=== PATIENT | male | born 1960 | race Caucasian/White ===

== ENCOUNTER 2019-01-20 12:28 | Day surgery (SDC) | payer OTHER, MEDICAID, SELFPAY ==
--- NOTE | 2019-01-20 | PATH.2_ITS ---
[facility] Accession Number: [id number] . 01 Material submitted: . SIGMOID COLON POLYP AT 30CM X3 . 02 Diagnosis: Sigmoid Colon, Polyp at 30 cm x3, Biopsies: Multiple fragments of tubular adenoma and hyperplastic polyp. [facility]/01/21/2019 . 02 Electronically signed: . Suze Lerner MD, Pathologist NPI- [id number] . 01 Gross description: . Received one formalin-filled container labeled with the patient's name and labeled sigmoid colon polyp at 30 cm x2. The specimen consists of four 0.2-0.4 cm portions of tissue, entirely submitted in one cassette. ([id number]) /FRR . 02 Pathologist provided ICD-10: D12.5 . 02 CPT . 288098 Performed at: 01 [facility] [address] [id number] MD Jacek Teresa MD Phone: [phone] Performed at: 02 [facility] [address] [place] [id number] MD Suze Lerner MD Phone: [phone]
[2019-01-20 12:47] VITALS: BMI 35.4
[2019-01-20 12:52] VITALS: BP 150/97; PULSE 100; RESP 16; TEMP 36.5; O2SAT 100
[2019-01-20] MEDS: SODIUM CHLORIDE 0.9% 1,000 ML 200 ML IV (13:00)
--- NOTE | 2019-01-20 13:10 | SUR.PREOP ---
Assumed care of Jeremy Matson
--- NOTE | 2019-01-20 13:29 | PM.HP.1 ---
History of Present Illness Chief complaint: [id number] Colonoscopy Patient History Medical History Obstructive sleep apnea of adult (Chronic) Primary insomnia (Chronic 05/16/16) Surgical History History of colonoscopy with polypectomy (Resolved 08/05/09) History of umbilical hernia repair (Resolved 12/13/16) Family History Grandfather No problems noted. Social History marital status: unmarried,single number of children: 0 lives independently: Yes caregiver/support person: No pets and animals: Yes (16-month puppy) education level: high school occupational status: employed Smoking Status: Current every day smoker quit status: considering quitting alcohol intake: current substance use type: does not use Family & Social History Social History: lives independently Yes caregiver/support person No Tobacco & Substance use: Smoking Status Current every day smoker alcohol intake current Meds Home Medications Medication Instructions Recorded Confirmed Type betamethasone dipropionate 0.05 % 1 applictn TOP DAILY #60 ml 10/24/18 01/20/19 Rx lotion calcipotriene 0.005 % topical 1 applictn TOP DAILY #60 gram 10/24/18 01/20/19 Rx ointment sildenafil 100 mg tablet 100 mg PO ONCE #30 tab 10/24/18 01/20/19 Rx triamcinolone acetonide [Kenalog] 40 mg IM ONCE 01/20/19 History Allergies Allergy/AdvReac Type Severity Reaction Status Date / Time No Known Drug Allergies Allergy Verified 01/20/19 12:45 Review of Systems Review of Systems Patient denies unusual shortness of breath or chest pain GI is in HPI screening colonoscopies had a history of 3 polyps neurologic normal Exam Vital Signs (past 8 hours): - 01/20/19 12:52 Temperature 97.7 F Pulse Rate 100 H Respiratory Rate 16 Blood Pressure 150/97 H Pulse Oximetry 100 Oxygen Delivery Method Room Air Narrative Exam Narrative: Patient is alert and oriented in no distress lungs are clear with no rales or wheezes heart regular rhythm no murmur abdominal exam is soft and nontender no organomegaly no masses rectal will be done at time of colonoscopy Assessment & Plan Assessment & Plan narrative: Patient is here for screening colonoscopy as a history of having had 3 polyps removed some years ago he has no melena or hematochezia we will proceed with colonoscopy today he has no questions he understands the procedure very well
[2019-01-20] MEDS: MIDAZOLAM 5 MG/5 ML VIAL IV (13:46)
[2019-01-20] MEDS: fentaNYL 250 MCG/5 ML INJ IV (13:47)
--- NOTE | 2019-01-20 14:03 | PM.OP.1 ---
Operative Date/Time/Diagnoses Date of procedure: 01/20/19 Time of procedure: 14:03 Pre-op diagnosis: Screening colonoscopy Procedure & Clinicians Procedure: Colonoscopy to the cecum with biopsy of 3 small polyps in the sigmoid at 30 cm these were each removed with the cold forceps sent for histology patient also has sigmoid diverticulosis Same procedure as scheduled: Yes Surgeon: David Gutierrez Anesthesia Type: Sedation Operative Notes Blood products transfused: none Procedure in detail: Patient was properly identified during surgical pause flexible fiberoptic colonoscope inserted transanally to the cecum under conscious sedation with Versed and fentanyl patient had 3 small polyps approximately 5 mm in diameter in the sigmoid colon at 30 cm these were each removed and sent for histopathology patient is also noted to have sigmoid diverticulosis the remainder of the colon is normal. Procedure is well tolerated. Complications: none Condition: stable Disposition: PACU Plan for aftercare: obtain biopsy reports from doctor
[2019-01-20 14:05] VITALS: BP 128/80; PULSE 81; RESP 15; TEMP 36.6; O2SAT 96
[2019-01-20 14:25] VITALS: BP 128/86; PULSE 73; RESP 16; TEMP 37.1; O2SAT 98
== END 2019-01-20 14:33 ==
LOC: ENDO 12:29
PROVIDERS: Family Provider Family Medicine; PCP Student in an Organized Health Care Education/Training Program; Visit Provider Surgery
PROC: 0DJD8ZZ Inspection of Lower Intestinal Tract, Via Natural or Artificial Opening Endoscopic (ICD-10-PCS; CPT 45378; principal; 2019-01-20 14:00)
DX: Z86.010 Personal history of colon polyps (principal); D12.5 Benign neoplasm of sigmoid colon; K57.30 Diverticulosis of large intestine without perforation or abscess without bleeding; G47.33 Obstructive sleep apnea (adult) (pediatric); F17.210 Nicotine dependence, cigarettes, uncomplicated
CPT/HCPCS: 45380; 88305; J2250; J3010

== ENCOUNTER 2019-02-25 10:30 | Outpatient (RCR) | payer OTHER, MEDICAID, SELFPAY ==
--- NOTE | 2019-01-31 11:20 | PT.OIE ---
Current Diagnoses Stiffness of left knee, not elsewhere classified (01/31/19) Muscle weakness (generalized) (01/31/19) Other abnormalities of gait and mobility (01/31/19) Presence of left artificial knee joint (01/31/19) Past Medical History (Last Updated 10/22/18 @ 11:59 by Anna Munoz) Obstructive sleep apnea of adult (Chronic) Primary insomnia (Chronic 05/16/16) Past Surgical History (Last Updated 10/22/18 @ 12:02 by Anna Munoz) History of colonoscopy with polypectomy (Resolved 08/05/09) History of umbilical hernia repair (Resolved 12/13/16) Provider Visit Care Team Role Provider Type Damien Benton MD Primary Care Provider Physician Specialty: Internal Medicine Address: [address] [place] [address], [id number] Email: Charan Nichols MD Attending Provider Non-Staff Specialty: Orthopedics Address: [address] [place] [address], [address] Email: Physical Therapy Initial Evaluation PT-OP-A Visit Information Start: 01/31/19 12:21 Freq: Status: Active Protocol: Document 01/31/19 11:20 [facility] (Rec: 01/31/19 12:49 [facility] [email or web address]) Out-Patient Physical Therapy Visit Information Visit Information Visit Type Initial Evaluation Visit Start Time 11:20 Visit Stop Time 12:06 Total Visit Minutes 46 Visit Number 1 Number of PIER MASTER ASSISTANT Visits 0 Evaluation Information Evaluation Date 01/31/19 PT-OP-B Current Condition Start: 01/31/19 12:21 Freq: Status: Active Protocol: Document 01/31/19 11:20 [facility] (Rec: 01/31/19 12:49 [facility] [email or web address]) Current Condition History of Current Condition Onset Date 11/21/2018 Current Complaints L knee stiffness, mild pain, difficulty with walking History of Current Condition Pt is a 58 y/o male s/p partial L knee replacement by Dr. Nichols on 11/21/18. Pt states that he had PT @ [facility], but they no longer take his insurance, therefore he needed to find a new place to continue his rehab. Pt states he has not had any PT in over a month due to this issue. He is doing squats at home and some heel raises. His pain is worst with increased activity throughout the day, notes that it is very stiff if he sits for longer than 15 min and limps initially upon rising to walk. 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 He is doing heat at night occasionally but admits to not using cold. He saw Dr. Nichols in December, and stated that he told him he needs more PT. 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 Functional Limitations- Other unable to squat fully, can knee but increased pain in L knee Personal Factors Other Personal Factors That May Effect current smoker, hard of Therapy/Recovery hearing d/t job PT-OP-C Subjective Start: 01/31/19 12:21 Freq: Status: Active Protocol: Document 01/31/19 11:20 [facility] (Rec: 01/31/19 12:49 [facility] [email or web address]) OP-PT Subjective Patient Comments Patient Comments Pt notes that he still feels stiff after not having PT for 1 month. Patient Questionnaires Lower Extremity Functional Scale LEFS Score 48/80 (60%) LEFS Impairment 20 to 39% Impaired (Score 48- 62) OP-PT Pain Assessment Location L anterior knee Intensity 2 Scale Used Numeric (1 - 10) Pain Aggravating Factors Changing Position Walking Pain Alleviating Factors Heat Home Pain Medication Use Pain Medications Used No PT-OP-D Balance Start: 01/31/19 12:21 Freq: Status: Active Protocol: Document 01/31/19 11:20 [facility] (Rec: 01/31/19 12:49 [facility] [email or web address]) Balance Tests Single Limb Standing Single Limb- Right 12 sec Single Limb- Left 5 sec PT-OP-F Manual Assessment Start: 01/31/19 12:21 Freq: Status: Active Protocol: Document 01/31/19 11:20 [facility] (Rec: 01/31/19 12:49 [facility] [email or web address]) Manual Assessments Soft Tissue Assessment Soft Tissue Mobility Assessment mild scar tissue anterior L knee at and around incisional area; tension in L HS and quadriceps (moderate) Other Manual Assessments Other Manual Assessments Incision is pink, closed, with slight warmth; no signs or symptoms of infection PT-OP-G Mobility & Gait Start: 01/31/19 12:21 Freq: Status: Active Protocol: Document 01/31/19 11:20 [facility] (Rec: 01/31/19 12:49 [facility] [email or web address]) OP Gait Assessment Gait Deviations General Gait Pattern Antalgic Decreased Stride Length Wide Based Gait Comments Gait Comments LLE ER in standing and throughout gait with decreased push off on the L PT-OP-H Neuro Start: 01/31/19 12:21 Freq: Status: Active Protocol: Document 01/31/19 11:20 [facility] (Rec: 01/31/19 12:49 [facility] [email or web address]) Sensation Evaluation Comments Summary Comments pt admits to mild numbness/ sensation impairment anterior L knee around incisional area PT-OP-K Range of Motion Start: 01/31/19 12:21 Freq: Status: Active Protocol: Document 01/31/19 11:20 [facility] (Rec: 01/31/19 12:49 [facility] [email or web address]) Knee Goniometric Range of Motion Knee Measured in Degrees Right Knee ROM WFL Yes Patient Position Supine Flexion Active (degrees) 130 Hyper-Extension Active 2 Left Knee ROM WFL No Patient Position Supine Flexion Active (degrees) 115 Flexion Passive (degrees) 120 Extension Active (degrees) 2 Extension Passive (degrees) 0 Knee ROM Limitations Knee ROM Limitations Soft Tissue Tightness Pain Swelling PT-OP-M Strength Start: 01/31/19 12:21 Freq: Status: Active Protocol: Document 01/31/19 11:20 [facility] (Rec: 01/31/19 12:49 [facility] [email or web address]) Hip Strength Hip Manual Muscle Testing Left Flexion (L2) 4+ Good+ External Rotation 4 Good Internal Rotation 4+ Good+ Right Flexion (L2) 5 Normal External Rotation 5 Normal Internal Rotation 5 Normal Knee Strength Knee Manual Muscle Testing Left Flexion (S2) 4+ Good+ Extension (L3) 4 Good Right Flexion (S2) 5 Normal Extension (L3) 5 Normal Ankle/Foot Strength Ankle and Foot Manual Muscle Testing Left Dorsiflexion (L4) 5 Normal Plantarflexion (S1) 3+ Fair+ Inversion 5 Normal Eversion (S1) 5 Normal Comments 1 rep SL heel raise, then compensatory actions but no full range Right Dorsiflexion (L4) 5 Normal Plantarflexion (S1) 4 Good Inversion 5 Normal Eversion (S1) 5 Normal Comments 12 reps SL heel raise PT-OP-Q Treatments Start: 01/31/19 12:21 Freq: Status: Active Protocol: Document 01/31/19 11:20 [facility] (Rec: 01/31/19 12:49 [facility] [email or web address]) Gym Equipment Shuttle Recovery Unilateral Squats Details left Resistance 50 lbs Shuttle Recovery Platform Stable Reps/Time x10 Bilateral Squats Resistance 75 lbs Shuttle Recovery Platform Stable Reps/Time x20 Therapeutic Exercises Prone Exercises quad stretch Prone Exercise Name quad stretch with bed sheet Side left Reps/Minutes 2x30 sec hold Standing Exercises SL balance Side left Reps/Minutes 2x10 sec with UE support occasionally heel raises Side bilateral Reps/Minutes x15 Comments focus on increased weight shift to the L PT-OP-T Assessment and Plan Start: 01/31/19 12:21 Freq: Status: Active Protocol: Document 01/31/19 11:20 [facility] (Rec: 01/31/19 12:49 [facility] [email or web address]) Physical Therapy Assessment Rehab Potential Rehabilitation Potential Excellent Evaluation Complexity Number of Personal Factors/Comorbidities 1-2 Number of Body Systems Impaired 4 or More Clinical Presentation at Evaluation Stable Impairments Impairments Activity Tolerance Balance Functional Activities Gait Pain ROM Sensation Soft Tissue Mobility Strength Other Concerns Barriers to Rehabilitation prolonged absence from physical therapy (1 month) Goals Standing balance Impairment single leg balance on the L 5 seconds Short Term Goal (STG) Pt will improve SL balance to 10 seconds or better on the L. 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 LTG Duration 6 weeks LLE strength Impairment LLE weakness Skilled Nursing Goal (LTG) 5/5 with manual muscle testing of the LLE to improve stability and normalize gait prior to d/c. LTG Duration 6 weeks L knee ROM Impairment 2-115 degrees AROM L knee Short Term Goal (STG) 0-120 degrees AROM L knee. 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 LTG Duration 6 week Lower Extremity Functional Scale Impairment 48/80- 60% Short Term Goal (STG) pt will score 55/80 or greater with LEFS to demonstrate improvements with functional activities STG Duration 3 weeks Skilled Nursing Goal (LTG) pt will score 60/80 or greater with LEFS to demonstrate improvements with functional activities LTG Duration 6 weeks Assessment Summary Assessment Pt presents with L knee AROM of 2-115 degrees, mild scar tissue anterior incisional area and moderate tension in the knee musculature, along with mild swelling of the L knee. No signs of infection. Pt does demonstrate antalgic gait, worsened with initial rising from sitting position. He tolerated addition of prone quadriceps stretching with a towel around his ankle, which was added to his HEP as well as single limb standing balance. Pt has had at least 1 month off of physical therapy , and has not achieved normal ROM, strength, balance or gait due to LLE impairments, and is an excellent candidate to progress the above impairments to return to [employer] without restrictions. Physical Therapy Plan Frequency and Duration Frequency of Treatment 2x/Week Duration of Treatment 6 weeks Plan of Care Start Date 01/31/19 Plan of Care End Date 03/14/19 Therapeutic Interventions Therapeutic Interventions Aquatic Therapy Balance Training Gait Training Home Exercise Program Joint Mobilizations Manual Therapy Neuromuscular Re-education Patient/Caregiver Education Self-Care/Home Management Soft Tissue Mobilization Taping Therapeutic Activities Therapeutic Exercises Modalities Cold Pack/Ice Massage Electric Stimulation Hot Packs Ultrasound Next Visit Focus/Plan Next Visit Plan SL balance progression firm to foam, Shuttle Balance Board ( red if tolerable), heel raises to improve gastroc/soleus strength; progress ROM of L knee (flexion and extension), quad and HS strengthening
--- NOTE | 2019-02-04 14:05 | PT.OTN ---
Current Diagnoses Presence of left artificial knee joint (02/04/19) Physical Therapy Treatment Note PT-OP-A Visit Information Start: 01/31/19 12:21 Freq: Status: Active Protocol: Document 02/04/19 13:49 [facility] (Rec: 02/04/19 14:05 [facility] [email or web address]) Out-Patient Physical Therapy Visit Information Visit Information Visit Type Treatment Note Visit Start Time 12:15 Visit Stop Time 13:00 Total Visit Minutes 45 Visit Number 2 Number of TUYERE FITTER Visits 1 PT-OP-B Current Condition Start: 01/31/19 12:21 Freq: Status: Active Protocol: Document 01/31/19 11:20 [facility] (Rec: 01/31/19 12:49 [facility] [email or web address]) Current Condition History of Current Condition Onset Date 11/21/2018 Current Complaints L knee stiffness, mild pain, difficulty with walking History of Current Condition Pt is a 58 y/o male s/p partial L knee replacement by Dr. Nichols on 11/21/18. Pt states that he had PT @ [facility], but they no longer take his insurance, therefore he needed to find a new place to continue his rehab. Pt states he has not had any PT in over a month due to this issue. He is doing squats at home and some heel raises. His pain is worst with increased activity throughout the day, notes that it is very stiff if he sits for longer than 15 min and limps initially upon rising to walk. 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 He is doing heat at night occasionally but admits to not using cold. He saw Dr. Nichols in December, and stated that he told him he needs more PT. 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 Functional Limitations- Other unable to squat fully, can knee but increased pain in L knee Personal Factors Other Personal Factors That May Effect current smoker, hard of Therapy/Recovery hearing d/t job PT-OP-C Subjective Start: 01/31/19 12:21 Freq: Status: Active Protocol: Document 02/04/19 13:49 [facility] (Rec: 02/04/19 14:05 [facility] [email or web address]) OP-PT Subjective Patient Comments Patient Comments Pt doing calf raises, prone quad stretch and walking dogs at home. Knee feeling a little less stiff, very little c/o pain. PT-OP-D Balance Start: 01/31/19 12:21 Freq: Status: Active Protocol: Document 01/31/19 11:20 [facility] (Rec: 01/31/19 12:49 [facility] [email or web address]) Balance Tests Single Limb Standing Single Limb- Right 12 sec Single Limb- Left 5 sec PT-OP-F Manual Assessment Start: 01/31/19 12:21 Freq: Status: Active Protocol: Document 01/31/19 11:20 [facility] (Rec: 01/31/19 12:49 [facility] [email or web address]) Manual Assessments Soft Tissue Assessment Soft Tissue Mobility Assessment mild scar tissue anterior L knee at and around incisional area; tension in L HS and quadriceps (moderate) Other Manual Assessments Other Manual Assessments Incision is pink, closed, with slight warmth; no signs or symptoms of infection PT-OP-G Mobility & Gait Start: 01/31/19 12:21 Freq: Status: Active Protocol: Document 01/31/19 11:20 [facility] (Rec: 01/31/19 12:49 [facility] [email or web address]) OP Gait Assessment Gait Deviations General Gait Pattern Antalgic Decreased Stride Length Wide Based Gait Comments Gait Comments LLE ER in standing and throughout gait with decreased push off on the L PT-OP-H Neuro Start: 01/31/19 12:21 Freq: Status: Active Protocol: Document 01/31/19 11:20 [facility] (Rec: 01/31/19 12:49 [facility] [email or web address]) Sensation Evaluation Comments Summary Comments pt admits to mild numbness/ sensation impairment anterior L knee around incisional area PT-OP-K Range of Motion Start: 01/31/19 12:21 Freq: Status: Active Protocol: Document 01/31/19 11:20 [facility] (Rec: 01/31/19 12:49 [facility] [email or web address]) Knee Goniometric Range of Motion Knee Measured in Degrees Right Knee ROM WFL Yes Patient Position Supine Flexion Active (degrees) 130 Hyper-Extension Active 2 Left Knee ROM WFL No Patient Position Supine Flexion Active (degrees) 115 Flexion Passive (degrees) 120 Extension Active (degrees) 2 Extension Passive (degrees) 0 Knee ROM Limitations Knee ROM Limitations Soft Tissue Tightness Pain Swelling PT-OP-M Strength Start: 01/31/19 12:21 Freq: Status: Active Protocol: Document 01/31/19 11:20 [facility] (Rec: 01/31/19 12:49 [facility] [email or web address]) Hip Strength Hip Manual Muscle Testing Left Flexion (L2) 4+ Good+ External Rotation 4 Good Internal Rotation 4+ Good+ Right Flexion (L2) 5 Normal External Rotation 5 Normal Internal Rotation 5 Normal Knee Strength Knee Manual Muscle Testing Left Flexion (S2) 4+ Good+ Extension (L3) 4 Good Right Flexion (S2) 5 Normal Extension (L3) 5 Normal Ankle/Foot Strength Ankle and Foot Manual Muscle Testing Left Dorsiflexion (L4) 5 Normal Plantarflexion (S1) 3+ Fair+ Inversion 5 Normal Eversion (S1) 5 Normal Comments 1 rep SL heel raise, then compensatory actions but no full range Right Dorsiflexion (L4) 5 Normal Plantarflexion (S1) 4 Good Inversion 5 Normal Eversion (S1) 5 Normal Comments 12 reps SL heel raise PT-OP-Q Treatments Start: 01/31/19 12:21 Freq: Status: Active Protocol: Document 02/04/19 13:49 [facility] (Rec: 02/04/19 14:05 [facility] [email or web address]) Cardio Equipment Recumbent Bicycle Duration (Minutes) 5 Resistance 3 Gym Equipment Shuttle Recovery Unilateral Squats Details left and Right Resistance 50# Shuttle Recovery Platform Stable Reps/Time 15 each Bilateral Squats Resistance 100# Shuttle Recovery Platform Stable Reps/Time x20 Shuttle Balance balance activity Details Red setting Reps/Duration 5 min Comments NBOS, tandem stance, UE movements Therapeutic Exercises Prone Exercises quad stretch Prone Exercise Name quad stretch with bed sheet Side left Reps/Minutes 2x30 sec hold Sitting Exercises HS curls Side left Resistance 2# band Reps/Minutes 2 x 10 Standing Exercises Calf stretching Standing Exercise Name SEBASTIAN Side bilateral Reps/Minutes 30 x 2 SL balance Standing Exercise Name progressed to scott foam Side left Reps/Minutes 2x10 sec with UE support occasionally heel raises Side bilateral Reps/Minutes 20x Comments focus on increased weight shift to the L Manual Therapy Treatment Soft Tissue Mobilization L knee Body Location Incision scar mobs Mobilization Type Cross-Friction Myofascial Release Rolling Intensity/Depth Deep Body Position Supine Comments edema managment. Slight pain at medial joint line. PT-OP-T Assessment and Plan Start: 01/31/19 12:21 Freq: Status: Active Protocol: Document 02/04/19 13:49 [facility] (Rec: 02/04/19 14:05 [facility] [email or web address]) Physical Therapy Assessment Assessment Summary Assessment Pt tolerating thex progressions well with no c/o pain. Added SLB and HS curls to HEP, pt to progress to uneven surface with SLB as tolerated. Little to no pain complaints, knee flexion to 120 degrees after stretching and exercise. Physical Therapy Plan Next Visit Focus/Plan Next Note Type Treatment Note Next Visit Plan Progress LE strengthening, ROM and balance program as tolerated.
--- NOTE | 2019-02-07 15:08 | PT.OTN ---
Current Diagnoses Presence of left artificial knee joint (02/07/19) Physical Therapy Treatment Note PT-OP-A Visit Information Start: 01/31/19 12:21 Freq: Status: Active Protocol: Document 02/07/19 14:59 SA (Rec: 02/07/19 15:08 SA [email or web address]) Out-Patient Physical Therapy Visit Information Visit Information Visit Type Treatment Note Visit Start Time 13:00 Visit Stop Time 13:45 Total Visit Minutes 45 Visit Number 3 Number of GIFTS OFFICER Visits 2 PT-OP-B Current Condition Start: 01/31/19 12:21 Freq: Status: Active Protocol: Document 01/31/19 11:20 RCC (Rec: 01/31/19 12:49 RCC [email or web address]) Current Condition History of Current Condition Onset Date 11/21/2018 Current Complaints L knee stiffness, mild pain, difficulty with walking History of Current Condition Pt is a 58 y/o male s/p partial L knee replacement by Dr. Nichols on 11/21/18. Pt states that he had PT @ [facility], but they no longer take his insurance, therefore he needed to find a new place to continue his rehab. Pt states he has not had any PT in over a month due to this issue. He is doing squats at home and some heel raises. His pain is worst with increased activity throughout the day, notes that it is very stiff if he sits for longer than 15 min and limps initially upon rising to walk. 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 He is doing heat at night occasionally but admits to not using cold. He saw Dr. Nichols in December, and stated that he told him he needs more PT. Treatment Goals Patient/Caregiver Goals improve ROM, strength, normalize gait Prior Functional Status Baseline Function- Mobility Independent Baseline Function- Gait WNL Baseline Function- Other working as a commercial account manager, squatting and kneeling with L knee pain Current Functional Impairments (Reported) Functional Limitations- Mobility/Gait pt reports limping and feeling stiff. Functional Limitations- Other unable to squat fully, can knee but increased pain in L knee Personal Factors Other Personal Factors That May Effect current smoker, hard of Therapy/Recovery hearing d/t job PT-OP-C Subjective Start: 01/31/19 12:21 Freq: Status: Active Protocol: Document 02/07/19 14:59 SA (Rec: 02/07/19 15:08 SA [email or web address]) OP-PT Subjective Patient Comments Patient Comments Pt feeling pretty good today, not painful but continued stiffness mostly when getting up in morning and after prolonged sitting. PT-OP-D Balance Start: 01/31/19 12:21 Freq: Status: Active Protocol: Document 01/31/19 11:20 RCC (Rec: 01/31/19 12:49 RCC [email or web address]) Balance Tests Single Limb Standing Single Limb- Right 12 sec Single Limb- Left 5 sec PT-OP-F Manual Assessment Start: 01/31/19 12:21 Freq: Status: Active Protocol: Document 01/31/19 11:20 RCC (Rec: 01/31/19 12:49 RCC [email or web address]) Manual Assessments Soft Tissue Assessment Soft Tissue Mobility Assessment mild scar tissue anterior L knee at and around incisional area; tension in L HS and quadriceps (moderate) Other Manual Assessments Other Manual Assessments Incision is pink, closed, with slight warmth; no signs or symptoms of infection PT-OP-G Mobility & Gait Start: 01/31/19 12:21 Freq: Status: Active Protocol: Document 01/31/19 11:20 RCC (Rec: 01/31/19 12:49 RCC [email or web address]) OP Gait Assessment Gait Deviations General Gait Pattern Antalgic Decreased Stride Length Wide Based Gait Comments Gait Comments LLE ER in standing and throughout gait with decreased push off on the L PT-OP-H Neuro Start: 01/31/19 12:21 Freq: Status: Active Protocol: Document 01/31/19 11:20 RCC (Rec: 01/31/19 12:49 RCC [email or web address]) Sensation Evaluation Comments Summary Comments pt admits to mild numbness/ sensation impairment anterior L knee around incisional area PT-OP-K Range of Motion Start: 01/31/19 12:21 Freq: Status: Active Protocol: Document 01/31/19 11:20 RCC (Rec: 01/31/19 12:49 RCC [email or web address]) Knee Goniometric Range of Motion Knee Measured in Degrees Right Knee ROM WFL Yes Patient Position Supine Flexion Active (degrees) 130 Hyper-Extension Active 2 Left Knee ROM WFL No Patient Position Supine Flexion Active (degrees) 115 Flexion Passive (degrees) 120 Extension Active (degrees) 2 Extension Passive (degrees) 0 Knee ROM Limitations Knee ROM Limitations Soft Tissue Tightness Pain Swelling PT-OP-M Strength Start: 01/31/19 12:21 Freq: Status: Active Protocol: Document 01/31/19 11:20 RCC (Rec: 01/31/19 12:49 RCC [email or web address]) Hip Strength Hip Manual Muscle Testing Left Flexion (L2) 4+ Good+ External Rotation 4 Good Internal Rotation 4+ Good+ Right Flexion (L2) 5 Normal External Rotation 5 Normal Internal Rotation 5 Normal Knee Strength Knee Manual Muscle Testing Left Flexion (S2) 4+ Good+ Extension (L3) 4 Good Right Flexion (S2) 5 Normal Extension (L3) 5 Normal Ankle/Foot Strength Ankle and Foot Manual Muscle Testing Left Dorsiflexion (L4) 5 Normal Plantarflexion (S1) 3+ Fair+ Inversion 5 Normal Eversion (S1) 5 Normal Comments 1 rep SL heel raise, then compensatory actions but no full range Right Dorsiflexion (L4) 5 Normal Plantarflexion (S1) 4 Good Inversion 5 Normal Eversion (S1) 5 Normal Comments 12 reps SL heel raise PT-OP-Q Treatments Start: 01/31/19 12:21 Freq: Status: Active Protocol: Document 02/07/19 14:59 SA (Rec: 02/07/19 15:08 SA [email or web address]) Cardio Equipment Recumbent Elliptical (Biodex) Duration (Minutes) 7 Resistance 5 Gym Equipment Shuttle Balance balance activity Details Red setting Reps/Duration 5 min Comments NBOS, tandem stance, UE movements, A/P and lateral Therapeutic Exercises Supine Exercises TKEs Side left Resistance 2# Equipment Used towel roll Reps/Minutes 5 x 12 Prone Exercises quad stretch Prone Exercise Name manual Side left Reps/Minutes 2x30 sec hold Sitting Exercises HS curls Side left Resistance 2# band Reps/Minutes 2 x 10 Standing Exercises wall squats Side bilateral Reps/Minutes 12x Comments cues for technique Calf stretching Standing Exercise Name SEBASTIAN Side bilateral Reps/Minutes 30 x 2 SL balance Standing Exercise Name progressed to scott foam Side left Reps/Minutes 2x10 sec with UE support occasionally heel raises Side bilateral Reps/Minutes 20x Comments focus on increased weight shift to the L Manual Therapy Treatment Soft Tissue Mobilization L knee Body Location Incision scar mobs Mobilization Type Cross-Friction Myofascial Release Rolling Intensity/Depth Deep Comments edema managment. Slight pain at medial joint line. PT-OP-T Assessment and Plan Start: 01/31/19 12:21 Freq: Status: Active Protocol: Document 02/07/19 14:59 SA (Rec: 02/07/19 15:08 SA [email or web address]) Physical Therapy Assessment Assessment Summary Assessment Pt tolerating thex progressions well, doing HEP on most days. No increase in pain or sx. Tolerating longer walks with dogs. Physical Therapy Plan Next Visit Focus/Plan Next Note Type Treatment Note Next Visit Plan Progress LE strengthening, ROM and balance program as tolerated.
--- NOTE | 2019-02-11 14:17 | PT.OTN ---
Current Diagnoses Presence of left artificial knee joint (02/11/19) Physical Therapy Treatment Note PT-OP-A Visit Information Start: 01/31/19 12:21 Freq: Status: Active Protocol: Document 02/11/19 14:09 SA (Rec: 02/11/19 14:16 SA [email or web address]) Out-Patient Physical Therapy Visit Information Visit Information Visit Type Treatment Note Visit Start Time 13:00 Visit Stop Time 13:46 Total Visit Minutes 46 Visit Number 4 Number of FIELD REIMBURSEMENT MANAGER Visits 3 PT-OP-B Current Condition Start: 01/31/19 12:21 Freq: Status: Active Protocol: Document 01/31/19 11:20 RCC (Rec: 01/31/19 12:49 RCC [email or web address]) Current Condition History of Current Condition Onset Date 11/21/2018 Current Complaints L knee stiffness, mild pain, difficulty with walking History of Current Condition Pt is a 58 y/o male s/p partial L knee replacement by Dr. Nichols on 11/21/18. Pt states that he had PT @ [facility], but they no longer take his insurance, therefore he needed to find a new place to continue his rehab. Pt states he has not had any PT in over a month due to this issue. He is doing squats at home and some heel raises. His pain is worst with increased activity throughout the day, notes that it is very stiff if he sits for longer than 15 min and limps initially upon rising to walk. 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 He is doing heat at night occasionally but admits to not using cold. He saw Dr. Nichols in December, and stated that he told him he needs more PT. 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 Functional Limitations- Other unable to squat fully, can knee but increased pain in L knee Personal Factors Other Personal Factors That May Effect current smoker, hard of Therapy/Recovery hearing d/t job PT-OP-C Subjective Start: 01/31/19 12:21 Freq: Status: Active Protocol: Document 02/11/19 14:09 SA (Rec: 02/11/19 14:16 SA [email or web address]) OP-PT Subjective Patient Comments Patient Comments Pt reports no pain and gradual strength improvements. Pt somewhat inconsistent with HEP . PT-OP-D Balance Start: 01/31/19 12:21 Freq: Status: Active Protocol: Document 01/31/19 11:20 RCC (Rec: 01/31/19 12:49 RCC [email or web address]) Balance Tests Single Limb Standing Single Limb- Right 12 sec Single Limb- Left 5 sec PT-OP-F Manual Assessment Start: 01/31/19 12:21 Freq: Status: Active Protocol: Document 01/31/19 11:20 RCC (Rec: 01/31/19 12:49 RCC [email or web address]) Manual Assessments Soft Tissue Assessment Soft Tissue Mobility Assessment mild scar tissue anterior L knee at and around incisional area; tension in L HS and quadriceps (moderate) Other Manual Assessments Other Manual Assessments Incision is pink, closed, with slight warmth; no signs or symptoms of infection PT-OP-G Mobility & Gait Start: 01/31/19 12:21 Freq: Status: Active Protocol: Document 01/31/19 11:20 RCC (Rec: 01/31/19 12:49 RCC [email or web address]) OP Gait Assessment Gait Deviations General Gait Pattern Antalgic Decreased Stride Length Wide Based Gait Comments Gait Comments LLE ER in standing and throughout gait with decreased push off on the L PT-OP-H Neuro Start: 01/31/19 12:21 Freq: Status: Active Protocol: Document 01/31/19 11:20 RCC (Rec: 01/31/19 12:49 RCC [email or web address]) Sensation Evaluation Comments Summary Comments pt admits to mild numbness/ sensation impairment anterior L knee around incisional area PT-OP-K Range of Motion Start: 01/31/19 12:21 Freq: Status: Active Protocol: Document 01/31/19 11:20 RCC (Rec: 01/31/19 12:49 RCC [email or web address]) Knee Goniometric Range of Motion Knee Measured in Degrees Right Knee ROM WFL Yes Patient Position Supine Flexion Active (degrees) 130 Hyper-Extension Active 2 Left Knee ROM WFL No Patient Position Supine Flexion Active (degrees) 115 Flexion Passive (degrees) 120 Extension Active (degrees) 2 Extension Passive (degrees) 0 Knee ROM Limitations Knee ROM Limitations Soft Tissue Tightness Pain Swelling PT-OP-M Strength Start: 01/31/19 12:21 Freq: Status: Active Protocol: Document 01/31/19 11:20 RCC (Rec: 01/31/19 12:49 RCC [email or web address]) Hip Strength Hip Manual Muscle Testing Left Flexion (L2) 4+ Good+ External Rotation 4 Good Internal Rotation 4+ Good+ Right Flexion (L2) 5 Normal External Rotation 5 Normal Internal Rotation 5 Normal Knee Strength Knee Manual Muscle Testing Left Flexion (S2) 4+ Good+ Extension (L3) 4 Good Right Flexion (S2) 5 Normal Extension (L3) 5 Normal Ankle/Foot Strength Ankle and Foot Manual Muscle Testing Left Dorsiflexion (L4) 5 Normal Plantarflexion (S1) 3+ Fair+ Inversion 5 Normal Eversion (S1) 5 Normal Comments 1 rep SL heel raise, then compensatory actions but no full range Right Dorsiflexion (L4) 5 Normal Plantarflexion (S1) 4 Good Inversion 5 Normal Eversion (S1) 5 Normal Comments 12 reps SL heel raise PT-OP-Q Treatments Start: 01/31/19 12:21 Freq: Status: Active Protocol: Document 02/11/19 14:09 SA (Rec: 02/11/19 14:16 SA [email or web address]) Cardio Equipment Recumbent Stepper (Sci-Fit) Duration (Minutes) 7 Resistance 2.5 Gym Equipment Shuttle Recovery Unilateral Squats Details left and Right Resistance 50# Shuttle Recovery Platform Stable Reps/Time 2 x 10 Bilateral Squats Resistance 100# Shuttle Recovery Platform Stable Reps/Time 2 x 15 Shuttle Balance balance activity Details Red setting Reps/Duration 6 min Comments NBOS, tandem stance, UE movements, A/P and lateral, Ball rebounder toss Therapeutic Exercises Supine Exercises SLRs Side left Resistance 2# Reps/Minutes 12x TKEs Side left Resistance 3# Equipment Used towel roll Reps/Minutes 5 x 12 Prone Exercises quad stretch Prone Exercise Name manual Side left Reps/Minutes 3 x 30 Sidelying Exercises hip ABD Side left Reps/Minutes 15x Sitting Exercises HS curls Side left Resistance 2# band Reps/Minutes 2 x 10 Standing Exercises wall squats Side bilateral Reps/Minutes 12x Comments cues for technique SL balance Standing Exercise Name progressed to scott foam Side left Reps/Minutes 2x10 sec with UE support occasionally Manual Therapy Treatment Soft Tissue Mobilization L knee Body Location Incision scar mobs Mobilization Type Cross-Friction Myofascial Release Rolling Intensity/Depth Deep Comments edema managment. Slight pain at medial joint line. PT-OP-T Assessment and Plan Start: 01/31/19 12:21 Freq: Status: Active Protocol: Document 02/11/19 14:09 SA (Rec: 02/11/19 14:16 SA [email or web address]) Physical Therapy Assessment Assessment Summary Assessment L knee PROM 2-115 degrees. Pt tolerating exercise progressions well with very little pain during the day. Encouraged to walk his dogs rather than dog park for increased activity/walking for himself. Physical Therapy Plan Next Visit Focus/Plan Next Note Type Treatment Note Next Visit Plan Progress LE strengthening, ROM and balance program as tolerated. Follow up with increased walking/exercise outside of clinic.
--- NOTE | 2019-02-13 18:06 | PT.OTN ---
Current Diagnoses Presence of left artificial knee joint (02/13/19) Physical Therapy Treatment Note PT-OP-A Visit Information Start: 01/31/19 12:21 Freq: Status: Active Protocol: Document 02/13/19 16:45 HH (Rec: 02/13/19 18:05 HH [email or web address]) Out-Patient Physical Therapy Visit Information Visit Information Visit Type Treatment Note Visit Start Time 16:00 Visit Stop Time 16:45 Total Visit Minutes 45 Visit Number 5 Number of CRANK HAND Visits 0 PT-OP-B Current Condition Start: 01/31/19 12:21 Freq: Status: Active Protocol: Document 01/31/19 11:20 RCC (Rec: 01/31/19 12:49 RCC [email or web address]) Current Condition History of Current Condition Onset Date 11/21/2018 Current Complaints L knee stiffness, mild pain, difficulty with walking History of Current Condition Pt is a 58 y/o male s/p partial L knee replacement by Dr. Nichols on 11/21/18. Pt states that he had PT @ [facility], but they no longer take his insurance, therefore he needed to find a new place to continue his rehab. Pt states he has not had any PT in over a month due to this issue. He is doing squats at home and some heel raises. His pain is worst with increased activity throughout the day, notes that it is very stiff if he sits for longer than 15 min and limps initially upon rising to walk. 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 He is doing heat at night occasionally but admits to not using cold. He saw Dr. Nichols in December, and stated that he told him he needs more PT. 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 Functional Limitations- Other unable to squat fully, can knee but increased pain in L knee Personal Factors Other Personal Factors That May Effect current smoker, hard of Therapy/Recovery hearing d/t job PT-OP-C Subjective Start: 01/31/19 12:21 Freq: Status: Active Protocol: Document 02/13/19 16:45 HH (Rec: 02/13/19 18:05 HH [email or web address]) OP-PT Subjective Patient Comments Patient Comments I didnt do much of HEP and my knee is pretty sore after driving his car for hours yesterday because of using the clutch. PT-OP-D Balance Start: 01/31/19 12:21 Freq: Status: Active Protocol: Document 01/31/19 11:20 RCC (Rec: 01/31/19 12:49 RCC [email or web address]) Balance Tests Single Limb Standing Single Limb- Right 12 sec Single Limb- Left 5 sec PT-OP-F Manual Assessment Start: 01/31/19 12:21 Freq: Status: Active Protocol: Document 01/31/19 11:20 RCC (Rec: 01/31/19 12:49 RCC [email or web address]) Manual Assessments Soft Tissue Assessment Soft Tissue Mobility Assessment mild scar tissue anterior L knee at and around incisional area; tension in L HS and quadriceps (moderate) Other Manual Assessments Other Manual Assessments Incision is pink, closed, with slight warmth; no signs or symptoms of infection PT-OP-G Mobility & Gait Start: 01/31/19 12:21 Freq: Status: Active Protocol: Document 01/31/19 11:20 RCC (Rec: 01/31/19 12:49 RCC [email or web address]) OP Gait Assessment Gait Deviations General Gait Pattern Antalgic Decreased Stride Length Wide Based Gait Comments Gait Comments LLE ER in standing and throughout gait with decreased push off on the L PT-OP-H Neuro Start: 01/31/19 12:21 Freq: Status: Active Protocol: Document 01/31/19 11:20 RCC (Rec: 01/31/19 12:49 RCC [email or web address]) Sensation Evaluation Comments Summary Comments pt admits to mild numbness/ sensation impairment anterior L knee around incisional area PT-OP-K Range of Motion Start: 01/31/19 12:21 Freq: Status: Active Protocol: Document 01/31/19 11:20 RCC (Rec: 01/31/19 12:49 RCC [email or web address]) Knee Goniometric Range of Motion Knee Measured in Degrees Right Knee ROM WFL Yes Patient Position Supine Flexion Active (degrees) 130 Hyper-Extension Active 2 Left Knee ROM WFL No Patient Position Supine Flexion Active (degrees) 115 Flexion Passive (degrees) 120 Extension Active (degrees) 2 Extension Passive (degrees) 0 Knee ROM Limitations Knee ROM Limitations Soft Tissue Tightness Pain Swelling PT-OP-M Strength Start: 01/31/19 12:21 Freq: Status: Active Protocol: Document 01/31/19 11:20 RCC (Rec: 01/31/19 12:49 RCC [email or web address]) Hip Strength Hip Manual Muscle Testing Left Flexion (L2) 4+ Good+ External Rotation 4 Good Internal Rotation 4+ Good+ Right Flexion (L2) 5 Normal External Rotation 5 Normal Internal Rotation 5 Normal Knee Strength Knee Manual Muscle Testing Left Flexion (S2) 4+ Good+ Extension (L3) 4 Good Right Flexion (S2) 5 Normal Extension (L3) 5 Normal Ankle/Foot Strength Ankle and Foot Manual Muscle Testing Left Dorsiflexion (L4) 5 Normal Plantarflexion (S1) 3+ Fair+ Inversion 5 Normal Eversion (S1) 5 Normal Comments 1 rep SL heel raise, then compensatory actions but no full range Right Dorsiflexion (L4) 5 Normal Plantarflexion (S1) 4 Good Inversion 5 Normal Eversion (S1) 5 Normal Comments 12 reps SL heel raise PT-OP-Q Treatments Start: 01/31/19 12:21 Freq: Status: Active Protocol: Document 02/13/19 16:45 HH (Rec: 02/13/19 18:05 HH [email or web address]) Cardio Equipment Bicycle (Upright) Duration (Minutes) 6 Resistance 11 Therapeutic Exercises Supine Exercises TKEs Side left Equipment Used towel roll Reps/Minutes 5 secs hold x 10 Standing Exercises standing TKE Resistance level 6 Equipment Used green band Reps/Minutes 10 secs hold x 10 x 2 wall squats Side bilateral Reps/Minutes 10 x2 Comments with 3 inch box under R foot to facilitate L LE weight acceptance PT-OP-T Assessment and Plan Start: 01/31/19 12:21 Freq: Status: Active Protocol: Document 02/13/19 16:45 HH (Rec: 02/13/19 18:05 HH [email or web address]) Physical Therapy Assessment Assessment Summary Assessment Pt tanika tx well today with focus on terminal knee extension, increased weight acceptance during STS, resisted biking. Physical Therapy Plan Next Visit Focus/Plan Next Note Type Treatment Note Next Visit Plan Progress LE strengthening, ROM and balance program as tolerated. Follow up with increased walking/exercise outside of clinic.
--- NOTE | 2019-02-18 15:50 | PT.OTN ---
Current Diagnoses Presence of left artificial knee joint (02/18/19) Physical Therapy Treatment Note PT-OP-A Visit Information Start: 01/31/19 12:21 Freq: Status: Active Protocol: Document 02/18/19 15:40 SA (Rec: 02/18/19 15:50 SA [email or web address]) Out-Patient Physical Therapy Visit Information Visit Information Visit Type Treatment Note Visit Start Time 12:15 Visit Stop Time 13:00 Total Visit Minutes 45 Visit Number 6 Number of DEPUTY FI[employer]SHAL Visits 1 PT-OP-B Current Condition Start: 01/31/19 12:21 Freq: Status: Active Protocol: Document 01/31/19 11:20 RCC (Rec: 01/31/19 12:49 RCC [email or web address]) Current Condition History of Current Condition Onset Date 11/21/2018 Current Complaints L knee stiffness, mild pain, difficulty with walking History of Current Condition Pt is a 58 y/o male s/p partial L knee replacement by Dr. Nichols on 11/21/18. Pt states that he had PT @ [facility], but they no longer take his insurance, therefore he needed to find a new place to continue his rehab. Pt states he has not had any PT in over a month due to this issue. He is doing squats at home and some heel raises. His pain is worst with increased activity throughout the day, notes that it is very stiff if he sits for longer than 15 min and limps initially upon rising to walk. 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 He is doing heat at night occasionally but admits to not using cold. He saw Dr. Nichols in December, and stated that he told him he needs more PT. Treatment Goals Patient/Caregiver Goals improve ROM, strength, normalize gait Prior Functional Status Baseline Function- Mobility Independent Baseline Function- Gait WNL Baseline Function- Other working as a commercial construction superintendent, squatting and kneeling with L knee pain Current Functional Impairments (Reported) Functional Limitations- Mobility/Gait pt reports limping and feeling stiff. Functional Limitations- Other unable to squat fully, can knee but increased pain in L knee Personal Factors Other Personal Factors That May Effect current smoker, hard of Therapy/Recovery hearing d/t job PT-OP-C Subjective Start: 01/31/19 12:21 Freq: Status: Active Protocol: Document 02/18/19 15:40 SA (Rec: 02/18/19 15:50 SA [email or web address]) OP-PT Subjective Patient Comments Patient Comments Pt reports trying to walk his dogs more and increase activity level outside of clinic. Knee pain is decresing . PT-OP-D Balance Start: 01/31/19 12:21 Freq: Status: Active Protocol: Document 01/31/19 11:20 RCC (Rec: 01/31/19 12:49 RCC [email or web address]) Balance Tests Single Limb Standing Single Limb- Right 12 sec Single Limb- Left 5 sec PT-OP-F Manual Assessment Start: 01/31/19 12:21 Freq: Status: Active Protocol: Document 01/31/19 11:20 RCC (Rec: 01/31/19 12:49 RCC [email or web address]) Manual Assessments Soft Tissue Assessment Soft Tissue Mobility Assessment mild scar tissue anterior L knee at and around incisional area; tension in L HS and quadriceps (moderate) Other Manual Assessments Other Manual Assessments Incision is pink, closed, with slight warmth; no signs or symptoms of infection PT-OP-G Mobility & Gait Start: 01/31/19 12:21 Freq: Status: Active Protocol: Document 01/31/19 11:20 RCC (Rec: 01/31/19 12:49 RCC [email or web address]) OP Gait Assessment Gait Deviations General Gait Pattern Antalgic Decreased Stride Length Wide Based Gait Comments Gait Comments LLE ER in standing and throughout gait with decreased push off on the L PT-OP-H Neuro Start: 01/31/19 12:21 Freq: Status: Active Protocol: Document 01/31/19 11:20 RCC (Rec: 01/31/19 12:49 RCC [email or web address]) Sensation Evaluation Comments Summary Comments pt admits to mild numbness/ sensation impairment anterior L knee around incisional area PT-OP-K Range of Motion Start: 01/31/19 12:21 Freq: Status: Active Protocol: Document 01/31/19 11:20 RCC (Rec: 01/31/19 12:49 RCC [email or web address]) Knee Goniometric Range of Motion Knee Measured in Degrees Right Knee ROM WFL Yes Patient Position Supine Flexion Active (degrees) 130 Hyper-Extension Active 2 Left Knee ROM WFL No Patient Position Supine Flexion Active (degrees) 115 Flexion Passive (degrees) 120 Extension Active (degrees) 2 Extension Passive (degrees) 0 Knee ROM Limitations Knee ROM Limitations Soft Tissue Tightness Pain Swelling PT-OP-M Strength Start: 01/31/19 12:21 Freq: Status: Active Protocol: Document 01/31/19 11:20 RCC (Rec: 01/31/19 12:49 RCC [email or web address]) Hip Strength Hip Manual Muscle Testing Left Flexion (L2) 4+ Good+ External Rotation 4 Good Internal Rotation 4+ Good+ Right Flexion (L2) 5 Normal External Rotation 5 Normal Internal Rotation 5 Normal Knee Strength Knee Manual Muscle Testing Left Flexion (S2) 4+ Good+ Extension (L3) 4 Good Right Flexion (S2) 5 Normal Extension (L3) 5 Normal Ankle/Foot Strength Ankle and Foot Manual Muscle Testing Left Dorsiflexion (L4) 5 Normal Plantarflexion (S1) 3+ Fair+ Inversion 5 Normal Eversion (S1) 5 Normal Comments 1 rep SL heel raise, then compensatory actions but no full range Right Dorsiflexion (L4) 5 Normal Plantarflexion (S1) 4 Good Inversion 5 Normal Eversion (S1) 5 Normal Comments 12 reps SL heel raise PT-OP-Q Treatments Start: 01/31/19 12:21 Freq: Status: Active Protocol: Document 02/18/19 15:40 SA (Rec: 02/18/19 15:50 SA [email or web address]) Cardio Equipment Bicycle (Upright) Duration (Minutes) 6 Resistance 11 Gym Equipment Shuttle Recovery Unilateral Squats Details left and Right Resistance 50# Shuttle Recovery Platform Stable Reps/Time 2 x 10 Bilateral Squats Resistance 100# Shuttle Recovery Platform Stable Reps/Time 2 x 15 Shuttle Balance balance activity Details Red setting Reps/Duration 6 min Comments NBOS, tandem stance, UE movements, A/P and lateral, Ball rebounder toss Therapeutic Exercises Supine Exercises SLRs Side left Resistance 2# Reps/Minutes 2 x 10 TKEs Side left Equipment Used towel roll Reps/Minutes 5 secs hold x 10 Prone Exercises quad stretch Prone Exercise Name manual Side left Reps/Minutes 3 x 30 Sidelying Exercises hip ABD Side left Equipment Used 2# Reps/Minutes 15x Sitting Exercises HS curls Side left Resistance 2# band Reps/Minutes 2 x 10 Standing Exercises standing TKE Resistance level 6 Equipment Used green band Reps/Minutes 10 secs hold x 10 x 2 wall squats Resistance at bar Reps/Minutes 10 x2 Comments with 3 inch box under R foot to facilitate L LE weight acceptance SL balance Side left Reps/Minutes 2x10 sec with UE support occasionally Comments disc Manual Therapy Treatment Soft Tissue Mobilization L knee Body Location Incision scar mobs Mobilization Type Cross-Friction Myofascial Release Rolling Intensity/Depth Deep PT-OP-T Assessment and Plan Start: 01/31/19 12:21 Freq: Status: Active Protocol: Document 02/18/19 15:40 SA (Rec: 02/18/19 15:50 SA [email or web address]) Physical Therapy Assessment Assessment Summary Assessment Pt tolerating knee strengthening and ROM progressions well. Some continued knee pain but decreasing intensity. Physical Therapy Plan Next Visit Focus/Plan Next Note Type Treatment Note Next Visit Plan Progress LE strengthening, ROM and balance program as tolerated. Follow up with increased walking/exercise outside of clinic.
--- NOTE | 2019-02-20 17:57 | PT.OTN ---
Current Diagnoses Presence of left artificial knee joint (02/20/19) Physical Therapy Treatment Note PT-OP-A Visit Information Start: 01/31/19 12:21 Freq: Status: Active Protocol: Document 02/20/19 16:45 HH (Rec: 02/20/19 17:57 HH [email or web address]) Out-Patient Physical Therapy Visit Information Visit Information Visit Type Treatment Note Visit Start Time 16:45 Visit Stop Time 17:30 Total Visit Minutes 45 Visit Number 7 Number of PHARM SPEC Visits 0 PT-OP-B Current Condition Start: 01/31/19 12:21 Freq: Status: Active Protocol: Document 01/31/19 11:20 RCC (Rec: 01/31/19 12:49 RCC [email or web address]) Current Condition History of Current Condition Onset Date 11/21/2018 Current Complaints L knee stiffness, mild pain, difficulty with walking History of Current Condition Pt is a 58 y/o male s/p partial L knee replacement by Dr. Nichols on 11/21/18. Pt states that he had PT @ [facility], but they no longer take his insurance, therefore he needed to find a new place to continue his rehab. Pt states he has not had any PT in over a month due to this issue. He is doing squats at home and some heel raises. His pain is worst with increased activity throughout the day, notes that it is very stiff if he sits for longer than 15 min and limps initially upon rising to walk. 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 He is doing heat at night occasionally but admits to not using cold. He saw Dr. Nichols in December, and stated that he told him he needs more PT. 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 Functional Limitations- Other unable to squat fully, can knee but increased pain in L knee Personal Factors Other Personal Factors That May Effect current smoker, hard of Therapy/Recovery hearing d/t job PT-OP-C Subjective Start: 01/31/19 12:21 Freq: Status: Active Protocol: Document 02/20/19 16:45 HH (Rec: 02/20/19 17:57 HH [email or web address]) OP-PT Subjective Patient Comments Patient Comments Pt denies any knee pain but weakness during squat. PT-OP-D Balance Start: 01/31/19 12:21 Freq: Status: Active Protocol: Document 01/31/19 11:20 RCC (Rec: 01/31/19 12:49 RCC [email or web address]) Balance Tests Single Limb Standing Single Limb- Right 12 sec Single Limb- Left 5 sec PT-OP-F Manual Assessment Start: 01/31/19 12:21 Freq: Status: Active Protocol: Document 01/31/19 11:20 RCC (Rec: 01/31/19 12:49 RCC [email or web address]) Manual Assessments Soft Tissue Assessment Soft Tissue Mobility Assessment mild scar tissue anterior L knee at and around incisional area; tension in L HS and quadriceps (moderate) Other Manual Assessments Other Manual Assessments Incision is pink, closed, with slight warmth; no signs or symptoms of infection PT-OP-G Mobility & Gait Start: 01/31/19 12:21 Freq: Status: Active Protocol: Document 01/31/19 11:20 RCC (Rec: 01/31/19 12:49 RCC [email or web address]) OP Gait Assessment Gait Deviations General Gait Pattern Antalgic Decreased Stride Length Wide Based Gait Comments Gait Comments LLE ER in standing and throughout gait with decreased push off on the L PT-OP-H Neuro Start: 01/31/19 12:21 Freq: Status: Active Protocol: Document 01/31/19 11:20 RCC (Rec: 01/31/19 12:49 RCC [email or web address]) Sensation Evaluation Comments Summary Comments pt admits to mild numbness/ sensation impairment anterior L knee around incisional area PT-OP-K Range of Motion Start: 01/31/19 12:21 Freq: Status: Active Protocol: Document 01/31/19 11:20 RCC (Rec: 01/31/19 12:49 RCC [email or web address]) Knee Goniometric Range of Motion Knee Measured in Degrees Right Knee ROM WFL Yes Patient Position Supine Flexion Active (degrees) 130 Hyper-Extension Active 2 Left Knee ROM WFL No Patient Position Supine Flexion Active (degrees) 115 Flexion Passive (degrees) 120 Extension Active (degrees) 2 Extension Passive (degrees) 0 Knee ROM Limitations Knee ROM Limitations Soft Tissue Tightness Pain Swelling PT-OP-M Strength Start: 01/31/19 12:21 Freq: Status: Active Protocol: Document 01/31/19 11:20 RCC (Rec: 01/31/19 12:49 RCC [email or web address]) Hip Strength Hip Manual Muscle Testing Left Flexion (L2) 4+ Good+ External Rotation 4 Good Internal Rotation 4+ Good+ Right Flexion (L2) 5 Normal External Rotation 5 Normal Internal Rotation 5 Normal Knee Strength Knee Manual Muscle Testing Left Flexion (S2) 4+ Good+ Extension (L3) 4 Good Right Flexion (S2) 5 Normal Extension (L3) 5 Normal Ankle/Foot Strength Ankle and Foot Manual Muscle Testing Left Dorsiflexion (L4) 5 Normal Plantarflexion (S1) 3+ Fair+ Inversion 5 Normal Eversion (S1) 5 Normal Comments 1 rep SL heel raise, then compensatory actions but no full range Right Dorsiflexion (L4) 5 Normal Plantarflexion (S1) 4 Good Inversion 5 Normal Eversion (S1) 5 Normal Comments 12 reps SL heel raise PT-OP-Q Treatments Start: 01/31/19 12:21 Freq: Status: Active Protocol: Document 02/20/19 16:45 HH (Rec: 02/20/19 17:57 HH [email or web address]) Therapeutic Exercises Supine Exercises TKEs Side left Equipment Used towel roll Reps/Minutes 5 secs hold x 10 Standing Exercises monster walk Resistance green band on knees Reps/Minutes 100 feet Comments cues for neutral foot and knees standing TKE Resistance level 6 Equipment Used green band Reps/Minutes 10 secs hold x 10 x 2 wall squats Resistance at bar Reps/Minutes 8 x 3 Comments with 3 inch box under R foot to facilitate L LE weight acceptance SL balance Side left Reps/Minutes 2x10 sec with UE support occasionally Comments disc Gait Training Gait Activity slow walk Level of Assistance supervision Surface level Distance/Duration 100 ft Treatment Focus single leg stance Comments high knee walk with heel toe pattern Manual Therapy Treatment Soft Tissue Mobilization L knee Body Location Incision scar mobs Mobilization Type Cross-Friction Myofascial Release Rolling Intensity/Depth Deep PT-OP-T Assessment and Plan Start: 01/31/19 12:21 Freq: Status: Active Protocol: Document 02/20/19 16:45 HH (Rec: 02/20/19 17:57 HH [email or web address]) Physical Therapy Assessment Assessment Summary Assessment Pt tanika tx well without knee pain. Pt still presents mile external rotated L tibial during amb / resting posture. today focused on squat, monster walk with band on knees, knee and foot alignments during gait training. Pt will be d/c in 2 visits. Physical Therapy Plan Next Visit Focus/Plan Next Note Type Treatment Note Next Visit Plan provide pt printed HEP for D/C knee and foot alignment ( external rotated tibial) Progress LE strengthening, ROM and balance program as tolerated. Follow up with increased walking/exercise outside of clinic.
--- NOTE | 2019-02-25 13:32 | PT.OTN ---
Current Diagnoses Presence of left artificial knee joint (02/25/19) Physical Therapy Treatment Note PT-OP-A Visit Information Start: 01/31/19 12:21 Freq: Status: Active Protocol: Document 02/25/19 10:30 HH (Rec: 02/25/19 13:32 HH [email or web address]) Out-Patient Physical Therapy Visit Information Visit Information Visit Type Treatment Note Visit Note 8/9 insurance covered visit today. Pt agreeable to be D/C from PT. Visit Start Time 10:30 Visit Stop Time 11:15 Total Visit Minutes 45 Visit Number 8 Number of DYEING MACHINE BACK TENDER Visits 0 PT-OP-B Current Condition Start: 01/31/19 12:21 Freq: Status: Active Protocol: Document 01/31/19 11:20 RCC (Rec: 01/31/19 12:49 RCC [email or web address]) Current Condition History of Current Condition Onset Date 11/21/2018 Current Complaints L knee stiffness, mild pain, difficulty with walking History of Current Condition Pt is a 58 y/o male s/p partial L knee replacement by Dr. Nichols on 11/21/18. Pt states that he had PT @ [facility], but they no longer take his insurance, therefore he needed to find a new place to continue his rehab. Pt states he has not had any PT in over a month due to this issue. He is doing squats at home and some heel raises. His pain is worst with increased activity throughout the day, notes that it is very stiff if he sits for longer than 15 min and limps initially upon rising to walk. 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 He is doing heat at night occasionally but admits to not using cold. He saw Dr. Nichols in December, and stated that he told him he needs more PT. 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 Functional Limitations- Other unable to squat fully, can knee but increased pain in L knee Personal Factors Other Personal Factors That May Effect current smoker, hard of Therapy/Recovery hearing d/t job PT-OP-C Subjective Start: 01/31/19 12:21 Freq: Status: Active Protocol: Document 02/25/19 10:30 HH (Rec: 02/25/19 13:32 HH [email or web address]) OP-PT Subjective Patient Comments Patient Comments soreness at my L medial knee but has been trying to focus on keeping my L foot neutral. PT-OP-D Balance Start: 01/31/19 12:21 Freq: Status: Active Protocol: Document 01/31/19 11:20 RCC (Rec: 01/31/19 12:49 RCC [email or web address]) Balance Tests Single Limb Standing Single Limb- Right 12 sec Single Limb- Left 5 sec PT-OP-F Manual Assessment Start: 01/31/19 12:21 Freq: Status: Active Protocol: Document 01/31/19 11:20 RCC (Rec: 01/31/19 12:49 RCC [email or web address]) Manual Assessments Soft Tissue Assessment Soft Tissue Mobility Assessment mild scar tissue anterior L knee at and around incisional area; tension in L HS and quadriceps (moderate) Other Manual Assessments Other Manual Assessments Incision is pink, closed, with slight warmth; no signs or symptoms of infection PT-OP-G Mobility & Gait Start: 01/31/19 12:21 Freq: Status: Active Protocol: Document 01/31/19 11:20 RCC (Rec: 01/31/19 12:49 RCC [email or web address]) OP Gait Assessment Gait Deviations General Gait Pattern Antalgic Decreased Stride Length Wide Based Gait Comments Gait Comments LLE ER in standing and throughout gait with decreased push off on the L PT-OP-H Neuro Start: 01/31/19 12:21 Freq: Status: Active Protocol: Document 01/31/19 11:20 RCC (Rec: 01/31/19 12:49 RCC [email or web address]) Sensation Evaluation Comments Summary Comments pt admits to mild numbness/ sensation impairment anterior L knee around incisional area PT-OP-K Range of Motion Start: 01/31/19 12:21 Freq: Status: Active Protocol: Document 01/31/19 11:20 RCC (Rec: 01/31/19 12:49 RCC [email or web address]) Knee Goniometric Range of Motion Knee Measured in Degrees Right Knee ROM WFL Yes Patient Position Supine Flexion Active (degrees) 130 Hyper-Extension Active 2 Left Knee ROM WFL No Patient Position Supine Flexion Active (degrees) 115 Flexion Passive (degrees) 120 Extension Active (degrees) 2 Extension Passive (degrees) 0 Knee ROM Limitations Knee ROM Limitations Soft Tissue Tightness Pain Swelling PT-OP-M Strength Start: 01/31/19 12:21 Freq: Status: Active Protocol: Document 01/31/19 11:20 RCC (Rec: 01/31/19 12:49 RCC [email or web address]) Hip Strength Hip Manual Muscle Testing Left Flexion (L2) 4+ Good+ External Rotation 4 Good Internal Rotation 4+ Good+ Right Flexion (L2) 5 Normal External Rotation 5 Normal Internal Rotation 5 Normal Knee Strength Knee Manual Muscle Testing Left Flexion (S2) 4+ Good+ Extension (L3) 4 Good Right Flexion (S2) 5 Normal Extension (L3) 5 Normal Ankle/Foot Strength Ankle and Foot Manual Muscle Testing Left Dorsiflexion (L4) 5 Normal Plantarflexion (S1) 3+ Fair+ Inversion 5 Normal Eversion (S1) 5 Normal Comments 1 rep SL heel raise, then compensatory actions but no full range Right Dorsiflexion (L4) 5 Normal Plantarflexion (S1) 4 Good Inversion 5 Normal Eversion (S1) 5 Normal Comments 12 reps SL heel raise PT-OP-Q Treatments Start: 01/31/19 12:21 Freq: Status: Active Protocol: Document 02/25/19 10:30 HH (Rec: 02/25/19 13:32 [email or web address]) Therapeutic Exercises Standing Exercises monster walk Resistance green band on knees Reps/Minutes 100 feet Comments cues for neutral foot and knees standing TKE Resistance level 6 Equipment Used green band SL balance Side left Reps/Minutes 2x15 sec with UE support occasionally Gait Training Gait Activity banded walk Level of Assistance supervision Surface level Distance/Duration 100 ft Treatment Focus hip stability Comments green band at knees and amb with athletic position. slow walk Level of Assistance supervision Surface level Distance/Duration 100 ft Treatment Focus single leg stance Comments high knee walk with heel toe pattern PT-OP-T Assessment and Plan Start: 01/31/19 12:21 Freq: Status: Active Protocol: Document 02/25/19 10:30 HH (Rec: 02/25/19 13:32 [email or web address]) Physical Therapy Assessment Goals Standing balance Travel Director Goal (LTG) goal met: Pt able to maintain SL balance >20 s on R/L without support LLE strength Fci Goal (LTG) LLE at 4+/5 on 02/25/19 L knee ROM Fci Goal (LTG) 0- 125 degrees knee AROM without pain on 02/25/19 Progress Towards Goals Progress Towards Goals Progressing Toward Goals Assessment Summary Assessment Pt did well for reassessment today. Improved knee ROM, single leg balance and strength noted. Pt agreed to d /c from PT due to his limited insurance coverage. today's session focused on postural education on gait mechanics to increase L hip ER with neutral foot alignment, which prevent excessive stress on medial compartment of his L knee. Physical Therapy Plan Discharge Physical Therapy Discharge Reasons Patient Request Discharge Comments Pt did well for reassessment today. Improved knee ROM, single leg balance and strength noted. Pt agreed to d /c from PT due to his limited insurance coverage. today's session focused on postural education on gait mechanics to increase L hip ER with neutral foot alignment, which prevent excessive stress on medial compartment of his L knee.
== END 2019-02-25 16:39 | disposition home or self-care (01) ==
LOC: PHYS 10:30
PROVIDERS: PCP Student in an Organized Health Care Education/Training Program; Visit Provider Orthopaedic Surgery
DX: Z96.652 Presence of left artificial knee joint (principal)
CPT/HCPCS: 97110; 97116; 97140; 97161

== ENCOUNTER 2019-03-03 17:51 | Emergency (ER) | payer OTHER, MEDICAID, SELFPAY ==
[2019-03-03 18:00] VITALS: BP 179/100; PULSE 75; RESP 20; TEMP 36.7; O2SAT 100
--- NOTE | 2019-03-03 19:30 | ED.RECABL ---
HPI - Recheck/Abnormal Lab/Rx <Iveth Jean PA-C - Last Filed: 03/03/19 22:07> General Chief Complaint: Recheck/Abnormal Lab/Rx Stated Complaint: elevated blood pressure Time Seen by Provider: 03/03/19 18:55 Source: patient Mode of arrival: ambulatory Limitations: no limitations History of Present Illness HPI narrative: This 58-year-old male is sent to ED by his primary care clinic due to HTN. He states that he went to donate blood a couple of weeks ago and blood pressure reading there was 194 systolic (twice). He has not checked any blood pressure readings when relaxed or since then. He states that he called his primary care clinic today to schedule an appointment and when he this evening, he mentioned that he has had some intermittent headaches for the last few months though not enough to keep him from work or activity, and they told him to come to the ED right away ?because you are going to have a stroke?, so he came here due to this. He states that he is feeling like his usual self today. He has not had any acute vision change, thinks his vision has gradually worsened (wears contacts). He states that he has never had chest pain or dyspnea with this. No palpitations. No nausea, vomiting or abdominal pain. He denies any new calf pain or swelling. He has never had any focal weakness, difficulty swallowing or talking. He states that he thought he might need to start on blood pressure medicine before seen at the clinic but they are planning to see him this week. Related Data Home Medications Medication Instructions Recorded Confirmed triamcinolone acetonide [Kenalog] 40 mg IM ONCE 01/20/19 Previous Rx's Medication Instructions Recorded betamethasone dipropionate 0.05 % 1 applictn TOP DAILY #60 ml 10/24/18 lotion calcipotriene 0.005 % topical 1 applictn TOP DAILY #60 gram 10/24/18 ointment sildenafil 100 mg tablet 100 mg PO ONCE #30 tab 10/24/18 Allergies Allergy/AdvReac Type Severity Reaction Status Date / Time No Known Drug Allergies Allergy Verified 01/20/19 12:45 Review of Systems <Iveth Jean PA-C - Last Filed: 03/03/19 22:07> Review of Systems ROS Unobtainable: All systems reviewed & are unremarkable except as noted in HPI and below PFSH <Iveth Jean PA-C - Last Filed: 03/03/19 22:07> Medical History (Updated 03/03/19 @ 21:23 by Iveth Jean PA-C) Obstructive sleep apnea of adult (Chronic) Primary insomnia (Chronic 05/16/16) Surgical History (Updated 03/03/19 @ 19:50 by Iveth Jean PA-C) Status post total knee replacement, left (Chronic) History of colonoscopy with polypectomy (Resolved 08/05/09) History of umbilical hernia repair (Resolved 12/13/16) Family History Grandfather No problems noted. Social History marital status: unmarried,single number of children: 0 lives independently: Yes caregiver/support person: No pets and animals: Yes (16-month puppy) education level: high school occupational status: employed Smoking Status: Never smoker quit status: considering quitting alcohol intake: current substance use type: does not use Social History marital status: unmarried,single number of children: 0 lives independently: Yes caregiver/support person: No pets and animals: Yes (16-month puppy) education level: high school occupational status: employed Smoking Status: Never smoker quit status: considering quitting alcohol intake: current substance use type: does not use Exam <Iveth Jean PA-C - Last Filed: 03/03/19 22:07> Narrative Exam Narrative: GENERAL APPEARANCE: Patient sitting comfortably, appears well HEENT: PERRL, EOMI, normal oropharynx, no sinus TTP NECK: Supple, no JVD or masses LUNGS: Clear to auscultation bilaterally. HEART: Rate and rhythm regular without murmur, normal S1 and S2, no S3 or S4. ABDOMEN: Soft, NT, ND, + BS x 4 quadrants NEUROLOGIC: Alert and oriented, normal speech, gait and coordination. EXTREMITIES: No edema or calf tenderness Initial Vital Signs Initial Vital Signs: Vital Signs Temperature 98.1 F 03/03/19 18:00 Pulse Rate 75 03/03/19 18:00 Respiratory Rate 20 03/03/19 18:00 Blood Pressure 179/100 H 03/03/19 18:00 Pulse Oximetry 100 03/03/19 18:00 <Dean Braxton DO - Last Filed: 03/04/19 06:24> Initial Vital Signs Initial Vital Signs: Vital Signs Temperature 98.1 F 03/03/19 18:00 Pulse Rate 75 03/03/19 18:00 Respiratory Rate 20 03/03/19 18:00 Blood Pressure 179/100 H 03/03/19 18:00 Pulse Oximetry 100 03/03/19 18:00 Course <Iveth Jean PA-C - Last Filed: 03/03/19 22:07> Additional Information: No acute findings on workup today, patient is feeling at baseline, has had intermittent headaches the last few months especially upon awakening, but no clear relationship to blood pressure. He does not know what he is recent baseline is however blood pressure is significantly improved here when he is relaxed and this is taken with an appropriate sized cuff. Advised follow-up with PCP office this week and he is already planning that. He does not appear to need any urgent blood pressure treatment at this point. Did advise also follow-up on chronic changes on CT with his PCP and he is agreeable. Orders Ordered: ED Orders 03/03/19 19:46 CT head/brain wo con Stat EKG-12 Lead Stat 03/03/19 20:22 Complete Blood Count AUTO DIFF Stat Comprehensive Metabolic Panel Stat Vital Signs - 8 hr 03/03/19 18:00 03/03/19 19:52 Temperature 98.1 F Pulse Rate 75 68 Respiratory Rate 20 19 Blood Pressure 179/100 H Blood Pressure [Right Arm] 155/83 H Pulse Oximetry 100 95 <Dean Braxton DO - Last Filed: 03/04/19 06:24> Orders Ordered: ED Orders 03/03/19 19:46 CT head/brain wo con Stat EKG-12 Lead Stat 03/03/19 20:22 Complete Blood Count AUTO DIFF Stat Comprehensive Metabolic Panel Stat Vital Signs - 8 hr 03/03/19 18:00 03/03/19 19:52 Temperature 98.1 F Pulse Rate 75 68 Respiratory Rate 20 19 Blood Pressure 179/100 H Blood Pressure [Right Arm] 155/83 H Pulse Oximetry 100 95 MDM - Recheck/Abnormal Lab/Rx <Iveth Jean PA-C - Last Filed: 03/03/19 22:07> Lab Data Attestation: I reviewed the patient's lab results. Result diagrams: 03/03/19 20:22 03/03/19 20:22 Lab Results 03/03/19 03/03/19 Range/Units 20:22 20:22 WBC 8.1 (4.5-11.0) X10^3/uL RBC 5.17 (4.5-5.9) X10^6/uL Hgb 15.1 (13.5-17.5) g/dL Hct 44.0 (41-53) % MCV 85.0 (80-100) fL MCH 29.2 (26-34) PG MCHC 34.3 (30-36) % RDW 14.1 (11.6-14.8) % Plt Count 226 (150-400) X10^3/uL Neut % (Auto) 55.5 (50-75) % Lymph % (Auto) 29.3 (25-40) % Leon % (Auto) 9.8 (3-14) % Eos % (Auto) 4.4 H (2-4) % Baso % (Auto) 1.0 (0-2) % Neut # (Auto) 4500 (0969-2038) /uL Lymph # (Auto) 2400 (4563-4513) /uL Leon # (Auto) 800 (0-900) /uL Eos # (Auto) 400 (0-450) /uL Baso # (Auto) 100 (0-100) /uL Sodium 140 (137-145) mmol/L Potassium 3.7 (3.4-5.1) mmol/L Chloride 106 (98-107) mmol/L Carbon Dioxide 27 (22-32) mmol/L BUN 12 (9-20) mg/dL Creatinine 0.70 (0.66-1.25) mg/dL Estimated GFR > 60.0 (>60) mL/min BUN/Creatinine Ratio 17.1 (6-22) Glucose 105 (80-110) mg/dL Calcium 9.1 (8.4-10.2) mg/dL Total Bilirubin 0.4 (0.2-1.3) mg/dL AST 30 (17-59) IU/L ALT 59 (21-72) IU/L Alkaline Phosphatase 52 (38-126) U/L Total Protein 7.0 (6.3-8.2) g/dL Albumin 4.2 (3.5-5.0) g/dL Globulin 2.8 (1.7-4.1) g/dL Albumin/Globulin Ratio 1.5 (1.0-2.8) Imaging Data CT scan - head: Radiologist's impression: [address] [address] [address] Scan Report Signed Patient: Jeremy Stewart LMR#: [id number] : 9Acct:[id number] Age/Sex: 58 / MDate of Service: 03/03/19 Loc: ED Accession Number: [id number] Procedure: CT head/brain wo con Ordering Provider: Ivteh Jean P.A-C PROCEDURE: CT HEAD/BRAIN WO CON INDICATIONS: HTN, RICHARD TECHNIQUE: Noncontrast 4.5 mm thick angled axial sections acquired from the foramen magnum to the vertex, with coronal and sagittal reformats. For radiation dose reduction, the following was used: automated exposure control, adjustment of mA and/or kV according to patient size. COMPARISON: None. FINDINGS: Image quality: Excellent. CSF spaces: Basal cisterns are patent. No extra-axial fluid collections. Ventricles are normal in size and shape. Brain: No midline shift. No intracranial masses or hemorrhage. There is minimal left anterior frontal periventricular hypodensity, and there are mild to moderate bilateral deep white matter hypodensities posterior to the posterior horns of the lateral ventricles. Skull and face: Calvarium and visualized facial bones are intact, without suspicious lesions. Sinuses: Visualized sinuses and mastoids are clear. IMPRESSION: 1. No evidence of acute stroke, hemorrhage, or mass. 2. Minimal left frontal periventricular deep white matter hypodensity and mild to moderate bilateral posterior periventricular hypodensities. These findings are nonspecific. They may potentially represent small vessel ischemic change. Mild early PRES syndrome (posterior reversible encephalopathy syndrome) is not excluded. Brain MRI may be helpful. Dictated by: Layton Craig M.D. on 03/03/2019 at 20:03 Approved by: Layton Craig M.D. on 03/03/2019 at 20:14 ECG Data Attestation: I personally reviewed and interpreted this ECG as follows: (Normal sinus rhythm with rate 65, no ectopy or ST changes, left axis deviation) Prior ECG tracings: not available for review <Dean Braxton DO - Last Filed: 03/04/19 06:24> Lab Data Lab Results 03/03/19 03/03/19 Range/Units 20:22 20:22 WBC 8.1 (4.5-11.0) X10^3/uL RBC 5.17 (4.5-5.9) X10^6/uL Hgb 15.1 (13.5-17.5) g/dL Hct 44.0 (41-53) % MCV 85.0 (80-100) fL MCH 29.2 (26-34) PG MCHC 34.3 (30-36) % RDW 14.1 (11.6-14.8) % Plt Count 226 (150-400) X10^3/uL Neut % (Auto) 55.5 (50-75) % Lymph % (Auto) 29.3 (25-40) % Leon % (Auto) 9.8 (3-14) % Eos % (Auto) 4.4 H (2-4) % Baso % (Auto) 1.0 (0-2) % Neut # (Auto) 4500 (0645-2481) /uL Lymph # (Auto) 2400 (8090-0374) /uL Leon # (Auto) 800 (0-900) /uL Eos # (Auto) 400 (0-450) /uL Baso # (Auto) 100 (0-100) /uL Sodium 140 (137-145) mmol/L Potassium 3.7 (3.4-5.1) mmol/L Chloride 106 (98-107) mmol/L Carbon Dioxide 27 (22-32) mmol/L BUN 12 (9-20) mg/dL Creatinine 0.70 (0.66-1.25) mg/dL Estimated GFR > 60.0 (>60) mL/min BUN/Creatinine Ratio 17.1 (6-22) Glucose 105 (80-110) mg/dL Calcium 9.1 (8.4-10.2) mg/dL Total Bilirubin 0.4 (0.2-1.3) mg/dL AST 30 (17-59) IU/L ALT 59 (21-72) IU/L Alkaline Phosphatase 52 (38-126) U/L Total Protein 7.0 (6.3-8.2) g/dL Albumin 4.2 (3.5-5.0) g/dL Globulin 2.8 (1.7-4.1) g/dL Albumin/Globulin Ratio 1.5 (1.0-2.8) Discharge Plan Departure Patient Disposition: Home Clinical Impression: Persistent headaches HTN (hypertension) Qualifiers: Hypertension type: essential hypertension Qualified Code(s): I10 - Essential (primary) hypertension Discharge Date/Time: 03/03/19 21:29 Interventions: ED Discharge Assessment Last Done: 03/03/19 21:29 Instructions: DI for High Blood Pressure, How to Monitor Your Blood Pressure at Home Activity Restrictions/Additional Instructions: Please try taking Tylenol for your headaches as needed to see if this is helpful. It is not clear that these are related to your blood pressure, which is much better here on recheck this evening (155/83). It is likely that you may need some blood pressure medicine since you have had elevated readings. Please follow-up with your PCP office this week to recheck this and discuss which medication may be best for you. Weight loss is likely to help as well since you have noticed a correlation with increased blood pressure and weight gain. remember that your blood pressure should be checked when you are seated and relax with your feet flat on the floor for 10 or 15 minutes. This should be checked on a bare arm and for you it should be checked with a large cuff to avoid falsely elevated readings. Please return if you have any acutely worsening headache, or new symptoms such as chest pain or breathing difficulties. Prescriptions: No Action calcipotriene 0.005 % ointment 1 applictn TOP DAILY Qty: 60 RF: 1 betamethasone dipropionate 0.05 % lotion 1 applictn TOP DAILY Qty: 60 RF: 1 sildenafil 100 mg tablet 100 mg PO ONCE Qty: 30 RF: 5 triamcinolone acetonide [Kenalog] 40 mg/mL suspension 40 mg IM ONCE RF: 0 Referrals: Damien Benton MD [Primary Care Provider] - <Dean Braxton DO - Last Filed: 03/04/19 06:24> Cosign ED Attending Cosignature Attestation: I was immediately available in the department for consultation. Documentation has been reviewed. I agree with assessment and plan.
--- NOTE | 2019-03-03 19:46 | DI.CT.S_ITS ---
PROCEDURE: CT HEAD/BRAIN WO CON INDICATIONS: HTN, RICHARD TECHNIQUE: Noncontrast 4.5 mm thick angled axial sections acquired from the foramen magnum to the vertex, with coronal and sagittal reformats. For radiation dose reduction, the following was used: automated exposure control, adjustment of mA and/or kV according to patient size. COMPARISON: None. FINDINGS: Image quality: Excellent. CSF spaces: Basal cisterns are patent. No extra-axial fluid collections. Ventricles are normal in size and shape. Brain: No midline shift. No intracranial masses or hemorrhage. There is minimal left anterior frontal periventricular hypodensity, and there are mild to moderate bilateral deep white matter hypodensities posterior to the posterior horns of the lateral ventricles. Skull and face: Calvarium and visualized facial bones are intact, without suspicious lesions. Sinuses: Visualized sinuses and mastoids are clear. IMPRESSION: 1. No evidence of acute stroke, hemorrhage, or mass. 2. Minimal left frontal periventricular deep white matter hypodensity and mild to moderate bilateral posterior periventricular hypodensities. These findings are nonspecific. They may potentially represent small vessel ischemic change. Mild early PRES syndrome (posterior reversible encephalopathy syndrome) is not excluded. Brain MRI may be helpful. Dictated by: Layton Craig M.D. on 03/03/2019 at 20:03 Approved by: Layton Craig M.D. on 03/03/2019 at 20:14
[2019-03-03 19:52] VITALS: BP 155/83; PULSE 68; RESP 19; O2SAT 95
--- NOTE | 2019-03-03 19:52 | ED_ITS ---
HPI - Recheck/Abnormal Lab/Rx <Iveth Jean PA-C - Last Filed: 03/03/19 22:07> General Chief Complaint: Recheck/Abnormal Lab/Rx Stated Complaint: elevated blood pressure Time Seen by Provider: 03/03/19 18:55 Source: patient Mode of arrival: ambulatory Limitations: no limitations History of Present Illness HPI narrative: This 58-year-old male is sent to ED by his primary care clinic due to HTN. He states that he went to donate blood a couple of weeks ago and blood pressure reading there was 194 systolic (twice). He has not checked any blood pressure readings when relaxed or since then. He states that he called his primary care clinic today to schedule an appointment and when he this evening, he mentioned that he has had some intermittent headaches for the last few months though not enough to keep him from work or activity, and they told him to come to the ED right away ?because you are going to have a stroke?, so he came here due to this. He states that he is feeling like his usual self today. He has not had any acute vision change, thinks his vision has gradually worsened (wears contacts). He states that he has never had chest pain or dyspnea with this. No palpitations. No nausea, vomiting or abdominal pain. He denies any new calf pain or swelling. He has never had any focal weakness, difficulty swallowing or talking. He states that he thought he might need to start on blood pressure medicine before seen at the clinic but they are planning to see him this week. Related Data Home Medications Medication Instructions Recorded Confirmed triamcinolone acetonide [Kenalog] 40 mg IM ONCE 01/20/19 Previous Rx's Medication Instructions Recorded betamethasone dipropionate 0.05 % 1 applictn TOP DAILY #60 ml 10/24/18 lotion calcipotriene 0.005 % topical 1 applictn TOP DAILY #60 gram 10/24/18 ointment sildenafil 100 mg tablet 100 mg PO ONCE #30 tab 10/24/18 Allergies Allergy/AdvReac Type Severity Reaction Status Date / Time No Known Drug Allergies Allergy Verified 01/20/19 12:45 Review of Systems <Iveth Jean PA-C - Last Filed: 03/03/19 22:07> Review of Systems ROS Unobtainable: All systems reviewed & are unremarkable except as noted in HPI and below PFSH <Iveth Jean PA-C - Last Filed: 03/03/19 22:07> Medical History (Updated 03/03/19 @ 21:23 by Iveth Jean PA-C) Obstructive sleep apnea of adult (Chronic) Primary insomnia (Chronic 05/16/16) Surgical History (Updated 03/03/19 @ 19:50 by Iveth Jean PA-C) Status post total knee replacement, left (Chronic) History of colonoscopy with polypectomy (Resolved 08/05/09) History of umbilical hernia repair (Resolved 12/13/16) Family History Grandfather No problems noted. Social History marital status: unmarried,single number of children: 0 lives independently: Yes caregiver/support person: No pets and animals: Yes (16-month puppy) education level: high school occupational status: employed Smoking Status: Never smoker quit status: considering quitting alcohol intake: current substance use type: does not use Social History marital status: unmarried,single number of children: 0 lives independently: Yes caregiver/support person: No pets and animals: Yes (16-month puppy) education level: high school occupational status: employed Smoking Status: Never smoker quit status: considering quitting alcohol intake: current substance use type: does not use Exam <Iveth Jean PA-C - Last Filed: 03/03/19 22:07> Narrative Exam Narrative: GENERAL APPEARANCE: Patient sitting comfortably, appears well HEENT: PERRL, EOMI, normal oropharynx, no sinus TTP NECK: Supple, no JVD or masses LUNGS: Clear to auscultation bilaterally. HEART: Rate and rhythm regular without murmur, normal S1 and S2, no S3 or S4. ABDOMEN: Soft, NT, ND, + BS x 4 quadrants NEUROLOGIC: Alert and oriented, normal speech, gait and coordination. EXTREMITIES: No edema or calf tenderness Initial Vital Signs Initial Vital Signs: Vital Signs Temperature 98.1 F 03/03/19 18:00 Pulse Rate 75 03/03/19 18:00 Respiratory Rate 20 03/03/19 18:00 Blood Pressure 179/100 H 03/03/19 18:00 Pulse Oximetry 100 03/03/19 18:00 <Dean Braxton DO - Last Filed: 03/04/19 06:24> Initial Vital Signs Initial Vital Signs: Vital Signs Temperature 98.1 F 03/03/19 18:00 Pulse Rate 75 03/03/19 18:00 Respiratory Rate 20 03/03/19 18:00 Blood Pressure 179/100 H 03/03/19 18:00 Pulse Oximetry 100 03/03/19 18:00 Course <Iveth Jean PA-C - Last Filed: 03/03/19 22:07> Additional Information: No acute findings on workup today, patient is feeling at baseline, has had intermittent headaches the last few months especially upon awakening, but no clear relationship to blood pressure. He does not know what he is recent baseline is however blood pressure is significantly improved here when he is relaxed and this is taken with an appropriate sized cuff. Advised f ollow-up with PCP office this week and he is already planning that. He does not appear to need any urgent blood pressure treatment at this point. Did advise also follow-up on chronic changes on CT with his PCP and he is agreeable. Orders Ordered: ED Orders 03/03/19 19:46 CT head/brain wo con Stat EKG-12 Lead Stat 03/03/19 20:22 Complete Blood Count AUTO DIFF Stat Comprehensive Metabolic Panel Stat Vital Signs - 8 hr 03/03/19 18:00 03/03/19 19:52 Temperature 98.1 F Pulse Rate 75 68 Respiratory Rate 20 19 Blood Pressure 179/100 H Blood Pressure [Right Arm] 155/83 H Pulse Oximetry 100 95 <DO Kodak Jaffe Last Filed: 03/04/19 06:24> Orders Ordered: ED Orders 03/03/19 19:46 CT head/brain wo con Stat EKG-12 Lead Stat 03/03/19 20:22 Complete Blood Count AUTO DIFF Stat Comprehensive Metabolic Panel Stat Vital Signs - 8 hr 03/03/19 18:00 03/03/19 19:52 Temperature 98.1 F Pulse Rate 75 68 Respiratory Rate 20 19 Blood Pressure 179/100 H Blood Pressure [Right Arm] 155/83 H Pulse Oximetry 100 95 MDM - Recheck/Abnormal Lab/Rx <Iveth Jean PA-C - Last Filed: 03/03/19 22:07> Lab Data Attestation: I reviewed the patient's lab results. Result diagrams: 03/03/19 20:22 03/03/19 20:22 Lab Results 03/03/19 03/03/19 Range/Units 20:22 20:22 WBC 8.1 (4.5-11.0) X10^3/uL RBC 5.17 (4.5-5.9) X10^6/uL Hgb 15.1 (13.5-17.5) g/dL Hct 44.0 (41-53) % MCV 85.0 (80-100) fL MCH 29.2 (26-34) PG MCHC 34.3 (30-36) % RDW 14.1 (11.6-14.8) % Plt Count 226 (150-400) X10^3/uL Neut % (Auto) 55.5 (50-75) % Lymph % (Auto) 29.3 (25-40) % Kane % (Auto) 9.8 (3-14) % Eos % (Auto) 4.4 H (2-4) % Baso % (Auto) 1.0 (0-2) % Neut # (Auto) 4500 (4916-7748) /uL Lymph # (Auto) 2400 (7984-5408) /uL Kane # (Auto) 800 (0-900) /uL Eos # (Auto) 400 (0-450) /uL Baso # (Auto) 100 (0-100) /uL Sodium 140 (137-145) mmol/L Potassium 3.7 (3.4-5.1) mmol/L Chloride 106 (98-107) mmol/L Carbon Dioxide 27 (22-32) mmol/L BUN 12 (9-20) mg/dL Creatinine 0.70 (0.66-1.25) mg/dL Estimated GFR > 60.0 (>60) mL/min BUN/Creatinine Ratio 17.1 (6-22) Glucose 105 (80-110) mg/dL Calcium 9.1 (8.4-10.2) mg/dL Total Bilirubin 0.4 (0.2-1.3) mg/dL AST 30 (17-59) IU/L ALT 59 (21-72) IU/L Alkaline Phosphatase 52 (38-126) U/L Total Protein 7.0 (6.3-8.2) g/dL Albumin 4.2 (3.5-5.0) g/dL Globulin 2.8 (1.7-4.1) g/dL Albumin/Globulin Ratio 1.5 (1.0-2.8) Imaging Data CT scan - head: Radiologist's impression: [address] [address] [address] Scan Report Signed Patient: Jeremy Stewart LMR#: [id number] : 9Acct:[id number] Age/Sex: 58 / MDate of Service: 03/03/19 Loc: ED Accession Number: [id number] Procedure: CT head/brain wo con Ordering Provider: Iveth Jean P.A-C PROCEDURE: CT HEAD/BRAIN WO CON INDICATIONS: HTN, RICHARD TECHNIQUE: Noncontrast 4.5 mm thick angled axial sections acquired from the foramen magnum to the vertex, with coronal and sagittal reformats. For radiation dose reduction, the following was used: automated exposure control, adjustment of mA and/or kV according to patient size. COMPARISON: None. FINDINGS: Image quality: Excellent. CSF spaces: Basal cisterns are patent. No extra-axial fluid collections. Ventricles are normal in size and shape. Brain: No midline shift. No intracranial masses or hemorrhage. There is minimal left anterior frontal periventricular hypodensity, and there are mild to moderate bilateral deep white matter hypodensities posterior to the posterior horns of the lateral ventricles. Skull and face: Calvarium and visualized facial bones are intact, without suspicious lesions. Sinuses: Visualized sinuses and mastoids are clear. IMPRESSION: 1. No evidence of acute stroke, hemorrhage, or mass. 2. Minimal left frontal periventricular deep white matter hypodensity and mild to moderate bilateral posterior periventricular hypodensities. These findings are nonspecific. They may potentially represent small vessel is chemic change. Mild early PRES syndrome (posterior reversible encephalopathy syndrome) is not excluded. Brain MRI may be helpful. Dictated by: Layton Craig M.D. on 03/03/2019 at 20:03 Approved by: Layton Craig M.D. on 03/03/2019 at 20:14 ECG Data Attestation: I personally reviewed and interpreted this ECG as follows: (Normal sinus rhythm with rate 65, no ectopy or ST changes, left axis deviation) Prior ECG tracings: not available for review <Dean Braxton DO - Last Filed: 03/04/19 06:24> Lab Data Lab Results 03/03/19 03/03/19 Range/Units 20:22 20:22 WBC 8.1 (4.5-11.0) X10^3/uL RBC 5.17 (4.5-5.9) X10^6/uL Hgb 15.1 (13.5-17.5) g/dL Hct 44.0 (41-53) % MCV 85.0 (80-100) fL MCH 29.2 (26-34) PG MCHC 34.3 (30-36) % RDW 14.1 (11.6-14.8) % Plt Count 226 (150-400) X10^3/uL Neut % (Auto) 55.5 (50-75) % Lymph % (Auto) 29.3 (25-40) % Kane % (Auto) 9.8 (3-14) % Eos % (Auto) 4.4 H (2-4) % Baso % (Auto) 1.0 (0-2) % Neut # (Auto) 4500 (4774-6098) /uL Lymph # (Auto) 2400 (3483-3757) /uL Kane # (Auto) 800 (0-900) /uL Eos # (Auto) 400 (0-450) /uL Baso # (Auto) 100 (0-100) /uL Sodium 140 (137-145) mmol/L Potassium 3.7 (3.4-5.1) mmol/L Chloride 106 (98-107) mmol/L Carbon Dioxide 27 (22-32) mmol/L BUN 12 (9-20) mg/dL Creatinine 0.70 (0.66-1.25) mg/dL Estimated GFR > 60.0 (>60) mL/min BUN/Creatinine Ratio 17.1 (6-22) Glucose 105 (80-110) mg/dL Calcium 9.1 (8.4-10.2) mg/dL Total Bilirubin 0.4 (0.2-1.3) mg/dL AST 30 (17-59) IU/L ALT 59 (21-72) IU/L Alkaline Phosphatase 52 (38-126) U/L Total Protein 7.0 (6.3-8.2) g/dL Albumin 4.2 (3.5-5.0) g/dL Globulin 2.8 (1.7-4.1) g/dL Albumin/Globulin Ratio 1.5 (1.0-2.8) Discharge Plan Departure Patient Disposition: Home Clinical Impression: Persistent headaches HTN (hypertension) Qualifiers: Hypertension type: essential hypertension Qualified Code(s): I10 - Essential (primary) hypertension Discharge Date/Time: 03/03/19 21:29 Interventions: ED Discharge Assessment Last Done: 03/03/19 21:29 Instructions: DI for High Blood Pressure, How to Monitor Your Blood Pressure at Home Activity Restrictions/Additional Instructions: Please try taking Tylenol for your headaches as needed to see if this is helpful. It is not clear that these are related to your blood pressure, which is much better here on recheck this evening (155/83). It is likely that you may need some blood pressure medicine since you have had elevated readings. Please follow-up with your PCP office this week to recheck this and discuss which medication may be best for you. Weight loss is likely to help as well since you have noticed a correlation with increased blood pressure and weight gain. remember that your blood pressure should be checked when you are seated and relax with your feet flat on the floor for 10 or 15 minutes. This should be checked on a bare arm and for you it should be checked with a large cuff to avoid falsely elevated readings. Please return if you have any acutely worsening headache, or new symptoms such as chest pain or breathing difficulties. Prescriptions: No Action calcipotriene 0.005 % ointment 1 applictn TOP DAILY Qty: 60 RF: 1 betamethasone dipropionate 0.05 % lotion 1 applictn TOP DAILY Qty: 60 RF: 1 sildenafil 100 mg tablet 100 mg PO ONCE Qty: 30 RF: 5 triamcinolone acetonide [Kenalog] 40 mg/mL suspension 40 mg IM ONCE RF: 0 Referrals: Damien Benton MD [Primary Care Provider] - <Dean Braxton DO - Last Filed: 03/04/19 06:24> Cosign ED Attending Cosignature Attestation: I was immediately available in the department for consultation. Documentation has been reviewed. I agree with assessment and plan.
[2019-03-03 20:29] LABS: Add Manual Diff / Slide Review NO; Basophils Absolute Auto 100 /uL (0-100); Eosinophils Absolute Auto 400 /uL (0-450); Eosinophils Percent Auto 4.4 % (2-4); Hemoglobin 15.1 g/dL (13.5-17.5); Lymphocytes Absolute Auto 2400 /uL (1100-4500); Lymphocytes Percent Auto 29.3 % (25-40); Mean Corpuscular HGB Conc 34.3 % (30-36); Mean Corpuscular Hemoglobin 29.2 PG (26-34); Monocytes Absolute Auto 800 /uL (0-900); Monocytes Percent Auto 9.8 % (3-14); Neutrophils Absolute Auto 4500 /uL (1500-7000); Neutrophils Percent Auto 55.5 % (50-75); Platelet Count 226 X10^3/uL (150-400); Red Blood Cell Count 5.17 X10^6/uL (4.5-5.9); Red Cell Distribution Width 14.1 % (11.6-14.8); White Blood Cell Count 8.1 X10^3/uL (4.5-11.0)
[2019-03-03 20:45] LABS: Alanine Aminotransferase 59 IU/L (21-72); Albumin 4.2 g/dL (3.5-5.0); Albumin Globulin Ratio 1.5 (1.0-2.8); Alkaline Phosphatase 52 U/L (38-126); Aspartate Aminotransferase 30 IU/L (17-59); BUN Creatinine Ratio 17.1 (6-22); Bilirubin Total 0.4 mg/dL (0.2-1.3); Blood Urea Nitrogen 12 mg/dL (9-20); Calcium 9.1 mg/dL (8.4-10.2); Carbon Dioxide 27 mmol/L (22-32); Chloride 106 mmol/L (98-107); Estimated Glomerular Filt Rate > 60.0 mL/min (>60); Globulin 2.8 g/dL (1.7-4.1); Glucose 105 mg/dL (80-110); HEMOLYSIS < 15 (0-50); Potassium 3.7 mmol/L (3.4-5.1); Sodium 140 mmol/L (137-145)
== END 2019-03-03 21:29 | disposition home or self-care (01) ==
PROVIDERS: Emergency Provider Internal Medicine; PCP Student in an Organized Health Care Education/Training Program
DX: I10 Essential (primary) hypertension (principal); R51 Headache
CPT/HCPCS: 70450; 80053; 85025; 93005; 93010; 99282; 99285

== ENCOUNTER → 2019-06-27 11:15 | Outpatient (CLI) | payer OTHER, MEDICAID, SELFPAY ==
--- NOTE | 2019-06-27 11:18 | DI.RAD.S_ITS ---
PROCEDURE: XR HAND LT MIN 3V INDICATIONS: 2nd PIP joint mass TECHNIQUE: 3 views of the hand(s) acquired. COMPARISON: None. FINDINGS: Bones: Chronic appearing fracture of the distal tuft of the index finger. No discrete osseous lesion seen at the index finger PIP joint. Soft tissues: Punctate densities project along the palmar aspect of the index finger PIP joint, potentially small foreign bodies or debris on the skin. Please correlate clinically. IMPRESSION: No discrete osseous mass. As clinically warranted, further characterization of soft tissues could be performed with contrast-enhanced MRI to assess palpable mass. Dictated by: Kwame Garcia M.D. on 06/27/2019 at 14:03 Approved by: Kwame Garcia M.D. on 06/27/2019 at 14:05
== END ==
PROVIDERS: PCP Student in an Organized Health Care Education/Training Program; Visit Provider Student in an Organized Health Care Education/Training Program
DX: M79.641 Pain in right hand (principal)
CPT/HCPCS: 73130

== ENCOUNTER → 2021-06-07 09:30 | Outpatient (CLI) | payer MEDICARE, SELFPAY ==
[2021-06-07 10:24] LABS: Add Manual Diff / Slide Review NO; Basophils Absolute Auto 0 /uL (0-100); Basophils Percent Auto 0.5 % (0-2); Eosinophils Absolute Auto 300 /uL (0-450); Hematocrit 45.7 % (41-53); Hemoglobin 15.5 g/dL (13.5-17.5); Lymphocytes Absolute Auto 2300 /uL (1100-4500); Lymphocytes Percent Auto 30.2 % (25-40); Mean Corpuscular HGB Conc 33.9 % (30-36); Mean Corpuscular Hemoglobin 29.3 PG (26-34); Mean Corpuscular Volume 86.3 fL (80-100); Monocytes Absolute Auto 500 /uL (0-900); Monocytes Percent Auto 7.3 % (3-14); Neutrophils Absolute Auto 4300 /uL (1500-7000); Platelet Count 214 X10^3/uL (150-400); Red Blood Cell Count 5.29 X10^6/uL (4.5-5.9); Red Cell Distribution Width 13.3 % (11.6-14.8); White Blood Cell Count 7.5 X10^3/uL (4.5-11.0)
[2021-06-07 10:28] LABS: Alanine Aminotransferase 61 IU/L (<50); Albumin 4.1 g/dL (3.5-5.0); Albumin Globulin Ratio 1.5 (1.0-2.8); Alkaline Phosphatase 56 U/L (38-126); Aspartate Aminotransferase 42 IU/L (17-59); BUN Creatinine Ratio 16.9 (6-22); Bilirubin Total 0.5 mg/dL (0.2-1.3); Blood Urea Nitrogen 11 mg/dL (9-20); Calcium 9.1 mg/dL (8.4-10.2); Carbon Dioxide 28 mmol/L (22-32); Chloride 105 mmol/L (98-107); Cholesterol 223 mg/dL (140-199); Estimated Glomerular Filt Rate > 60.0 mL/min (>60); Globulin 2.8 g/dL (1.7-4.1); Glucose 236 mg/dL (80-110); HDL Cholesterol 27 mg/dL (40-60); HEMOLYSIS < 15 (0-50); LDL Cholesterol Calculated 153 mg/dL (<100); Potassium 3.8 mmol/L (3.4-5.1); Sodium 139 mmol/L (137-145); Total Protein 6.9 g/dL (6.3-8.2); Triglycerides 216 mg/dL (35-150)
[2021-06-07 11:01] LABS: TSH w/ Reflex to FT4 1.24 uIU/mL (0.47-4.68)
[2021-06-10 13:53] LABS: Hemoglobin A1C% w Est Avg Glu 6.9 % (4.0-6.0)
== END ==
PROVIDERS: PCP Student in an Organized Health Care Education/Training Program; Referring Provider Student in an Organized Health Care Education/Training Program; Visit Provider Student in an Organized Health Care Education/Training Program
DX: E55.9 Vitamin D deficiency, unspecified (principal); I16.0 Hypertensive urgency; L40.0 Psoriasis vulgaris; R73.9 Hyperglycemia, unspecified
CPT/HCPCS: 36415; 80053; 80061; 82306; 83036; 84443; 85025

== ENCOUNTER → 2021-09-05 10:44 | Outpatient (CLI) | payer MEDICARE, SELFPAY ==
[2021-09-05 11:41] LABS: Creatinine Urine Random 185.8 mg/dL
[2021-09-05 11:47] LABS: Microalbumi Creatinin Ratio Ur 10.7 ug/mg CR (<30)
[2021-09-05 12:30] LABS: Hemoglobin A1C% w Est Avg Glu 6.9 % (4.0-6.0)
[2021-09-05 12:34] LABS: Alanine Aminotransferase 72 IU/L (<50); Albumin 4.4 g/dL (3.5-5.0); Albumin Globulin Ratio 1.6 (1.0-2.8); Alkaline Phosphatase 53 U/L (38-126); Aspartate Aminotransferase 39 IU/L (17-59); BUN Creatinine Ratio 15.8 (6-22); Bilirubin Total 0.3 mg/dL (0.2-1.3); Blood Urea Nitrogen 12 mg/dL (9-20); Calcium 9.8 mg/dL (8.4-10.2); Carbon Dioxide 31 mmol/L (22-32); Chloride 103 mmol/L (98-107); Cholesterol 234 mg/dL (140-199); Estimated Glomerular Filt Rate > 60.0 mL/min (>60); Globulin 2.8 g/dL (1.7-4.1); Glucose 137 mg/dL (80-110); HDL Cholesterol 33 mg/dL (40-60); HEMOLYSIS < 15 (0-50); LDL Cholesterol Calculated 169 mg/dL (<100); Potassium 4.1 mmol/L (3.4-5.1); Sodium 142 mmol/L (137-145); Total Protein 7.2 g/dL (6.3-8.2); Triglycerides 162 mg/dL (35-150)
== END ==
PROVIDERS: PCP Student in an Organized Health Care Education/Training Program; Referring Provider Student in an Organized Health Care Education/Training Program; Visit Provider Student in an Organized Health Care Education/Training Program
DX: E11.69 Type 2 diabetes mellitus with other specified complication (principal); E11.9 Type 2 diabetes mellitus without complications; E78.5 Hyperlipidemia, unspecified; I10 Essential (primary) hypertension; Z79.899 Other long term (current) drug therapy
CPT/HCPCS: 36415; 80053; 80061; 82043; 82570; 83036

== ENCOUNTER → 2022-06-28 09:05 | Outpatient (CLI) | payer MEDICARE, SELFPAY ==
[2022-06-28 09:52] LABS: Add Manual Diff / Slide Review NO; Basophils Absolute Auto 0 /uL (0-100); Basophils Percent Auto 0.5 % (0-2); Eosinophils Absolute Auto 200 /uL (0-450); Eosinophils Percent Auto 2.5 % (2-4); Hematocrit 43.2 % (41-53); Hemoglobin 14.6 g/dL (13.5-17.5); Lymphocytes Absolute Auto 2600 /uL (1100-4500); Lymphocytes Percent Auto 30.4 % (25-40); Mean Corpuscular HGB Conc 33.9 % (30-36); Mean Corpuscular Hemoglobin 29.7 PG (26-34); Mean Corpuscular Volume 87.5 fL (80-100); Monocytes Absolute Auto 800 /uL (0-900); Monocytes Percent Auto 9.2 % (3-14); Neutrophils Absolute Auto 5000 /uL (1500-7000); Neutrophils Percent Auto 57.4 % (50-75); Platelet Count 222 X10^3/uL (150-400); Red Blood Cell Count 4.93 X10^6/uL (4.5-5.9); Red Cell Distribution Width 13.3 % (11.6-14.8); White Blood Cell Count 8.6 X10^3/uL (4.5-11.0)
[2022-06-28 11:20] LABS: Alanine Aminotransferase 48 IU/L (<50); Albumin Globulin Ratio 1.6 (1.0-2.8); Alkaline Phosphatase 60 U/L (38-126); Aspartate Aminotransferase 33 IU/L (17-59); BUN Creatinine Ratio 16.3 (6-22); Bilirubin Total 0.6 mg/dL (0.2-1.3); Blood Urea Nitrogen 13 mg/dL (9-20); Calcium 8.8 mg/dL (8.4-10.2); Carbon Dioxide 30 mmol/L (22-32); Chloride 104 mmol/L (98-107); Cholesterol 156 mg/dL (140-199); Estimated Glomerular Filt Rate > 60 mL/min (>60); Globulin 2.5 g/dL (1.7-4.1); Glucose 110 mg/dL (80-110); HDL Cholesterol 26 mg/dL (40-60); HEMOLYSIS < 15 (0-50); LDL Cholesterol Calculated 107 mg/dL (<100); Potassium 4.5 mmol/L (3.4-5.1); Sodium 140 mmol/L (137-145); Total Protein 6.5 g/dL (6.3-8.2); Triglycerides 114 mg/dL (35-150)
[2022-06-28 11:50] LABS: Prostate Specific Antigen Scrn 0.987 ng/mL (0.1-4.0)
== END ==
PROVIDERS: PCP Family Medicine; Referring Provider Family Medicine; Visit Provider Family Medicine
DX: E11.69 Type 2 diabetes mellitus with other specified complication (principal); Z12.5 Encounter for screening for malignant neoplasm of prostate; I10 Essential (primary) hypertension; E78.5 Hyperlipidemia, unspecified; E11.9 Type 2 diabetes mellitus without complications; N52.9 Male erectile dysfunction, unspecified
CPT/HCPCS: 36415; 80053; 80061; 85025; G0103

== ENCOUNTER → 2023-03-13 07:32 | Outpatient (CLI) | payer MEDICARE, SELFPAY ==
[2023-03-13 09:14] LABS: Add Manual Diff / Slide Review NO; Basophils Absolute Auto 0 /uL (0-100); Basophils Percent Auto 0.5 % (0-2); Eosinophils Absolute Auto 200 /uL (0-450); Eosinophils Percent Auto 2.9 % (2-4); Hematocrit 43.7 % (41-53); Hemoglobin 14.8 g/dL (13.5-17.5); Lymphocytes Absolute Auto 2400 /uL (1100-4500); Lymphocytes Percent Auto 28.6 % (25-40); Mean Corpuscular Hemoglobin 29.4 PG (26-34); Mean Corpuscular Volume 86.6 fL (80-100); Monocytes Absolute Auto 800 /uL (0-900); Monocytes Percent Auto 9.6 % (3-14); Neutrophils Absolute Auto 5000 /uL (1500-7000); Neutrophils Percent Auto 58.4 % (50-75); Platelet Count 237 X10^3/uL (150-400); Red Blood Cell Count 5.05 X10^6/uL (4.5-5.9); Red Cell Distribution Width 13.4 % (11.6-14.8); White Blood Cell Count 8.5 X10^3/uL (4.5-11.0)
[2023-03-13 10:00] LABS: Creatinine Urine Random 224.3 mg/dL
[2023-03-13 10:01] LABS: Alanine Aminotransferase 41 IU/L (<50); Albumin 3.7 g/dL (3.5-5.0); Albumin Globulin Ratio 1.3 (1.0-2.8); Alkaline Phosphatase 49 U/L (38-126); Aspartate Aminotransferase 26 IU/L (17-59); BUN Creatinine Ratio 17.9 (6-22); Bilirubin Total 0.5 mg/dL (0.2-1.3); Blood Urea Nitrogen 14 mg/dL (9-20); Carbon Dioxide 31 mmol/L (22-32); Chloride 104 mmol/L (98-107); Cholesterol 200 mg/dL (140-199); Estimated Glomerular Filt Rate > 60 mL/min (>60); Globulin 2.9 g/dL (1.7-4.1); Glucose 155 mg/dL (80-110); HDL Cholesterol 28 mg/dL (40-60); HEMOLYSIS < 15 (0-50); LDL Cholesterol Calculated 145 mg/dL (<100); Potassium 4.1 mmol/L (3.4-5.1); Sodium 141 mmol/L (137-145); Total Protein 6.6 g/dL (6.3-8.2); Triglycerides 134 mg/dL (35-150)
[2023-03-13 10:04] LABS: Microalbumi Creatinin Ratio Ur 12.9 ug/mg CR (<30); Microalbumin Urine Random 2.9 mg/dL (0-1.6)
[2023-03-14 06:37] LABS: x Labcorp Estim. Avg Glu (eAG) 174 mg/dL (.); x Labcorp Hemoglobin A1c 7.7 % (4.8-5.6)
== END ==
PROVIDERS: PCP Family Medicine; Referring Provider Family Medicine; Visit Provider Family Medicine
DX: E11.69 Type 2 diabetes mellitus with other specified complication (principal); E11.9 Type 2 diabetes mellitus without complications; E78.5 Hyperlipidemia, unspecified; I10 Essential (primary) hypertension
CPT/HCPCS: 36415; 80053; 80061; 82043; 82570; 83036; 85025

== ENCOUNTER → 2023-06-20 09:32 | Outpatient (CLI) | payer MEDICARE, SELFPAY ==
[2023-06-20 12:05] LABS: Add Manual Diff / Slide Review NO; Basophils Absolute Auto 0 /uL (0-100); Basophils Percent Auto 0.4 % (0-2); Eosinophils Absolute Auto 200 /uL (0-450); Eosinophils Percent Auto 2.3 % (2-4); Hematocrit 44.4 % (41-53); Hemoglobin 15.1 g/dL (13.5-17.5); Lymphocytes Absolute Auto 2300 /uL (1100-4500); Mean Corpuscular HGB Conc 33.9 % (30-36); Mean Corpuscular Hemoglobin 29.4 PG (26-34); Mean Corpuscular Volume 86.7 fL (80-100); Monocytes Absolute Auto 700 /uL (0-900); Monocytes Percent Auto 7.8 % (3-14); Neutrophils Absolute Auto 5700 /uL (1500-7000); Neutrophils Percent Auto 63.5 % (50-75); Platelet Count 246 X10^3/uL (150-400); Red Blood Cell Count 5.12 X10^6/uL (4.5-5.9); Red Cell Distribution Width 13.4 % (11.6-14.8)
[2023-06-20 12:34] LABS: Alanine Aminotransferase 41 IU/L (<50); Albumin Globulin Ratio 1.5 (1.0-2.8); Alkaline Phosphatase 59 U/L (38-126); Aspartate Aminotransferase 27 IU/L (17-59); BUN Creatinine Ratio 15.1 (6-22); Bilirubin Total 0.5 mg/dL (0.2-1.3); Blood Urea Nitrogen 11 mg/dL (9-20); Calcium 9.3 mg/dL (8.4-10.2); Carbon Dioxide 31 mmol/L (22-32); Chloride 99 mmol/L (98-107); Cholesterol 145 mg/dL (140-199); Estimated Glomerular Filt Rate > 60 mL/min (>60); Globulin 2.6 g/dL (1.7-4.1); Glucose 139 mg/dL (80-110); HDL Cholesterol 26 mg/dL (40-60); HEMOLYSIS < 15 (0-50); LDL Cholesterol Calculated 82 mg/dL (<100); Potassium 3.7 mmol/L (3.4-5.1); Sodium 138 mmol/L (137-145); Total Protein 6.6 g/dL (6.3-8.2); Triglycerides 186 mg/dL (35-150)
[2023-06-21 07:43] LABS: Labcorp Hemoglobin (Hb) A1c 7.8 % (4.8-5.6)
== END ==
PROVIDERS: PCP Family Medicine; Referring Provider Family Medicine; Visit Provider Family Medicine
DX: E11.69 Type 2 diabetes mellitus with other specified complication (principal); E78.5 Hyperlipidemia, unspecified; E11.9 Type 2 diabetes mellitus without complications; I10 Essential (primary) hypertension
CPT/HCPCS: 36415; 80053; 80061; 83036; 85025

== ENCOUNTER → 2023-07-21 16:56 | Outpatient (CLI) | payer MEDICARE, SELFPAY ==
[2023-07-21 18:20] LABS: Influenza A - CEPHEID Flu A NEGATIVE (NEGATIVE); Influenza B - CEPHEID Flu B NEGATIVE (NEGATIVE); Respiratory Syncytial Virus Negative (Negative)
[2023-07-21 18:24] LABS: COVID-19 CEPHEID 4-PLEX PCR Negative (Negative)
== END ==
PROVIDERS: PCP Family Medicine; Visit Provider Nurse Practitioner Family
DX: R09.81 Nasal congestion (principal)
CPT/HCPCS: 0241U

== ENCOUNTER → 2023-10-24 10:16 | Outpatient (CLI) | payer MEDICARE, SELFPAY ==
[2023-10-24 11:56] LABS: Hemoglobin A1C% w Est Avg Glu 11.9 % (4.0-6.0)
[2023-10-24 12:08] LABS: Alanine Aminotransferase 41 IU/L (<50); Albumin 4.2 g/dL (3.5-5.0); Albumin Globulin Ratio 1.4 (1.0-2.8); Alkaline Phosphatase 83 U/L (38-126); Aspartate Aminotransferase 28 IU/L (17-59); BUN Creatinine Ratio 40.8 (6-22); Bilirubin Total 0.7 mg/dL (0.2-1.3); Blood Urea Nitrogen 31 mg/dL (9-20); Calcium 10.2 mg/dL (8.4-10.2); Carbon Dioxide 28 mmol/L (22-32); Chloride 95 mmol/L (98-107); Estimated Glomerular Filt Rate > 60 mL/min (>60); Globulin 2.9 g/dL (1.7-4.1); Glucose 456 mg/dL (80-110); HEMOLYSIS < 15 (0-50); Potassium 4.2 mmol/L (3.4-5.1); Sodium 132 mmol/L (137-145); Total Protein 7.1 g/dL (6.3-8.2)
== END ==
PROVIDERS: PCP Family Medicine; Referring Provider Family Medicine; Visit Provider Family Medicine
DX: E11.9 Type 2 diabetes mellitus without complications (principal); Z68.39 Body mass index [BMI] 39.0-39.9, adult; R63.1 Polydipsia
CPT/HCPCS: 36415; 80053; 83036

== ENCOUNTER → 2023-10-25 09:39 | Outpatient (CLI) | payer MEDICARE, SELFPAY ==
[2023-10-25 16:25] LABS: Creatinine Urine Random 30.2 mg/dL
[2023-10-25 16:35] LABS: Microalbumin Urine Random < 0.6 mg/dL (0-1.6)
== END ==
PROVIDERS: PCP Family Medicine; Visit Provider Family Medicine
DX: E11.69 Type 2 diabetes mellitus with other specified complication (principal); E78.5 Hyperlipidemia, unspecified; I16.0 Hypertensive urgency
CPT/HCPCS: 82043; 82570

== ENCOUNTER → 2023-11-30 10:15 | Outpatient (CLI) | payer OTHER, SELFPAY ==
[2023-11-30 11:34] LABS: Add Manual Diff / Slide Review NO; Basophils Absolute Auto 0 /uL (0-100); Basophils Percent Auto 0.5 % (0-2); Eosinophils Absolute Auto 300 /uL (0-450); Eosinophils Percent Auto 3.1 % (2-4); Hematocrit 41.4 % (41-53); Hemoglobin 14.4 g/dL (13.5-17.5); Lymphocytes Absolute Auto 2100 /uL (1100-4500); Lymphocytes Percent Auto 26.1 % (25-40); Mean Corpuscular HGB Conc 34.7 % (30-36); Mean Corpuscular Volume 86.4 fL (80-100); Monocytes Absolute Auto 600 /uL (0-900); Monocytes Percent Auto 7.5 % (3-14); Neutrophils Absolute Auto 5200 /uL (1500-7000); Neutrophils Percent Auto 62.8 % (50-75); Platelet Count 241 X10^3/uL (150-400); Red Blood Cell Count 4.79 X10^6/uL (4.5-5.9); Red Cell Distribution Width 13.4 % (11.6-14.8); White Blood Cell Count 8.2 X10^3/uL (4.5-11.0)
[2023-11-30 11:56] LABS: Erythrocyte Sedimentation Rate 12 MM/HR (0-15)
[2023-11-30 13:22] LABS: Alanine Aminotransferase 31 IU/L (<50); Albumin 4.1 g/dL (3.5-5.0); Albumin Globulin Ratio 1.4 (1.0-2.8); Alkaline Phosphatase 51 U/L (38-126); Aspartate Aminotransferase 21 IU/L (17-59); BUN Creatinine Ratio 19.7 (6-22); Bilirubin Total 0.5 mg/dL (0.2-1.3); Blood Urea Nitrogen 14 mg/dL (9-20); C-Reactive Protein Quant 1.6 mg/dL (<1.0); Calcium 9.9 mg/dL (8.4-10.2); Carbon Dioxide 30 mmol/L (22-32); Chloride 102 mmol/L (98-107); Estimated Glomerular Filt Rate > 60 mL/min (>60); Globulin 2.9 g/dL (1.7-4.1); Glucose 104 mg/dL (80-110); HEMOLYSIS < 15 (0-50); Potassium 3.7 mmol/L (3.4-5.1); Sodium 141 mmol/L (137-145)
== END ==
PROVIDERS: PCP Family Medicine; Referring Provider Physician Assistant Medical; Visit Provider Physician Assistant Medical
DX: L40.50 Arthropathic psoriasis, unspecified (principal)
CPT/HCPCS: 36415; 80053; 85025; 85651; 86140

== ENCOUNTER → 2024-02-11 12:26 | Outpatient (CLI) | payer OTHER, SELFPAY ==
[2024-02-11 13:36] LABS: COVID-19 CEPHEID 4-PLEX PCR Negative (Negative); Influenza A - CEPHEID Flu A NEGATIVE (NEGATIVE); Influenza B - CEPHEID Flu B NEGATIVE (NEGATIVE); Respiratory Syncytial Virus Negative (Negative)
== END ==
PROVIDERS: PCP Family Medicine; Visit Provider Physician Assistant Medical
DX: R05.9 Cough, unspecified (principal)
CPT/HCPCS: 0241U

== ENCOUNTER → 2024-04-18 09:56 | Outpatient (CLI) | payer MEDICARE, SELFPAY ==
[2024-04-18 10:50] LABS: Hemoglobin A1C% w Est Avg Glu 6.6 % (4.0-6.0)
== END ==
PROVIDERS: PCP Family Medicine; Referring Provider Family Medicine; Visit Provider Family Medicine
DX: E11.9 Type 2 diabetes mellitus without complications (principal)
CPT/HCPCS: 36415; 83036

== ENCOUNTER → 2024-08-15 13:13 | Outpatient (CLI) | payer MEDICARE, SELFPAY ==
--- NOTE | 2024-08-15 13:14 | DI.CT.S_ITS ---
PROCEDURE: CT LUNG LOW DOSE SCREENING INDICATIONS: 30 years tobacco use; current smoker TECHNIQUE: Noncontrast 2.0-2.5 mm thick sections acquired from the pulmonary apices to the posterior costophrenic angles. 7 mm thick axial MIP, and 5 mm coronal and sagittal reformats were then acquired. For radiation dose reduction, the following was used: automated exposure control, adjustment of mA and/or kV according to patient size. COMPARISON: None. FINDINGS: Image quality: Diagnostic. Lower Neck: No enlarged lymph nodes. Thyroid: No thyroid nodules which require sonographic follow up, per consensus guidelines. Axillae: No enlarged lymph nodes. Chest Wall: Unremarkable. Bones: Mild chronic posttraumatic deformity of the anterior left 2nd rib. Lungs and Pleura: No pneumothorax or pleural effusions. No acute consolidation. -3 mm solid juxtapleural nodule in the posterior left lower lobe (3/143). -5 mm solid juxtapleural nodule in the posterior left lower lobe (3/172). A few additional 1-2 mm pulmonary micro nodules are seen in both lungs. Heart: Heart size is normal. No pericardial effusion. [id number]-[id number] coronary artery calcifications. Thoracic Vessels: The aorta and pulmonary arteries demonstrate normal size. Mediastinum and Sheila: No enlarged lymph nodes. Esophagus: No wall thickening. No hiatal hernia. Upper Abdomen: Liver is hypoattenuating, consistent with fatty infiltration. Included gallbladder appears contracted. No acute upper abdominal abnormality. IMPRESSION: No suspicious pulmonary nodules. LUNG-RADS 2; continued annual screening, if eligible. Clinically Significant Non-pulmonary Findings: Diffuse hepatic steatosis. Approved by: Kingsley Crews M.D. on 08/15/2024 at 14:28
== END ==
LOC: CT 13:14
PROVIDERS: PCP Family Medicine; Referring Provider Family Medicine; Visit Provider Family Medicine
DX: F17.210 Nicotine dependence, cigarettes, uncomplicated (principal); Z12.2 Encounter for screening for malignant neoplasm of respiratory organs; R91.8 Other nonspecific abnormal finding of lung field; I25.10 Atherosclerotic heart disease of native coronary artery without angina pectoris; K76.0 Fatty (change of) liver, not elsewhere classified
CPT/HCPCS: 71271

== ENCOUNTER 2024-10-02 09:21 | Day surgery (SDC) | payer MEDICARE, SELFPAY ==
--- NOTE | 2024-10-02 | PATH_ITS ---
[facility] Accession Number: [id number] No. of containers..01 Tissue . 01 Material submitted: . rectum - RECTAL POLYPS . 01 Diagnosis: RECTAL POLYPS: Hyperplastic polyps. STO 10/06/2024 1353 Local . 01 Electronically signed: . Jacek Teresa MD, Pathologist NPI- [id number] . 01 Gross description: . Received in formalin with two patient identifiers and rectal polyps, are two pruitt soft tissue fragments, 0.3 to 0.4 cm in greatest dimension, submitted in A1. ([id number]) /MRV 10/06/2024 1353 Local . 01 Pathologist provided ICD-10: K62.1 . 01 CPT . 372077 Specimen Comment: A courtesy copy of this report has been sent to [phone] Performed at: [address] [facility] [id number] MD Jacek Teresa MD Phone: [phone]
--- NOTE | 2024-10-02 10:06 | PM.HP.1 ---
History of Present Illness History of Present Illness Date Patient Seen: 10/02/24 Time Patient Seen: 10:06 Chief complaint: Colonoscopy Narrative: Jeremy is a 63-year-old man who has had polyps removed in the past. He believes his last colonoscopy was about 14 years ago however there is documentation of a colonoscopy by Dr. Syed-2018 with removal of some small polyps. [facility] Medical History (Updated 09/01/24 @ 07:38 by Marianela Goyal DO) Bronchitis Hypertensive urgency Mass of finger of left hand Left knee pain (05/16/16) History of colon polyps Uncontrolled type 2 diabetes mellitus Excessive thirst Body dysmorphic disorder BMI 39.0-39.9,adult Pain of right great toe Bilateral knee pain Hyperlipidemia associated with type 2 diabetes mellitus Type 2 diabetes mellitus Primary hypertension Erectile dysfunction Plaque psoriasis Obstructive sleep apnea of adult Umbilical hernia without obstruction and without gangrene (10/09/16) Primary insomnia (05/16/16) Surgical History (Updated 06/27/22 @ 15:18 by Carlos King DO) Status post right partial knee replacement History of umbilical hernia repair (12/13/16) History of colonoscopy with polypectomy (08/05/09) Family History Grandfather No problems noted. Social History marital status: unmarried,single number of children: 0 lives independently: Yes caregiver/support person: No pets and animals: Yes (2/3 year old puppy; sleeps on pt bed) education level: high school occupational status: employed Smoking Status: Current every day smoker (1/3 pack a day started in 1986) quit status: considering quitting alcohol intake: current substance use type: does not use Meds Home Medications and Allergies Home Medications Medication Instructions Recorded Confirmed Type folic acid 1 mg tablet 1 mg PO DAILY 10/25/23 08/29/24 History methotrexate sodium 2.5 mg tablet 20 mg PO QWEEK 10/25/23 08/29/24 History vit C 250 mg-vit E 200 unit-zinc cap PO 10/25/23 08/29/24 History ox 12.5 lq-zsjbrl-ebpihv-zeax capsule (ICaps AREDS2) atorvastatin 40 mg tablet 40 mg PO BEDTIME #90 tabs 04/17/24 08/29/24 Rx bupropion HCl 150 mg 24 hr tablet, 150 mg PO QAM #60 tabs 08/13/24 08/29/24 Rx extended release (Wellbutrin XL) hydrochlorothiazide 50 mg tablet 50 mg PO DAILY #90 tabs 08/13/24 08/29/24 Rx lisinopril 40 mg tablet 40 mg PO DAILY #90 tabs 08/14/24 08/29/24 Rx sodium,potassium,mag sulfates 17.5 See Rx Instructions PO .COMPLEX 08/27/24 08/29/24 Rx gram-3.13 gram-1.6 gram oral soln #354 mL (Suprep Bowel Prep Kit) metformin 1,000 mg tablet 1,000 mg PO BIDWMEAL #180 tabs 09/10/24 Rx semaglutide 7 mg tablet (Rybelsus) 7 mg PO DAILY #60 tabs 09/12/24 10/02/24 Rx metformin 1,000 mg tablet 1,000 mg PO BID 10/02/24 10/02/24 History Allergies Allergy/AdvReac Type Severity Reaction Status Date / Time No Known Drug Allergies Allergy Verified 08/29/24 13:55 Exam Const General: No acute distress Resp Effort & Inspection: normal respiratory effort Assessment & Plan Assessment and plan (1) History of colon polyps: Status: Acute Plan We reviewed the risks and benefits of colonoscopy for a history of polyps and he would like to proceed. Time-Based Coding :: [TOTAL MINUTES] spent with patient and on the chart (including review of chart, obtaining history, exam, reviewing outside data, placing orders, documenting exam and treatment plan, and counseling patient) on [DATE].
[2024-10-02 10:13] VITALS: BP 139/88; PULSE 76; RESP 16; TEMP 36.5; O2SAT 95
--- NOTE | 2024-10-02 11:07 | PM.OP.COLON ---
Operative Date/Time/Diagnoses Date of procedure: 10/02/24 Time of procedure: 11:08 Pre-op diagnosis: History of polyps Post-op diagnosis: same Procedure & Clinicians Study performed: Colonoscopy Same procedure as scheduled: Yes Surgeon: Jeremy Woodard Procedure Notes Procedure in detail: Surgeon: Jeremy Woodard MD Anesthesia: Rosa Hodges CRNA Procedure: The patient was brought to the endoscopy suite, placed in left lateral decubitus position. The patient was connected to monitoring devices. A time-out was performed. Sedation was administered. Once the patient was adequately sedated, a digital rectal exam was performed and was normal. The scope was then inserted and advanced to the cecum where the appendiceal orifice was identified and photographed. The scope was then slowly withdrawn over greater than 6 minutes. The mucosa was thoroughly inspected. There were 2 small polyps in the rectum removed with the Jumbo forceps. The scope was retroflexed in the rectum. No other abnormalities were seen. The scope was straightened and removed. The patient was awakened and brought to recovery. Scope withdrawal time: 9 minutes Sedation time: 15 minutes EBL: 3 mL Findings: 2 small rectal polyps Post-procedure Disposition: PACU
[2024-10-02 11:09] VITALS: BP 114/54; PULSE 67; RESP 18; TEMP 37.2; O2SAT 93
[2024-10-02 11:12] VITALS: BP 105/63; PULSE 73; RESP 12; TEMP 36.9; O2SAT 94
== END 2024-10-02 11:23 | disposition home or self-care (01) ==
PROVIDERS: PCP Family Medicine; Referring Provider Surgery; Visit Provider Surgery
PROC: 0DJD8ZZ Inspection of Lower Intestinal Tract, Via Natural or Artificial Opening Endoscopic (ICD-10-PCS; CPT 45378; principal; 2024-10-02 10:30)
DX: Z12.11 Encounter for screening for malignant neoplasm of colon (principal); Z86.0100 Personal history of colon polyps, unspecified; K62.1 Rectal polyp
CPT/HCPCS: 45380; J2704

== ENCOUNTER → 2025-02-09 06:42 | Outpatient (CLI) | payer MEDICARE, SELFPAY ==
[2025-02-09 07:47] LABS: Microalbumin Urine Random < 0.6 mg/dL (0-1.6)
[2025-02-09 08:33] LABS: Cholesterol 209 mg/dL (140-199); HDL Cholesterol 26 mg/dL (40-60)
[2025-02-09 08:43] LABS: Triglycerides 622 mg/dL (35-150)
== END ==
PROVIDERS: PCP Family Medicine; Referring Provider Family Medicine; Visit Provider Family Medicine
DX: E11.69 Type 2 diabetes mellitus with other specified complication (principal); Z72.0 Tobacco use; E78.5 Hyperlipidemia, unspecified; Z68.39 Body mass index [BMI] 39.0-39.9, adult
CPT/HCPCS: 36415; 80061; 82043; 82570

== ENCOUNTER 2025-02-11 14:13 | Inpatient (IN) | payer MEDICARE, SELFPAY ==
[2025-02-11] VITALS (31 sets, daily range): BP systolic 94–193; BP diastolic 56–110; PULSE 50–107; RESP 11–36; TEMP 36.2; O2SAT 89–98; BMI 32.4
--- NOTE | 2025-02-11 14:08 | DI.CT.S_ITS ---
PROCEDURE: CT STROKE INDICATIONS: Right-sided weakness slurred speech TECHNIQUE: Noncontrast 4.5 mm thick angled axial sections acquired from the foramen magnum to the vertex, with coronal reformats. For radiation dose reduction, the following was used: automated exposure control, adjustment of mA and/or kV according to patient size. COMPARISON: None. FINDINGS: Image quality: Diagnostic. CSF spaces: Basal cisterns are patent. No extra-axial fluid collections. The ventricles are symmetric in size and shape. Brain: No intracranial bleeds or masses. There is cerebral volume loss for age, with resultant ventricular and sulcal prominence. There are periventricular and deep white matter chronic small vessel ischemic changes. There is intracranial internal carotid artery atherosclerosis. Skull and face: Calvarium and visualized facial bones appear intact, without suspicious lesions. Sinuses: Visualized sinuses and mastoids are clear. IMPRESSION: No acute intracranial pathology. Comment: Findings were discussed with Dr. Santiago on 02/11/2025 at 1421 hours This study fulfills neurological imaging criteria for inclusion or exclusion of acute stroke therapies based on available published neurological guidelines. Dictated by: Layton Craig M.D. on 02/11/2025 at 14:20 Approved by: Layton Craig M.D. on 02/11/2025 at 14:21
--- NOTE | 2025-02-11 14:08 | DI.CT.S_ITS ---
PROCEDURE: CT ANGIO HEAD AND NECK INDICATIONS: Right-sided weakness slurred speech TECHNIQUE: After the administration of intravenous contrast, 1 mm thick sections acquired from the aortic arch through the [place] of [place]. 3-dimensional xiyffzy-eldvttvxj-hcoaqxwxnm (MIP) and/or volume rendering reformats were acquired of the central intracranial vasculature and neck separately. For radiation dose reduction, the following was used: automated exposure control, adjustment of mA and/or kV according to patient size. COMPARISON: None. FINDINGS: Image quality: Diagnostic. BRAIN: CSF spaces: Ventricles are normal in size and shape. Basal cisterns are patent. No extra-axial fluid collections. Brain: No significant abnormality of the brain can be seen. Skull and face: Calvarium and facial bones appear intact, without suspicious lesions. Orbits appear normal. Sinuses: Sinuses and mastoids are clear. HEAD CT ANGIOGRAPHY: Anterior circulation: Intracranial internal carotid arteries are normal in size and flow. The flow within the paired anterior cerebral arteries is normal and symmetric. The flow within the middle cerebral arteries is normal and symmetric. The anterior communicating artery is seen. No aneurysms are seen. Posterior circulation: Visualized portions of the vertebral arteries demonstrate normal caliber, and join to form a normal appearing basilar artery. Flow within the posterior cerebral arteries is normal and symmetric. No aneurysms are seen. NECK CT ANGIOGRAPHY: Carotid system: The great vessels demonstrate a conventional anatomy as they arise from the aortic arch. The origins of the common carotid arteries appear patent. The common carotid arteries demonstrate normal caliber and courses. The bifurcation regions are both widely patent. The internal carotid arteries demonstrate normal calibers and courses. Posterior circulation: The origins of the vertebral arteries both appear widely patent. The more superior extracranial portions of both vertebral arteries also demonstrate normal courses and calibers. They join to form a normal appearing basilar artery. Soft tissues: Visualized neck soft tissues demonstrate no suspicious abnormalities. Bones: No suspicious bony lesions. Visualized cervical spine appears normally aligned. IMPRESSION: No significant intracranial arterial abnormality is seen. No significant abnormality is seen within the arteries of the neck. Any quantitative measurements of stenosis were performed using NASCET criteria. Dictated by: Layton Craig M.D. on 02/11/2025 at 14:22 Approved by: Layton Craig M.D. on 02/11/2025 at 14:24
--- NOTE | 2025-02-11 14:11 | ED.NEUROSD ---
HPI - Neuro Symptoms/Deficit General Chief Complaint: Neuro Symptoms/Deficit Stated Complaint: Code Stroke History of Present Illness HPI Narrative: Blood sugar greater than 500. Patient brought in by ambulance from home. For altered mental status. Patient has been stumbling falling to the right. Has right-sided weakness. Has had word salad and confusion. Patient last well-known 9:00 p.m. last night. Mother is at bedside. Mother did hear him fall this morning. He has been stumbling through the course of the day. He just saw family doctor yesterday and diagnosed with diabetes and is supposed to start insulin next week. Patient has had shaky right arm for the past 2 weeks. Patient does have right arm weakness. No slurred speech facial droop but does of confusion with time. Is only able to say his name and date of correctly. Related Data Previous Rx's Medication Instructions Recorded aspirin 81 mg tablet,delayed 81 mg PO DAILY #60 tabs 02/10/25 release atorvastatin 40 mg tablet 40 mg PO BEDTIME #90 tabs 02/10/25 blood-glucose meter #1 ea 02/10/25 insulin glargine 100 unit/mL (3 12 unit (0.12 mL) SUBCUT QPM #3 mL 02/10/25 mL) subcutaneous pen lancets 31 gauge #100 ea 02/10/25 lisinopril 40 mg tablet 40 mg PO DAILY #90 tabs 02/10/25 Allergies Allergy/AdvReac Type Severity Reaction Status Date / Time No Known Drug Allergies Allergy Verified 02/10/25 12:26 Review of Systems Review of Systems Narrative: GENERAL: Negative chills, fatigue, malaise, fever, sweats. HEENT: Negative sinus pain, ear pain, sore throat RESPIRATORY: Negative dyspnea, cough CARDIOVASCULAR: Negative chest pain, palpitations GASTROINTESTINAL: Negative vomiting, nausea, abdominal pain : Negative dysuria, frequency, hematuria MUSCULOSKELETAL: Negative muscle or bony pain SKIN: Negative rash, skin lesions NEUROLOGIC: Positive slurred speech/aphasia weakness, negative numbness ROS Unobtainable: All systems reviewed & are unremarkable except as noted in HPI and below Patient History Medical History (Updated 02/11/25 @ 16:44 by Khanh Santiago MD) Bronchitis Hypertensive urgency Mass of finger of left hand Left knee pain (05/16/16) History of colon polyps Uncontrolled type 2 diabetes mellitus Excessive thirst Body dysmorphic disorder BMI 39.0-39.9,adult Pain of right great toe Bilateral knee pain Hyperlipidemia associated with type 2 diabetes mellitus Type 2 diabetes mellitus Primary hypertension Erectile dysfunction Plaque psoriasis Obstructive sleep apnea of adult Umbilical hernia without obstruction and without gangrene (10/09/16) Primary insomnia (05/16/16) Surgical History (Updated 06/27/22 @ 15:18 by Carlos King DO) Status post right partial knee replacement History of umbilical hernia repair (12/13/16) History of colonoscopy with polypectomy (08/05/09) Family History Grandfather No problems noted. Social History marital status: unmarried,single number of children: 0 lives independently: Yes caregiver/support person: No pets and animals: Yes (2/3 year old puppy; sleeps on pt bed) education level: high school occupational status: employed Smoking Status: Current every day smoker quit status: considering quitting alcohol intake: current substance use type: does not use Exam Narrative Exam Narrative: GENERAL: in no distress, not toxic not dyspneic HEAD: Normocephalic. EYES: Pupils equal round ENT: Mucous membranes moist. NECK: Trachea midline. CARDIOVASCULAR: Regular rate and rhythm RESPIRATORY: Clear to auscultation. Breath sounds equal bilaterally. No wheezes, rales, or rhonchi. GASTROINTESTINAL: Abdomen soft, non-tender EXTREMITIES: No gross deformities. BACK: No flank tenderness. NEURO: AOx1. Clear speech, no facial droop but does have expressive aphasia, there is weakness to the right arm and leg with gripping and raising the leg. Unable to do finger-nose with the right hand and jjxj-bg-ybvq with the right leg. SKIN: Warm and dry PSYCH: Patient is anxious, is cooperative Initial Vital Signs Initial Vital Signs: Vital Signs Pulse Rate 106 H 02/11/25 14:24 Respiratory Rate 12 02/11/25 14:24 Pulse Oximetry 89 L 02/11/25 14:24 Scores NIH Stroke Scale Level of Conciousness: Alert, keenly responsive Ask month/age: Answers one question correctly, intubated follow commands Open/close eyes, close hand: Performs both tasks correctly Best gaze horizontal: Normal Visual mont[place]: No visual loss Facial palsy: Normal symetrical movement Left arm drift: No drift for full 10 sec Right arm drift: Some effort against gravity, cannot maintain, drifts down to bed Left leg drift: No drift for full 5 sec Right leg drift: Some effort against gravity, cannot maintain, drifts down to bed Limb ataxia: Present in two limbs Sensory on face/arms/legs: Normal, no sensory loss Best language: Mild to moderate, slurs some words Dysarthria: Mild to mod,some slurring Extinction or inattention: No abnormality Total NIH Stroke scale score: 9 Course Orders Ordered: ED Orders 02/11/25 14:[address] angio head and neck Stat 02/11/25 14:15 A1C [Hemoglobin A1C% w Est Avg Glu] Stat Complete Blood Count AUTO DIFF Stat Comprehensive Metabolic Panel Stat Ethanol (ETOH) Stat Ketones (Beta-Hydroxybutyrate) Stat Prothrombin Time INR Stat Troponin & CK Cardiac Panel Stat 02/11/25 14:28 VBG [Venous Blood Gas] STAT 02/11/25 14:33 Urinalysis and Microscopic Stat Urine Drug Screen, Rapid Stat 02/11/25 14:52 Venous Blood Gas Routine 02/11/25 15:40 XR chest 1V Stat 02/11/25 16:02 Respiratory Panel (Film Array) Stat 02/11/25 16:30 Consult to Dietitian, Adult Routine 02/11/25 17:08 Basic Metabolic Panel Q4H 02/11/25 21:00 Basic Metabolic Panel Q4H 02/12/25 00:30 Basic Metabolic Panel Q4H Dextrose (D10w) 100 mls @ 999 mls/hr IV PRN PRN PRN Reason: Hypoglycemia Sodium Chloride (Normal Saline 0.9%) 1,000 mls @ 1,000 mls/hr IV BOLUS ONE Stop: 02/11/25 17:29 Last Admin: 02/11/25 16:34 Dose: Not Given Documented By: WINTER Dextrose/Sodium Chloride (Dextrose 5%-0.45% Ns) 1,000 mls @ 150 mls/hr IV CONT DOROTHY Discontinued Medications Diphenhydramine HCl (Diphenhydramine 50 Mg/Ml Vial) 50 mg IV NOW ONE Stop: 02/11/25 16:53 Last Admin: 02/11/25 16:55 Dose: 50 mg Documented By: WINTER Haloperidol (Haloperidol 5 Mg/Ml Vial) 2 mg IV NOW ONE Stop: 02/11/25 16:53 Last Admin: 02/11/25 16:56 Dose: 2 mg Documented By: WINTER Sodium Chloride (Normal Saline 0.9%) 500 mls @ 1,000 mls/hr IV BOLUS ONE Stop: 02/11/25 14:39 Last Infusion: 02/11/25 15:57 Dose: Infused Documented By: Admin: 02/11/25 15:15 Dose: 1,000 mls/hr Documented By: BURTON Sodium Chloride (Normal Saline 0.9%) 1,000 mls @ 1,000 mls/hr IV BOLUS ONE Stop: 02/11/25 17:15 Last Admin: 02/11/25 16:55 Dose: 1,000 mls/hr Documented By: WINTER Insulin Human Regular (Insulin Regular 100 Unit/Ml 3 Ml Vial) 20 unit IV NOW ONE Stop: 02/11/25 16:18 Lorazepam (Lorazepam 2 Mg/Ml Inj) 1 mg IV NOW ONE Stop: 02/11/25 16:04 Last Admin: 02/11/25 16:05 Dose: 1 mg Documented By: BURTON Lorazepam (Lorazepam 2 Mg/Ml Inj) 2 mg IV NOW ONE Stop: 02/11/25 16:44 Last Admin: 02/11/25 16:50 Dose: 2 mg Documented By: BURTON Vital Signs Vital signs: Vital Signs - 8 hr 02/11/25 14:24 02/11/25 14:25 02/11/25 14:25 Pulse Rate 106 H 107 H Respiratory Rate 12 14 Blood Pressure 179/95 H Pulse Oximetry 89 L 90 L Oxygen Delivery Method 02/11/25 14:28 02/11/25 14:30 02/11/25 14:30 Pulse Rate 106 H 106 H Respiratory Rate 20 28 H Blood Pressure 179/65 H 178/94 H Pulse Oximetry 89 L 89 L Oxygen Delivery Method Room Air MDM - Neuro Symptoms/Deficit Lab Data 02/11/25 14:15 02/11/25 14:15 Labs: Lab Results 02/11/25 02/11/25 02/11/25 Range/Units 14:15 14:33 14:33 WBC 12.9 H (4.5-11.0) X10^3/uL RBC 5.17 (4.5-5.9) X10^6/uL Hgb 15.5 (13.5-17.5) g/dL Hct 46.1 (41-53) % MCV 89.0 (80-100) fL MCH 30.0 (26-34) PG MCHC 33.7 (30-36) % RDW 12.7 (11.6-14.8) % Plt Count 231 (150-400) X10^3/uL Neut % (Auto) 83.2 H (50-75) % Lymph % (Auto) 8.9 L (25-40) % [place] % (Auto) 6.8 (3-14) % Eos % (Auto) 0.2 L (2-4) % Baso % (Auto) 0.9 (0-2) % Neut # (Auto) 87427 H (8513-4949) /uL Lymph # (Auto) 1100 (5854-9135) /uL [place] # (Auto) 900 (0-900) /uL Eos # (Auto) 0 (0-450) /uL Baso # (Auto) 100 (0-100) /uL PT 10.4 (9.4-12.5) SECONDS INR 0.9 (0.9-1.3) VBG pH (7.33-7.43) VBG pCO2 (45-50) mmHg VBG pO2 (35-45) mmHg VBG HCO3 (24-28) mmol/L VBG Total CO2 (24-29) mmol/L VBG O2 Saturation (70-75) % VBG Base Excess (0-4) mmol/L Sodium 137 (137-145) mmol/L Potassium 4.5 (3.4-5.1) mmol/L Chloride 100 (98-107) mmol/L Carbon Dioxide 18 L (22-32) mmol/L BUN 40 H (9-20) mg/dL Creatinine 1.01 (0.66-1.25) mg/dL Estimated GFR > 60 (>60) mL/min BUN/Creatinine Ratio 39.6 H (6-22) Glucose 758 H* (80-110) mg/dL Hemoglobin A1c 11.5 H (4.0-6.0) % Calcium 11.2 H (8.4-10.2) mg/dL Total Bilirubin 1.1 (0.2-1.3) mg/dL AST 41 (17-59) IU/L ALT 53 H (<50) IU/L Alkaline Phosphatase 82 (38-126) U/L Total Creatine Kinase 653 H (55-170) U/L Troponin I < 0.012 (0.01-0.034) ng/mL Total Protein 7.7 (6.3-8.2) g/dL Albumin 4.7 (3.5-5.0) g/dL Globulin 3.0 (1.7-4.1) g/dL Albumin/Globulin Ratio 1.6 (1.0-2.8) Urine Color Yellow Urine Appearance Clear Urine pH 5.5 Normal (4.5-8.0) Ur Specific [place] 1.010 (1.000-1.035) Urine Protein Negative (Negative) Urine Glucose (UA) 3+ H (Negative) g/dL Urine Ketones 1+ H (NEGATIVE) Urine Occult Blood 1+ H (Negative) Urine Nitrate Negative (Negative) Urine Bilirubin Negative (NEGATIVE) Urine Urobilinogen 0.2 (0.2) E.U./dL Ur Leukocyte Esterase Negative (NEGATIVE) Urine RBC 1-5/hpf (0-5/HPF) Urine WBC None seen (0-5/HPF) Ur Squamous Epith Cells None seen (0-5/HPF) Ur Transition Epith Cell 1-5/hpf (0-5/HPF) Amorphous Sediment 1+ Urine Bacteria None seen (None) Ur Culture Indicated? Cult not indicated Vol Urine Centrifuged 10ml (spun) U Opiates 300ng/mL cut Negative (Negative) Ur Oxycodone Screen Negative (Negative) Urine Methadone Screen Negative (Negative) Ur Barbiturates Screen Negative (Negative) U Tricyclic Antidepress Negative (Negative) Ur Phencyclidine Scrn Negative (Negative) Ur Amphetamines Screen Negative (Negative) U Methamphetamines Scrn Negative (Negative) Ur MDMA Scrn (Ecstasy) Negative (Negative) U Benzodiazepines Scrn Negative (Negative) Urine Cocaine Screen Negative (Negative) U Marijuana (THC) Screen Negative (Negative) Urine Specific [place] Normal (Normal) Ethyl Alcohol < 10 ( - 10) mg/dL Ketones 1.50 H (<0.27) mmol/L Ur Creatinine Normal (Normal) Chlamy pneumoniae PCR (Not Detect) Adenovirus (PCR) (Not Detect) B. pertussis DNA (PCR) (Not Detect) B.parapertussis DNA PCR (Not Detecte) Coronavirus OC43 (PCR) (Not Detect) Coronavirus HKU1 (PCR) (Not Detect) Coronavirus 229E (PCR) (Not Detect) SARS-CoV-2 (PCR) (Not Detecte) Coronavirus NL63 (PCR) (Not Detect) Human Metapneumovir PCR (Not Detect) Influenza Type A (PCR) (Not Detect) Influenza Type B (PCR) (Not Detect) M. pneumoniae (PCR) (Not Detect) Parainfluenza 1 (PCR) (Not Detect) Parainfluenza 2 (PCR) (Not Detect) Parainfluenza 3 (PCR) (Not Detect) Parainfluenza 4 (PCR) (Not Detect) RSV (PCR) (Not Detect) Entero/Rhino (PCR) (Not Detect) 02/11/25 02/11/25 Range/Units 14:52 16:02 WBC (4.5-11.0) X10^3/uL RBC (4.5-5.9) X10^6/uL Hgb (13.5-17.5) g/dL Hct (41-53) % MCV (80-100) fL MCH (26-34) PG MCHC (30-36) % RDW (11.6-14.8) % Plt Count (150-400) X10^3/uL Neut % (Auto) (50-75) % Lymph % (Auto) (25-40) % [place] % (Auto) (3-14) % Eos % (Auto) (2-4) % Baso % (Auto) (0-2) % Neut # (Auto) (3548-9031) /uL Lymph # (Auto) (0099-7171) /uL [place] # (Auto) (0-900) /uL Eos # (Auto) (0-450) /uL Baso # (Auto) (0-100) /uL PT (9.4-12.5) SECONDS INR (0.9-1.3) VBG pH 7.46 H (7.33-7.43) VBG pCO2 36.9 L (45-50) mmHg VBG pO2 62 H (35-45) mmHg VBG HCO3 26 (24-28) mmol/L VBG Total CO2 25 (24-29) mmol/L VBG O2 Saturation 93 H (70-75) % VBG Base Excess 2.5 (0-4) mmol/L Sodium (137-145) mmol/L Potassium (3.4-5.1) mmol/L Chloride (98-107) mmol/L Carbon Dioxide (22-32) mmol/L BUN (9-20) mg/dL Creatinine (0.66-1.25) mg/dL Estimated GFR (>60) mL/min BUN/Creatinine Ratio (6-22) Glucose (80-110) mg/dL Hemoglobin A1c (4.0-6.0) % Calcium (8.4-10.2) mg/dL Total Bilirubin (0.2-1.3) mg/dL AST (17-59) IU/L ALT (<50) IU/L Alkaline Phosphatase (38-126) U/L Total Creatine Kinase (55-170) U/L Troponin I (0.01-0.034) ng/mL Total Protein (6.3-8.2) g/dL Albumin (3.5-5.0) g/dL Globulin (1.7-4.1) g/dL Albumin/Globulin Ratio (1.0-2.8) Urine Color Urine Appearance Urine pH (4.5-8.0) Ur Specific [place] (1.000-1.035) Urine Protein (Negative) Urine Glucose (UA) (Negative) g/dL Urine Ketones (NEGATIVE) Urine Occult Blood (Negative) Urine Nitrate (Negative) Urine Bilirubin (NEGATIVE) Urine Urobilinogen (0.2) E.U./dL Ur Leukocyte Esterase (NEGATIVE) Urine RBC (0-5/HPF) Urine WBC (0-5/HPF) Ur Squamous Epith Cells (0-5/HPF) Ur Transition Epith Cell (0-5/HPF) Amorphous Sediment Urine Bacteria (None) Ur Culture Indicated? Vol Urine Centrifuged U Opiates 300ng/mL cut (Negative) Ur Oxycodone Screen (Negative) Urine Methadone Screen (Negative) Ur Barbiturates Screen (Negative) U Tricyclic Antidepress (Negative) Ur Phencyclidine Scrn (Negative) Ur Amphetamines Screen (Negative) U Methamphetamines Scrn (Negative) Ur MDMA Scrn (Ecstasy) (Negative) U Benzodiazepines Scrn (Negative) Urine Cocaine Screen (Negative) U Marijuana (THC) Screen (Negative) Urine Specific [place] (Normal) Ethyl Alcohol ( - 10) mg/dL Ketones (<0.27) mmol/L Ur Creatinine (Normal) Chlamy pneumoniae PCR Not detected (Not Detect) Adenovirus (PCR) Not detected (Not Detect) B. pertussis DNA (PCR) Not detected (Not Detect) B.parapertussis DNA PCR Not detected (Not Detecte) Coronavirus OC43 (PCR) Not detected (Not Detect) Coronavirus HKU1 (PCR) Not detected (Not Detect) Coronavirus 229E (PCR) Not detected (Not Detect) SARS-CoV-2 (PCR) Not detected (Not Detecte) Coronavirus NL63 (PCR) Not detected (Not Detect) Human Metapneumovir PCR Not detected (Not Detect) Influenza Type A (PCR) Not detected (Not Detect) Influenza Type B (PCR) Not detected (Not Detect) M. pneumoniae (PCR) Not detected (Not Detect) Parainfluenza 1 (PCR) Not detected (Not Detect) Parainfluenza 2 (PCR) Not detected (Not Detect) Parainfluenza 3 (PCR) Not detected (Not Detect) Parainfluenza 4 (PCR) Not detected (Not Detect) RSV (PCR) Not detected (Not Detect) Entero/Rhino (PCR) Not detected (Not Detect) MDM Narrative Medical decision making narrative: Blood sugar greater than 500. Patient brought in by ambulance from home. For altered mental status. Patient has been stumbling falling to the right. Has right-sided weakness. Has had word salad and confusion. Patient last well-known 9:00 p.m. last night. Mother is at bedside. Mother did hear him fall this morning. He has been stumbling through the course of the day. He just saw family doctor yesterday and diagnosed with diabetes and is supposed to start insulin next week. Patient has had shaky right arm for the past 2 weeks. Patient does have right arm weakness. No slurred speech facial droop but does of confusion with time. Is only able to say his name and date of correctly. After history and exam, [facility] Medical records reviewed: No recent visit for this complaint Differential considered: Includes but not limited to stroke DKA UTI substance abuse Lab Test results independently reviewed as above. Pertinent findings: WBC 12.9 hemoglobin 15.5 INR 0.9 VBG 7.46, 36.9, 62 sodium 137 potassium 4.5 bicarb 18 BUN 40 glucose 758 troponin less than 0.012 total CK 653 urinalysis negative leukocyte esterase negative nitrate ketones 1.5 alcohol negative, negative respiratory panel. Negative drug screen, positive serum ketones Independently reviewed EKG sinus tachycardia rate [address] elevation or depression Imaging studies independently reviewed: CT head CT angiogram head and neck no acute finding Consultations: Patient outside window for TNK and there is no large vessel occlusion. No neurology consult indicated at this time. Four 4-3 p.m.. Hospitalist at bedside with patient and mother for admission, dr busby, he agrees with current diabetes orders and he will put in DKA order set Treatments: Normal saline Re-evaluations: Reviewed results with mother. She does understand need for admission for stroke workup and possible DKA. 4:33 p.m.. Spoke with mother. Patient does not drink heavy alcohol daily. He does have a small cocktail each night. Patient is moving all 4 extremities at this time but is very agitated and needs redirecting. Has clear speech. Discussion: Appropriate for admission for stroke workup as well as DKA. No neurology consult indicated this time as patient is outside window for TNK or endovascular studies as there is no large vessel occlusion. Diagnosis: TIA/DKA Stroke Core Measures Exclusion Criteria TPA in CVA: Symptom Onset >3 or 4.5 Hours Critical Care Time Critical Care Time Attestation: Critical Care Time 35 minutes: Critical care time is separate from other billable procedures. This critical care time includes consultation with family and other consulting doctors, review of records, and interpretation of data from labs, EKGs, imaging, etc. Discharge Plan Departure Patient Disposition: Admitted As Inpatient Clinical Impression: Brain TIA DKA (diabetic ketoacidosis) Qualifiers: Diabetes mellitus type: other specified (including MALI) Diabetes mellitus complication detail: without coma Qualified Code(s): E13.10 - Other specified diabetes mellitus with ketoacidosis without coma Admit Date/Time: 02/11/25 16:46 Admit Provider: Nicola Busby
[2025-02-11 14:23] LABS: Add Manual Diff / Slide Review NO; Basophils Absolute Auto 100 /uL (0-100); Basophils Percent Auto 0.9 % (0-2); Eosinophils Absolute Auto 0 /uL (0-450); Eosinophils Percent Auto 0.2 % (2-4); Hematocrit 46.1 % (41-53); Hemoglobin 15.5 g/dL (13.5-17.5); Lymphocytes Absolute Auto 1100 /uL (1100-4500); Lymphocytes Percent Auto 8.9 % (25-40); Mean Corpuscular HGB Conc 33.7 % (30-36); Monocytes Absolute Auto 900 /uL (0-900); Monocytes Percent Auto 6.8 % (3-14); Neutrophils Absolute Auto 10700 /uL (1500-7000); Neutrophils Percent Auto 83.2 % (50-75); Platelet Count 231 X10^3/uL (150-400); Red Blood Cell Count 5.17 X10^6/uL (4.5-5.9); Red Cell Distribution Width 12.7 % (11.6-14.8); White Blood Cell Count 12.9 X10^3/uL (4.5-11.0)
--- NOTE | 2025-02-11 14:26 | EKG_ITS ---
[address] [address] Test Date: 2025-02-11 Pat Name: Jeremy Stewart Department: [facility] Room: 227 Gender: Male [employer] Developer: BUSHRA : 1960 Requested By: Order Number: [id number] Reading MD: Adrian Diane MD Measurements Intervals [place] Rate: 107 P: 46 [place]: 152 QRS: -6 QRSD: 90 T: 28 QT: 334 QTc: 445 Interpretive Statements Sinus tachycardia Inferior infarct , age undetermined Electronically Signed On 02-12-2025 7:28:37 PDT by Adrian Diane MD
[2025-02-11 14:33] LABS: INR 0.9 (0.9-1.3); Prothrombin Time 10.4 SECONDS (9.4-12.5)
[2025-02-11 14:37] LABS: Alanine Aminotransferase 53 IU/L (<50); Albumin 4.7 g/dL (3.5-5.0); Albumin Globulin Ratio 1.6 (1.0-2.8); Alkaline Phosphatase 82 U/L (38-126); Aspartate Aminotransferase 41 IU/L (17-59); BUN Creatinine Ratio 39.6 (6-22); Bilirubin Total 1.1 mg/dL (0.2-1.3); Blood Urea Nitrogen 40 mg/dL (9-20); Calcium 11.2 mg/dL (8.4-10.2); Carbon Dioxide 18 mmol/L (22-32); Chloride 100 mmol/L (98-107); Creatine Kinase 653 U/L (55-170); Estimated Glomerular Filt Rate > 60 mL/min (>60); Ethanol (ETOH) < 10 mg/dL; HEMOLYSIS < 15 (0-50); Potassium 4.5 mmol/L (3.4-5.1); Sodium 137 mmol/L (137-145); Total Protein 7.7 g/dL (6.3-8.2)
[2025-02-11 14:45] LABS: Appearance Urine UA CLEAR; Bilirubin Urine UA NEGATIVE (NEGATIVE); Color Urine UA YELLOW; Glucose Urine UA 3+ g/dL (Negative); Ketones Urine UA 1+ (NEGATIVE); Leukocyte Esterase Urine UA NEGATIVE (NEGATIVE); Nitrite Urine UA NEGATIVE (Negative); Occult Blood Urine UA 1+ (Negative); Protein Urine UA NEGATIVE (Negative); Urobilinogen Urine UA 0.2 E.U./dL (0.2); pH Urine UA 5.5 (4.5-8.0)
[2025-02-11 14:49] LABS: Troponin I < 0.012 ng/mL (0.01-0.034)
[2025-02-11 14:58] LABS: Base Excess VBG 2.5 mmol/L (0-4); HCO3 VBG 26 mmol/L (24-28); Oxygen Saturation VBG 93 % (70-75); PCO2 VBG 36.9 mmHg (45-50); PO2 VBG 62 mmHg (35-45); Total CO2 VBG 25 mmol/L (24-29); pH VBG 7.46 (7.33-7.43)
[2025-02-11 14:59] LABS: Amorphous Sediment Urine 1+; Bacteria Urine None Seen; Culture Indicated Urine Cult Not Indicated; RBC Urine 1-5/HPF (0-5/HPF); Transitional Epi Cells Urine 1-5/HPF (0-5/HPF); Urine Volume 10mL (spun); WBC Urine None Seen (0-5/HPF)
[2025-02-11 15:04] LABS: Glucose 758 mg/dL (80-110)
[2025-02-11] MEDS: SODIUM CHLORIDE 0.9% 500 ML 1000 ML IV (15:15)
[2025-02-11 15:21] LABS: Hemoglobin A1C% w Est Avg Glu 11.5 % (4.0-6.0)
[2025-02-11 15:36] LABS: Squamous Epithelial Cell Urine None Seen (0-5/HPF)
--- NOTE | 2025-02-11 15:40 | DI.RAD.S_ITS ---
PROCEDURE: XR CHEST 1V INDICATIONS: Cough TECHNIQUE: One view of the chest was acquired. COMPARISON: None. FINDINGS: Surgical changes and devices: None. Lungs and pleura: Small left pleural effusion is seen with left basilar atelectasis/small infiltrate. Mild pulmonary vascular congestion is noted. No pneumothorax. Right lung is clear. Mediastinum: Mediastinal contours appear normal. Heart size is enlarged. Bones and chest wall: No suspicious bony lesions. Overlying soft tissues appear unremarkable. IMPRESSION: Cardiomegaly and mild pulmonary vascular congestion. Small left pleural effusion with left basilar infiltrate/atelectasis. No pneumothorax. Dictated by: Vladislav Dempsey M.D. on 02/11/2025 at 16:01 Approved by: Vladislav Dempsey M.D. on 02/11/2025 at 16:01
[2025-02-11 15:49] LABS: UR Morphine/Opiate cutoff 300 Negative (Negative); Ur Creatinine Normal (Normal); Ur Specific Gravity Normal (Normal); Urine Amphetamines Negative (Negative); Urine Barbiturates Negative (Negative); Urine Benzodiazepines Negative (Negative); Urine Cocaine Negative (Negative); Urine MDMA Negative (Negative); Urine Methadone Negative (Negative); Urine Methamphetamines Negative (Negative); Urine Oxycodone Negative (Negative); Urine Phencyclidine Negative (Negative); Urine Tetrahydrocannabinol Negative (Negative); Urine Tricyclic Antidepressant Negative (Negative); Urine pH Normal (Normal)
--- NOTE | 2025-02-11 15:51 | PC.NURSE ---
pt is agitated. pulling at lines and wires. has been redirected multiple times. attempted verbal descalation.
[2025-02-11] MEDS: LORazepam 2 MG/ML INJ 1 MG IV (16:05)
[2025-02-11] MEDS: LORazepam 2 MG/ML INJ IV ×2 (16:50→18:43)
[2025-02-11] MEDS: SODIUM CHLORIDE 0.9% 1,000 ML 1000 ML IV (16:55)
[2025-02-11] MEDS: diphenhydrAMINE 50 MG/ML VIAL IV (16:55)
[2025-02-11] MEDS: HALOPERIDOL 5 MG/ML VIAL 2 MG IV ×2 (16:56→18:43)
[2025-02-11 16:59] LABS: Adenovirus Not Detected (Not Detect); B. parapertussis Not Detected (Not Detecte); Bordetella pertussis Not Detected (Not Detect); Chlamydophila pneumoniae Not Detected (Not Detect); Coronavirus 229E Not Detected (Not Detect); Coronavirus HKU1 Not Detected (Not Detect); Coronavirus NL 63 Not Detected (Not Detect); Coronavirus OC43 Not Detected (Not Detect); Human Metapneumovirus Not Detected (Not Detect); Human Rhinovirus/Enterovirus Not Detected (Not Detect); Influenza A Not Detected (Not Detect); Influenza B Not Detected (Not Detect); Mycoplasma pneumoniae Not Detected (Not Detect); Parainfluenza Virus 1 Not Detected (Not Detect); Parainfluenza Virus 2 Not Detected (Not Detect); Parainfluenza Virus 3 Not Detected (Not Detect); Parainfluenza Virus 4 Not Detected (Not Detect); Respiratory Syncytial Virus Not Detected (Not Detect); SARS- CoV-2 Not Detected (Not Detecte)
--- NOTE | 2025-02-11 16:59 | PC.NURSE ---
Dr Finney in ED to assess pt. pt continues to be agitated. pulling at lines and staff. trying to get oob. verbal order for 2mg IV ativan, 2mg IV haldol, and 50mg IV benadryl. Pt is calming at this time. waiting for 2nd liter of fluid to infuse before insulin admin.
[2025-02-11 17:31] LABS: BUN Creatinine Ratio 41.8 (6-22); Blood Urea Nitrogen 33 mg/dL (9-20); Calcium 9.8 mg/dL (8.4-10.2); Carbon Dioxide 20 mmol/L (22-32); Chloride 103 mmol/L (98-107); Estimated Glomerular Filt Rate > 60 mL/min (>60); Glucose 471 mg/dL (80-110); HEMOLYSIS < 15 (0-50); Potassium 4.2 mmol/L (3.4-5.1); Sodium 136 mmol/L (137-145)
--- NOTE | 2025-02-11 17:43 | DIET.CONS2 ---
Dietary Inpatient Consultation Note Admission Date: 02/11/2025 16:46 Hospitalist entered CCD starting tomorrow am, this RD confirmed with ICU nursing pt needs dinner tonight per hospitalist. Diet order was placed at end of dinner window so defaulted to breakfast next day. This RD updated diet to reflect this. Diet: 02/11/25 Dinner Carbohydrate Consistent Diet Diet Modifications: Carbohydrate level: Medium (3 CHO) Reflex DM orders: No Food Texture: Level 7 - Regular Liquid Consistency: Level 0 - Thin Electronically Signed by: Basia Guajardo 02/11/25 17:43 Clinical Dietitian [address] [id number]
--- NOTE | 2025-02-11 17:46 | ED.NEUROSD ---
HPI - Neuro Symptoms/Deficit General Chief Complaint: Neuro Symptoms/Deficit History of Present Illness HPI Narrative: Chief complaint: Severe delirium and agitation in the setting of non acidotic hyperosmolar hyperglycemia with ketosis with coma History of present illness: 64-year-old male type 2 diabetes previously very well controlled but 3 months ago stopped his semaglutide Jardiance statin lisinopril metformin and hydrochlorothiazide because of inability to afford. He was seen in the clinic by his PCP 02/10/2025 (Marianela Goyal D.O. who started him on Lantus 12 units along with lisinopril no atorvastatin and aspirin. Over the next 24 hours the patient underwent tremendous change in behavior as noted by friends and family. He was described as being very angry and agitated confused word salad falling multiple times disoriented. He was brought in by EMS to the emergency room for evaluation Social history: Mother reports the patient does not drink alcohol regularly or excessively has some bilious I was came in his coffee at night before going to bed does not use recreational substances by her report Findings in the emergency room very significant for an agitated flushed and hyperactive male with multiple skin abrasions and bruises on arms and legs. Serum glucose was 758, sodium 137 potassium 4.5 CO2 18 BUN 40 creatinine 1 venous blood gas pH 7.46 pCO2 37 PO2 60 urine drug screen was negative respiratory panel also negative serum ketones 1.5 which is barely above reference range urine ketones 3+ Patient was initially evaluated as a code stroke CT of the head and CT angiography was negative chest x-ray was clear Patient was referred to the hospitalist service for admission to ICU for management of his non acidotic hyperosmolar hyperglycemia with ketosis and coma. Case was discussed with the family ICU in emergency staff for a consensus of treatment plan. Patient was started on vigorous IV fluid resuscitation sedation with benzodiazepine diphenhydramine and Haldol for patient's safety 1 dose of insulin 20 units IV after 2 L bolus of normal saline followed by subcutaneous Lantus 20 units and high-dose sliding scale and hyperosmolar protocol Review of systems: Patient isn't capable of participating due to his agitated delirium Physical exam: Large frame muscular but obese very agitated and confrontational elderly male. HEENT pupils small but reactive Neck no JVD Heart rate and rhythm regular no murmurs Lungs clear from apices to bases Abdomen obese nontender Multiple abrasions on elbows knees shins Neurological exam patient is conversant but agitated 5/5 strength in all extremities Assessment and plan: Acute metabolic encephalopathy with agitated delirium in setting of non acidotic hyperosmolar hyperglycemia with ketosis and coma. Although there is denial by the patient is 88-year-old mother that he drinks alcohol his presentation very closely resembles alcohol withdrawal and delirium tremens particularly with his level of agitation and formication. -vigorous IV hydration with normal saline -20 units IV insulin after 2 L bolus of normal saline -Q 4 hour basic metabolic profile -Q 1 hour Accu-Chek -electrolyte replacement per hyperosmolar protocol potassium phosphate magnesium -basal bolus subcutaneous insulin -lorazepam and haloperidol as needed for agitated delirium -consultation with concrete analyst as the patient may escalate and require more intensive treatment of his agitated delirium and airway protection Limited access to medical care due to medication cost: -reviewing options of affordable control of his diabetes Lantus versus NPH insulin DVT prophylaxis with Lovenox Full code harley I spent 120 minutes evaluating this patient with at least 50% at the bedside speaking with multiple resources family in consultation Related Data Previous Rx's Medication Instructions Recorded aspirin 81 mg tablet,delayed 81 mg PO DAILY #60 tabs 02/10/25 release atorvastatin 40 mg tablet 40 mg PO BEDTIME #90 tabs 02/10/25 blood-glucose meter #1 ea 02/10/25 insulin glargine 100 unit/mL (3 12 unit (0.12 mL) SUBCUT QPM #3 mL 02/10/25 mL) subcutaneous pen lancets 31 gauge #100 ea 02/10/25 lisinopril 40 mg tablet 40 mg PO DAILY #90 tabs 02/10/25 Allergies Allergy/AdvReac Type Severity Reaction Status Date / Time No Known Drug Allergies Allergy Verified 02/10/25 12:26 Patient History Medical History (Updated 02/11/25 @ 16:44 by Khanh Santiago MD) Bronchitis Hypertensive urgency Mass of finger of left hand Left knee pain (05/16/16) History of colon polyps Uncontrolled type 2 diabetes mellitus Excessive thirst Body dysmorphic disorder BMI 39.0-39.9,adult Pain of right great toe Bilateral knee pain Hyperlipidemia associated with type 2 diabetes mellitus Type 2 diabetes mellitus Primary hypertension Erectile dysfunction Plaque psoriasis Obstructive sleep apnea of adult Umbilical hernia without obstruction and without gangrene (10/09/16) Primary insomnia (05/16/16) Surgical History (Updated 06/27/22 @ 15:18 by Carlos King DO) Status post right partial knee replacement History of umbilical hernia repair (12/13/16) History of colonoscopy with polypectomy (08/05/09) Family History Grandfather No problems noted. Social History marital status: unmarried,single number of children: 0 lives independently: Yes caregiver/support person: No pets and animals: Yes (2/3 year old puppy; sleeps on pt bed) education level: high school occupational status: employed Smoking Status: Current every day smoker quit status: considering quitting alcohol intake: current substance use type: does not use Smoking Status: Current every day smoker Exam Initial Vital Signs Initial Vital Signs: Vital Signs Pulse Rate 106 H 02/11/25 14:24 Respiratory Rate 12 02/11/25 14:24 Pulse Oximetry 89 L 02/11/25 14:24 Course Orders Ordered: ED Orders 02/11/25 14:[address] angio head and neck Stat 02/11/25 14:15 A1C [Hemoglobin A1C% w Est Avg Glu] Stat Complete Blood Count AUTO DIFF Stat Comprehensive Metabolic Panel Stat Ethanol (ETOH) Stat Ketones (Beta-Hydroxybutyrate) Stat Prothrombin Time INR Stat Troponin & CK Cardiac Panel Stat 02/11/25 14:28 VBG [Venous Blood Gas] STAT 02/11/25 14:33 Urinalysis and Microscopic Stat Urine Drug Screen, Rapid Stat 02/11/25 14:52 Venous Blood Gas Routine 02/11/25 15:40 XR chest 1V Stat 02/11/25 16:02 Respiratory Panel (Film Array) Stat 02/11/25 16:30 Consult to Dietitian, Adult Routine 02/11/25 17:08 Basic Metabolic Panel Q4H 02/11/25 21:00 Basic Metabolic Panel Q4H 02/12/25 00:30 Basic Metabolic Panel Q4H Acetaminophen (Acetaminophen 325 Mg Tablet) 650 mg PO Q4HR PRN PRN Reason: Fever/Mild Pain (1-3) Aspirin (Aspirin Ec 81 Mg Tablet) 81 mg PO DAILY DOROTHY Atorvastatin Calcium (Atorvastatin 20 Mg Tablet) 40 mg PO BEDTIME [facility] Dextrose (Dextrose 50 % In Water 25 Gm/50 Ml Syringe) 12.5 gm IV PRN PRN PRN Reason: Hypoglycemia Enoxaparin Sodium (Enoxaparin 40 Mg/0.4 Ml Syringe) 40 mg SUBCUT DAILY [facility] Famotidine (Famotidine 20 Mg/2 Ml Vial) 20 mg IV BID DOROTHY Haloperidol (Haloperidol 5 Mg/Ml Vial) 2 mg IV Q1H PRN PRN Reason: Agitation Dextrose/Sodium Chloride (Dextrose 5%-0.45% Ns) 1,000 mls @ 150 mls/hr IV CONT DOROTHY Sodium Chloride (Normal Saline 0.9%) 1,000 mls @ 250 mls/hr IV CONT DOROTHY Insulin Glargine (Insulin Glargine 100 Unit/Ml 3ml Pen) 20 unit SUBCUT BEDTIME DOROTHY Insulin Human Lispro (Insulin Lispro 100 Unit/Ml 3ml Vial) 0 unit SUBCUT Q4HR DOROTHY; Protocol Lorazepam (Lorazepam 2 Mg/Ml Inj) 2 mg IV Q1HR PRN PRN Reason: Agitation Naloxone HCl (Naloxone 0.4 Mg/Ml Vial) 0.2 mg IV Q2MIN PRN PRN Reason: Opiate Reversal Ondansetron HCl (Ondansetron 4 Mg/2 Ml Inj) 4 mg IV Q4HR PRN PRN Reason: Nausea And Vomiting Discontinued Medications Acetaminophen (Acetaminophen 325 Mg Tablet) 650 mg PO Q6H PRN PRN Reason: Fever/Mild Pain (1-3) Diphenhydramine HCl (Diphenhydramine 50 Mg/Ml Vial) 50 mg IV NOW ONE Stop: 02/11/25 16:53 Last Admin: 02/11/25 16:55 Dose: 50 mg Documented By: WINTER Haloperidol (Haloperidol 5 Mg/Ml Vial) 2 mg IV NOW ONE Stop: 02/11/25 16:53 Last Admin: 02/11/25 16:56 Dose: 2 mg Documented By: WINTER Sodium Chloride (Normal Saline 0.9%) 500 mls @ 1,000 mls/hr IV BOLUS ONE Stop: 02/11/25 14:39 Last Infusion: 02/11/25 15:57 Dose: Infused Documented By: Admin: 02/11/25 15:15 Dose: 1,000 mls/hr Documented By: BURTON Sodium Chloride (Normal Saline 0.9%) 1,000 mls @ 1,000 mls/hr IV BOLUS ONE Stop: 02/11/25 17:15 Last Admin: 02/11/25 16:55 Dose: 1,000 mls/hr Documented By: WINTER Sodium Chloride (Normal Saline 0.9%) 1,000 mls @ 1,000 mls/hr IV BOLUS ONE Stop: 02/11/25 17:29 Last Admin: 02/11/25 16:34 Dose: Not Given Documented By: WINTER Sodium Chloride (Normal Saline 0.9%) 1,000 mls @ 1,000 mls/hr IV BOLUS ONE Stop: 02/11/25 18:09 Insulin Human Lispro (Insulin Lispro 100 Unit/Ml 3ml Vial) 0 unit SUBCUT Q4H DOROTHY; Protocol Insulin Human Regular (Insulin Regular 100 Unit/Ml 3 Ml Vial) 20 unit IV NOW ONE Stop: 02/11/25 16:18 Lorazepam (Lorazepam 2 Mg/Ml Inj) 1 mg IV NOW ONE Stop: 02/11/25 16:04 Last Admin: 02/11/25 16:05 Dose: 1 mg Documented By: BURTON Lorazepam (Lorazepam 2 Mg/Ml Inj) 2 mg IV NOW ONE Stop: 02/11/25 16:44 Last Admin: 02/11/25 16:50 Dose: 2 mg Documented By: BURTON Vital Signs Vital signs: Vital Signs - 8 hr 02/11/25 14:24 02/11/25 14:25 02/11/25 14:25 Pulse Rate 106 H 107 H Respiratory Rate 12 14 Blood Pressure 179/95 H Pulse Oximetry 89 L 90 L Oxygen Delivery Method 02/11/25 14:28 02/11/25 14:30 02/11/25 14:30 Pulse Rate 106 H 106 H Respiratory Rate 20 28 H Blood Pressure 179/65 H 178/94 H Pulse Oximetry 89 L 89 L Oxygen Delivery Method Room Air 02/11/25 15:00 02/11/25 15:01 02/11/25 15:01 Pulse Rate 104 H 105 H Respiratory Rate 26 H 28 H Blood Pressure 193/110 H Pulse Oximetry 95 94 Oxygen Delivery Method 02/11/25 15:30 02/11/25 15:31 02/11/25 15:31 Pulse Rate 96 H 97 H Respiratory Rate 32 H Blood Pressure 173/84 H Pulse Oximetry 98 95 Oxygen Delivery Method 02/11/25 16:27 02/11/25 16:30 Pulse Rate 100 H 98 H Respiratory Rate Blood Pressure Pulse Oximetry Oxygen Delivery Method MDM - Neuro Symptoms/Deficit Lab Data 02/11/25 14:15 02/11/25 17:08 Labs: Lab Results 02/11/25 02/11/25 02/11/25 Range/Units 14:15 14:33 14:33 WBC 12.9 H (4.5-11.0) X10^3/uL RBC 5.17 (4.5-5.9) X10^6/uL Hgb 15.5 (13.5-17.5) g/dL Hct 46.1 (41-53) % MCV 89.0 (80-100) fL MCH 30.0 (26-34) PG MCHC 33.7 (30-36) % RDW 12.7 (11.6-14.8) % Plt Count 231 (150-400) X10^3/uL Neut % (Auto) 83.2 H (50-75) % Lymph % (Auto) 8.9 L (25-40) % [place] % (Auto) 6.8 (3-14) % Eos % (Auto) 0.2 L (2-4) % Baso % (Auto) 0.9 (0-2) % Neut # (Auto) 05304 H (3130-6579) /uL Lymph # (Auto) 1100 (1321-1072) /uL [place] # (Auto) 900 (0-900) /uL Eos # (Auto) 0 (0-450) /uL Baso # (Auto) 100 (0-100) /uL PT 10.4 (9.4-12.5) SECONDS INR 0.9 (0.9-1.3) VBG pH (7.33-7.43) VBG pCO2 (45-50) mmHg VBG pO2 (35-45) mmHg VBG HCO3 (24-28) mmol/L VBG Total CO2 (24-29) mmol/L VBG O2 Saturation (70-75) % VBG Base Excess (0-4) mmol/L Sodium 137 (137-145) mmol/L Potassium 4.5 (3.4-5.1) mmol/L Chloride 100 (98-107) mmol/L Carbon Dioxide 18 L (22-32) mmol/L BUN 40 H (9-20) mg/dL Creatinine 1.01 (0.66-1.25) mg/dL Estimated GFR > 60 (>60) mL/min BUN/Creatinine Ratio 39.6 H (6-22) Glucose 758 H* (80-110) mg/dL Hemoglobin A1c 11.5 H (4.0-6.0) % Calcium 11.2 H (8.4-10.2) mg/dL Total Bilirubin 1.1 (0.2-1.3) mg/dL AST 41 (17-59) IU/L ALT 53 H (<50) IU/L Alkaline Phosphatase 82 (38-126) U/L Total Creatine Kinase 653 H (55-170) U/L Troponin I < 0.012 (0.01-0.034) ng/mL Total Protein 7.7 (6.3-8.2) g/dL Albumin 4.7 (3.5-5.0) g/dL Globulin 3.0 (1.7-4.1) g/dL Albumin/Globulin Ratio 1.6 (1.0-2.8) Urine Color Yellow Urine Appearance Clear Urine pH 5.5 Normal (4.5-8.0) Ur Specific [place] 1.010 (1.000-1.035) Urine Protein Negative (Negative) Urine Glucose (UA) 3+ H (Negative) g/dL Urine Ketones 1+ H (NEGATIVE) Urine Occult Blood 1+ H (Negative) Urine Nitrate Negative (Negative) Urine Bilirubin Negative (NEGATIVE) Urine Urobilinogen 0.2 (0.2) E.U./dL Ur Leukocyte Esterase Negative (NEGATIVE) Urine RBC 1-5/hpf (0-5/HPF) Urine WBC None seen (0-5/HPF) Ur Squamous Epith Cells None seen (0-5/HPF) Ur Transition Epith Cell 1-5/hpf (0-5/HPF) Amorphous Sediment 1+ Urine Bacteria None seen (None) Ur Culture Indicated? Cult not indicated Vol Urine Centrifuged 10ml (spun) U Opiates 300ng/mL cut Negative (Negative) Ur Oxycodone Screen Negative (Negative) Urine Methadone Screen Negative (Negative) Ur Barbiturates Screen Negative (Negative) U Tricyclic Antidepress Negative (Negative) Ur Phencyclidine Scrn Negative (Negative) Ur Amphetamines Screen Negative (Negative) U Methamphetamines Scrn Negative (Negative) Ur MDMA Scrn (Ecstasy) Negative (Negative) U Benzodiazepines Scrn Negative (Negative) Urine Cocaine Screen Negative (Negative) U Marijuana (THC) Screen Negative (Negative) Urine Specific [place] Normal (Normal) Ethyl Alcohol < 10 ( - 10) mg/dL Ketones 1.50 H (<0.27) mmol/L Ur Creatinine Normal (Normal) Chlamy pneumoniae PCR (Not Detect) Adenovirus (PCR) (Not Detect) B. pertussis DNA (PCR) (Not Detect) B.parapertussis DNA PCR (Not Detecte) Coronavirus OC43 (PCR) (Not Detect) Coronavirus HKU1 (PCR) (Not Detect) Coronavirus 229E (PCR) (Not Detect) SARS-CoV-2 (PCR) (Not Detecte) Coronavirus NL63 (PCR) (Not Detect) Human Metapneumovir PCR (Not Detect) Influenza Type A (PCR) (Not Detect) Influenza Type B (PCR) (Not Detect) M. pneumoniae (PCR) (Not Detect) Parainfluenza 1 (PCR) (Not Detect) Parainfluenza 2 (PCR) (Not Detect) Parainfluenza 3 (PCR) (Not Detect) Parainfluenza 4 (PCR) (Not Detect) RSV (PCR) (Not Detect) Entero/Rhino (PCR) (Not Detect) 02/11/25 02/11/25 Range/Units 14:52 16:02 WBC (4.5-11.0) X10^3/uL RBC (4.5-5.9) X10^6/uL Hgb (13.5-17.5) g/dL Hct (41-53) % MCV (80-100) fL MCH (26-34) PG MCHC (30-36) % RDW (11.6-14.8) % Plt Count (150-400) X10^3/uL Neut % (Auto) (50-75) % Lymph % (Auto) (25-40) % [place] % (Auto) (3-14) % Eos % (Auto) (2-4) % Baso % (Auto) (0-2) % Neut # (Auto) (8389-1163) /uL Lymph # (Auto) (7013-6670) /uL [place] # (Auto) (0-900) /uL Eos # (Auto) (0-450) /uL Baso # (Auto) (0-100) /uL PT (9.4-12.5) SECONDS INR (0.9-1.3) VBG pH 7.46 H (7.33-7.43) VBG pCO2 36.9 L (45-50) mmHg VBG pO2 62 H (35-45) mmHg VBG HCO3 26 (24-28) mmol/L VBG Total CO2 25 (24-29) mmol/L VBG O2 Saturation 93 H (70-75) % VBG Base Excess 2.5 (0-4) mmol/L Sodium (137-145) mmol/L Potassium (3.4-5.1) mmol/L Chloride (98-107) mmol/L Carbon Dioxide (22-32) mmol/L BUN (9-20) mg/dL Creatinine (0.66-1.25) mg/dL Estimated GFR (>60) mL/min BUN/Creatinine Ratio (6-22) Glucose (80-110) mg/dL Hemoglobin A1c (4.0-6.0) % Calcium (8.4-10.2) mg/dL Total Bilirubin (0.2-1.3) mg/dL AST (17-59) IU/L ALT (<50) IU/L Alkaline Phosphatase (38-126) U/L Total Creatine Kinase (55-170) U/L Troponin I (0.01-0.034) ng/mL Total Protein (6.3-8.2) g/dL Albumin (3.5-5.0) g/dL Globulin (1.7-4.1) g/dL Albumin/Globulin Ratio (1.0-2.8) Urine Color Urine Appearance Urine pH (4.5-8.0) Ur Specific [place] (1.000-1.035) Urine Protein (Negative) Urine Glucose (UA) (Negative) g/dL Urine Ketones (NEGATIVE) Urine Occult Blood (Negative) Urine Nitrate (Negative) Urine Bilirubin (NEGATIVE) Urine Urobilinogen (0.2) E.U./dL Ur Leukocyte Esterase (NEGATIVE) Urine RBC (0-5/HPF) Urine WBC (0-5/HPF) Ur Squamous Epith Cells (0-5/HPF) Ur Transition Epith Cell (0-5/HPF) Amorphous Sediment Urine Bacteria (None) Ur Culture Indicated? Vol Urine Centrifuged U Opiates 300ng/mL cut (Negative) Ur Oxycodone Screen (Negative) Urine Methadone Screen (Negative) Ur Barbiturates Screen (Negative) U Tricyclic Antidepress (Negative) Ur Phencyclidine Scrn (Negative) Ur Amphetamines Screen (Negative) U Methamphetamines Scrn (Negative) Ur MDMA Scrn (Ecstasy) (Negative) U Benzodiazepines Scrn (Negative) Urine Cocaine Screen (Negative) U Marijuana (THC) Screen (Negative) Urine Specific [place] (Normal) Ethyl Alcohol ( - 10) mg/dL Ketones (<0.27) mmol/L Ur Creatinine (Normal) Chlamy pneumoniae PCR Not detected (Not Detect) Adenovirus (PCR) Not detected (Not Detect) B. pertussis DNA (PCR) Not detected (Not Detect) B.parapertussis DNA PCR Not detected (Not Detecte) Coronavirus OC43 (PCR) Not detected (Not Detect) Coronavirus HKU1 (PCR) Not detected (Not Detect) Coronavirus 229E (PCR) Not detected (Not Detect) SARS-CoV-2 (PCR) Not detected (Not Detecte) Coronavirus NL63 (PCR) Not detected (Not Detect) Human Metapneumovir PCR Not detected (Not Detect) Influenza Type A (PCR) Not detected (Not Detect) Influenza Type B (PCR) Not detected (Not Detect) M. pneumoniae (PCR) Not detected (Not Detect) Parainfluenza 1 (PCR) Not detected (Not Detect) Parainfluenza 2 (PCR) Not detected (Not Detect) Parainfluenza 3 (PCR) Not detected (Not Detect) Parainfluenza 4 (PCR) Not detected (Not Detect) RSV (PCR) Not detected (Not Detect) Entero/Rhino (PCR) Not detected (Not Detect) Discharge Plan Departure Patient Disposition: Admitted As Inpatient Clinical Impression: Brain TIA DKA (diabetic ketoacidosis) Qualifiers: Diabetes mellitus type: other specified (including MALI) Diabetes mellitus complication detail: without coma Qualified Code(s): E13.10 - Other specified diabetes mellitus with ketoacidosis without coma
[2025-02-11] MEDS: SODIUM CHLORIDE 0.9% 1,000 ML 250 ML IV ×2 (18:49→22:52)
[2025-02-11] MEDS: INSULIN REGULAR 100 UNIT/ML 3 ML VIAL 20 UNIT IV (18:50)
[2025-02-11] MEDS: INSULIN LISPRO 100 UNIT/ML 3ML VIAL SUBCUT ×2 (19:03→21:42)
--- NOTE | 2025-02-11 19:04 | PM.CN.EICU ---
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 Villagomez, bedside nursing team Narrative: 64 year old male with PMHX of DM/HTN MAXINE/OHV pt brought in by ambulance by [facility] noted right side weakness and dysarthria. admitted to ICU with ams and noted to have agitation and combativeness [facility] Medical History (Updated 02/11/25 @ 16:44 by Khanh Santiago MD) Bronchitis Hypertensive urgency Mass of finger of left hand Left knee pain (05/16/16) History of colon polyps Uncontrolled type 2 diabetes mellitus Excessive thirst Body dysmorphic disorder BMI 39.0-39.9,adult Pain of right great toe Bilateral knee pain Hyperlipidemia associated with type 2 diabetes mellitus Type 2 diabetes mellitus Primary hypertension Erectile dysfunction Plaque psoriasis Obstructive sleep apnea of adult Umbilical hernia without obstruction and without gangrene (10/09/16) Primary insomnia (05/16/16) Surgical History (Updated 06/27/22 @ 15:18 by Carlos King DO) Status post right partial knee replacement History of umbilical hernia repair (12/13/16) History of colonoscopy with polypectomy (08/05/09) Family History Grandfather No problems noted. Social History marital status: unmarried,single number of children: 0 lives independently: Yes caregiver/support person: No pets and animals: Yes (2/3 year old puppy; sleeps on pt bed) education level: high school occupational status: employed Smoking Status: Current every day smoker quit status: considering quitting alcohol intake: current substance use type: does not use Current Medications Current Medications Medications: Home Medications aspirin 81 mg tablet,delayed release 81 mg PO DAILY #60 tabs 02/10/25 [Rx Confirmed 02/10/25] atorvastatin 40 mg tablet 40 mg PO BEDTIME #90 tabs 02/10/25 [Rx Confirmed 02/10/25] blood-glucose meter #1 ea 02/10/25 [Rx Confirmed 02/10/25] insulin glargine 100 unit/mL (3 mL) subcutaneous pen 12 unit (0.12 mL) SUBCUT QPM #3 mL 02/10/25 [Rx Confirmed 02/10/25] lancets 31 gauge #100 ea 02/10/25 [Rx Confirmed 02/10/25] lisinopril 40 mg tablet 40 mg PO DAILY #90 tabs 02/10/25 [Rx Confirmed 02/10/25] Visit Medications (administered) Generic Name Dose Route Start Last Admin Trade Name Freq PRN Reason Stop Dose Admin Haloperidol 2 mg 02/11/25 17:41 02/11/25 18:43 Haloperidol 5 Mg/Ml Vial IV 2 mg Q1H PRN Administration Agitation Sodium Chloride 1,000 mls @ 250 mls/hr 02/11/25 17:30 02/11/25 18:49 Normal Saline 0.9% IV 250 mls/hr CONT DOROTHY Administration Lorazepam 2 mg 02/11/25 17:39 02/11/25 18:43 Lorazepam 2 Mg/Ml Inj IV 2 mg Q1HR PRN Administration Agitation Exam Vital Signs (past 8 hours): - 02/11/25 14:24 02/11/25 14:25 02/11/25 14:25 Pulse Rate 106 H 107 H Respiratory Rate 12 14 Blood Pressure 179/95 H Pulse Oximetry 89 L 90 L Oxygen Delivery Method 02/11/25 14:28 02/11/25 14:30 02/11/25 14:30 Pulse Rate 106 H 106 H Respiratory Rate 20 28 H Blood Pressure 179/65 H 178/94 H Pulse Oximetry 89 L 89 L Oxygen Delivery Method Room Air 02/11/25 15:00 02/11/25 15:01 02/11/25 15:01 Pulse Rate 104 H 105 H Respiratory Rate 26 H 28 H Blood Pressure 193/110 H Pulse Oximetry 95 94 Oxygen Delivery Method 02/11/25 15:30 02/11/25 15:31 02/11/25 15:31 Pulse Rate 96 H 97 H Respiratory Rate 32 H Blood Pressure 173/84 H Pulse Oximetry 98 95 Oxygen Delivery Method 02/11/25 16:27 02/11/25 16:30 02/11/25 17:00 Pulse Rate 100 H 98 H 94 H Respiratory Rate 23 Blood Pressure Pulse Oximetry Oxygen Delivery Method 02/11/25 17:30 Pulse Rate 90 Respiratory Rate Blood Pressure Pulse Oximetry Oxygen Delivery Method Oxygen Delivery Method Room Air Objective Labs 02/11/25 14:15 02/11/25 17:08 Labs: Laboratory Results - last 24 hr 02/11/25 02/11/25 02/11/25 14:15 14:33 14:33 WBC 12.9 H RBC 5.17 Hgb 15.5 Hct 46.1 MCV 89.0 MCH 30.0 MCHC 33.7 RDW 12.7 Plt Count 231 Neut % (Auto) 83.2 H Lymph % (Auto) 8.[address] [place] % (Auto) 6.8 Eos % (Auto) 0.2 L Baso % (Auto) 0.9 Neut # (Auto) 70347 H Lymph # (Auto) 1100 [place] # (Auto) 900 Eos # (Auto) 0 Baso # (Auto) 100 PT 10.4 INR 0.9 VBG pH VBG pCO2 VBG pO2 VBG HCO3 VBG Total CO2 VBG O2 Saturation VBG Base Excess Sodium 137 Potassium 4.5 Chloride 100 Carbon Dioxide 18 L BUN 40 H Creatinine 1.01 Estimated GFR > 60 BUN/Creatinine Ratio 39.6 H Glucose 758 H* Hemoglobin A1c 11.5 H Calcium 11.2 H Total Bilirubin 1.1 AST 41 ALT 53 H Alkaline Phosphatase 82 Total Creatine Kinase 653 H Troponin I < 0.012 Total Protein 7.7 Albumin 4.7 Globulin 3.0 Albumin/Globulin Ratio 1.6 Urine Color Yellow Urine Appearance Clear Urine pH 5.5 Normal Ur Specific [place] 1.010 Urine Protein Negative Urine Glucose (UA) 3+ H Urine Ketones 1+ H Urine Occult Blood 1+ H Urine Nitrate Negative Urine Bilirubin Negative Urine Urobilinogen 0.2 Ur Leukocyte Esterase Negative Urine RBC 1-5/hpf Urine WBC None seen Ur Squamous Epith Cells None seen Ur Transition Epith Cell 1-5/hpf Amorphous Sediment 1+ Urine Bacteria None seen Ur Culture Indicated? Cult not indicated Vol Urine Centrifuged 10ml (spun) U Opiates 300ng/mL cut Negative Ur Oxycodone Screen Negative Urine Methadone Screen Negative Ur Barbiturates Screen Negative U Tricyclic Antidepress Negative Ur Phencyclidine Scrn Negative Ur Amphetamines Screen Negative U Methamphetamines Scrn Negative Ur MDMA Scrn (Ecstasy) Negative U Benzodiazepines Scrn Negative Urine Cocaine Screen Negative U Marijuana (THC) Screen Negative Urine Specific [place] Normal Ethyl Alcohol < 10 Ketones 1.50 H Ur Creatinine Normal Chlamy pneumoniae PCR Adenovirus (PCR) B. pertussis DNA (PCR) B.parapertussis DNA PCR Coronavirus OC43 (PCR) Coronavirus HKU1 (PCR) Coronavirus 229E (PCR) SARS-CoV-2 (PCR) Coronavirus NL63 (PCR) Human Metapneumovir PCR Influenza Type A (PCR) Influenza Type B (PCR) M. pneumoniae (PCR) Parainfluenza 1 (PCR) Parainfluenza 2 (PCR) Parainfluenza 3 (PCR) Parainfluenza 4 (PCR) RSV (PCR) Entero/Rhino (PCR) 02/11/25 02/11/25 02/11/25 14:52 16:02 17:08 WBC RBC Hgb Hct MCV MCH MCHC RDW Plt Count Neut % (Auto) Lymph % (Auto) [place] % (Auto) Eos % (Auto) Baso % (Auto) Neut # (Auto) Lymph # (Auto) [place] # (Auto) Eos # (Auto) Baso # (Auto) PT INR VBG pH 7.46 H VBG pCO2 36.9 L VBG pO2 62 H VBG HCO3 26 VBG Total CO2 25 VBG O2 Saturation 93 H VBG Base Excess 2.5 Sodium 136 L Potassium 4.2 Chloride 103 Carbon Dioxide 20 L BUN 33 H Creatinine 0.79 Estimated GFR > 60 BUN/Creatinine Ratio 41.8 H Glucose 471 H D Hemoglobin A1c Calcium 9.8 Total Bilirubin AST ALT Alkaline Phosphatase Total Creatine Kinase Troponin I Total Protein Albumin Globulin Albumin/Globulin Ratio Urine Color Urine Appearance Urine pH Ur Specific [place] Urine Protein Urine Glucose (UA) Urine Ketones Urine Occult Blood Urine Nitrate Urine Bilirubin Urine Urobilinogen Ur Leukocyte Esterase Urine RBC Urine WBC Ur Squamous Epith Cells Ur Transition Epith Cell Amorphous Sediment Urine Bacteria Ur Culture Indicated? Vol Urine Centrifuged U Opiates 300ng/mL cut Ur Oxycodone Screen Urine Methadone Screen Ur Barbiturates Screen U Tricyclic Antidepress Ur Phencyclidine Scrn Ur Amphetamines Screen U Methamphetamines Scrn Ur MDMA Scrn (Ecstasy) U Benzodiazepines Scrn Urine Cocaine Screen U Marijuana (THC) Screen Urine Specific [place] Ethyl Alcohol Ketones Ur Creatinine Chlamy pneumoniae PCR Not detected Adenovirus (PCR) Not detected B. pertussis DNA (PCR) Not detected B.parapertussis DNA PCR Not detected Coronavirus OC43 (PCR) Not detected Coronavirus HKU1 (PCR) Not detected Coronavirus 229E (PCR) Not detected SARS-CoV-2 (PCR) Not detected Coronavirus NL63 (PCR) Not detected Human Metapneumovir PCR Not detected Influenza Type A (PCR) Not detected Influenza Type B (PCR) Not detected M. pneumoniae (PCR) Not detected Parainfluenza 1 (PCR) Not detected Parainfluenza 2 (PCR) Not detected Parainfluenza 3 (PCR) Not detected Parainfluenza 4 (PCR) Not detected RSV (PCR) Not detected Entero/Rhino (PCR) Not detected Assessment & Plan Assessment & Plan narrative: 64 year old male admitted to ICU with: AMS TIA? Acute Delirium etoh withdrawal? hyperglycemia MAXINE Suggest -Neurochecks/seizure precautions -repeat imaging prn -neuro eval -thiamine/folate -ciwa protocol -can start phenobarb with ativan prn -if fever would consider LP -low threshold for intubation -bipap/cpap if able for MAXINE/OHV -pulm eval for sleep study in future -keep sat above 02% -keep map above 65 -serial ekg/trop -check echo -IVF -broad spec ABX/cultures if infectious process is consider, unlikely at this time -monitor ins/outs -replace lytes prn -keep glucose 140-180s can do insulin drip -npo/diet as tolerated -gi/dvt ppx -please call eICU prn discussed with bedside nursing team, admitting hospitalist Dr. Finney Time-Based Coding :: 45 mins spent with patient and on the chart (including review of chart, obtaining history, exam, reviewing outside data, placing orders, documenting exam and treatment plan, and counseling patient) on [DATE].
[2025-02-11] MEDS: ETOMIDATE 2 MG/ML 10 ML VIAL 50 MG IV (19:17)
[2025-02-11] MEDS: ROCURONIUM 50 MG/5 ML INJ 100 MG IV (19:17)
[2025-02-11] MEDS: propofoL 1,000 MG/100 ML VIAL 3.348 MG IV (19:30)
[2025-02-11] MEDS: dexmedeTOMIDine in 0.9 % NaCL 400 MCG/100 ML PLAST..BAG 5.579 MCG IV (19:37)
--- NOTE | 2025-02-11 19:47 | PC.NURSE ---
Patient intubation event: Patient intubated @ 1918, procedure/event leading to intubation in time stamp order: Rocuronium: 100mg @ 1916 Etomidate: 50mg @ 1916 Propfol gtt started: 25mcg/kg @ 1917 See chart for VS. Intubation completed @ 1918, ET tube 24 @ the teeth ET tube adjusted to 22 @ the teeth at 192 (and remaining here) Sung 16F placed @ 1923 OG tube placed @ 1924 Chest XR in room for placement of OG @ 1924 Post CXR, ET tube was placed back at 24 @ 192
--- NOTE | 2025-02-11 19:56 | DI.RAD.S_ITS ---
PROCEDURE: XR CHEST 1V INDICATIONS: ETT and NG tube placement TECHNIQUE: One view of the chest was acquired. COMPARISON: [facility], CR, XR CHEST 1V, 02/11/2025, 15:37. FINDINGS: Surgical changes and devices: Endotracheal tube with tip approximately 7.5 cm above the silvano. Enteric tube coursing below the diaphragm and out of the field of view. Lungs and pleura: Lungs are clear. No pleural effusions or pneumothorax. Left lateral thorax is collimated from view. Mediastinum: Mediastinal contours appear normal. Heart size is normal. Bones and chest wall: No suspicious bony lesions. Overlying soft tissues appear unremarkable. IMPRESSION: Endotracheal tube with tip approximately 7.5 cm above the silvano. Enteric tube coursing below the diaphragm and out of the field of view. Dictated by: Norbert Watkins M.D. on 02/11/2025 at 20:37 Approved by: Norbert Watkins M.D. on 02/11/2025 at 20:38
--- NOTE | 2025-02-11 20:00 | RT ---
called at 1900 to intubate pt was somulant and not responding appropriate pt intubated at 1918 ETT 24 at teeth adjusted to 22 then back to 24 after xray Vt 530/RR 15/ peep 5 pt stable at this time
--- NOTE | 2025-02-11 20:08 | PC.NURSE ---
1800 Pt arrived via gurney, attempting to get out of [place], swinging at staff, yelling. 5 nurses to get pt from [place] into bed, pt linens soiled with urine, pt attempting to kick staff, Dr Finney at bedside, Ativan 2mg, and haldol administered as ordered (see emar for documentation) vital signs taken, pt continued to alter between somnolent and kicking, pulling at lines, PIV removed from right hand. Tele tow motor mechanic Dr Mark consulted, orders placed to intubate patient to manage airway while being able to adequately sedate patient. ER consulted with anesthesia, see intubation event note. Bedside report given to SANTY Pérez. No further patient contact at this time
[2025-02-11] MEDS: PHENobarbital 65 MG/ML VIAL 260 MG IV (20:22)
[2025-02-11] MEDS: INSULIN GLARGINE 100 UNIT/ML 3ML PEN 20 UNIT SUBCUT (21:11)
[2025-02-11] MEDS: FAMOTIDINE 20 MG/2 ML VIAL IV (21:12)
[2025-02-11] MEDS: ATORVASTATIN 20 MG TABLET 40 MG PO (21:12)
[2025-02-11 21:52] LABS: BUN Creatinine Ratio 39.5 (6-22); Blood Urea Nitrogen 30 mg/dL (9-20); Calcium 9.3 mg/dL (8.4-10.2); Carbon Dioxide 25 mmol/L (22-32); Chloride 108 mmol/L (98-107); Estimated Glomerular Filt Rate > 60 mL/min (>60); Glucose 310 mg/dL (80-110); HEMOLYSIS < 15 (0-50); Potassium 3.9 mmol/L (3.4-5.1); Sodium 140 mmol/L (137-145)
[2025-02-11] MEDS: propofoL 1,000 MG/100 ML VIAL 30.128 MG IV (22:15)
[2025-02-11] MEDS: NOREPINEPHRINE BITARTRATE/D5W 4 MG/250 ML PLAST..BAG 41.844 MG IV (23:00)
[2025-02-11 23:50] LABS: Base Excess ABG -0.2 mmol/L (-2-3); PCO2 ABG 41.8 mmHg (35-45); PO2 ABG 71 mmHg (80-100); pH ABG 7.39 (7.35-7.45)
[2025-02-11 23:51] LABS: HCO3 ABG 25 mmol/L (23-27); Oxygen Saturation ABG 94 % (95-100); TCO2 ABG 24 mmol/L (23-27)
[2025-02-11 23:54] LABS: Allen Test for ABG Passed? Yes, Passed
[2025-02-12] VITALS (56 sets, daily range): BP systolic 90–161; BP diastolic 51–85; PULSE 51–73; RESP 0–23; TEMP 36–37.1; O2SAT 93–98
[2025-02-12] MEDS: CHLORHEXIDINE GLUCONATE 15 ML CUP PO ×4 (00:05→17:56)
[2025-02-12] MEDS: propofoL 1,000 MG/100 ML VIAL 23.433 MG IV ×6 (03:01→22:37)
[2025-02-12] MEDS: SODIUM CHLORIDE 0.9% 1,000 ML 250 ML IV ×3 (03:03→11:03)
[2025-02-12] MEDS: dexmedeTOMIDine in 0.9 % NaCL 400 MCG/100 ML PLAST..BAG 5.579 MCG IV (03:14)
[2025-02-12 05:10] LABS: Allen Test for ABG Passed? Positive; Base Excess ABG 0.3 mmol/L (-2-3); Blood Gas Collection Site Right Radial; HCO3 ABG 26 mmol/L (23-27); Oxygen Saturation ABG 97 % (95-100); PCO2 ABG 44.2 mmHg (35-45); PO2 ABG 98 mmHg (80-100); TCO2 ABG 25 mmol/L (23-27); pH ABG 7.37 (7.35-7.45)
[2025-02-12 05:12] LABS: BUN Creatinine Ratio 39.5 (6-22); Blood Urea Nitrogen 30 mg/dL (9-20); Calcium 8.6 mg/dL (8.4-10.2); Carbon Dioxide 24 mmol/L (22-32); Chloride 111 mmol/L (98-107); Estimated Glomerular Filt Rate > 60 mL/min (>60); Glucose 177 mg/dL (80-110); HEMOLYSIS < 15 (0-50); Potassium 3.8 mmol/L (3.4-5.1); Sodium 141 mmol/L (137-145)
[2025-02-12] MEDS: INSULIN LISPRO 100 UNIT/ML 3ML VIAL SUBCUT ×4 (05:24→17:53)
[2025-02-12 05:49] LABS: Allen Test for ABG Passed? Positive; Base Excess ABG -0.2 mmol/L (-2-3); Blood Gas Mode Assist Cont Ventilat; Delivery System Adult Ventilator; HCO3 ABG 25 mmol/L (23-27); Oxygen Saturation ABG 94 % (95-100); PCO2 ABG 41.8 mmHg (35-45); PEEP 5; PO2 ABG 71 mmHg (80-100); Respiratory Rate 15; TCO2 ABG 24 mmol/L (23-27); pH ABG 7.39 (7.35-7.45)
[2025-02-12 05:56] LABS: MRSA (Nasal) PCR NOT DETECTED (Not Detect)
--- NOTE | 2025-02-12 07:51 | P.PN_ITS ---
Subjective Subjective Date Patient Seen: 02/12/25 Time Patient Seen: 07:52 Interval history: Chief complaint: Severe delirium and agitation in the setting of non acidotic hyperosmolar hyperglycemia with ketosis with coma History of present illness: 64-year-old male type 2 diabetes previously very well controlled but 3 months ago stopped his semaglutide Jardiance statin lisinopril metformin and hydrochlorothiazide because of inability to afford. He was seen in the clinic by his PCP 02/10/2025 (Marianela Goyal D.O. who started him on Lantus 12 units along with lisinopril no atorvastatin and aspirin. Over the next 24 hours the patient underwent tremendous change in behavior as noted by friends and family. He was described as being very angry and agitated confused word salad falling multiple times disoriented. He was brought in by EMS to the emergency room for evaluation Social history: Mother reports the patient does not drink alcohol regularly or excessively has some bilious I was came in his coffee at night before going to bed does not use recreational substances by her report Findings in the emergency room very significant for an agitated flushed and hyperactive male with multiple skin abrasions and bruises on arms and legs. Serum glucose was 758, sodium 137 potassium 4.5 CO2 18 BUN 40 creatinine 1 venous blood gas pH 7.46 pCO2 37 PO2 60 urine drug screen was negative respiratory panel also negative serum ketones 1.5 which is barely above reference range urine ketones 3+ Patient was initially evaluated as a code stroke CT of the head and CT angiography was negative chest x-ray was clear Patient was referred to the hospitalist service for admission to ICU for management of his non acidotic hyperosmolar hyperglycemia with ketosis and coma. Case was discussed with the family ICU in emergency staff for a consensus of treatment plan. Patient was started on vigorous IV fluid resuscitation sedation with benzodiazepine diphenhydramine and Haldol for patient's safety 1 dose of insulin 20 units IV after 2 L bolus of normal saline followed by subcutaneous Lantus 20 units and high-dose sliding scale and hyperosmolar protocol Hospital course: 02/12: Further history was obtained and patient drinks 40 proof alcohol throughout the day in coffee Overnight patient was intubated and placed on a propofol after phenobarbital. Building Construction Foreman was consulted maintaining sedation intubation with Precedex and propofol. Hyperglycemia normalized electrolytes improved calcium was low and was replaced We will maintain intubation sedation with Precedex and propofol all start Glucerna tube feeding and Librium for NG tube Review of systems: Patient isn't capable of participating due to his agitated delirium Physical exam: Large frame muscular but obese very agitated and confrontational elderly male. HEENT pupils small but reactive Neck no JVD Heart rate and rhythm regular no murmurs Lungs clear from apices to bases Abdomen obese nontender Multiple abrasions on elbows knees shins Neurological exam patient is conversant but agitated 5/5 strength in all extremities Assessment and plan: Acute metabolic encephalopathy with agitated delirium in setting of non acidotic hyperosmolar hyperglycemia with ketosis and coma. Although there is denial by the patient is 88-year-old mother that he drinks alcohol his presentation very closely resembles alcohol withdrawal and delirium tremens particularly with his level of agitation and formication. Alcohol withdrawal with delirium tremens: Further history was obtained and patient drinks 40 proof alcohol throughout the day in coffee Overnight patient was intubated and placed on a propofol after phenobarbital. Building Construction Foreman was consulted maintaining sedation intubation with Precedex and propofol. Hyperglycemia normalized electrolytes improved calcium was low and was replaced We will maintain intubation sedation with Precedex and propofol all start Glucerna tube feeding and Librium for NG tube Limited access to medical care due to medication cost: -reviewing options of affordable control of his diabetes Lantus versus NPH insulin DVT prophylaxis with Lovenox Full code harley I spent 120 minutes evaluating this patient with at least 50% at the bedside speaking with multiple resources family in consultation Exam Vital Signs (past 8 hours): - 02/12/25 00:00 02/12/25 00:01 02/12/25 00:30 Temperature 97.2 F L Pulse Rate 67 69 Respiratory Rate 17 15 Blood Pressure 149/85 H 117/64 Pulse Oximetry 97 97 Oxygen Delivery Method Mechanical Ventilation 02/12/25 01:00 02/12/25 01:30 02/12/25 02:00 Temperature Pulse Rate 69 69 68 Respiratory Rate 15 15 17 Blood Pressure 119/65 121/66 124/67 Pulse Oximetry 98 98 98 Oxygen Delivery Method 02/12/25 02:30 02/12/25 03:00 02/12/25 03:30 Temperature Pulse Rate 68 66 66 Respiratory Rate 15 16 15 Blood Pressure 127/67 128/66 131/68 Pulse Oximetry 98 98 98 Oxygen Delivery Method 02/12/25 04:00 02/12/25 04:00 02/12/25 04:30 Temperature 97.9 F Pulse Rate 66 66 Respiratory Rate 15 15 Blood Pressure 133/70 Pulse Oximetry 96 97 Oxygen Delivery Method Mechanical Ventilation 02/12/25 05:00 02/12/25 05:30 02/12/25 06:00 Temperature Pulse Rate 65 65 64 Respiratory Rate 15 15 15 Blood Pressure 134/69 134/68 138/69 Pulse Oximetry 98 98 98 Oxygen Delivery Method Fraction of Inspired Oxygen 40 Oxygen Delivery Method Mechanical Ventilation Objective Labs 02/12/25 08:50 02/12/25 08:50 Labs: Laboratory Results - last 24 hr 02/11/25 02/11/25 02/11/25 14:15 14:33 14:33 WBC 12.9 H RBC 5.17 Hgb 15.5 Hct 46.1 MCV 89.0 MCH 30.0 MCHC 33.7 RDW 12.7 Plt Count 231 Neut % (Auto) 83.2 H Lymph % (Auto) 8.9 L [place] % (Auto) 6.8 Eos % (Auto) 0.2 L Baso % (Auto) 0.9 Neut # (Auto) 93585 H Lymph # (Auto) 1100 [place] # (Auto) 900 Eos # (Auto) 0 Baso # (Auto) 100 PT 10.4 INR 0.9 ABG Sample Site ABG pH ABG pCO2 ABG pO2 ABG HCO3 ABG Total CO2 ABG O2 Saturation ABG Base Excess Zachariah Test VBG pH VBG pCO2 VBG pO2 VBG HCO3 VBG Total CO2 VBG O2 Saturation VBG Base Excess Respiration Rate O2 Delivery Device Mode of Support FiO2 % PEEP or CPAP Sodium 137 Potassium 4.5 Chloride 100 Carbon Dioxide 18 L BUN 40 H Creatinine 1.01 Estimated GFR > 60 BUN/Creatinine Ratio 39.6 H Glucose 758 H* Hemoglobin A1c 11.5 H Calcium 11.2 H Total Bilirubin 1.1 AST 41 ALT 53 H Alkaline Phosphatase 82 Total Creatine Kinase 653 H Troponin I < 0.012 Total Protein 7.7 Albumin 4.7 Globulin 3.0 Albumin/Globulin Ratio 1.6 Urine Color Yellow Urine Appearance Clear Urine pH 5.5 Normal Ur Specific Hallie 1.010 Urine Protein Negative Urine Glucose (UA) 3+ H Urine Ketones 1+ H Urine Occult Blood 1+ H Urine Nitrate Negative Urine Bilirubin Negative Urine Urobilinogen 0.2 Ur Leukocyte Esterase Negative Urine RBC 1-5/hpf Urine WBC None seen Ur Squamous Epith Cells None seen Ur Transition Epith Cell 1-5/hpf Amorphous Sediment 1+ Urine Bacteria None seen Ur Culture Indicated? Cult not indicated Vol Urine Centrifuged 10ml (spun) Nasal Screen MRSA (PCR) U Opiates 300ng/mL cut Negative Ur Oxycodone Screen Negative Urine Methadone Screen Negative Ur Barbiturates Screen Negative U Tricyclic Antidepress Negative Ur Phencyclidine Scrn Negative Ur Amphetamines Screen Negative U Methamphetamines Scrn Negative Ur MDMA Scrn (Ecstasy) Negative U Benzodiazepines Scrn Negative Urine Cocaine Screen Negative U Marijuana (THC) Screen Negative Urine Specific Hallie Normal Ethyl Alcohol < 10 Ketones 1.50 H Ur Creatinine Normal Chlamy pneumoniae PCR Adenovirus (PCR) B. pertussis DNA (PCR) B.parapertussis DNA PCR Coronavirus OC43 (PCR) Coronavirus HKU1 (PCR) Coronavirus 229E (PCR) SARS-CoV-2 (PCR) Coronavirus NL63 (PCR) Human Metapneumovir PCR Influenza Type A (PCR) Influenza Type B (PCR) M. pneumoniae (PCR) Parainfluenza 1 (PCR) Parainfluenza 2 (PCR) Parainfluenza 3 (PCR) Parainfluenza 4 (PCR) RSV (PCR) Entero/Rhino (PCR) 02/11/25 02/11/25 02/11/25 14:52 16:02 17:08 WBC RBC Hgb Hct MCV MCH MCHC RDW Plt Count Neut % (Auto) Lymph % (Auto) [place] % (Auto) Eos % (Auto) Baso % (Auto) Neut # (Auto) Lymph # (Auto) [place] # (Auto) Eos # (Auto) Baso # (Auto) PT INR ABG Sample Site ABG pH ABG pCO2 ABG pO2 ABG HCO3 ABG Total CO2 ABG O2 Saturation ABG Base Excess Zachariah Test VBG pH 7.46 H VBG pCO2 36.9 L VBG pO2 62 H VBG HCO3 26 VBG Total CO2 25 VBG O2 Saturation 93 H VBG Base Excess 2.5 Respiration Rate O2 Delivery Device Mode of Support FiO2 % PEEP or CPAP Sodium 136 L Potassium 4.2 Chloride 103 Carbon Dioxide 20 L BUN 33 H Creatinine 0.79 Estimated GFR > 60 BUN/Creatinine Ratio 41.8 H Glucose 471 H D Hemoglobin A1c Calcium 9.8 Total Bilirubin AST ALT Alkaline Phosphatase Total Creatine Kinase Troponin I Total Protein Albumin Globulin Albumin/Globulin Ratio Urine Color Urine Appearance Urine pH Ur Specific Hallie Urine Protein Urine Glucose (UA) Urine Ketones Urine Occult Blood Urine Nitrate Urine Bilirubin Urine Urobilinogen Ur Leukocyte Esterase Urine RBC Urine WBC Ur Squamous Epith Cells Ur Transition Epith Cell Amorphous Sediment Urine Bacteria Ur Culture Indicated? Vol Urine Centrifuged Nasal Screen MRSA (PCR) U Opiates 300ng/mL cut Ur Oxycodone Screen Urine Methadone Screen Ur Barbiturates Screen U Tricyclic Antidepress Ur Phencyclidine Scrn Ur Amphetamines Screen U Methamphetamines Scrn Ur MDMA Scrn (Ecstasy) U Benzodiazepines Scrn Urine Cocaine Screen U Marijuana (THC) Screen Urine Specific Hallie Ethyl Alcohol Ketones Ur Creatinine Chlamy pneumoniae PCR Not detected Adenovirus (PCR) Not detected B. pertussis DNA (PCR) Not detected B.parapertussis DNA PCR Not detected Coronavirus OC43 (PCR) Not detected Coronavirus HKU1 (PCR) Not detected Coronavirus 229E (PCR) Not detected SARS-CoV-2 (PCR) Not detected Coronavirus NL63 (PCR) Not detected Human Metapneumovir PCR Not detected Influenza Type A (PCR) Not detected Influenza Type B (PCR) Not detected M. pneumoniae (PCR) Not detected Parainfluenza 1 (PCR) Not detected Parainfluenza 2 (PCR) Not detected Parainfluenza 3 (PCR) Not detected Parainfluenza 4 (PCR) Not detected RSV (PCR) Not detected Entero/Rhino (PCR) Not detected 02/11/25 02/11/25 02/11/25 20:15 20:15 20:15 WBC RBC Hgb Hct MCV MCH MCHC RDW Plt Count Neut % (Auto) Lymph % (Auto) [place] % (Auto) Eos % (Auto) Baso % (Auto) Neut # (Auto) Lymph # (Auto) [place] # (Auto) Eos # (Auto) Baso # (Auto) PT INR ABG Sample Site ABG pH 7.39 7.39 ABG pCO2 41.8 41.8 ABG pO2 71 L ABG HCO3 ABG Total CO2 ABG O2 Saturation ABG Base Excess Zachariah Test VBG pH VBG pCO2 VBG pO2 VBG HCO3 VBG Total CO2 VBG O2 Saturation VBG Base Excess Respiration Rate O2 Delivery Device Mode of Support FiO2 % PEEP or CPAP Sodium Potassium Chloride Carbon Dioxide BUN Creatinine Estimated GFR BUN/Creatinine Ratio Glucose Hemoglobin A1c Calcium Total Bilirubin AST ALT Alkaline Phosphatase Total Creatine Kinase Troponin I Total Protein Albumin Globulin Albumin/Globulin Ratio Urine Color Urine Appearance Urine pH Ur Specific Hallie Urine Protein Urine Glucose (UA) Urine Ketones Urine Occult Blood Urine Nitrate Urine Bilirubin Urine Urobilinogen Ur Leukocyte Esterase Urine RBC Urine WBC Ur Squamous Epith Cells Ur Transition Epith Cell Amorphous Sediment Urine Bacteria Ur Culture Indicated? Vol Urine Centrifuged Nasal Screen MRSA (PCR) U Opiates 300ng/mL cut Ur Oxycodone Screen Urine Methadone Screen Ur Barbiturates Screen U Tricyclic Antidepress Ur Phencyclidine Scrn Ur Amphetamines Screen U Methamphetamines Scrn Ur MDMA Scrn (Ecstasy) U Benzodiazepines Scrn Urine Cocaine Screen U Marijuana (THC) Screen Urine Specific Hallie Ethyl Alcohol Ketones Ur Creatinine Chlamy pneumoniae PCR Adenovirus (PCR) B. pertussis DNA (PCR) B.parapertussis DNA PCR Coronavirus OC43 (PCR) Coronavirus HKU1 (PCR) Coronavirus 229E (PCR) SARS-CoV-2 (PCR) Coronavirus NL63 (PCR) Human Metapneumovir PCR Influenza Type A (PCR) Influenza Type B (PCR) M. pneumoniae (PCR) Parainfluenza 1 (PCR) Parainfluenza 2 (PCR) Parainfluenza 3 (PCR) Parainfluenza 4 (PCR) RSV (PCR) Entero/Rhino (PCR) 02/11/25 02/11/25 02/11/25 20:15 20:15 20:15 WBC RBC Hgb Hct MCV MCH MCHC RDW Plt Count Neut % (Auto) Lymph % (Auto) [place] % (Auto) Eos % (Auto) Baso % (Auto) Neut # (Auto) Lymph # (Auto) [place] # (Auto) Eos # (Auto) Baso # (Auto) PT INR ABG Sample Site ABG pH ABG pCO2 ABG pO2 71 L ABG HCO3 25 25 ABG Total CO2 24 24 ABG O2 Saturation 94 L ABG Base Excess Zachariah Test VBG pH VBG pCO2 VBG pO2 VBG HCO3 VBG Total CO2 VBG O2 Saturation VBG Base Excess Respiration Rate O2 Delivery Device Mode of Support FiO2 % PEEP or CPAP Sodium Potassium Chloride Carbon Dioxide BUN Creatinine Estimated GFR BUN/Creatinine Ratio Glucose Hemoglobin A1c Calcium Total Bilirubin AST ALT Alkaline Phosphatase Total Creatine Kinase Troponin I Total Protein Albumin Globulin Albumin/Globulin Ratio Urine Color Urine Appearance Urine pH Ur Specific Hallie Urine Protein Urine Glucose (UA) Urine Ketones Urine Occult Blood Urine Nitrate Urine Bilirubin Urine Urobilinogen Ur Leukocyte Esterase Urine RBC Urine WBC Ur Squamous Epith Cells Ur Transition Epith Cell Amorphous Sediment Urine Bacteria Ur Culture Indicated? Vol Urine Centrifuged Nasal Screen MRSA (PCR) U Opiates 300ng/mL cut Ur Oxycodone Screen Urine Methadone Screen Ur Barbiturates Screen U Tricyclic Antidepress Ur Phencyclidine Scrn Ur Amphetamines Screen U Methamphetamines Scrn Ur MDMA Scrn (Ecstasy) U Benzodiazepines Scrn Urine Cocaine Screen U Marijuana (THC) Screen Urine Specific Hallie Ethyl Alcohol Ketones Ur Creatinine Chlamy pneumoniae PCR Adenovirus (PCR) B. pertussis DNA (PCR) B.parapertussis DNA PCR Coronavirus OC43 (PCR) Coronavirus HKU1 (PCR) Coronavirus 229E (PCR) SARS-CoV-2 (PCR) Coronavirus NL63 (PCR) Human Metapneumovir PCR Influenza Type A (PCR) Influenza Type B (PCR) M. pneumoniae (PCR) Parainfluenza 1 (PCR) Parainfluenza 2 (PCR) Parainfluenza 3 (PCR) Parainfluenza 4 (PCR) RSV (PCR) Entero/Rhino (PCR) 02/11/25 02/11/25 02/11/25 20:15 20:15 20:15 WBC RBC Hgb Hct MCV MCH MCHC RDW Plt Count Neut % (Auto) Lymph % (Auto) [place] % (Auto) Eos % (Auto) Baso % (Auto) Neut # (Auto) Lymph # (Auto) [place] # (Auto) Eos # (Auto) Baso # (Auto) PT INR ABG Sample Site ABG pH ABG pCO2 ABG pO2 ABG HCO3 ABG Total CO2 ABG O2 Saturation 94 L ABG Base Excess -0.2 -0.2 Zachariah Test Yes, passed Positive VBG pH VBG pCO2 VBG pO2 VBG HCO3 VBG Total CO2 VBG O2 Saturation VBG Base Excess Respiration Rate 15 O2 Delivery Device Adult ventilator Mode of Support Assist cont ventilat FiO2 % 40 % PEEP or CPAP 5 Sodium Potassium Chloride Carbon Dioxide BUN Creatinine Estimated GFR BUN/Creatinine Ratio Glucose Hemoglobin A1c Calcium Total Bilirubin AST ALT Alkaline Phosphatase Total Creatine Kinase Troponin I Total Protein Albumin Globulin Albumin/Globulin Ratio Urine Color Urine Appearance Urine pH Ur Specific Hallie Urine Protein Urine Glucose (UA) Urine Ketones Urine Occult Blood Urine Nitrate Urine Bilirubin Urine Urobilinogen Ur Leukocyte Esterase Urine RBC Urine WBC Ur Squamous Epith Cells Ur Transition Epith Cell Amorphous Sediment Urine Bacteria Ur Culture Indicated? Vol Urine Centrifuged Nasal Screen MRSA (PCR) U Opiates 300ng/mL cut Ur Oxycodone Screen Urine Methadone Screen Ur Barbiturates Screen U Tricyclic Antidepress Ur Phencyclidine Scrn Ur Amphetamines Screen U Methamphetamines Scrn Ur MDMA Scrn (Ecstasy) U Benzodiazepines Scrn Urine Cocaine Screen U Marijuana (THC) Screen Urine Specific Hallie Ethyl Alcohol Ketones Ur Creatinine Chlamy pneumoniae PCR Adenovirus (PCR) B. pertussis DNA (PCR) B.parapertussis DNA PCR Coronavirus OC43 (PCR) Coronavirus HKU1 (PCR) Coronavirus 229E (PCR) SARS-CoV-2 (PCR) Coronavirus NL63 (PCR) Human Metapneumovir PCR Influenza Type A (PCR) Influenza Type B (PCR) M. pneumoniae (PCR) Parainfluenza 1 (PCR) Parainfluenza 2 (PCR) Parainfluenza 3 (PCR) Parainfluenza 4 (PCR) RSV (PCR) Entero/Rhino (PCR) 02/11/25 02/12/25 02/12/25 21:30 04:10 04:15 WBC RBC Hgb Hct MCV MCH MCHC RDW Plt Count Neut % (Auto) Lymph % (Auto) [place] % (Auto) Eos % (Auto) Baso % (Auto) Neut # (Auto) Lymph # (Auto) [place] # (Auto) Eos # (Auto) Baso # (Auto) PT INR ABG Sample Site ABG pH ABG pCO2 ABG pO2 ABG HCO3 ABG Total CO2 ABG O2 Saturation ABG Base Excess Zachariah Test VBG pH VBG pCO2 VBG pO2 VBG HCO3 VBG Total CO2 VBG O2 Saturation VBG Base Excess Respiration Rate O2 Delivery Device Mode of Support FiO2 % PEEP or CPAP Sodium 140 141 Potassium 3.9 3.8 Chloride 108 H 111 H Carbon Dioxide 25 24 BUN 30 H 30 H Creatinine 0.76 0.76 Estimated GFR > 60 > 60 BUN/Creatinine Ratio 39.5 H 39.5 H Glucose 310 H D 177 H D Hemoglobin A1c Calcium 9.3 8.6 Total Bilirubin AST ALT Alkaline Phosphatase Total Creatine Kinase Troponin I Total Protein Albumin Globulin Albumin/Globulin Ratio Urine Color Urine Appearance Urine pH Ur Specific Hallie Urine Protein Urine Glucose (UA) Urine Ketones Urine Occult Blood Urine Nitrate Urine Bilirubin Urine Urobilinogen Ur Leukocyte Esterase Urine RBC Urine WBC Ur Squamous Epith Cells Ur Transition Epith Cell Amorphous Sediment Urine Bacteria Ur Culture Indicated? Vol Urine Centrifuged Nasal Screen MRSA (PCR) Not detected U Opiates 300ng/mL cut Ur Oxycodone Screen Urine Methadone Screen Ur Barbiturates Screen U Tricyclic Antidepress Ur Phencyclidine Scrn Ur Amphetamines Screen U Methamphetamines Scrn Ur MDMA Scrn (Ecstasy) U Benzodiazepines Scrn Urine Cocaine Screen U Marijuana (THC) Screen Urine Specific Hallie Ethyl Alcohol Ketones Ur Creatinine Chlamy pneumoniae PCR Adenovirus (PCR) B. pertussis DNA (PCR) B.parapertussis DNA PCR Coronavirus OC43 (PCR) Coronavirus HKU1 (PCR) Coronavirus 229E (PCR) SARS-CoV-2 (PCR) Coronavirus NL63 (PCR) Human Metapneumovir PCR Influenza Type A (PCR) Influenza Type B (PCR) M. pneumoniae (PCR) Parainfluenza 1 (PCR) Parainfluenza 2 (PCR) Parainfluenza 3 (PCR) Parainfluenza 4 (PCR) RSV (PCR) Entero/Rhino (PCR) 02/12/25 05:05 WBC RBC Hgb Hct MCV MCH MCHC RDW Plt Count Neut % (Auto) Lymph % (Auto) [place] % (Auto) Eos % (Auto) Baso % (Auto) Neut # (Auto) Lymph # (Auto) [place] # (Auto) Eos # (Auto) Baso # (Auto) PT INR ABG Sample Site Right radial ABG pH 7.37 ABG pCO2 44.2 ABG pO2 98 ABG HCO3 26 ABG Total CO2 25 ABG O2 Saturation 97 ABG Base Excess 0.3 Zachariah Test Positive VBG pH VBG pCO2 VBG pO2 VBG HCO3 VBG Total CO2 VBG O2 Saturation VBG Base Excess Respiration Rate O2 Delivery Device Mode of Support FiO2 % PEEP or CPAP Sodium Potassium Chloride Carbon Dioxide BUN Creatinine Estimated GFR BUN/Creatinine Ratio Glucose Hemoglobin A1c Calcium Total Bilirubin AST ALT Alkaline Phosphatase Total Creatine Kinase Troponin I Total Protein Albumin Globulin Albumin/Globulin Ratio Urine Color Urine Appearance Urine pH Ur Specific Hallie Urine Protein Urine Glucose (UA) Urine Ketones Urine Occult Blood Urine Nitrate Urine Bilirubin Urine Urobilinogen Ur Leukocyte Esterase Urine RBC Urine WBC Ur Squamous Epith Cells Ur Transition Epith Cell Amorphous Sediment Urine Bacteria Ur Culture Indicated? Vol Urine Centrifuged Nasal Screen MRSA (PCR) U Opiates 300ng/mL cut Ur Oxycodone Screen Urine Methadone Screen Ur Barbiturates Screen U Tricyclic Antidepress Ur Phencyclidine Scrn Ur Amphetamines Screen U Methamphetamines Scrn Ur MDMA Scrn (Ecstasy) U Benzodiazepines Scrn Urine Cocaine Screen U Marijuana (THC) Screen Urine Specific Hallie Ethyl Alcohol Ketones Ur Creatinine Chlamy pneumoniae PCR Adenovirus (PCR) B. pertussis DNA (PCR) B.parapertussis DNA PCR Coronavirus OC43 (PCR) Coronavirus HKU1 (PCR) Coronavirus 229E (PCR) SARS-CoV-2 (PCR) Coronavirus NL63 (PCR) Human Metapneumovir PCR Influenza Type A (PCR) Influenza Type B (PCR) M. pneumoniae (PCR) Parainfluenza 1 (PCR) Parainfluenza 2 (PCR) Parainfluenza 3 (PCR) Parainfluenza 4 (PCR) RSV (PCR) Entero/Rhino (PCR) [facility] Medical History (Updated 02/11/25 @ 16:44 by Khanh Santiago MD) Bronchitis Hypertensive urgency Mass of finger of left hand Left knee pain (05/16/16) History of colon polyps Uncontrolled type 2 diabetes mellitus Excessive thirst Body dysmorphic disorder BMI 39.0-39.9,adult Pain of right great toe Bilateral knee pain Hyperlipidemia associated with type 2 diabetes mellitus Type 2 diabetes mellitus Primary hypertension Erectile dysfunction Plaque psoriasis Obstructive sleep apnea of adult Umbilical hernia without obstruction and without gangrene (10/09/16) Primary insomnia (05/16/16) Surgical History (Updated 06/27/22 @ 15:18 by Carlos King DO) Status post right partial knee replacement History of umbilical hernia repair (12/13/16) History of colonoscopy with polypectomy (08/05/09) Family History Grandfather No problems noted. Social History marital status: unmarried,single number of children: 0 lives independently: Yes caregiver/support person: No pets and animals: Yes (2/3 year old puppy; sleeps on pt bed) education level: high school occupational status: employed Smoking Status: Current every day smoker quit status: considering quitting alcohol intake: current substance use type: does not use Assessment & Plan Time-Based Coding :: [TOTAL MINUTES] spent with patient and on the chart (including review of chart, obtaining history, exam, reviewing outside data, placing orders, documenting exam and treatment plan, and counseling patient) on [DATE].
[2025-02-12] MEDS: ENOXAPARIN 40 MG/0.4 ML SYRINGE SUBCUT (09:14)
[2025-02-12 09:19] LABS: Add Manual Diff / Slide Review NO; Basophils Absolute Auto 100 /uL (0-100); Basophils Percent Auto 0.5 % (0-2); Eosinophils Absolute Auto 100 /uL (0-450); Eosinophils Percent Auto 1.2 % (2-4); Hematocrit 38.5 % (41-53); Hemoglobin 13.1 g/dL (13.5-17.5); Lymphocytes Absolute Auto 1800 /uL (1100-4500); Lymphocytes Percent Auto 16.7 % (25-40); Mean Corpuscular HGB Conc 34.1 % (30-36); Mean Corpuscular Hemoglobin 30.4 PG (26-34); Monocytes Absolute Auto 1000 /uL (0-900); Neutrophils Absolute Auto 7900 /uL (1500-7000); Neutrophils Percent Auto 72.6 % (50-75); Platelet Count 78 X10^3/uL (150-400); Red Blood Cell Count 4.32 X10^6/uL (4.5-5.9); Red Cell Distribution Width 13.1 % (11.6-14.8); White Blood Cell Count 10.9 X10^3/uL (4.5-11.0)
[2025-02-12] MEDS: FAMOTIDINE 20 MG/2 ML VIAL IV ×2 (09:23→21:01)
[2025-02-12 09:34] LABS: Alanine Aminotransferase 34 IU/L (<50); Albumin 2.4 g/dL (3.5-5.0); Alkaline Phosphatase 24 U/L (38-126); Aspartate Aminotransferase 69 IU/L (17-59); BUN Creatinine Ratio 44.9 (6-22); Bilirubin Total 0.8 mg/dL (0.2-1.3); Blood Urea Nitrogen 22 mg/dL (9-20); Carbon Dioxide 16 mmol/L (22-32); Chloride 120 mmol/L (98-107); Estimated Glomerular Filt Rate > 60 mL/min (>60); Globulin 2.5 g/dL (1.7-4.1); Glucose 199 mg/dL (80-110); Potassium 3.5 mmol/L (3.4-5.1); Sodium 141 mmol/L (137-145); Total Protein 4.9 g/dL (6.3-8.2)
[2025-02-12 09:43] LABS: HEMOLYSIS 102 (0-50)
[2025-02-12 09:45] LABS: Calcium 6.4 mg/dL (8.4-10.2)
[2025-02-12 10:04] LABS: Triglycerides 352 mg/dL (35-150)
[2025-02-12] MEDS: dexmedeTOMIDine in 0.9 % NaCL 400 MCG/100 ML PLAST..BAG 11.158 MCG IV ×2 (11:06→20:55)
[2025-02-12] MEDS: CALCIUM GLUCONATE 9.3 MEQ in SODIUM CHLORIDE 0.9% 50 ML 140 MEQ IV (11:06)
--- NOTE | 2025-02-12 11:58 | DIET.CONS ---
Dietary Consultation Note Admission Date: 02/11/2025 16:46 Assessment: 64 y M admitted for alcohol withdrawal and hyperglycemia. Not in DKA. Is now intubated. Nutrition consulted for intubated. Per ICU media producer can start enteral nutrition. Pt with hx of drinking baileys in coffee throughout day. Per healthcare team rounds, pt stopped all medications 3 months ago d/t cost. Hx of T2Dm. Past A1c% have been around 7%, latest A1c% since stopping meds is 11.5% Propofol is providing 619 kcals per day at 35 mcg/kg/min. Ht: 185.42 cm Wt: 111.584 kg BMI: 32.4 UBW: 119.748 kg on 11/12/24 (-7% weight loss within 3 month) Last BM: () MNA: Galdino Score: 13 Diet: 02/12/25 08:14 NPO Diet Diet Modifications: May Advance Diet as Tolerated: No NPO Type: Strict Labs: RBC 4.32 X10^6/uL (4.5-5.9) L 02/12/25 08:50 Hgb 13.1 g/dL (13.5-17.5) L 02/12/25 08:50 Hct 38.5 % (41-53) L 02/12/25 08:50 Creatinine 0.49 mg/dL (0.66-1.25) L 02/12/25 08:50 Hemoglobin A1c 11.5 % (4.0-6.0) H 02/11/25 14:15 Nutrition Diagnosis: Severe acute protein calorie malnutrition r/t inadequate protein and nutrient dense intake secondary to excessive alcohol intake and hyperglycemia aeb BG 758 upon presenting to ED, A1c 11.5%, stopping all medications for diabetes management 3 months ago, patient consuming 40 proof alcohol throughout day in coffee, alcohol withdrawal, and 7% weight loss within 3 months Interventions: Continuous enteral nutrition as follows: 1. Pivot 1.5 L starting at 10 mL/hr for first 12 hours then advancing to 20 mL/hr as tolerated. Flush 60 mL q4H. Add 2 protein packets q8H. Goal rate + propofol + protein packets provides 1603 kcals (100% EER) and 111 g protein (75% EER) and 83 g carbohydrates. Formula + flushes provides 720 mL fluids daily. Fluid needs are 2850 mL, meeting these currently with IV. Will adjust flushes based on IV fluids as needed. 2. Pharmacy ordered Mg, phos, and K+ to monitor per protocol and ordered thiamine 100 mg per protocol. EER: 1600 kcals (14 kcals/kg per [facility] critical care guidelines per BMI), 150 g protein (2g/kg per [facility] critical care guidelines per IBW) Monitoring/Evaluations: tolerance, labs, rate Electronically Signed by: Gabby Dunlap 02/12/25 11:58 Clinical Dietitian [address] [id number]
[2025-02-12] MEDS: POTASSIUM CHLORIDE IN WATER 10 MEQ/100 ML PIGGYBACK 100 MEQ IV ×2 (12:00→13:13)
--- NOTE | 2025-02-12 12:49 | PC.NURSE ---
Dayshift note: Pt remains ventilated and sedated on precedex, Propofol, Norepi, titrated to maintain map <65. Vent settings are FiO2 35% TV 530 RR 15 PEEP 5, sats 97-98%, RASS -2, pt rouses when turned, or suctioned. Restraints in place for ETT protection and to prevent pulling at lines, edwards is patent, draining orange tinged urine (due to Propofol), pt is afebrile, Q2H turns to prevent skin breakdown, Q6H blood glucose checks with high sliding scale coverage, SCD's in place with Lovenox for DVT prevention. NS infusing as ordered, electrolytes replaced, will begin tube feeding tonight at dinnertime, room is close to nurse's station, this nurse is able to visualize patient at all times, no distress noted, no further pt needs at this time, care ongoing.
[2025-02-12] MEDS: THIAMINE 500 MG in SODIUM CHLORIDE 0.9% 100 ML 420 MG IV ×2 (14:24→21:02)
[2025-02-12] MEDS: chlordiazePOXIDE 25 MG CAPSULE 50 MG TUBE ×2 (14:25→21:01)
--- NOTE | 2025-02-12 16:13 | CM.DANOTE ---
Initial DCP Assessment Note Patient is a 64 yo M, resident of [place], newly dx diabetes, sugar over 500, arrives via EMS for altered mental status. Stroke suspected, although as further history obtained by hospitalist, ETOH w/d suspected. Patient reportedly drinks 40 proof alcohol, Baileys, throughout the day w his coffee. Patient's 90 yo mother Violet denies patient drinks. PCP: Marianela Goyal Payer: VASILIY CISNEROS SW consult received says Has no money further clarification with Dr Finney about this referral- provider is concerned patient does not have the money to pay for any out of pocket cost of prescriptions. Patient intubated at this time. Patient reportedly lives with mother in [place]. Further assessment needed. CM team will plan to follow as medical plan of care unfolds. ELIS Leonard Discharge Planning/Care Management CM Discharge Assessment Start: 02/12/25 16:11 Freq: Status: Active Protocol: Document 02/12/25 16:12 TR (Rec: 02/12/25 16:13 TR [id number]) Discharge Planning Assessment Assigned Battery Tester ELIS Lira DPOA/Assigned Designee Name mother Dowling Contact Information [phone] Advance Directives? No History Provided By Medical Record Prior Living Arrangements House Household Members family Type of transporation used prior to Drives own vehicle admit Independent with ADL's Yes Is patient alert and oriented? No Barriers to Discharge Yes Comment Patient is currently intubated . Needs unknown.
[2025-02-12] MEDS: SODIUM CHLORIDE 0.9% 1,000 ML 100 ML IV (16:29)
[2025-02-12 17:09] LABS: Add Manual Diff / Slide Review NO; Basophils Absolute Auto 100 /uL (0-100); Basophils Percent Auto 0.6 % (0-2); Eosinophils Absolute Auto 100 /uL (0-450); Eosinophils Percent Auto 1.3 % (2-4); Hematocrit 36.6 % (41-53); Hemoglobin 12.5 g/dL (13.5-17.5); Lymphocytes Absolute Auto 1800 /uL (1100-4500); Lymphocytes Percent Auto 18.2 % (25-40); Mean Corpuscular Hemoglobin 30.4 PG (26-34); Mean Corpuscular Volume 89.2 fL (80-100); Monocytes Absolute Auto 800 /uL (0-900); Monocytes Percent Auto 8.3 % (3-14); Neutrophils Absolute Auto 7000 /uL (1500-7000); Neutrophils Percent Auto 71.6 % (50-75); Platelet Count 146 X10^3/uL (150-400); Red Cell Distribution Width 12.7 % (11.6-14.8); White Blood Cell Count 9.8 X10^3/uL (4.5-11.0)
[2025-02-12 17:22] LABS: Alanine Aminotransferase 55 IU/L (<50); Albumin Globulin Ratio 1.2 (1.0-2.8); Alkaline Phosphatase 49 U/L (38-126); Aspartate Aminotransferase 81 IU/L (17-59); BUN Creatinine Ratio 33.3 (6-22); Bilirubin Total 0.7 mg/dL (0.2-1.3); Blood Urea Nitrogen 21 mg/dL (9-20); Carbon Dioxide 24 mmol/L (22-32); Chloride 114 mmol/L (98-107); Estimated Glomerular Filt Rate > 60 mL/min (>60); Globulin 2.5 g/dL (1.7-4.1); Glucose 208 mg/dL (80-110); HEMOLYSIS < 15 (0-50); Sodium 141 mmol/L (137-145); Total Protein 5.5 g/dL (6.3-8.2)
[2025-02-12 17:23] LABS: Phosphorous 2.3 mg/dL (2.3-3.7)
--- NOTE | 2025-02-12 17:41 | P.TELICUPN_ITS ---
Subjective Subjective IF CAMERA ACTIVATED, patient seen via real-time interactive audiovisual communication: Camera activated Consent obtained for tele-animal husbandry manager care: Yes Patient Location: ICU Provider location (State): [place] Other participants/roles: rn Interval history: pt remians intubated, on multiple sedatives, currently rass - 3 - -4, no events this AM since being adequaterly sedated Current Medications Current Medications Medications: Home Medications No Known Home Medications 02/12/25 [History Confirmed 02/12/25] Visit Medications (administered) Generic Name Dose Route Start Last Admin Trade Name Freq PRN Reason Stop Dose Admin Atorvastatin Calcium 40 mg 02/11/25 21:00 02/11/25 21:12 Atorvastatin 20 Mg Tablet PO 40 mg BEDTIME DOROTHY Administration Chlordiazepoxide HCl 50 mg 02/12/25 14:00 02/12/25 14:25 Chlordiazepoxide 25 Mg Capsule TUBE 50 mg Q8HR DOROTHY Administration Chlorhexidine Gluconate 15 ml 02/12/25 00:00 02/12/25 11:07 Chlorhexidine Gluconate 15 Ml Cup PO 15 ml Q6HR DOROTHY Administration Enoxaparin Sodium 40 mg 02/12/25 09:00 02/12/25 09:14 Enoxaparin 40 Mg/0.4 Ml Syringe SUBCUT 40 mg DAILY DOROTHY Administration Famotidine 20 mg 02/11/25 21:00 02/12/25 09:23 Famotidine 20 Mg/2 Ml Vial IV 20 mg BID DOROTHY Administration dexmedeTOMIDine in 0.9 % NaCL 400 mcg in 100 mls @ 5.579 mls/hr 02/11/25 19:00 02/12/25 11:06 Precedex IV 0.4 mcg/kg/hr TITRATE DOROTHY 11.158 mls/hr Administration Protocol 0.2 MCG/KG/HR Propofol 1,000 mg in 100 mls @ 3.348 mls/hr 02/11/25 19:30 02/12/25 14:58 Diprivan IV 35 mcg/kg/min TITRATE DOROTHY 23.433 mls/hr Administration Protocol 5 MCG/KG/MIN NOREPINEPHRINE BITARTRATE/D5W 4 mg in 250 mls @ 41.844 mls/hr 02/11/25 22:35 02/12/25 12:31 Levophed IV 0.02 mcg/kg/min TITRATE DOROTHY 8.369 mls/hr Titration Protocol 0.1 MCG/KG/MIN Thiamine HCl 500 mg/ Sodium 105 mls @ 420 mls/hr 02/12/25 14:00 02/12/25 14:39 Chloride IV 02/15/25 06:14 Infused Q8H DOROTHY Infusion Sodium Chloride 1,000 mls @ 100 mls/hr 02/12/25 16:15 02/12/25 16:29 Normal Saline 0.9% IV 100 mls/hr CONT DOROTHY Administration Insulin Glargine 20 unit 02/11/25 21:00 02/11/25 21:11 Insulin Glargine 100 Unit/Ml 3ml Pen SUBCUT 20 unit BEDTIME DOROTHY Administration Insulin Human Lispro 0 unit 02/12/25 12:00 02/12/25 12:01 Insulin Lispro 100 Unit/Ml 3ml Vial SUBCUT 4 unit Q6HR DOROTHY Administration Protocol Objective Ventilator Parameters: Ventilator Settings FiO2 35 RT Vent Frequency 15 Ventilator Tidal Volume 530 Exhaled Vt/kg IBW 7.1 Positive End Expiratory 5 Pressure Inspiratory Phase Time 1 I:E Ratio 1:3.0 Patient Position HOB >= 30 degrees Labs 02/12/25 17:00 02/12/25 17:00 Labs: Laboratory Results - last 24 hr 02/11/25 02/11/25 02/11/25 20:15 20:15 20:15 WBC RBC Hgb Hct MCV MCH MCHC RDW Plt Count Neut % (Auto) Lymph % (Auto) [place] % (Auto) Eos % (Auto) Baso % (Auto) Neut # (Auto) Lymph # (Auto) [place] # (Auto) Eos # (Auto) Baso # (Auto) ABG Sample Site ABG pH 7.39 7.39 ABG pCO2 41.8 41.8 ABG pO2 71 L ABG HCO3 ABG Total CO2 ABG O2 Saturation ABG Base Excess Zachariah Test Respiration Rate O2 Delivery Device Mode of Support FiO2 % PEEP or CPAP Sodium Potassium Chloride Carbon Dioxide BUN Creatinine Estimated GFR BUN/Creatinine Ratio Glucose Calcium Phosphorus Magnesium Total Bilirubin AST ALT Alkaline Phosphatase Total Protein Albumin Globulin Albumin/Globulin Ratio Triglycerides Nasal Screen MRSA (PCR) 02/11/25 02/11/25 02/11/25 20:15 20:15 20:15 WBC RBC Hgb Hct MCV MCH MCHC RDW Plt Count Neut % (Auto) Lymph % (Auto) [place] % (Auto) Eos % (Auto) Baso % (Auto) Neut # (Auto) Lymph # (Auto) [place] # (Auto) Eos # (Auto) Baso # (Auto) ABG Sample Site ABG pH ABG pCO2 ABG pO2 71 L ABG HCO3 25 25 ABG Total CO2 24 24 ABG O2 Saturation 94 L ABG Base Excess Zachariah Test Respiration Rate O2 Delivery Device Mode of Support FiO2 % PEEP or CPAP Sodium Potassium Chloride Carbon Dioxide BUN Creatinine Estimated GFR BUN/Creatinine Ratio Glucose Calcium Phosphorus Magnesium Total Bilirubin AST ALT Alkaline Phosphatase Total Protein Albumin Globulin Albumin/Globulin Ratio Triglycerides Nasal Screen MRSA (PCR) 02/11/25 02/11/25 02/11/25 20:15 20:15 20:15 WBC RBC Hgb Hct MCV MCH MCHC RDW Plt Count Neut % (Auto) Lymph % (Auto) [place] % (Auto) Eos % (Auto) Baso % (Auto) Neut # (Auto) Lymph # (Auto) [place] # (Auto) Eos # (Auto) Baso # (Auto) ABG Sample Site ABG pH ABG pCO2 ABG pO2 ABG HCO3 ABG Total CO2 ABG O2 Saturation 94 L ABG Base Excess -0.2 -0.2 Zachariah Test Yes, passed Positive Respiration Rate 15 O2 Delivery Device Adult ventilator Mode of Support Assist cont ventilat FiO2 % 40 % PEEP or CPAP 5 Sodium Potassium Chloride Carbon Dioxide BUN Creatinine Estimated GFR BUN/Creatinine Ratio Glucose Calcium Phosphorus Magnesium Total Bilirubin AST ALT Alkaline Phosphatase Total Protein Albumin Globulin Albumin/Globulin Ratio Triglycerides Nasal Screen MRSA (PCR) 02/11/25 02/12/25 02/12/25 21:30 04:10 04:15 WBC RBC Hgb Hct MCV MCH MCHC RDW Plt Count Neut % (Auto) Lymph % (Auto) [place] % (Auto) Eos % (Auto) Baso % (Auto) Neut # (Auto) Lymph # (Auto) [place] # (Auto) Eos # (Auto) Baso # (Auto) ABG Sample Site ABG pH ABG pCO2 ABG pO2 ABG HCO3 ABG Total CO2 ABG O2 Saturation ABG Base Excess Zachariah Test Respiration Rate O2 Delivery Device Mode of Support FiO2 % PEEP or CPAP Sodium 140 141 Potassium 3.9 3.8 Chloride 108 H 111 H Carbon Dioxide 25 24 BUN 30 H 30 H Creatinine 0.76 0.76 Estimated GFR > 60 > 60 BUN/Creatinine Ratio 39.5 H 39.5 H Glucose 310 H D 177 H D Calcium 9.3 8.6 Phosphorus Magnesium Total Bilirubin AST ALT Alkaline Phosphatase Total Protein Albumin Globulin Albumin/Globulin Ratio Triglycerides Nasal Screen MRSA (PCR) Not detected 02/12/25 02/12/25 02/12/25 05:05 08:50 17:00 WBC 10.9 9.8 RBC 4.32 L 4.10 L Hgb 13.1 L 12.5 L Hct 38.5 L 36.6 L MCV 89.0 89.2 MCH 30.4 30.4 MCHC 34.1 34.0 RDW 13.1 12.7 Plt Count 78 L 146 L Neut % (Auto) 72.6 71.6 Lymph % (Auto) 16.7 L 18.2 L [place] % (Auto) 9.0 8.3 Eos % (Auto) 1.2 L 1.3 L Baso % (Auto) 0.5 0.6 Neut # (Auto) 7900 H 7000 Lymph # (Auto) 1800 1800 [place] # (Auto) 1000 H 800 Eos # (Auto) 100 100 Baso # (Auto) 100 100 ABG Sample Site Right radial ABG pH 7.37 ABG pCO2 44.2 ABG pO2 98 ABG HCO3 26 ABG Total CO2 25 ABG O2 Saturation 97 ABG Base Excess 0.3 Zachariah Test Positive Respiration Rate O2 Delivery Device Mode of Support FiO2 % PEEP or CPAP Sodium 141 141 Potassium 3.5 4.0 Chloride 120 H 114 H Carbon Dioxide 16 L 24 BUN 22 H 21 H Creatinine 0.49 L 0.63 L Estimated GFR > 60 > 60 BUN/Creatinine Ratio 44.9 H 33.3 H Glucose 199 H 208 H Calcium 6.4 L* 8.0 L Phosphorus 2.3 Magnesium 2.0 Total Bilirubin 0.8 0.7 AST 69 H 81 H ALT 34 55 H Alkaline Phosphatase 24 L D 49 Total Protein 4.9 L 5.5 L Albumin 2.4 L 3.0 L Globulin 2.5 2.5 Albumin/Globulin Ratio 1.0 1.2 Triglycerides 352 H Nasal Screen MRSA (PCR) Exam Vital Signs (past 8 hours): - 02/12/25 10:00 02/12/25 10:00 02/12/25 10:00 Temperature 97.9 F Pulse Rate 60 60 Respiratory Rate 15 16 Blood Pressure 121/65 121/65 Pulse Oximetry 97 96 Oxygen Delivery Method Fraction of Inspired Oxygen 35 02/12/25 10:30 02/12/25 10:30 02/12/25 11:00 Temperature Pulse Rate 60 61 Respiratory Rate 15 15 Blood Pressure 123/69 Pulse Oximetry 97 98 Oxygen Delivery Method Fraction of Inspired Oxygen 02/12/25 11:00 02/12/25 11:30 02/12/25 11:30 Temperature Pulse Rate 73 Respiratory Rate 17 Blood Pressure 126/70 157/77 H Pulse Oximetry 97 Oxygen Delivery Method Fraction of Inspired Oxygen 02/12/25 12:00 02/12/25 12:00 02/12/25 12:00 Temperature 96.8 F L Pulse Rate 52 L Respiratory Rate 15 Blood Pressure Pulse Oximetry 95 Oxygen Delivery Method Mechanical Ventilation Fraction of Inspired Oxygen 02/12/25 12:01 02/12/25 12:01 02/12/25 12:30 Temperature Pulse Rate 51 L 51 L Respiratory Rate 15 15 Blood Pressure 96/52 L Pulse Oximetry 95 94 Oxygen Delivery Method Fraction of Inspired Oxygen 02/12/25 12:30 02/12/25 13:00 02/12/25 13:00 Temperature Pulse Rate 57 L Respiratory Rate 15 Blood Pressure 90/51 L 121/68 Pulse Oximetry 97 Oxygen Delivery Method Fraction of Inspired Oxygen 02/12/25 13:30 02/12/25 13:30 02/12/25 14:00 Temperature 98.2 F Pulse Rate 57 L Respiratory Rate 19 Blood Pressure 108/58 L Pulse Oximetry 95 Oxygen Delivery Method Fraction of Inspired Oxygen 02/12/25 14:00 02/12/25 14:00 02/12/25 14:30 Temperature Pulse Rate 61 52 L Respiratory Rate 15 15 Blood Pressure 124/69 Pulse Oximetry 98 96 Oxygen Delivery Method Fraction of Inspired Oxygen 02/12/25 14:30 02/12/25 15:00 02/12/25 15:00 Temperature Pulse Rate 62 Respiratory Rate 15 Blood Pressure 94/53 L 113/59 L Pulse Oximetry 94 Oxygen Delivery Method Fraction of Inspired Oxygen 02/12/25 15:30 02/12/25 15:30 02/12/25 15:32 Temperature 98.1 F Pulse Rate 51 L Respiratory Rate 15 Blood Pressure 106/60 Pulse Oximetry 95 Oxygen Delivery Method Fraction of Inspired Oxygen 02/12/25 16:00 02/12/25 16:00 02/12/25 16:00 Temperature 98.7 F Pulse Rate 59 L Respiratory Rate 16 Blood Pressure 121/69 Pulse Oximetry 97 Oxygen Delivery Method Fraction of Inspired Oxygen 02/12/25 16:00 02/12/25 16:30 02/12/25 16:30 Temperature Pulse Rate 60 Respiratory Rate 15 Blood Pressure 131/70 Pulse Oximetry 98 Oxygen Delivery Method Mechanical Ventilation Fraction of Inspired Oxygen 02/12/25 17:00 02/12/25 17:00 Temperature Pulse Rate 61 Respiratory Rate 15 Blood Pressure 106/56 L Pulse Oximetry 96 Oxygen Delivery Method Fraction of Inspired Oxygen Fraction of Inspired Oxygen 35 Oxygen Delivery Method Mechanical Ventilation Narrative Exam Narrative: Intubated sedated synchronous rate controlled Assessment & Plan Assessment & Plan narrative: 64 year old male admitted to ICU with: AMS Acute hyperactive Delirium etoh withdrawal hyperglycemia MAXINE Suggest -Neurochecks/seizure precautions -repeat imaging prn -thiamine/folate -ciwa protocol -can start phenobarb with ativan prn - librium - vent sedation bundle -keep sat above 02% -keep map above 65 -serial ekg/trop -check echo -IVF -replace lytes prn -keep glucose 140-180s can do insulin drip -n TF - gluceerna -gi/dvt ppx -please call eICU prn Time-Based Coding :: [TOTAL MINUTES] spent with patient and on the chart (including review of chart, obtaining history, exam, reviewing outside data, placing orders, documenting exam and treatment plan, and counseling patient) on [DATE].
--- NOTE | 2025-02-12 20:27 | DI.RAD.S_ITS ---
PROCEDURE: XR CHEST 1V INDICATIONS: ETT TECHNIQUE: One view of the chest was acquired. COMPARISON: [facility], CR, XR CHEST 1V, 02/11/2025, 19:20. FINDINGS: Surgical changes and devices: Endotracheal tube tip projects 6.0 cm above the silvano. Enteric tube courses below the diaphragm with distal tip not visualized. Lungs and pleura: No pneumothorax. Small to moderate left pleural effusion with subjacent atelectasis. Right lung remains relatively clear. Mediastinum: Mediastinal contours appear normal. Heart size is normal. Bones and chest wall: No suspicious bony lesions. Overlying soft tissues appear unremarkable. IMPRESSION: Since prior radiograph 02/11/2025, increasing small to moderate left pleural effusion with subjacent atelectasis. Endotracheal tube appears in appropriate position. Approved by: Maria Luisa Sampson M.D.,Ph.D. on 02/12/2025 at 21:46
--- NOTE | 2025-02-12 20:28 | DI.RAD.S_ITS ---
PROCEDURE: XR KUB INDICATIONS: distension TECHNIQUE: One view of the abdomen acquired. COMPARISON: None. FINDINGS: Surgical changes and devices: None. Bowel: Bowel gas pattern is nonobstructive. Soft tissues: No suspicious abdominal calcifications. Visualized solid organ contours appear normal in size. Bones: No suspicious bony lesions. IMPRESSION: Limited views of the abdomen demonstrates nonobstructive bowel gas pattern. Approved by: Maria Luisa Sampson M.D.,Ph.D. on 02/12/2025 at 21:48
--- NOTE | 2025-02-12 20:28 | PM.ICURNDS ---
- Date Patient Seen: 02/12/25 Time Patient Seen: 20:28 :: This patient was seen via real time interactive two-way audiovisual telecommunication. Note: no acute events during the day remains intubated /sedated on small dose of levophed cxr post intubated had ETT @7.5mm above silvano -will check cxr and adjust tube to 3-5mm having high tube feed residutals and now bowel sounds per nurse can hold feeds for now will check kub continue current care discussed with bedside nursing team
--- NOTE | 2025-02-12 20:47 | PC.NURSE ---
Patient with tube feeding Pivot 1.5 running at 10 ml/hr and free water flush at 60 ml every 4 hours via OGT, bowel sounds hypoactive in all quadrants, residual 250 ml of mixed tube feed and bile, spoke with Tele ophthalmic technologist, KUB and CXR are ordered.
[2025-02-12] MEDS: INSULIN GLARGINE 100 UNIT/ML 3ML PEN 20 UNIT SUBCUT (21:13)
--- NOTE | 2025-02-12 21:42 | PC.NURSE ---
The document of output of gastric output at 2140 was the dayshift amount that was not emptied at end of shift. noted so the shift boss can log the out put for our shift.
[2025-02-13] VITALS (61 sets, daily range): BP systolic 110–150; BP diastolic 55–74; PULSE 50–60; RESP 15–24; TEMP 36.7–37.3; O2SAT 88–100
[2025-02-13] MEDS: INSULIN LISPRO 100 UNIT/ML 3ML VIAL SUBCUT ×4 (00:49→23:53)
[2025-02-13] MEDS: CHLORHEXIDINE GLUCONATE 15 ML CUP PO ×5 (00:50→23:53)
[2025-02-13] MEDS: SODIUM CHLORIDE 0.9% 1,000 ML 100 ML IV ×3 (02:06→22:21)
[2025-02-13] MEDS: NOREPINEPHRINE BITARTRATE/D5W 4 MG/250 ML PLAST..BAG 4.184 MG IV (02:06)
[2025-02-13] MEDS: propofoL 1,000 MG/100 ML VIAL 23.433 MG IV ×4 (02:58→12:56)
[2025-02-13] MEDS: THIAMINE 500 MG in SODIUM CHLORIDE 0.9% 100 ML 420 MG IV ×3 (06:15→22:01)
[2025-02-13] MEDS: chlordiazePOXIDE 25 MG CAPSULE 50 MG TUBE ×3 (06:15→21:33)
[2025-02-13 06:28] LABS: Add Manual Diff / Slide Review NO; Basophils Absolute Auto 100 /uL (0-100); Basophils Percent Auto 1.2 % (0-2); Eosinophils Absolute Auto 200 /uL (0-450); Eosinophils Percent Auto 1.6 % (2-4); Hematocrit 36.5 % (41-53); Hemoglobin 12.4 g/dL (13.5-17.5); Lymphocytes Absolute Auto 1700 /uL (1100-4500); Lymphocytes Percent Auto 17.1 % (25-40); Mean Corpuscular HGB Conc 33.9 % (30-36); Mean Corpuscular Hemoglobin 30.2 PG (26-34); Mean Corpuscular Volume 89.2 fL (80-100); Monocytes Absolute Auto 900 /uL (0-900); Monocytes Percent Auto 9.3 % (3-14); Neutrophils Absolute Auto 7000 /uL (1500-7000); Neutrophils Percent Auto 70.8 % (50-75); Platelet Count 149 X10^3/uL (150-400); Red Blood Cell Count 4.09 X10^6/uL (4.5-5.9); Red Cell Distribution Width 12.8 % (11.6-14.8); White Blood Cell Count 9.9 X10^3/uL (4.5-11.0)
[2025-02-13 06:42] LABS: Alanine Aminotransferase 54 IU/L (<50); Albumin Globulin Ratio 1.2 (1.0-2.8); Alkaline Phosphatase 54 U/L (38-126); Aspartate Aminotransferase 61 IU/L (17-59); BUN Creatinine Ratio 29.7 (6-22); Bilirubin Total 0.8 mg/dL (0.2-1.3); Blood Urea Nitrogen 19 mg/dL (9-20); Carbon Dioxide 21 mmol/L (22-32); Chloride 113 mmol/L (98-107); Estimated Glomerular Filt Rate > 60 mL/min (>60); Globulin 2.6 g/dL (1.7-4.1); Glucose 172 mg/dL (80-110); HEMOLYSIS < 15 (0-50); Potassium 3.5 mmol/L (3.4-5.1); Sodium 141 mmol/L (137-145); Total Protein 5.6 g/dL (6.3-8.2)
[2025-02-13] MEDS: dexmedeTOMIDine in 0.9 % NaCL 400 MCG/100 ML PLAST..BAG 11.158 MCG IV ×3 (07:07→22:02)
--- NOTE | 2025-02-13 08:46 | DI.RAD.S_ITS ---
PROCEDURE: XR CHEST 1V INDICATIONS: Hypoxia TECHNIQUE: One view of the chest was acquired. COMPARISON: [facility], CT, CT LUNG LOW DOSE SCREENING, 08/15/2024, 13:18. [facility], CR, XR CHEST 1V, 02/12/2025, 20:31. [facility], CR, XR CHEST 1V, 02/11/2025, 19:20. FINDINGS: Surgical changes and devices: Enteric tube coursing into the stomach. Endotracheal tube in the midtrachea. Lungs and pleura: Mild opacity at the left lung base, this could represent small left pleural effusion. No pneumothorax. Mediastinum: Mediastinal contours appear normal. Heart size is normal. Bones and chest wall: No suspicious bony lesions. Overlying soft tissues appear unremarkable. IMPRESSION: 1. Tubes and lines project in the expected locations. 2. Suspect small left pleural effusion or opacity. Dictated by: Nathaniel Sargent M.D. on 02/13/2025 at 8:10 Approved by: Nathaniel Sargent M.D. on 02/13/2025 at 8:15
[2025-02-13] MEDS: ENOXAPARIN 40 MG/0.4 ML SYRINGE SUBCUT (09:17)
[2025-02-13] MEDS: FAMOTIDINE 20 MG/2 ML VIAL IV ×2 (09:18→20:15)
--- NOTE | 2025-02-13 09:54 | DI.RAD.S_ITS ---
PROCEDURE: XR CHEST FOR PICC 1V INDICATIONS: Picc placement TECHNIQUE: One view of the chest was acquired. COMPARISON: [facility], CR, XR CHEST 1V, 02/13/2025, 8:43. FINDINGS: Surgical changes and devices: ETT tip is approximately 4.2 cm above the silvano. NG tube tip is below the left hemidiaphragm and is in the expected location of stomach lumen. Left-sided PICC line tip is in SVC. Lungs and pleura: There is mild pulmonary vascular congestion. Suggestion of right lower lobe infiltrate versus atelectasis is seen. Small left pleural effusion is also noted. No gross pneumothorax. Mediastinum: Mediastinal contours appear normal. Heart size is enlarged. Bones and chest wall: No suspicious bony lesions. Overlying soft tissues appear unremarkable. IMPRESSION: Left-sided PICC line tip is in SVC. Small left pleural effusion and pulmonary vascular congestion. Cannot rule out bilateral lower lobe infiltrate versus atelectasis. No pneumothorax. Dictated by: Vladislav Dempsey M.D. on 02/13/2025 at 10:16 Approved by: Vladislav Dempsey M.D. on 02/13/2025 at 10:17
[2025-02-13] MEDS: LACTATED RINGERS 500 ML 1000 ML IV (10:23)
--- NOTE | 2025-02-13 10:41 | DIET.PN1 ---
Dietary Progress Note Assessment: Per RN this morning - pt still with distended abdomen, no bowel sounds. ICU print line inspector stopped tube feeds last night and tube feeds to remain off. PICC line being placed per healthcare team rounds. Ht: 185.42 cm Wt: 111.584 kg BMI: 32.4 Last BM: () MNA: Galdino Score: 8 Diet: 02/12/25 08:14 NPO Diet Diet Modifications: May Advance Diet as Tolerated: No NPO Type: Strict Labs: RBC 4.09 X10^6/uL (4.5-5.9) L 02/13/25 06:15 Hgb 12.4 g/dL (13.5-17.5) L 02/13/25 06:15 Hct 36.5 % (41-53) L 02/13/25 06:15 Creatinine 0.64 mg/dL (0.66-1.25) L 02/13/25 06:15 Hemoglobin A1c 11.5 % (4.0-6.0) H 02/11/25 14:15 Nutrition Diagnosis: Severe acute protein calorie malnutrition r/t inadequate protein and nutrient dense intake secondary to excessive alcohol intake and hyperglycemia aeb BG 758 upon presenting to ED, A1c 11.5%, stopping all medications for diabetes management 3 months ago, patient consuming 40 proof alcohol throughout day in coffee, alcohol withdrawal, and 7% weight loss within 3 months Interventions: -Tube feeds currently off d/t distended abd and no bowel sounds per ICU print line inspector. ICU print line inspector to restart feeds if appropriate. -Per hospitalist TPN not appropriate at this time EER: 1600 kcals (14 kcals/kg per [facility] critical care guidelines per BMI), 150 g protein (2g/kg per [facility] critical care guidelines per IBW) Monitoring/Evaluations: Plan of care ongoing Electronically Signed by: Gabby Dunlap 02/13/25 10:41 Clinical Dietitian [address] [address]
--- NOTE | 2025-02-13 10:46 | DI.ECHO.S_ITS ---
[facility]+ [facility] : : [id number] [place] : : [id number] : : Phone: [phone] Echocardiogram Report + + :Name: BERNABE LAMBERT Study Date: 02/13/2025 Height: 69 in : :Hospital ReadingLocation: Weight: 249 lb : : Gender: Male BSA: 2.3 m2 : :: 1960 Age: 64 yrs BP: 132/68 mmHg: :Reason For Study: Pleural Effusion : :Ordering Physician: JAVON, : :JEWEL Performed By: Fabiana Bass : :Referring: JEWEL ALEJANDRO : + + Interpretation Summary The left ventricle is normal in size and wall thickness. The ejection fraction is estimated to be 55-60%. There are no focal wall motion abnormalities. Diastolic parameters suggest probable normal left ventricular diastolic function and normal filling pressures. The right ventricle is normal in size and function. Pulmonary artery pressures cannot be estimated because of the lack of a measurable TR jet velocity. The left atrium is mildly dilated. There is no significant valvular heart disease. Procedure: A two-dimensional transthoracic echocardiogram with color flow and Doppler was performed. The study quality was technically adequate. There is no prior echocardiogram noted for this patient. The patient was in sinus rhythm with heart rates between 53-65 bpm during the exam. Left Ventricle: The left ventricle is normal in size and wall thickness. The ejection fraction is estimated to be 55-60%. There are no focal wall motion abnormalities. Diastolic parameters suggest probable normal left ventricular diastolic function and normal filling pressures. Right Ventricle: The right ventricle is normal in size and function. Atria: The left atrium is mildly dilated. Right atrial size is normal. Lipomatous hypertrophy of the interatrial septum is noted. There is no Doppler evidence for an interatrial shunt. Mitral Valve: The mitral valve leaflets are slightly calcified. There is mild mitral annular calcification. There is no mitral valve stenosis. There is trace mitral regurgitation. Aortic Valve: The aortic valve is trileaflet. The aortic valve opens well. The aortic valve is mildly calcified. There is no aortic valve stenosis. No aortic regurgitation is present. Tricuspid Valve: The tricuspid valve leaflets are thin and pliable. There is a trace or physiologic amount of tricuspid regurgitation. Pulmonary artery pressures cannot be estimated because of the lack of a measurable TR jet velocity. Pulmonic Valve: The pulmonic valve is not well seen, but is grossly normal. There is a trace or physiologic amount of pulmonic regurgitation. There is no significant valvular heart disease. Great Vessels: The aortic root is mildly dilated. The ascending aorta is normal in size. The aortic arch could not be visualized. The pulmonary artery is normal size. Inspiratory collapse cannot be assessed because of mechanical ventilation, thus CVP cannot be estimated.. Pericardium/ Pleura There is no pericardial effusion. There is no pleural effusion. MMode/2D Measurements & Calculations LVIDd: 5.1 cm LVOT diam: 2.5 cm LVIDs: 4.1 cm Ao root diam: 4.1 cm FS: 20.1 % asc Aorta Diam: 3.5 cm IVSd: 1.1 cm LVPWd: 0.86 cm LV amanda. diameter/BSA (cm/m^2): 2.2 LV sys. diameter/BSA (cm/m^2): 1.8 LA A2 area: 25.2 cm2 RA long axis: 5.7 cm LA A4 area: 24.8 cm2 RA area: 17.0 cm2 LA length (vol): 6.3 cm RA vol: 43.2 ml LA vol: 83.4 ml RA : 19.0 ml/m2 LA vol index: 36.8 ml/m2 IVC diam: 3.1 cm TAPSE: 2.2 cm Doppler Measurements & Calculations Ao V2 max: 132.5 cm/sec LVOT Max Harpreet: 128.8 cm/sec Ao V2 mean: 96.6 cm/sec LV V1 max P.6 mmHg Ao max P.0 mmHg LV V1 VTI: 24.7 cm Ao mean P.2 mmHg NILTON(I,D): 4.4 cm2 Ao V2 VTI: 28.1 cm NILTON(V,D): 4.9 cm2 sev ratio: 0.88 NILTON indexed to BSA (cm^2/m^2): 2.0 MV E max harpreet: 99.0 cm/sec PA V2 max: 67.0 cm/sec MV A max harpreet: 75.0 cm/sec PA V2 mean: 49.5 cm/sec MV E/A: 1.3 PA mean P.1 mmHg Med Peak E' Harpreet: 8.5 cm/sec PA pr(Accel): 41.3 mmHg E/E' med: 11.7 Lat Peak E' Harpreet: 12.0 cm/sec E/E' lat: 8.2 E/e' average: 10.0 MV dec time: 0.21 sec SVLVOT): 124.5 ml Reading Physician:01:44 PM
--- NOTE | 2025-02-13 10:51 | PM.PN.1 ---
Subjective Subjective Date Patient Seen: 02/13/25 Time Patient Seen: 10:51 Interval history: Chief complaint: Severe delirium and agitation secondary to alcohol withdrawal delirium tremens requiring intubation and propofol infusion in the setting of non acidotic hyperosmolar hyperglycemia with ketosis with coma History of present illness: 64-year-old male type 2 diabetes previously very well controlled but 3 months ago stopped his semaglutide Jardiance statin lisinopril metformin and hydrochlorothiazide because of inability to afford. He was seen in the clinic by his PCP 02/10/2025 (Marianela Goyal D.O. who started him on Lantus 12 units along with lisinopril no atorvastatin and aspirin. Over the next 24 hours the patient underwent tremendous change in behavior as noted by friends and family. He was described as being very angry and agitated confused word salad falling multiple times disoriented. He was brought in by EMS to the emergency room for evaluation Social history: Mother reports the patient does not drink alcohol regularly or excessively has some bilious I was came in his coffee at night before going to bed does not use recreational substances by her report Findings in the emergency room very significant for an agitated flushed and hyperactive male with multiple skin abrasions and bruises on arms and legs. Serum glucose was 758, sodium 137 potassium 4.5 CO2 18 BUN 40 creatinine 1 venous blood gas pH 7.46 pCO2 37 PO2 60 urine drug screen was negative respiratory panel also negative serum ketones 1.5 which is barely above reference range urine ketones 3+ Patient was initially evaluated as a code stroke CT of the head and CT angiography was negative chest x-ray was clear Patient was referred to the hospitalist service for admission to ICU for management of his non acidotic hyperosmolar hyperglycemia with ketosis and coma. Case was discussed with the family ICU in emergency staff for a consensus of treatment plan. Patient was started on vigorous IV fluid resuscitation sedation with benzodiazepine diphenhydramine and Haldol for patient's safety 1 dose of insulin 20 units IV after 2 L bolus of normal saline followed by subcutaneous Lantus 20 units and high-dose sliding scale and hyperosmolar protocol Hospital course: 02/12: Further history was obtained and patient drinks 40 proof alcohol throughout the day in coffee Overnight patient was intubated and placed on a propofol after phenobarbital. Retinal Angiographer was consulted maintaining sedation intubation with Precedex and propofol. Hyperglycemia normalized electrolytes improved calcium was low and was replaced We will maintain intubation sedation with Precedex and propofol all start Glucerna tube feeding and Librium for NG tube 02/13: Patient has continued to require intravenous sedation with Precedex propofol as started tube feedings is managed on the ventilator by the [facility]. We will continue to manage while intubated for alcohol withdrawal with delirium tremens Review of systems: Patient isn't capable of participating due to his agitated delirium Physical exam: Large frame muscular but obese very agitated and confrontational elderly male. HEENT pupils small but reactive Neck no JVD Heart rate and rhythm regular no murmurs Lungs clear from apices to bases Abdomen obese nontender Multiple abrasions on elbows knees shins Neurological exam patient is conversant but agitated 5/5 strength in all extremities Assessment and plan: Acute metabolic encephalopathy with agitated delirium in setting of non acidotic hyperosmolar hyperglycemia with ketosis and coma. Although there is denial by the patient is 88-year-old mother that he drinks alcohol his presentation very closely resembles alcohol withdrawal and delirium tremens particularly with his level of agitation and formication. Alcohol withdrawal with delirium tremens: Further history was obtained and patient drinks 40 proof alcohol throughout the day in coffee Overnight patient was intubated and placed on a propofol after phenobarbital. Retinal Angiographer was consulted maintaining sedation intubation with Precedex and propofol. Hyperglycemia normalized electrolytes improved calcium was low and was replaced We will maintain intubation sedation with Precedex and propofol all start Glucerna tube feeding and Librium for NG tube ulin DVT prophylaxis with Lovenox Full code blue I spent 120 minutes evaluating this patient with at least 50% at the bedside speaking with multiple resources family in consultation Exam Vital Signs (past 8 hours): - 02/13/25 03:00 02/13/25 03:00 02/13/25 03:30 Temperature Pulse Rate 58 L 59 L Respiratory Rate 18 21 Blood Pressure 135/70 Pulse Oximetry 96 91 Oxygen Delivery Method 02/13/25 03:30 02/13/25 04:00 02/13/25 04:00 Temperature Pulse Rate 59 L Respiratory Rate 18 Blood Pressure 132/65 144/74 H Pulse Oximetry 94 Oxygen Delivery Method 02/13/25 04:00 02/13/25 04:30 02/13/25 04:30 Temperature Pulse Rate 59 L Respiratory Rate 17 Blood Pressure 144/73 H Pulse Oximetry 95 Oxygen Delivery Method Mechanical Ventilation 02/13/25 05:00 02/13/25 05:00 02/13/25 05:30 Temperature Pulse Rate 59 L 58 L Respiratory Rate 18 21 Blood Pressure 140/71 Pulse Oximetry 94 92 Oxygen Delivery Method 02/13/25 05:30 02/13/25 06:00 02/13/25 06:00 Temperature Pulse Rate 60 Respiratory Rate 21 Blood Pressure 121/60 123/58 L Pulse Oximetry 93 Oxygen Delivery Method 02/13/25 06:30 02/13/25 06:30 02/13/25 07:00 Temperature Pulse Rate 57 L 60 Respiratory Rate 21 23 Blood Pressure 110/55 L Pulse Oximetry 93 96 Oxygen Delivery Method 02/13/25 07:00 02/13/25 07:30 02/13/25 07:30 Temperature Pulse Rate 57 L Respiratory Rate 19 Blood Pressure 147/71 H 128/59 L Pulse Oximetry 96 Oxygen Delivery Method 02/13/25 08:00 02/13/25 08:00 02/13/25 08:00 Temperature 99.0 F Pulse Rate 59 L Respiratory Rate 19 Blood Pressure 126/59 L Pulse Oximetry 95 Oxygen Delivery Method 02/13/25 08:00 02/13/25 08:21 02/13/25 08:21 Temperature Pulse Rate 59 L Respiratory Rate 20 Blood Pressure 138/66 Pulse Oximetry 92 Oxygen Delivery Method Mechanical Ventilation 02/13/25 08:30 02/13/25 08:30 02/13/25 09:00 Temperature Pulse Rate 57 L Respiratory Rate 22 Blood Pressure 133/65 148/71 H Pulse Oximetry 88 L Oxygen Delivery Method 02/13/25 09:00 02/13/25 09:30 02/13/25 09:37 Temperature Pulse Rate 56 L 56 L Respiratory Rate 22 22 Blood Pressure 132/68 Pulse Oximetry 100 97 Oxygen Delivery Method 02/13/25 09:37 02/13/25 10:00 02/13/25 10:00 Temperature 99.2 F Pulse Rate 57 L 56 L Respiratory Rate 20 19 Blood Pressure Pulse Oximetry 96 96 Oxygen Delivery Method 02/13/25 10:30 Temperature Pulse Rate 54 L Respiratory Rate 16 Blood Pressure 132/68 Pulse Oximetry 98 Oxygen Delivery Method Fraction of Inspired Oxygen 35 Oxygen Delivery Method Mechanical Ventilation Objective Labs 02/13/25 06:15 02/13/25 06:15 Labs: Laboratory Results - last 24 hr 02/12/25 02/13/25 17:00 06:15 WBC 9.8 9.9 RBC 4.10 L 4.09 L Hgb 12.5 L 12.4 L Hct 36.6 L 36.5 L MCV 89.2 89.2 MCH 30.4 30.2 MCHC 34.0 33.9 RDW 12.7 12.8 Plt Count 146 L 149 L Neut % (Auto) 71.6 70.8 Lymph % (Auto) 18.2 L 17.1 L [place] % (Auto) 8.3 9.3 Eos % (Auto) 1.3 L 1.6 L Baso % (Auto) 0.6 1.2 Neut # (Auto) 7000 7000 Lymph # (Auto) 1800 1700 [place] # (Auto) 800 900 Eos # (Auto) 100 200 Baso # (Auto) 100 100 Sodium 141 141 Potassium 4.0 3.5 Chloride 114 H 113 H Carbon Dioxide 24 21 L BUN 21 H 19 Creatinine 0.63 L 0.64 L Estimated GFR > 60 > 60 BUN/Creatinine Ratio 33.3 H 29.7 H Glucose 208 H 172 H Calcium 8.0 L 8.0 L Phosphorus 2.3 Magnesium 2.0 Total Bilirubin 0.7 0.8 AST 81 H 61 H ALT 55 H 54 H Alkaline Phosphatase 49 54 Total Protein 5.5 L 5.6 L Albumin 3.0 L 3.0 L Globulin 2.5 2.6 Albumin/Globulin Ratio 1.2 1.2 PFSH Medical History (Updated 02/11/25 @ 16:44 by Khanh Santiago MD) Bronchitis Hypertensive urgency Mass of finger of left hand Left knee pain (05/16/16) History of colon polyps Uncontrolled type 2 diabetes mellitus Excessive thirst Body dysmorphic disorder BMI 39.0-39.9,adult Pain of right great toe Bilateral knee pain Hyperlipidemia associated with type 2 diabetes mellitus Type 2 diabetes mellitus Primary hypertension Erectile dysfunction Plaque psoriasis Obstructive sleep apnea of adult Umbilical hernia without obstruction and without gangrene (10/09/16) Primary insomnia (05/16/16) Surgical History (Updated 06/27/22 @ 15:18 by Carlos King DO) Status post right partial knee replacement History of umbilical hernia repair (12/13/16) History of colonoscopy with polypectomy (08/05/09) Family History Grandfather No problems noted. Social History marital status: unmarried,single number of children: 0 household members: family lives independently: Yes caregiver/support person: No pets and animals: Yes (2/3 year old puppy; sleeps on pt bed) education level: high school occupational status: employed Smoking Status: Current every day smoker quit status: considering quitting alcohol intake: current substance use type: does not use Assessment & Plan Time-Based Coding :: [TOTAL MINUTES] spent with patient and on the chart (including review of chart, obtaining history, exam, reviewing outside data, placing orders, documenting exam and treatment plan, and counseling patient) on [DATE].
[2025-02-13 11:16] LABS: Add Manual Diff / Slide Review NO; Basophils Absolute Auto 100 /uL (0-100); Basophils Percent Auto 0.8 % (0-2); Eosinophils Absolute Auto 100 /uL (0-450); Eosinophils Percent Auto 1.2 % (2-4); Hematocrit 34.4 % (41-53); Hemoglobin 11.8 g/dL (13.5-17.5); Lymphocytes Absolute Auto 1400 /uL (1100-4500); Lymphocytes Percent Auto 14.5 % (25-40); Mean Corpuscular HGB Conc 34.3 % (30-36); Mean Corpuscular Hemoglobin 30.4 PG (26-34); Mean Corpuscular Volume 88.8 fL (80-100); Monocytes Absolute Auto 900 /uL (0-900); Monocytes Percent Auto 9.7 % (3-14); Neutrophils Absolute Auto 7100 /uL (1500-7000); Neutrophils Percent Auto 73.8 % (50-75); Platelet Count 145 X10^3/uL (150-400); Red Blood Cell Count 3.87 X10^6/uL (4.5-5.9); Red Cell Distribution Width 12.7 % (11.6-14.8); White Blood Cell Count 9.7 X10^3/uL (4.5-11.0)
[2025-02-13] MEDS: POTASSIUM PHOSPHATE 15 MMOL in SODIUM CHLORIDE 0.9% 250 ML 127.5 MMOL IV (11:19)
[2025-02-13 11:36] LABS: Alanine Aminotransferase 50 IU/L (<50); Albumin 2.9 g/dL (3.5-5.0); Albumin Globulin Ratio 1.2 (1.0-2.8); Alkaline Phosphatase 52 U/L (38-126); Aspartate Aminotransferase 56 IU/L (17-59); BUN Creatinine Ratio 28.6 (6-22); Bilirubin Total 0.8 mg/dL (0.2-1.3); Blood Urea Nitrogen 18 mg/dL (9-20); Calcium 7.8 mg/dL (8.4-10.2); Carbon Dioxide 21 mmol/L (22-32); Chloride 113 mmol/L (98-107); Estimated Glomerular Filt Rate > 60 mL/min (>60); Globulin 2.5 g/dL (1.7-4.1); Glucose 161 mg/dL (80-110); HEMOLYSIS < 15 (0-50); Potassium 3.4 mmol/L (3.4-5.1); Sodium 140 mmol/L (137-145); Total Protein 5.4 g/dL (6.3-8.2)
--- NOTE | 2025-02-13 11:39 | P.TELICUPN_ITS ---
Subjective Subjective IF CAMERA ACTIVATED, patient seen via real-time interactive audiovisual communication: Camera activated Consent obtained for tele-resident physician care: Yes Patient Location: ICU Provider location (State): [place] Other participants/roles: ar Interval history: pt intbuated, sedated, no events, had de-saturation episode upon turning but based on imaging i think that was shunt physiology Current Medications Current Medications Medications: Home Medications No Known Home Medications 02/12/25 [History Confirmed 02/12/25] Visit Medications (administered) Generic Name Dose Route Start Last Admin Trade Name Freq PRN Reason Stop Dose Admin Atorvastatin Calcium 40 mg 02/11/25 21:00 02/11/25 21:12 Atorvastatin 20 Mg Tablet PO 40 mg BEDTIME DOROTHY Administration Chlordiazepoxide HCl 50 mg 02/12/25 14:00 02/13/25 06:15 Chlordiazepoxide 25 Mg Capsule TUBE 50 mg Q8HR DOROTHY Administration Chlorhexidine Gluconate 15 ml 02/12/25 00:00 02/13/25 06:15 Chlorhexidine Gluconate 15 Ml Cup PO 15 ml Q6HR DOROTHY Administration Enoxaparin Sodium 40 mg 02/12/25 09:00 02/13/25 09:17 Enoxaparin 40 Mg/0.4 Ml Syringe SUBCUT 40 mg DAILY DOROTHY Administration Famotidine 20 mg 02/11/25 21:00 02/13/25 09:18 Famotidine 20 Mg/2 Ml Vial IV 20 mg BID DOROTHY Administration dexmedeTOMIDine in 0.9 % NaCL 400 mcg in 100 mls @ 5.579 mls/hr 02/11/25 19:00 02/13/25 07:07 Precedex IV 0.4 mcg/kg/hr TITRATE DOROTHY 11.158 mls/hr Administration Protocol 0.2 MCG/KG/HR Propofol 1,000 mg in 100 mls @ 3.348 mls/hr 02/11/25 19:30 02/13/25 10:03 Diprivan IV 35 mcg/kg/min TITRATE DOROTHY 23.433 mls/hr Administration Protocol 5 MCG/KG/MIN NOREPINEPHRINE BITARTRATE/D5W 4 mg in 250 mls @ 41.844 mls/hr 02/11/25 22:35 02/13/25 07:58 Levophed IV 0 mcg/kg/min TITRATE DOROTHY 0 mls/hr Titration Protocol 0.1 MCG/KG/MIN Thiamine HCl 500 mg/ Sodium 105 mls @ 420 mls/hr 02/12/25 14:00 02/13/25 07:00 Chloride IV 02/15/25 06:14 Infused Q8H DOROTHY Infusion Sodium Chloride 1,000 mls @ 100 mls/hr 02/12/25 16:15 02/13/25 11:09 Normal Saline 0.9% IV 100 mls/hr CONT DOROTHY Administration Insulin Glargine 20 unit 02/11/25 21:00 02/12/25 21:13 Insulin Glargine 100 Unit/Ml 3ml Pen SUBCUT 20 unit BEDTIME DOROTHY Administration Insulin Human Lispro 0 unit 02/12/25 12:00 02/13/25 06:51 Insulin Lispro 100 Unit/Ml 3ml Vial SUBCUT Not Given Q6HR DOROTHY Protocol Objective Ventilator Parameters: Ventilator Settings FiO2 35 RT Vent Frequency 15 Ventilator Tidal Volume 530 Exhaled Vt/kg IBW 7.2 Positive End Expiratory 5 Pressure Inspiratory Phase Time 1 I:E Ratio 1:3.1 Patient Position HOB >= 30 degrees Labs 02/13/25 11:00 02/13/25 06:15 Labs: Laboratory Results - last 24 hr 02/12/25 02/13/25 02/13/25 17:00 06:15 11:00 WBC 9.8 9.9 9.7 RBC 4.10 L 4.09 L 3.87 L Hgb 12.5 L 12.4 L 11.8 L Hct 36.6 L 36.5 L 34.4 L MCV 89.2 89.2 88.8 MCH 30.4 30.2 30.4 MCHC 34.0 33.9 34.3 RDW 12.7 12.8 12.7 Plt Count 146 L 149 L 145 L Neut % (Auto) 71.6 70.8 73.8 Lymph % (Auto) 18.2 L 17.1 L 14.5 L [place] % (Auto) 8.3 9.3 9.7 Eos % (Auto) 1.3 L 1.6 L 1.2 L Baso % (Auto) 0.6 1.2 0.8 Neut # (Auto) 7000 7000 7100 H Lymph # (Auto) 1800 1700 1400 [place] # (Auto) 800 900 900 Eos # (Auto) 100 200 100 Baso # (Auto) 100 100 100 Sodium 141 141 Potassium 4.0 3.5 Chloride 114 H 113 H Carbon Dioxide 24 21 L BUN 21 H 19 Creatinine 0.63 L 0.64 L Estimated GFR > 60 > 60 BUN/Creatinine Ratio 33.3 H 29.7 H Glucose 208 H 172 H Calcium 8.0 L 8.0 L Phosphorus 2.3 Magnesium 2.0 Total Bilirubin 0.7 0.8 AST 81 H 61 H ALT 55 H 54 H Alkaline Phosphatase 49 54 Total Protein 5.5 L 5.6 L Albumin 3.0 L 3.0 L Globulin 2.5 2.6 Albumin/Globulin Ratio 1.2 1.2 Exam Vital Signs (past 8 hours): - 02/13/25 04:00 02/13/25 04:00 02/13/25 04:00 Temperature Pulse Rate 59 L Respiratory Rate 18 Blood Pressure 144/74 H Pulse Oximetry 94 Oxygen Delivery Method Mechanical Ventilation 02/13/25 04:30 02/13/25 04:30 02/13/25 05:00 Temperature Pulse Rate 59 L 59 L Respiratory Rate 17 18 Blood Pressure 144/73 H Pulse Oximetry 95 94 Oxygen Delivery Method 02/13/25 05:00 02/13/25 05:30 02/13/25 05:30 Temperature Pulse Rate 58 L Respiratory Rate 21 Blood Pressure 140/71 121/60 Pulse Oximetry 92 Oxygen Delivery Method 02/13/25 06:00 02/13/25 06:00 02/13/25 06:30 Temperature Pulse Rate 60 57 L Respiratory Rate 21 21 Blood Pressure 123/58 L Pulse Oximetry 93 93 Oxygen Delivery Method 02/13/25 06:30 02/13/25 07:00 02/13/25 07:00 Temperature Pulse Rate 60 Respiratory Rate 23 Blood Pressure 110/55 L 147/71 H Pulse Oximetry 96 Oxygen Delivery Method 02/13/25 07:30 02/13/25 07:30 02/13/25 08:00 Temperature Pulse Rate 57 L 59 L Respiratory Rate 19 19 Blood Pressure 128/59 L Pulse Oximetry 96 95 Oxygen Delivery Method 02/13/25 08:00 02/13/25 08:00 02/13/25 08:00 Temperature 99.0 F Pulse Rate Respiratory Rate Blood Pressure 126/59 L Pulse Oximetry Oxygen Delivery Method Mechanical Ventilation 02/13/25 08:21 02/13/25 08:21 02/13/25 08:30 Temperature Pulse Rate 59 L 57 L Respiratory Rate 20 22 Blood Pressure 138/66 Pulse Oximetry 92 88 L Oxygen Delivery Method 02/13/25 08:30 02/13/25 09:00 02/13/25 09:00 Temperature Pulse Rate 56 L Respiratory Rate 22 Blood Pressure 133/65 148/71 H Pulse Oximetry 100 Oxygen Delivery Method 02/13/25 09:30 02/13/25 09:37 02/13/25 09:37 Temperature Pulse Rate 56 L 57 L Respiratory Rate 22 20 Blood Pressure 132/68 Pulse Oximetry 97 96 Oxygen Delivery Method 02/13/25 10:00 02/13/25 10:00 02/13/25 10:30 Temperature 99.2 F Pulse Rate 56 L 54 L Respiratory Rate 19 16 Blood Pressure 132/68 Pulse Oximetry 96 98 Oxygen Delivery Method 02/13/25 11:00 02/13/25 11:00 Temperature 99.0 F Pulse Rate 54 L Respiratory Rate 17 Blood Pressure Pulse Oximetry 99 Oxygen Delivery Method Fraction of Inspired Oxygen 35 Oxygen Delivery Method Mechanical Ventilation Narrative Exam Narrative: intubatd sedated symmetric chest rise Assessment & Plan Assessment & Plan narrative: 64 year old male admitted to ICU with: AMS Acute hyperactive Delirium etoh withdrawal hyperglycemia MAXINE Suggest -Neurochecks/seizure precautions -repeat imaging prn -thiamine/folate -ciwa protocol -can start phenobarb with ativan prn - librium - vent sedation bundle - desaturation episode likely from shunt physiology related to left lateral decubitus positon ( devleoping infiltrate on left) -keep sat above 02% -keep map above 65 -serial ekg/trop -check echo - LR bolus - monitor UO -replace lytes prn -keep glucose 140-180s can do insulin drip -n TF - gluceerna -gi/dvt ppx -please call eICU prn Time-Based Coding :: [35] spent with patient and on the chart (including review of chart, obtaining history, exam, reviewing outside data, placing orders, documenting exam and treatment plan, and counseling patient) on [02/13]. total critical care time = 35 in
[2025-02-13] MEDS: SODIUM CHLORIDE 0.9% 250 ML 21 ML IV (13:32)
[2025-02-13] MEDS: propofoL 1,000 MG/100 ML VIAL 20.085 MG IV ×2 (17:32→21:34)
--- NOTE | 2025-02-13 18:39 | PC.NURSE ---
Shift note: Bedside report received from Beto MADERA, Pt on Norepi 0.01mcg/kg, BP at change of shift >100systolic. Norepi, paused. Propofol@ 35mcg/kg/min, Precedex @ 0.4 mcg. Pt with RASS of -2. When pt turned to Left side pts O2 Sats decreased to the low 80s. FIO2 increased to 50%, CXR obtained and MD notified. Pt turned to R side and sats maintained >95%. ET tube remains at 24@ the teeth, no change since intubated. PICC line inserted per DI Nurse and CXR repeated. Also noted early in the shift that pt had scant UO, MD notified and RL 500ml bolus given. Sung cath appears to be leaking, removed and new 16ga Sung inserted. Immediately 850ml dark freedom urine obtained. NG tube continues to LIS, holding TF due to absent bowel sounds.
[2025-02-13] MEDS: INSULIN GLARGINE 100 UNIT/ML 3ML PEN 24 UNIT SUBCUT (21:35)
[2025-02-14] VITALS (38 sets, daily range): BP systolic 123–221; BP diastolic 58–102; PULSE 51–116; RESP 10–81; TEMP 31–38.9; O2SAT 92–98
--- NOTE | 2025-02-14 | DI.RAD.S_ITS ---
PROCEDURE: XR CHEST 1V INDICATIONS: TUBE PLACEMENT ICU TECHNIQUE: One view of the chest was acquired. COMPARISON: [facility], CR, XR CHEST 1V, 02/14/2025, 11:44. [facility], CR, XR CHEST FOR PICC 1V, 02/13/2025, 9:52. [facility], CR, XR CHEST 1V, 02/13/2025, 8:43. [facility], CR, XR CHEST 1V, 02/12/2025, 20:31. FINDINGS: Surgical changes and devices: Endotracheal tube tip 3.6 cm above silvano. Enteric tube tip approximately the level of the gastroesophageal junction. Lungs and pleura: Right basilar opacification. No pleural effusions or pneumothorax. Mediastinum: Mediastinal contours appear normal. Heart size is normal. Bones and chest wall: No suspicious bony lesions. Overlying soft tissues appear unremarkable. IMPRESSION: 1. Endotracheal tube tip 3.6 cm above silvano. 2. Enteric tube tip at the level the gastroesophageal junction. Further advancement by 10-15 cm recommended with repeat imaging. Dictated by: Colin Seth M.D. on 02/14/2025 at 16:44 Approved by: Colin Seth M.D. on 02/14/2025 at 16:47
[2025-02-14 00:15] LABS: Add Manual Diff / Slide Review NO; Basophils Absolute Auto 100 /uL (0-100); Basophils Percent Auto 0.7 % (0-2); Eosinophils Absolute Auto 200 /uL (0-450); Eosinophils Percent Auto 1.6 % (2-4); Hematocrit 33.8 % (41-53); Hemoglobin 11.5 g/dL (13.5-17.5); Lymphocytes Absolute Auto 1700 /uL (1100-4500); Lymphocytes Percent Auto 17.3 % (25-40); Mean Corpuscular HGB Conc 34.1 % (30-36); Mean Corpuscular Hemoglobin 30.4 PG (26-34); Monocytes Absolute Auto 1100 /uL (0-900); Monocytes Percent Auto 11.1 % (3-14); Neutrophils Absolute Auto 6700 /uL (1500-7000); Neutrophils Percent Auto 69.3 % (50-75); Platelet Count 132 X10^3/uL (150-400); Red Blood Cell Count 3.79 X10^6/uL (4.5-5.9); Red Cell Distribution Width 12.9 % (11.6-14.8); White Blood Cell Count 9.7 X10^3/uL (4.5-11.0)
[2025-02-14 00:22] LABS: Alanine Aminotransferase 45 IU/L (<50); Albumin 2.6 g/dL (3.5-5.0); Alkaline Phosphatase 51 U/L (38-126); Aspartate Aminotransferase 44 IU/L (17-59); BUN Creatinine Ratio 22.1 (6-22); Bilirubin Total 0.7 mg/dL (0.2-1.3); Blood Urea Nitrogen 15 mg/dL (9-20); Calcium 7.6 mg/dL (8.4-10.2); Carbon Dioxide 21 mmol/L (22-32); Chloride 113 mmol/L (98-107); Estimated Glomerular Filt Rate > 60 mL/min (>60); Globulin 2.5 g/dL (1.7-4.1); Glucose 144 mg/dL (80-110); HEMOLYSIS < 15 (0-50); Potassium 3.3 mmol/L (3.4-5.1); Sodium 140 mmol/L (137-145); Total Protein 5.1 g/dL (6.3-8.2)
[2025-02-14 00:43] LABS: Phosphorous 2.1 mg/dL (2.3-3.7)
[2025-02-14] MEDS: SODIUM CHLORIDE 0.9% 250 ML 21 ML IV (02:21)
[2025-02-14] MEDS: POTASSIUM CHLORIDE IN WATER 10 MEQ/100 ML PIGGYBACK 100 MEQ IV ×4 (02:21→08:34)
[2025-02-14] MEDS: propofoL 1,000 MG/100 ML VIAL 20.085 MG IV (02:38)
[2025-02-14] MEDS: CHLORHEXIDINE GLUCONATE 15 ML CUP PO (06:07)
[2025-02-14] MEDS: chlordiazePOXIDE 25 MG CAPSULE 50 MG TUBE ×2 (06:07→21:55)
[2025-02-14] MEDS: propofoL 1,000 MG/100 ML VIAL 23.433 MG IV (06:08)
[2025-02-14] MEDS: THIAMINE 500 MG in SODIUM CHLORIDE 0.9% 100 ML 420 MG IV ×3 (06:09→22:22)
[2025-02-14] MEDS: INSULIN LISPRO 100 UNIT/ML 3ML VIAL SUBCUT ×3 (06:25→18:47)
[2025-02-14] MEDS: SODIUM CHLORIDE 0.9% 1,000 ML 100 ML IV (06:55)
[2025-02-14] MEDS: dexmedeTOMIDine in 0.9 % NaCL 400 MCG/100 ML PLAST..BAG 11.158 MCG IV (07:06)
--- NOTE | 2025-02-14 07:20 | PC.NURSE ---
Prototype Machine Operator Note-Patient remains intubated FIO2 35% (requiring 100% O2 flushes occasionally)TV 530, PEEP 5, RR 15(over-breathing up to 25) SB, BBB, afebrile, skin warm to touch. Sedated with propofol 35mcg/kg/min in am(up from 25mcg) and Precedex at 0.4mcg/kg/hr(up from 0.3mcg) RASS -2 to -3, occasionally +1 with restlessness and agitation. Night Hospitalist notified about midnight lab draw K+ 3.3 and Phos 2.1, 20meq K+ Miki ordered (no additional phosphate) Librium given via OGT as ordered.
[2025-02-14] MEDS: POTASSIUM PHOSPHATE 15 MMOL in SODIUM CHLORIDE 0.9% 250 ML 127.5 MMOL IV (07:24)
[2025-02-14] MEDS: ENOXAPARIN 40 MG/0.4 ML SYRINGE SUBCUT (08:53)
[2025-02-14] MEDS: FAMOTIDINE 20 MG/2 ML VIAL IV ×2 (08:53→20:44)
[2025-02-14 09:20] LABS: Add Manual Diff / Slide Review NO; Basophils Absolute Auto 200 /uL (0-100); Basophils Percent Auto 1.3 % (0-2); Eosinophils Absolute Auto 100 /uL (0-450); Eosinophils Percent Auto 1.2 % (2-4); Hematocrit 36.1 % (41-53); Hemoglobin 12.2 g/dL (13.5-17.5); Lymphocytes Absolute Auto 2500 /uL (1100-4500); Lymphocytes Percent Auto 21.1 % (25-40); Mean Corpuscular HGB Conc 33.7 % (30-36); Mean Corpuscular Hemoglobin 30.1 PG (26-34); Mean Corpuscular Volume 89.2 fL (80-100); Monocytes Absolute Auto 1300 /uL (0-900); Monocytes Percent Auto 11.1 % (3-14); Neutrophils Absolute Auto 7900 /uL (1500-7000); Neutrophils Percent Auto 65.3 % (50-75); Platelet Count 133 X10^3/uL (150-400); Red Blood Cell Count 4.05 X10^6/uL (4.5-5.9); Red Cell Distribution Width 12.7 % (11.6-14.8); White Blood Cell Count 12.1 X10^3/uL (4.5-11.0)
[2025-02-14 09:43] LABS: Alanine Aminotransferase 45 IU/L (<50); Albumin 2.8 g/dL (3.5-5.0); Alkaline Phosphatase 57 U/L (38-126); Aspartate Aminotransferase 40 IU/L (17-59); BUN Creatinine Ratio 23.4 (6-22); Bilirubin Total 0.9 mg/dL (0.2-1.3); Blood Urea Nitrogen 15 mg/dL (9-20); Calcium 7.6 mg/dL (8.4-10.2); Carbon Dioxide 17 mmol/L (22-32); Chloride 115 mmol/L (98-107); Estimated Glomerular Filt Rate > 60 mL/min (>60); Globulin 2.7 g/dL (1.7-4.1); Glucose 138 mg/dL (80-110); HEMOLYSIS < 15 (0-50); Sodium 141 mmol/L (137-145); Total Protein 5.5 g/dL (6.3-8.2)
[2025-02-14] MEDS: MORPHINE 2 MG/ML INJ IV (10:37)
[2025-02-14] MEDS: HYDRALAZINE 20 MG/ML VIAL 10 MG IV (10:39)
[2025-02-14] MEDS: FUROSEMIDE 60 MG in SODIUM CHLORIDE 0.9% 50 ML 112 MG IV (10:53)
--- NOTE | 2025-02-14 11:26 | PC.NURSE ---
0930, call placed to Tele Flight Kitchen Manager. Pt off Propofol and currently on SBT. After speaking with Dr. Cota, Pt extubated and placed on oxymask. Resp rate increased to high 30, stridorous resp noted. Placed on bipap, IV fluids dc'd, MS 2mg IVP, 10mg hydralizine and 60mg Lasix given as ordered. Increasing precedex per protocol. Pt calming and following commands. RR remains in the 30s
--- NOTE | 2025-02-14 11:36 | PM.PN.EICU ---
Subjective Subjective IF CAMERA ACTIVATED, patient seen via real-time interactive audiovisual communication: Camera activated Consent obtained for tele-site leasing agent care: Yes Patient Location: ICU Provider location (State): [place] Other participants/roles: rn Interval history: pt doing well on SBT today, extubated but was quite tachypniec afterwards. was placed on bipap. Current Medications Current Medications Medications: Home Medications No Known Home Medications 02/12/25 [History Confirmed 02/12/25] Visit Medications (administered) Generic Name Dose Route Start Last Admin Trade Name Freq PRN Reason Stop Dose Admin Atorvastatin Calcium 40 mg 02/11/25 21:00 02/11/25 21:12 Atorvastatin 20 Mg Tablet PO 40 mg BEDTIME DOROTHY Administration Chlordiazepoxide HCl 50 mg 02/12/25 14:00 02/14/25 06:07 Chlordiazepoxide 25 Mg Capsule TUBE 50 mg Q8HR DOROTHY Administration Chlorhexidine Gluconate 15 ml 02/12/25 00:00 02/14/25 06:07 Chlorhexidine Gluconate 15 Ml Cup PO 15 ml Q6HR DOROTHY Administration Enoxaparin Sodium 40 mg 02/12/25 09:00 02/14/25 08:53 Enoxaparin 40 Mg/0.4 Ml Syringe SUBCUT 40 mg DAILY DOROTHY Administration Famotidine 20 mg 02/11/25 21:00 02/14/25 08:53 Famotidine 20 Mg/2 Ml Vial IV 20 mg BID DOROTHY Administration Heparin Sodium (Porcine) 50 unit 02/13/25 21:00 02/14/25 09:28 Heparin Flush (Cl/Picc/Mid-Line) 50 Unit/5 Ml Syringe IV Not Given BID DOROTHY dexmedeTOMIDine in 0.9 % NaCL 400 mcg in 100 mls @ 5.579 mls/hr 02/11/25 19:00 02/14/25 11:22 Precedex IV 1 mcg/kg/hr TITRATE DOROTHY 27.896 mls/hr Titration Protocol 0.2 MCG/KG/HR Propofol 1,000 mg in 100 mls @ 3.348 mls/hr 02/11/25 19:30 02/14/25 09:00 Diprivan IV 0 mcg/kg/min TITRATE DOROTHY 0 mls/hr Titration Protocol 5 MCG/KG/MIN NOREPINEPHRINE BITARTRATE/D5W 4 mg in 250 mls @ 41.844 mls/hr 02/11/25 22:35 02/13/25 07:58 Levophed IV 0 mcg/kg/min TITRATE DOROTHY 0 mls/hr Titration Protocol 0.1 MCG/KG/MIN Thiamine HCl 500 mg/ Sodium 105 mls @ 420 mls/hr 02/12/25 14:00 02/14/25 06:57 Chloride IV 02/15/25 06:14 Infused Q8H DOROTHY Infusion Sodium Chloride 250 mls @ 21 mls/hr 02/13/25 10:50 02/14/25 02:21 Normal Saline 0.9% IV 21 mls/hr Q24H PRN Administration Flush Insulin Glargine 24 unit 02/13/25 21:00 02/13/25 21:35 Insulin Glargine 100 Unit/Ml 3ml Pen SUBCUT 24 unit BEDTIME DOROTHY Administration Insulin Human Lispro 0 unit 02/12/25 12:00 02/14/25 06:25 Insulin Lispro 100 Unit/Ml 3ml Vial SUBCUT 2 unit Q6HR DOROTHY Administration Protocol Objective Ventilator Parameters: Ventilator Settings FiO2 35 RT Vent Frequency 15 Ventilator Tidal Volume 530 Exhaled Vt/kg IBW 7.1 Positive End Expiratory 5 Pressure Inspiratory Phase Time 1 I:E Ratio 1:3.1 Patient Position HOB >= 30 degrees Labs 02/14/25 08:05 02/14/25 08:11 Labs: Laboratory Results - last 24 hr 02/11/25 02/11/25 02/13/25 20:15 20:15 11:00 WBC RBC Hgb Hct MCV MCH MCHC RDW Plt Count Neut % (Auto) Lymph % (Auto) Dixie % (Auto) Eos % (Auto) Baso % (Auto) Neut # (Auto) Lymph # (Auto) Dixie # (Auto) Eos # (Auto) Baso # (Auto) ABG Sample Site Not Reportable Not Reportable Sodium 140 Potassium 3.4 Chloride 113 H Carbon Dioxide 21 L BUN 18 Creatinine 0.63 L Estimated GFR > 60 BUN/Creatinine Ratio 28.6 H Glucose 161 H Calcium 7.8 L Phosphorus Total Bilirubin 0.8 AST 56 ALT 50 H Alkaline Phosphatase 52 Total Protein 5.4 L Albumin 2.9 L Globulin 2.5 Albumin/Globulin Ratio 1.2 02/14/25 02/14/25 02/14/25 00:00 08:05 08:11 WBC 9.7 12.1 H RBC 3.79 L 4.05 L Hgb 11.5 L 12.2 L Hct 33.8 L 36.1 L MCV 89.0 89.2 MCH 30.4 30.1 MCHC 34.1 33.7 RDW 12.9 12.7 Plt Count 132 L 133 L Neut % (Auto) 69.3 65.3 Lymph % (Auto) 17.3 L 21.1 L Dixie % (Auto) 11.1 11.1 Eos % (Auto) 1.6 L 1.2 L Baso % (Auto) 0.7 1.3 Neut # (Auto) 6700 7900 H Lymph # (Auto) 1700 2500 Dixie # (Auto) 1100 H 1300 H Eos # (Auto) 200 100 Baso # (Auto) 100 200 H ABG Sample Site Sodium 140 141 Potassium 3.3 L 4.0 Chloride 113 H 115 H Carbon Dioxide 21 L 17 L BUN 15 15 Creatinine 0.68 0.64 L Estimated GFR > 60 > 60 BUN/Creatinine Ratio 22.1 H 23.4 H Glucose 144 H 138 H Calcium 7.6 L 7.6 L Phosphorus 2.1 L Total Bilirubin 0.7 0.9 AST 44 40 ALT 45 45 Alkaline Phosphatase 51 57 Total Protein 5.1 L 5.5 L Albumin 2.6 L 2.8 L Globulin 2.5 2.7 Albumin/Globulin Ratio 1.0 1.0 Exam Vital Signs (past 8 hours): - 02/14/25 04:00 02/14/25 04:00 02/14/25 05:00 Temperature Pulse Rate 59 L 59 L Respiratory Rate 18 18 Blood Pressure 144/74 H 140/71 Pulse Oximetry 94 94 Oxygen Delivery Method Mechanical Ventilation Fraction of Inspired Oxygen 0.35 0.35 02/14/25 06:00 02/14/25 08:00 02/14/25 08:00 Temperature 101.1 F H 96.8 F L Pulse Rate 60 51 L Respiratory Rate 21 23 Blood Pressure 123/58 L 154/74 H Pulse Oximetry 92 94 Oxygen Delivery Method Mechanical Ventilation Fraction of Inspired Oxygen 0.35 02/14/25 09:06 02/14/25 10:15 02/14/25 10:39 Temperature Pulse Rate 108 H Respiratory Rate Blood Pressure 185/102 H 221/100 H Pulse Oximetry 96 Oxygen Delivery Method Fraction of Inspired Oxygen 40 02/14/25 10:44 02/14/25 11:00 02/14/25 11:32 Temperature 98.1 F 97.8 F Pulse Rate Respiratory Rate Blood Pressure 210/87 H Pulse Oximetry Oxygen Delivery Method Fraction of Inspired Oxygen 50 Fraction of Inspired Oxygen 50 Oxygen Delivery Method Mechanical Ventilation Narrative Exam Narrative: ill appearing on bipap now post extubation symmetric chest rise Assessment & Plan Assessment & Plan narrative: 64 year old male admitted to ICU with: AMS Acute hyperactive Delirium etoh withdrawal hyperglycemia MAXINE -Neurochecks/seizure precautions -thiamine/folate -ciwa protocol - librium - ativan prn - precedex - on bipap, tredn abg -repeat XR - ABG -keep map above 65 -serial ekg/trop -check echo - monitor UO - stop IVF -replace lytes prn -keep glucose 140-180s can do insulin drip -n TF - gluceerna -gi/dvt ppx -please call eICU prn Time-Based Coding :: [TOTAL MINUTES] spent with patient and on the chart (including review of chart, obtaining history, exam, reviewing outside data, placing orders, documenting exam and treatment plan, and counseling patient) on [DATE].
--- NOTE | 2025-02-14 11:47 | DI.RAD.S_ITS ---
PROCEDURE: XR CHEST 1V INDICATIONS: post extubation tachypnea TECHNIQUE: One view of the chest was acquired. COMPARISON: [facility], CR, XR CHEST FOR PICC 1V, 02/13/2025, 9:52. [facility], CR, XR CHEST 1V, 02/13/2025, 8:43. [facility], CR, XR CHEST 1V, 02/12/2025, 20:31. [facility], CR, XR CHEST 1V, 02/11/2025, 19:20. FINDINGS: Surgical changes and devices: Left central venous catheter distal tip overlying the superior vena cava Lungs and pleura: Low lung volumes. Mild right basilar consolidation. No pleural effusions or pneumothorax. Mediastinum: Mediastinal contours appear normal. Heart size is normal. Bones and chest wall: No suspicious bony lesions. Overlying soft tissues appear unremarkable. IMPRESSION: Mild right basilar consolidation with low lung volumes, which may represent atelectasis or aspiration. Dictated by: Colin Seth M.D. on 02/14/2025 at 11:40 Approved by: Colin Seth M.D. on 02/14/2025 at 11:41
[2025-02-14] MEDS: LABETALOL 20 MG/4 ML SYRINGE 10 MG IV (12:05)
--- NOTE | 2025-02-14 12:06 | P.PN_ITS ---
Subjective Subjective Date Patient Seen: 02/13/25 Time Patient Seen: 07:55 Interval history: Chief complaint: Severe delirium and agitation secondary to alcohol withdrawal delirium tremens requiring intubation and propofol infusion in the setting of non acidotic hyperosmolar hyperglycemia with ketosis with coma History of present illness: 64-year-old male type 2 diabetes previously very well controlled but 3 months ago stopped his semaglutide Jardiance statin lisinopril metformin and hydrochlorothiazide because of inability to afford. He was seen in the clinic by his PCP 02/10/2025 (Marianela Goyal D.O. who started him on Lantus 12 units along with lisinopril no atorvastatin and aspirin. Over the next 24 hours the patient underwent tremendous change in behavior as noted by friends and family. He was described as being very angry and agitated confused word salad falling multiple times disoriented. He was brought in by EMS to the emergency room for evaluation Social history: Mother reports the patient does not drink alcohol regularly or excessively has some bilious I was came in his coffee at night before going to bed does not use recreational substances by her report Findings in the emergency room very significant for an agitated flushed and hyperactive male with multiple skin abrasions and bruises on arms and legs. Serum glucose was 758, sodium 137 potassium 4.5 CO2 18 BUN 40 creatinine 1 venous blood gas pH 7.46 pCO2 37 PO2 60 urine drug screen was negative respiratory panel also negative serum ketones 1.5 which is barely above reference range urine ketones 3+ Patient was initially evaluated as a code stroke CT of the head and CT angiography was negative chest x-ray was clear Patient was referred to the hospitalist service for admission to ICU for management of his non acidotic hyperosmolar hyperglycemia with ketosis and coma. Case was discussed with the family ICU in emergency staff for a consensus of treatment plan. Patient was started on vigorous IV fluid resuscitation sedation with benzodiazepine diphenhydramine and Haldol for patient's safety 1 dose of insulin 20 units IV after 2 L bolus of normal saline followed by subcutaneous Lantus 20 units and high-dose sliding scale and hyperosmolar protocol Hospital course: 02/12: Further history was obtained and patient drinks 40 proof alcohol throughout the day in coffee Overnight patient was intubated and placed on a propofol after phenobarbital. Make Up Operator was consulted maintaining sedation intubation with Precedex and propofol. Hyperglycemia normalized electrolytes improved calcium was low and was replaced We will maintain intubation sedation with Precedex and propofol all start Glucerna tube feeding and Librium for NG tube 02/13: Patient has continued to require intravenous sedation with Precedex propofol as started tube feedings is managed on the ventilator by the milk pasteurizer. We will continue to manage while intubated for alcohol withdrawal with delirium tremens 02/14: He has weaned off Levophed and calm on the ventilator this morning. Propofol was weaned off this morning for a weaning trial. The ICU team extubated the patient after a weaning trial and he experienced respiratory distress, treated with IV furosemide for volume overload. He opens eyes to voice but is very weak. He continues on Precedex. Net fluid volume positive 10+ liters since admission. Exam Vital Signs (past 8 hours): - 02/14/25 05:00 02/14/25 06:00 02/14/25 08:00 Temperature 101.1 F H Pulse Rate 59 L 60 Respiratory Rate 18 21 Blood Pressure 140/71 123/58 L Pulse Oximetry 94 92 Oxygen Delivery Method Mechanical Ventilation Fraction of Inspired Oxygen 0.35 0.35 02/14/25 08:00 02/14/25 09:06 02/14/25 10:15 Temperature 96.8 F L Pulse Rate 51 L Respiratory Rate 23 Blood Pressure 154/74 H 185/102 H Pulse Oximetry 94 96 Oxygen Delivery Method Fraction of Inspired Oxygen 40 02/14/25 10:39 02/14/25 10:44 02/14/25 11:00 Temperature 98.1 F 97.8 F Pulse Rate 108 H Respiratory Rate Blood Pressure 221/100 H Pulse Oximetry Oxygen Delivery Method Fraction of Inspired Oxygen 02/14/25 11:10 02/14/25 11:32 Temperature Pulse Rate 116 H Respiratory Rate Blood Pressure 218/100 H 210/87 H Pulse Oximetry Oxygen Delivery Method Fraction of Inspired Oxygen 50 Fraction of Inspired Oxygen 50 Oxygen Delivery Method Mechanical Ventilation Narrative Exam Narrative: Appears comfortable on ventilator, sedated. HEENT pupils small but reactive Neck no JVD Heart rate and rhythm regular no murmurs Lungs clear from apices to bases Abdomen obese nontender Multiple healing abrasions on elbows knees shins Neurological exam patient is nonfocal, globally weak. Objective Imaging Chest xray 02/13/2025:: Radiologist's impression: Left-sided PICC line tip is in SVC. Small left pleural effusion and pulmonary vascular congestion. Cannot rule out bilateral lower lobe infiltrate versus atelectasis. No pneumothorax. Labs 02/14/25 08:05 02/14/25 08:11 Labs: Laboratory Results - last 24 hr 02/11/25 02/11/25 02/14/25 20:15 20:15 00:00 WBC 9.7 RBC 3.79 L Hgb 11.5 L Hct 33.8 L MCV 89.0 MCH 30.4 MCHC 34.1 RDW 12.9 Plt Count 132 L Neut % (Auto) 69.3 Lymph % (Auto) 17.3 L [place] % (Auto) 11.1 Eos % (Auto) 1.6 L Baso % (Auto) 0.7 Neut # (Auto) 6700 Lymph # (Auto) 1700 [place] # (Auto) 1100 H Eos # (Auto) 200 Baso # (Auto) 100 ABG Sample Site Not Reportable Not Reportable Sodium 140 Potassium 3.3 L Chloride 113 H Carbon Dioxide 21 L BUN 15 Creatinine 0.68 Estimated GFR > 60 BUN/Creatinine Ratio 22.1 H Glucose 144 H Calcium 7.6 L Phosphorus 2.1 L Total Bilirubin 0.7 AST 44 ALT 45 Alkaline Phosphatase 51 Total Protein 5.1 L Albumin 2.6 L Globulin 2.5 Albumin/Globulin Ratio 1.0 02/14/25 02/14/25 08:05 08:11 WBC 12.1 H RBC 4.05 L Hgb 12.2 L Hct 36.1 L MCV 89.2 MCH 30.1 MCHC 33.7 RDW 12.7 Plt Count 133 L Neut % (Auto) 65.3 Lymph % (Auto) 21.1 L [place] % (Auto) 11.1 Eos % (Auto) 1.2 L Baso % (Auto) 1.3 Neut # (Auto) 7900 H Lymph # (Auto) 2500 [place]ett # (Auto) 1300 H Eos # (Auto) 100 Baso # (Auto) 200 H ABG Sample Site Sodium 141 Potassium 4.0 Chloride 115 H Carbon Dioxide 17 L BUN 15 Creatinine 0.64 L Estimated GFR > 60 BUN/Creatinine Ratio 23.4 H Glucose 138 H Calcium 7.6 L Phosphorus Total Bilirubin 0.9 AST 40 ALT 45 Alkaline Phosphatase 57 Total Protein 5.5 L Albumin 2.8 L Globulin 2.7 Albumin/Globulin Ratio 1.0 [facility] Medical History (Updated 02/11/25 @ 16:44 by Khanh Santiago MD) Bilateral knee pain BMI 39.0-39.9,adult Body dysmorphic disorder Bronchitis Erectile dysfunction Excessive thirst History of colon polyps Hyperlipidemia associated with type 2 diabetes mellitus Hypertensive urgency Left knee pain (05/16/16) Mass of finger of left hand Obstructive sleep apnea of adult Pain of right great toe Plaque psoriasis Primary hypertension Primary insomnia (05/16/16) Type 2 diabetes mellitus Umbilical hernia without obstruction and without gangrene (10/09/16) Uncontrolled type 2 diabetes mellitus Surgical History (Updated 06/27/22 @ 15:18 by Carlos King DO) History of colonoscopy with polypectomy (08/05/09) History of umbilical hernia repair (12/13/16) Status post right partial knee replacement Family History Grandfather No problems noted. Social History marital status: unmarried,single number of children: 0 household members: family lives independently: Yes caregiver/support person: No pets and animals: Yes (2/3 year old puppy; sleeps on pt bed) education level: high school occupational status: employed Smoking Status: Current every day smoker quit status: considering quitting alcohol intake: current substance use type: does not use Assessment & Plan Assessment & Plan narrative: Acute metabolic encephalopathy with agitated delirium in setting of non acidotic hyperosmolar hyperglycemia with ketosis and coma. Alcohol withdrawal with delirium tremens: -Further history was obtained and patient drinks 40 proof alcohol throughout the day in coffee -patient was intubated and placed on a propofol after phenobarbital 02/11/2025 to 02/14/2025. -Make Up Operator was consulted maintaining sedation intubation with Precedex and propofol, extubating 02/14/2025. -hyperglycemia normalized electrolytes improved calcium was low and was replaced Acute hypoxic respiratory failure due to volume overload -BiPap, oxygen, diuresis per ICU team Elevated blood pressure -likely due to volume overload -monitor with diureses DVT prophylaxis with Lovenox Full code blue [facility] PROFEE Maintenance Instructor Document charge(s): No Charge Codes Subsequent inpatient/observation care: [id number]
[2025-02-14] MEDS: dexmedeTOMIDine in 0.9 % NaCL 400 MCG/100 ML PLAST..BAG 27.896 MCG IV (12:10)
[2025-02-14 12:19] LABS: Allen Test for ABG Passed? Positive; Base Excess ABG -5.9 mmol/L (-2-3); Blood Gas Collection Site Right Radial; Delivery System BiPAP; HCO3 ABG 17 mmol/L (23-27); Oxygen Saturation ABG 91 % (95-100); PCO2 ABG 27.2 mmHg (35-45); PEEP 10; PO2 ABG 59 mmHg (80-100); Pressure Support 20; Respiratory Rate 10; TCO2 ABG 16 mmol/L (23-27); pH ABG 7.41 (7.35-7.45)
[2025-02-14] MEDS: dexmedeTOMIDine in 0.9 % NaCL 400 MCG/100 ML PLAST..BAG 22.317 MCG IV ×2 (16:42→20:44)
[2025-02-14 16:43] LABS: Add Manual Diff / Slide Review NO; Basophils Absolute Auto 100 /uL (0-100); Basophils Percent Auto 0.7 % (0-2); Eosinophils Absolute Auto 0 /uL (0-450); Eosinophils Percent Auto 0.2 % (2-4); Hematocrit 36.2 % (41-53); Hemoglobin 12.3 g/dL (13.5-17.5); Lymphocytes Absolute Auto 1300 /uL (1100-4500); Lymphocytes Percent Auto 11.4 % (25-40); Mean Corpuscular HGB Conc 33.9 % (30-36); Mean Corpuscular Hemoglobin 30.2 PG (26-34); Monocytes Absolute Auto 1200 /uL (0-900); Monocytes Percent Auto 10.2 % (3-14); Neutrophils Absolute Auto 9100 /uL (1500-7000); Neutrophils Percent Auto 77.5 % (50-75); Platelet Count 147 X10^3/uL (150-400); Red Blood Cell Count 4.07 X10^6/uL (4.5-5.9); Red Cell Distribution Width 12.5 % (11.6-14.8); White Blood Cell Count 11.7 X10^3/uL (4.5-11.0)
[2025-02-14 16:53] LABS: Alanine Aminotransferase 45 IU/L (<50); Albumin 2.8 g/dL (3.5-5.0); Alkaline Phosphatase 59 U/L (38-126); Aspartate Aminotransferase 53 IU/L (17-59); BUN Creatinine Ratio 18.1 (6-22); Bilirubin Total 0.8 mg/dL (0.2-1.3); Blood Urea Nitrogen 13 mg/dL (9-20); Calcium 7.4 mg/dL (8.4-10.2); Carbon Dioxide 21 mmol/L (22-32); Chloride 113 mmol/L (98-107); Estimated Glomerular Filt Rate > 60 mL/min (>60); Globulin 2.7 g/dL (1.7-4.1); Glucose 158 mg/dL (80-110); HEMOLYSIS < 15 (0-50); Potassium 3.1 mmol/L (3.4-5.1); Sodium 142 mmol/L (137-145); Total Protein 5.5 g/dL (6.3-8.2)
[2025-02-14] MEDS: ETOMIDATE 2 MG/ML 10 ML VIAL 20 MG IV (17:10)
[2025-02-14] MEDS: ROCURONIUM 50 MG/5 ML INJ 100 MG IV (17:11)
--- NOTE | 2025-02-14 17:37 | RT ---
Patient was re-intubated secondary to increased respiratory distress on bipap. Patient was extubated this morning around 1000 and has been on bipap since. Patient was put on original settings to start but increased fio2 to 80% and peep to 10.
--- NOTE | 2025-02-14 17:44 | P.ICUMDRN_ITS ---
- Date Patient Seen: 02/14/25 :: This patient was seen via real time interactive two-way audiovisual telecommunic ation. Note: Called earlier this shift for RR in mid to high 30s on NIPPV 14/09. Camera activated; pt w/ unsustainable WOB despite diuresis of ~ 3L. Made decision to intubate Camera reactivated --> now calm on volume control 80% 530 mL RR 15 PEEP 10 cm H20 on dexmedetomidine 0.8 mcg/kg/hr and propofol 20 mcg/kg/min. Post-intubation pCXR is pending. Orders reviewed.
[2025-02-14] MEDS: FUROSEMIDE 40 MG/4 ML VIAL IV (17:45)
--- NOTE | 2025-02-14 18:48 | ED_ITS ---
ED Provider Consult/Code Note General Date Patient Seen: 01/23/25 Time Patient Seen: 17:15 Reason for Admission: Respiratory distress Events leading to Consult/Code: Called to floor for emergent intubation, patient had been extubated earlier today, on BiPAP, having increasing respiratory distress, request for RSI procedure from ICU team. Respiratory ET Tube Size: 7.5 Tube Secured Depth (cm): 24 Tube Placement Confirmation: Visualized tube passing through cords, Equal breath sounds bilaterally, No breath sounds over epigastrium, Confirmation by capnom etry and Chest Xray Care Provided Description of care provided: ED consult note, called for assistance with airway, respiratory distress after recent extubation earlier this morning. Patient with ongoing BiPAP, switched to bag mask ventilation. Patient received 20 mg IV push etomidate, 100 mg IV push rocuronium, glide scope placement single attempt 7.5 ET tube visualized through the cords and advanced to 24 cm to the teeth, stylet removed, balloon up, good color change. Sats adequate. Breath sounds equal. No breath sounds over epigastrium. Chest x-ray showed good tube tip confirmation, no pneumothorax. Post intubation vent settings per RT and attending Dr. Boucher at bedside. Patient tolerated procedure well.
[2025-02-14] MEDS: INSULIN GLARGINE 100 UNIT/ML 3ML PEN 24 UNIT SUBCUT (20:46)
[2025-02-14] MEDS: SODIUM CHLORIDE 0.9% FLUSH 10 ML IV (20:51)
[2025-02-14] MEDS: ACETAMINOPHEN IV 1,000 MG/100 ML VIAL 400 MG IV (21:23)
[2025-02-14] MEDS: propofoL 1,000 MG/100 ML VIAL 10.043 MG IV (21:24)
[2025-02-14] MEDS: POTASSIUM CHLORIDE 20 MEQ TAB 40 MEQ PO (21:55)
--- NOTE | 2025-02-14 22:31 | PC.NURSE ---
Addendum entered by Magaly Caruso R.N. 02/14/25 22:41: Dr. Liu responded and ordered Pantoprazole IV, think BRBPR is likely hemmorhoids. Will continue to monitor. Original Note: Pt. repositioned and pericare provided, noted pt. to have BRBPR. Dr. Hyman notified.
[2025-02-14] MEDS: PANTOPRAZOLE 40 MG VIAL IV (23:11)
[2025-02-15] VITALS (93 sets, daily range): BP systolic 118–176; BP diastolic 58–79; PULSE 56–101; RESP 16–28; TEMP 36.5–39; O2SAT 90–100
[2025-02-15] MEDS: FUROSEMIDE 40 MG/4 ML VIAL IV ×3 (01:25→16:31)
[2025-02-15 04:50] LABS: Add Manual Diff / Slide Review NO; Basophils Absolute Auto 200 /uL (0-100); Basophils Percent Auto 1.6 % (0-2); Eosinophils Absolute Auto 200 /uL (0-450); Eosinophils Percent Auto 2.1 % (2-4); Hematocrit 35.9 % (41-53); Hemoglobin 12.4 g/dL (13.5-17.5); Lymphocytes Absolute Auto 1700 /uL (1100-4500); Lymphocytes Percent Auto 15.6 % (25-40); Mean Corpuscular HGB Conc 34.6 % (30-36); Mean Corpuscular Hemoglobin 30.3 PG (26-34); Mean Corpuscular Volume 87.5 fL (80-100); Monocytes Absolute Auto 1300 /uL (0-900); Monocytes Percent Auto 11.9 % (3-14); Neutrophils Absolute Auto 7400 /uL (1500-7000); Neutrophils Percent Auto 68.8 % (50-75); Platelet Count 149 X10^3/uL (150-400); Red Blood Cell Count 4.11 X10^6/uL (4.5-5.9); Red Cell Distribution Width 12.9 % (11.6-14.8); White Blood Cell Count 10.8 X10^3/uL (4.5-11.0)
[2025-02-15 05:38] LABS: Alanine Aminotransferase 43 IU/L (<50); Albumin 2.9 g/dL (3.5-5.0); Alkaline Phosphatase 62 U/L (38-126); Aspartate Aminotransferase 45 IU/L (17-59); BUN Creatinine Ratio 17.9 (6-22); Bilirubin Total 0.9 mg/dL (0.2-1.3); Blood Urea Nitrogen 14 mg/dL (9-20); Calcium 7.6 mg/dL (8.4-10.2); Carbon Dioxide 22 mmol/L (22-32); Chloride 111 mmol/L (98-107); Estimated Glomerular Filt Rate > 60 mL/min (>60); Globulin 2.9 g/dL (1.7-4.1); Glucose 177 mg/dL (80-110); HEMOLYSIS < 15 (0-50); Sodium 144 mmol/L (137-145); Total Protein 5.8 g/dL (6.3-8.2)
[2025-02-15] MEDS: POTASSIUM CHLORIDE 20 MEQ TAB 40 MEQ PO (06:13)
[2025-02-15] MEDS: chlordiazePOXIDE 25 MG CAPSULE 50 MG TUBE ×3 (06:13→21:27)
[2025-02-15] MEDS: THIAMINE 500 MG in SODIUM CHLORIDE 0.9% 100 ML 420 MG IV (06:13)
[2025-02-15] MEDS: INSULIN LISPRO 100 UNIT/ML 3ML VIAL SUBCUT ×3 (06:18→17:45)
[2025-02-15] MEDS: dexmedeTOMIDine in 0.9 % NaCL 400 MCG/100 ML PLAST..BAG IV (07:01)
--- NOTE | 2025-02-15 07:40 | PM.PN.IH.1 ---
Subjective Subjective Date Patient Seen: 02/15/25 Time Patient Seen: 08:25 Interval history: Chief complaint: Severe delirium and agitation secondary to alcohol withdrawal delirium tremens requiring intubation and propofol infusion in the setting of non acidotic hyperosmolar hyperglycemia with ketosis with coma History of present illness: 64-year-old male type 2 diabetes previously very well controlled but 3 months ago stopped his semaglutide Jardiance statin lisinopril metformin and hydrochlorothiazide because of inability to afford. He was seen in the clinic by his PCP 02/10/2025 (Marianela Goyal D.O. who started him on Lantus 12 units along with lisinopril no atorvastatin and aspirin. Over the next 24 hours the patient underwent tremendous change in behavior as noted by friends and family. He was described as being very angry and agitated confused word salad falling multiple times disoriented. He was brought in by EMS to the emergency room for evaluation Social history: Mother reports the patient does not drink alcohol regularly or excessively has some bilious I was came in his coffee at night before going to bed does not use recreational substances by her report Findings in the emergency room very significant for an agitated flushed and hyperactive male with multiple skin abrasions and bruises on arms and legs. Serum glucose was 758, sodium 137 potassium 4.5 CO2 18 BUN 40 creatinine 1 venous blood gas pH 7.46 pCO2 37 PO2 60 urine drug screen was negative respiratory panel also negative serum ketones 1.5 which is barely above reference range urine ketones 3+ Patient was initially evaluated as a code stroke CT of the head and CT angiography was negative chest x-ray was clear Patient was referred to the hospitalist service for admission to ICU for management of his non acidotic hyperosmolar hyperglycemia with ketosis and coma. Case was discussed with the family ICU in emergency staff for a consensus of treatment plan. Patient was started on vigorous IV fluid resuscitation sedation with benzodiazepine diphenhydramine and Haldol for patient's safety 1 dose of insulin 20 units IV after 2 L bolus of normal saline followed by subcutaneous Lantus 20 units and high-dose sliding scale and hyperosmolar protocol Hospital course: 02/12: Further history was obtained and patient drinks 40 proof alcohol throughout the day in coffee Overnight patient was intubated and placed on a propofol after phenobarbital. Account Representative was consulted maintaining sedation intubation with Precedex and propofol. Hyperglycemia normalized electrolytes improved calcium was low and was replaced We will maintain intubation sedation with Precedex and propofol all start Glucerna tube feeding and Librium for NG tube 02/13: Patient has continued to require intravenous sedation with Precedex propofol as started tube feedings is managed on the ventilator by the putty patcher. We will continue to manage while intubated for alcohol withdrawal with delirium tremens 02/14: He has weaned off Levophed and calm on the ventilator this morning. Propofol was weaned off this morning for a weaning trial. The ICU team extubated the patient after a weaning trial and he experienced respiratory distress, treated with IV furosemide for volume overload. He opens eyes to voice but is very weak. He continues on Precedex. Net fluid volume positive 10+ liters since admission. The patient became progressively short of breath and was re-intubated and placed back on mechanical ventilation. 02/15: Intubated, sedated, no new events overnight. Net volume status -4.1 liters since yesterday. Exam Vital Signs (past 8 hours): - 02/15/25 00:00 02/15/25 00:00 02/15/25 01:00 Temperature 100.5 F H 100.7 F H Pulse Rate 56 L 63 Respiratory Rate 21 24 Blood Pressure 140/65 152/72 H Pulse Oximetry 98 98 Oxygen Delivery Method Mechanical Ventilation Fraction of Inspired Oxygen 0.50 0.50 02/15/25 02:00 02/15/25 03:00 02/15/25 03:56 Temperature 100.4 F H 100.3 F H Pulse Rate 58 L 61 Respiratory Rate 24 20 Blood Pressure 130/68 119/62 Pulse Oximetry 97 97 Oxygen Delivery Method Mechanical Ventilation Fraction of Inspired Oxygen 0.50 0.50 02/15/25 04:00 02/15/25 05:00 02/15/25 06:00 Temperature 99.9 F H 99.6 F Pulse Rate 59 L 60 68 Respiratory Rate 23 25 H 23 Blood Pressure 130/65 145/68 H 146/67 H Pulse Oximetry 97 95 95 Oxygen Delivery Method Fraction of Inspired Oxygen 0.50 0.40 0.40 Fraction of Inspired Oxygen 0.40 Oxygen Delivery Method Mechanical Ventilation Narrative Exam Narrative: Appears comfortable on ventilator, sedated. HEENT pupils small but reactive Neck no JVD Heart rate and rhythm regular no murmurs Lungs clear from apices to bases Abdomen obese nontender Multiple healing abrasions on elbows knees shins Neurological exam patient is nonfocal, globally weak. Objective Imaging Chest xray 02/13/2025:: Radiologist's impression: Left-sided PICC line tip is in SVC. Small left pleural effusion and pulmonary vascular congestion. Cannot rule out bilateral lower lobe infiltrate versus atelectasis. No pneumothorax. Chest xray 02/14/2025:: Radiologist's impression: #1: Mild right basilar consolidation with low lung volumes, which may represent atelectasis or aspiration. #2 1. Endotracheal tube tip 3.6 cm above silvano. 2. Enteric tube tip at the level the gastroesophageal junction. Further advancement by 10-15 cm recommended with repeat imaging. Labs 02/15/25 04:35 02/15/25 04:35 Labs: Laboratory Results - last 24 hr 02/11/25 02/11/25 02/14/25 20:15 20:15 08:05 WBC 12.1 H RBC 4.05 L Hgb 12.2 L Hct 36.1 L MCV 89.2 MCH 30.1 MCHC 33.7 RDW 12.7 Plt Count 133 L Neut % (Auto) 65.3 Lymph % (Auto) 21.1 L [place] % (Auto) 11.1 Eos % (Auto) 1.2 L Baso % (Auto) 1.3 Neut # (Auto) 7900 H Lymph # (Auto) 2500 [place] # (Auto) 1300 H Eos # (Auto) 100 Baso # (Auto) 200 H ABG Sample Site Not Reportable Not Reportable ABG pH ABG pCO2 ABG pO2 ABG HCO3 ABG Total CO2 ABG O2 Saturation ABG Base Excess Zachariah Test Respiration Rate O2 Delivery Device FiO2 % Pressure Support PEEP or CPAP Sodium Potassium Chloride Carbon Dioxide BUN Creatinine Estimated GFR BUN/Creatinine Ratio Glucose Calcium Total Bilirubin AST ALT Alkaline Phosphatase Total Protein Albumin Globulin Albumin/Globulin Ratio 02/14/25 02/14/25 02/14/25 08:11 12:15 16:20 WBC 11.7 H RBC 4.07 L Hgb 12.3 L Hct 36.2 L MCV 89.0 MCH 30.2 MCHC 33.9 RDW 12.5 Plt Count 147 L Neut % (Auto) 77.5 H Lymph % (Auto) 11.4 L [place] % (Auto) 10.2 Eos % (Auto) 0.2 L Baso % (Auto) 0.7 Neut # (Auto) 9100 H Lymph # (Auto) 1300 [place] # (Auto) 1200 H Eos # (Auto) 0 Baso # (Auto) 100 ABG Sample Site Right radial ABG pH 7.41 ABG pCO2 27.2 L ABG pO2 59 L ABG HCO3 17 L ABG Total CO2 16 L ABG O2 Saturation 91 L ABG Base Excess -5.9 L Zachariah Test Positive Respiration Rate 10 O2 Delivery Device Bipap FiO2 % 50.0 % Pressure Support 20 PEEP or CPAP 10 Sodium 141 142 Potassium 4.0 3.1 L Chloride 115 H 113 H Carbon Dioxide 17 L 21 L BUN 15 13 Creatinine 0.64 L 0.72 Estimated GFR > 60 > 60 BUN/Creatinine Ratio 23.4 H 18.1 Glucose 138 H 158 H Calcium 7.6 L 7.4 L Total Bilirubin 0.9 0.8 AST 40 53 ALT 45 45 Alkaline Phosphatase 57 59 Total Protein 5.5 L 5.5 L Albumin 2.8 L 2.8 L Globulin 2.7 2.7 Albumin/Globulin Ratio 1.0 1.0 02/15/25 04:35 WBC 10.8 RBC 4.11 L Hgb 12.4 L Hct 35.9 L MCV 87.5 MCH 30.3 MCHC 34.6 RDW 12.9 Plt Count 149 L Neut % (Auto) 68.8 Lymph % (Auto) 15.6 L [place] % (Auto) 11.9 Eos % (Auto) 2.1 Baso % (Auto) 1.6 Neut # (Auto) 7400 H Lymph # (Auto) 1700 [place] # (Auto) 1300 H Eos # (Auto) 200 Baso # (Auto) 200 H ABG Sample Site ABG pH ABG pCO2 ABG pO2 ABG HCO3 ABG Total CO2 ABG O2 Saturation ABG Base Excess Zachariah Test Respiration Rate O2 Delivery Device FiO2 % Pressure Support PEEP or CPAP Sodium 144 Potassium 3.0 L Chloride 111 H Carbon Dioxide 22 BUN 14 Creatinine 0.78 Estimated GFR > 60 BUN/Creatinine Ratio 17.9 Glucose 177 H Calcium 7.6 L Total Bilirubin 0.9 AST 45 ALT 43 Alkaline Phosphatase 62 Total Protein 5.8 L Albumin 2.9 L Globulin 2.9 Albumin/Globulin Ratio 1.0 [facility] Medical History Bilateral knee pain BMI 39.0-39.9,adult Body dysmorphic disorder Bronchitis Erectile dysfunction Excessive thirst History of colon polyps Hyperlipidemia associated with type 2 diabetes mellitus Hypertensive urgency Left knee pain (05/16/16) Mass of finger of left hand Obstructive sleep apnea of adult Pain of right great toe Plaque psoriasis Primary hypertension Primary insomnia (05/16/16) Type 2 diabetes mellitus Umbilical hernia without obstruction and without gangrene (10/09/16) Uncontrolled type 2 diabetes mellitus Surgical History History of colonoscopy with polypectomy (08/05/09) History of umbilical hernia repair (12/13/16) Status post right partial knee replacement Family History Grandfather No problems noted. Social History marital status: unmarried,single number of children: 0 household members: family lives independently: Yes caregiver/support person: No pets and animals: Yes (2/3 year old puppy; sleeps on pt bed) education level: high school occupational status: employed Smoking Status: Current every day smoker quit status: considering quitting alcohol intake: current substance use type: does not use Assessment & Plan Assessment & Plan narrative: Acute metabolic encephalopathy with agitated delirium in setting of non acidotic hyperosmolar hyperglycemia with ketosis and coma. Alcohol withdrawal with delirium tremens: -Appears to be near-resolved at this point, sedated on propofol and Precedex -Further history was obtained and patient drinks 40 proof alcohol throughout the day in coffee -patient was intubated and placed on a propofol after phenobarbital 02/11/2025 to 02/14/2025. -Account Representative was consulted maintaining sedation intubation with Precedex and propofol, extubating 02/14/2025. -hyperglycemia normalized electrolytes improved calcium was low and was replaced Acute hypoxic respiratory failure due to volume overload/hypokalemia -BiPap, oxygen, diuresis furosemide 40mg IV q8hr -cautious extubation plans, likely tomorrow as he is still +6 liters volume positive -replete potassium, monitor electrolytes Elevated blood pressure -improved, likely due to volume overload -monitor with diureses DVT prophylaxis with Lovenox Full code blue IH PROFEE Architectural Intern Document charge(s): No Charge Codes Subsequent inpatient/observation care: [id number]
[2025-02-15] MEDS: FAMOTIDINE 20 MG/2 ML VIAL IV ×2 (08:21→20:19)
[2025-02-15] MEDS: ENOXAPARIN 40 MG/0.4 ML SYRINGE SUBCUT (08:21)
[2025-02-15] MEDS: propofoL 1,000 MG/100 ML VIAL 16.738 MG IV ×2 (09:41→23:19)
[2025-02-15] MEDS: POTASSIUM CHLORIDE 20 MEQ/15 ML UDC 40 MEQ PO ×2 (10:49→16:31)
[2025-02-15] MEDS: CHLORHEXIDINE GLUCONATE 15 ML CUP PO ×2 (10:50→20:19)
--- NOTE | 2025-02-15 12:17 | P.TELICUPN_ITS ---
Subjective Subjective IF CAMERA ACTIVATED, patient seen via real-time interactive audiovisual communication: Camera activated Consent obtained for tele-field research associate care: Yes Patient Location: ICU Provider location (State): [place] Other participants/roles: rn Interval history: pt failed bipap yesterday, was reintubatedm, currently on propofol and precedex, Current Medications Current Medications Medications: Home Medications No Known Home Medications 02/12/25 [History Confirmed 02/12/25] Visit Medications (administered) Generic Name Dose Route Start Last Admin Trade Name Freq PRN Reason Stop Dose Admin Atorvastatin Calcium 40 mg 02/11/25 21:00 02/11/25 21:12 Atorvastatin 20 Mg Tablet PO 40 mg BEDTIME DOROTHY Administration Chlordiazepoxide HCl 50 mg 02/12/25 14:00 02/15/25 06:13 Chlordiazepoxide 25 Mg Capsule TUBE 50 mg Q8HR DOROTHY Administration Chlorhexidine Gluconate 15 ml 02/15/25 10:00 02/15/25 10:50 Chlorhexidine Gluconate 15 Ml Cup PO 15 ml BID DOROTHY Administration Enoxaparin Sodium 40 mg 02/12/25 09:00 02/15/25 08:21 Enoxaparin 40 Mg/0.4 Ml Syringe SUBCUT 40 mg DAILY DOROTHY Administration Famotidine 20 mg 02/11/25 21:00 02/15/25 08:21 Famotidine 20 Mg/2 Ml Vial IV 20 mg BID DOROTHY Administration Furosemide 40 mg 02/14/25 17:30 02/15/25 08:21 Furosemide 40 Mg/4 Ml Vial IV 40 mg Q8H DOROTHY Administration Heparin Sodium (Porcine) 50 unit 02/13/25 21:00 02/15/25 08:21 Heparin Flush (Cl/Picc/Mid-Line) 50 Unit/5 Ml Syringe IV 50 unit BID DOROTHY Administration dexmedeTOMIDine in 0.9 % NaCL 400 mcg in 100 mls @ 5.579 mls/hr 02/11/25 19:00 02/15/25 07:01 Precedex IV 0.06 mcg/kg/hr TITRATE DOROTHY 1.674 mls/hr Administration Protocol 0.2 MCG/KG/HR Propofol 1,000 mg in 100 mls @ 3.348 mls/hr 02/11/25 19:30 02/15/25 12:13 Diprivan IV 20 mcg/kg/min TITRATE DOROTHY 13.39 mls/hr Titration Protocol 5 MCG/KG/MIN NOREPINEPHRINE BITARTRATE/D5W 4 mg in 250 mls @ 41.844 mls/hr 02/11/25 22:35 02/13/25 07:58 Levophed IV 0 mcg/kg/min TITRATE DOROTHY 0 mls/hr Titration Protocol 0.1 MCG/KG/MIN Sodium Chloride 250 mls @ 21 mls/hr 02/13/25 10:50 02/14/25 16:00 Normal Saline 0.9% IV Infused Q24H PRN Infusion Flush Acetaminophen 1,000 mg in 100 mls @ 400 mls/hr 02/14/25 21:10 02/14/25 21:49 Ofirmev IV Infused Q6H PRN Infusion Fever/Mild Pain (1-3) Insulin Human Lispro 0 unit 02/12/25 12:00 02/15/25 12:09 Insulin Lispro 100 Unit/Ml 3ml Vial SUBCUT 2 unit Q6HR DOROTHY Administration Protocol Pantoprazole Sodium 40 mg 02/15/25 09:00 02/15/25 09:09 Pantoprazole 40 Mg Vial IV Not Given DAILY DOROTHY Potassium Chloride 40 meq 02/15/25 09:30 02/15/25 10:49 Potassium Chloride 20 Meq/15 Ml Udc PO 40 meq Q8H DOROTHY Administration Sodium Chloride 10 ml 02/13/25 10:50 02/14/25 20:51 Sodium Chloride 0.9% Flush IV 10 ml PRN PRN Administration Flush Objective Ventilator Parameters: Ventilator Settings FiO2 30 RT Vent Frequency 15 Ventilator Tidal Volume 530 Exhaled Vt/kg IBW 7 Positive End Expiratory 8 Pressure Inspiratory Phase Time 0.8 I:E Ratio 1:4 Patient Position HOB >= 30 degrees Labs 02/15/25 04:35 02/15/25 04:35 Labs: Laboratory Results - last 24 hr 02/14/25 02/14/25 02/15/25 12:15 16:20 04:35 WBC 11.7 H 10.8 RBC 4.07 L 4.11 L Hgb 12.3 L 12.4 L Hct 36.2 L 35.9 L MCV 89.0 87.5 MCH 30.2 30.3 MCHC 33.9 34.6 RDW 12.5 12.9 Plt Count 147 L 149 L Neut % (Auto) 77.5 H 68.8 Lymph % (Auto) 11.4 L 15.6 L [place] % (Auto) 10.2 11.9 Eos % (Auto) 0.2 L 2.1 Baso % (Auto) 0.7 1.6 Neut # (Auto) 9100 H 7400 H Lymph # (Auto) 1300 1700 [place] # (Auto) 1200 H 1300 H Eos # (Auto) 0 200 Baso # (Auto) 100 200 H ABG Sample Site Right radial ABG pH 7.41 ABG pCO2 27.2 L ABG pO2 59 L ABG HCO3 17 L ABG Total CO2 16 L ABG O2 Saturation 91 L ABG Base Excess -5.9 L Zachariah Test Positive Respiration Rate 10 O2 Delivery Device Bipap FiO2 % 50.0 % Pressure Support 20 PEEP or CPAP 10 Sodium 142 144 Potassium 3.1 L 3.0 L Chloride 113 H 111 H Carbon Dioxide 21 L 22 BUN 13 14 Creatinine 0.72 0.78 Estimated GFR > 60 > 60 BUN/Creatinine Ratio 18.1 17.9 Glucose 158 H 177 H Calcium 7.4 L 7.6 L Total Bilirubin 0.8 0.9 AST 53 45 ALT 45 43 Alkaline Phosphatase 59 62 Total Protein 5.5 L 5.8 L Albumin 2.8 L 2.9 L Globulin 2.7 2.9 Albumin/Globulin Ratio 1.0 1.0 Exam Vital Signs (past 8 hours): - 02/15/25 05:00 02/15/25 06:00 02/15/25 07:40 Temperature 99.6 F Pulse Rate 60 68 60 Respiratory Rate 25 H 23 16 Blood Pressure 145/68 H 146/67 H Pulse Oximetry 95 95 97 Oxygen Delivery Method Fraction of Inspired Oxygen 0.40 0.40 02/15/25 07:40 02/15/25 07:50 02/15/25 07:50 Temperature Pulse Rate 60 Respiratory Rate 17 Blood Pressure 129/58 L 128/60 Pulse Oximetry 98 Oxygen Delivery Method Fraction of Inspired Oxygen 02/15/25 08:00 02/15/25 08:00 02/15/25 08:00 Temperature 100.1 F H Pulse Rate Respiratory Rate Blood Pressure 126/58 L Pulse Oximetry Oxygen Delivery Method Mechanical Ventilation Fraction of Inspired Oxygen 02/15/25 08:00 02/15/25 08:10 02/15/25 08:10 Temperature Pulse Rate 59 L 59 L Respiratory Rate 16 16 Blood Pressure 128/59 L Pulse Oximetry 98 98 Oxygen Delivery Method Fraction of Inspired Oxygen 02/15/25 08:20 02/15/25 08:20 02/15/25 08:30 Temperature Pulse Rate 61 Respiratory Rate 18 Blood Pressure 138/65 144/67 H Pulse Oximetry 98 Oxygen Delivery Method Fraction of Inspired Oxygen 02/15/25 08:30 02/15/25 08:40 02/15/25 08:40 Temperature Pulse Rate 60 63 Respiratory Rate 20 20 Blood Pressure 149/69 H Pulse Oximetry 95 95 Oxygen Delivery Method Fraction of Inspired Oxygen 02/15/25 08:50 02/15/25 08:50 02/15/25 09:00 Temperature Pulse Rate 69 Respiratory Rate 21 Blood Pressure 157/72 H 155/70 H Pulse Oximetry 93 Oxygen Delivery Method Fraction of Inspired Oxygen 02/15/25 09:00 02/15/25 09:10 02/15/25 09:10 Temperature Pulse Rate 68 69 Respiratory Rate 21 22 Blood Pressure 158/72 H Pulse Oximetry 94 90 L Oxygen Delivery Method Fraction of Inspired Oxygen 02/15/25 09:20 02/15/25 09:20 02/15/25 09:30 Temperature Pulse Rate 67 Respiratory Rate 18 Blood Pressure 156/70 H 152/67 H Pulse Oximetry 94 Oxygen Delivery Method Fraction of Inspired Oxygen 02/15/25 09:30 02/15/25 09:41 02/15/25 09:41 Temperature Pulse Rate 68 70 Respiratory Rate 19 23 Blood Pressure 158/70 H Pulse Oximetry 94 100 Oxygen Delivery Method Fraction of Inspired Oxygen 02/15/25 09:50 02/15/25 09:50 02/15/25 12:00 Temperature Pulse Rate 71 Respiratory Rate 27 H Blood Pressure 157/71 H Pulse Oximetry 100 Oxygen Delivery Method Mechanical Ventilation Fraction of Inspired Oxygen Fraction of Inspired Oxygen 0.40 Oxygen Delivery Method Mechanical Ventilation Narrative Exam Narrative: symmetric chest rise synchronous ith vent NAD rate controlled Assessment & Plan Assessment & Plan narrative: 64 year old male admitted to ICU with: AMS Acute hyperactive Delirium etoh withdrawal hyperglycemia AMXINE acute respiratory failrue -Neurochecks/seizure precautions -thiamine/folate -ciwa protocol - librium - ativan prn - vent/sedatyion bundle, propofol anmd precedex - ABG -keep map above 65 - he is diuresing well, but will f/u tte before PSV trials again ( repeat XR now iwhtout vascualr congestion but ? new infiltrate) -serial ekg/trop -check echo - monitor UO - stop IVF -replace lytes prn -keep glucose 140-180s can do insulin drip -n TF - gluceerna - starting ceftriaxone empircally -gi/dvt ppx -please call eICU prn total Critical Care time = 35 min Time-Based Coding :: [TOTAL MINUTES] spent with patient and on the chart (including review of chart, obtaining history, exam, reviewing outside data, placing orders, documenting exam and treatment plan, and counseling patient) on [DATE].
[2025-02-15] MEDS: cefTRIAXone 1,000 MG in SODIUM CHLORIDE 0.9% 100 ML 200 MG IV (12:56)
[2025-02-15] MEDS: propofoL 1,000 MG/100 ML VIAL 13.39 MG IV ×2 (13:29→18:09)
--- NOTE | 2025-02-15 15:47 | CM.DPC ---
DCP Cont: Per MD and RN, teleintensivist yesterday Sat 02/14 gave the orders to attempt extubation for the patient and he was extubated and placed on bipap but could not maintain his respirations and reintubated last night Sat 02/14. Pt remains sedated and intubated at this time and not yet ready for breathing trial today. Pt has had some supportive people in the room bedside. Plan: SW to follow for bedside assessment and eventual PT eval with pt when more medically appropriate to determine discharge planning needs and pt's interest in ETOH resources. ELIS Duvall
[2025-02-15 16:19] LABS: Add Manual Diff / Slide Review NO; Basophils Absolute Auto 100 /uL (0-100); Basophils Percent Auto 1.1 % (0-2); Eosinophils Absolute Auto 100 /uL (0-450); Eosinophils Percent Auto 1.4 % (2-4); Hematocrit 37.1 % (41-53); Hemoglobin 12.7 g/dL (13.5-17.5); Lymphocytes Absolute Auto 1500 /uL (1100-4500); Lymphocytes Percent Auto 14.2 % (25-40); Mean Corpuscular HGB Conc 34.1 % (30-36); Monocytes Absolute Auto 1100 /uL (0-900); Neutrophils Absolute Auto 7800 /uL (1500-7000); Neutrophils Percent Auto 73.3 % (50-75); Platelet Count 167 X10^3/uL (150-400); Red Blood Cell Count 4.21 X10^6/uL (4.5-5.9); Red Cell Distribution Width 12.7 % (11.6-14.8); White Blood Cell Count 10.7 X10^3/uL (4.5-11.0)
[2025-02-15 16:37] LABS: Alanine Aminotransferase 39 IU/L (<50); Albumin 2.8 g/dL (3.5-5.0); Albumin Globulin Ratio 1.1 (1.0-2.8); Alkaline Phosphatase 64 U/L (38-126); Aspartate Aminotransferase 42 IU/L (17-59); BUN Creatinine Ratio 22.1 (6-22); Bilirubin Total 0.5 mg/dL (0.2-1.3); Blood Urea Nitrogen 15 mg/dL (9-20); Calcium 7.9 mg/dL (8.4-10.2); Carbon Dioxide 21 mmol/L (22-32); Chloride 112 mmol/L (98-107); Estimated Glomerular Filt Rate > 60 mL/min (>60); Globulin 2.5 g/dL (1.7-4.1); Glucose 183 mg/dL (80-110); HEMOLYSIS 19 (0-50); Potassium 3.4 mmol/L (3.4-5.1); Sodium 144 mmol/L (137-145); Total Protein 5.3 g/dL (6.3-8.2)
[2025-02-15] MEDS: ACETAMINOPHEN IV 1,000 MG/100 ML VIAL 400 MG IV (17:56)
[2025-02-15] MEDS: INSULIN GLARGINE 100 UNIT/ML 3ML PEN 14 UNIT SUBCUT (21:27)
[2025-02-16] VITALS (65 sets, daily range): BP systolic 101–190; BP diastolic 51–87; PULSE 51–115; RESP 15–32; TEMP 37.9–39.3; O2SAT 90–100
[2025-02-16 01:17] LABS: Add Manual Diff / Slide Review NO; Basophils Absolute Auto 100 /uL (0-100); Basophils Percent Auto 0.7 % (0-2); Eosinophils Absolute Auto 200 /uL (0-450); Eosinophils Percent Auto 1.6 % (2-4); Hematocrit 36.5 % (41-53); Hemoglobin 12.5 g/dL (13.5-17.5); Lymphocytes Absolute Auto 1400 /uL (1100-4500); Lymphocytes Percent Auto 14.2 % (25-40); Mean Corpuscular HGB Conc 34.2 % (30-36); Mean Corpuscular Hemoglobin 30.3 PG (26-34); Mean Corpuscular Volume 88.5 fL (80-100); Monocytes Absolute Auto 1100 /uL (0-900); Monocytes Percent Auto 11.6 % (3-14); Neutrophils Absolute Auto 6900 /uL (1500-7000); Neutrophils Percent Auto 71.9 % (50-75); Platelet Count 169 X10^3/uL (150-400); Red Blood Cell Count 4.13 X10^6/uL (4.5-5.9); Red Cell Distribution Width 12.9 % (11.6-14.8); White Blood Cell Count 9.6 X10^3/uL (4.5-11.0)
[2025-02-16 01:23] LABS: Alanine Aminotransferase 40 IU/L (<50); Albumin 2.9 g/dL (3.5-5.0); Alkaline Phosphatase 65 U/L (38-126); Aspartate Aminotransferase 35 IU/L (17-59); BUN Creatinine Ratio 22.8 (6-22); Bilirubin Total 0.7 mg/dL (0.2-1.3); Blood Urea Nitrogen 18 mg/dL (9-20); Carbon Dioxide 23 mmol/L (22-32); Chloride 112 mmol/L (98-107); Estimated Glomerular Filt Rate > 60 mL/min (>60); Globulin 2.9 g/dL (1.7-4.1); Glucose 203 mg/dL (80-110); HEMOLYSIS < 15 (0-50); Potassium 3.3 mmol/L (3.4-5.1); Sodium 146 mmol/L (137-145); Total Protein 5.8 g/dL (6.3-8.2)
[2025-02-16] MEDS: FUROSEMIDE 40 MG/4 ML VIAL IV ×4 (01:25→23:39)
[2025-02-16] MEDS: POTASSIUM CHLORIDE 20 MEQ/15 ML UDC 40 MEQ PO ×3 (01:25→16:46)
[2025-02-16] MEDS: propofoL 1,000 MG/100 ML VIAL 13.39 MG IV (04:36)
[2025-02-16] MEDS: SODIUM CHLORIDE 0.9% 250 ML 10 ML IV (04:37)
[2025-02-16] MEDS: chlordiazePOXIDE 25 MG CAPSULE 50 MG TUBE ×3 (05:46→21:41)
[2025-02-16] MEDS: INSULIN LISPRO 100 UNIT/ML 3ML VIAL SUBCUT ×4 (06:17→23:39)
--- NOTE | 2025-02-16 06:32 | PC.NURSE ---
Roll Wrapper Note-Patient is on ventilator, FIO2 30% TV 530 PEEP 8 RR set at 15, patient is overriding at 20-25. Patient is sedated with propofol at 20mcg/kg/min, Precedex was on at 0.2mcg/kg/hr for few hrs-off again at 0130. Scheduled Librium via OGT. IV Lasix and potassium given per schedule, total UOP 1700m. Small thick white sputum sx via ETT, stron cough.
--- NOTE | 2025-02-16 08:01 | P.PN_ITS ---
Subjective Subjective Interval history: S: Patient was intubated, narrative not obtainable. Stable overnight. Interval history: Chief complaint: Severe delirium and agitation secondary to alcohol withdrawal delirium tremens requiring intubation and propofol infusion in the setting of non acidotic hyperosmolar hyperglycemia with ketosis with coma History of present illness: 64-year-old male type 2 diabetes previously very well controlled but 3 months ago stopped his semaglutide Jardiance statin lisinopril metformin and hydrochlorothiazide because of inability to afford. He was seen in the clinic by his PCP 02/10/2025 (Marianela Goyal D.O. who started him on Lantus 12 units along with lisinopril no atorvastatin and aspirin. Over the next 24 hours the patient underwent tremendous change in behavior as noted by friends and family. He was described as being very angry and agitated confused word salad falling multiple times disoriented. He was brought in by EMS to the emergency room for evaluation Social history: Mother reports the patient does not drink alcohol regularly or excessively has some bilious I was came in his coffee at night before going to bed does not use recreational substances by her report Findings in the emergency room very significant for an agitated flushed and hyperactive male with multiple skin abrasions and bruises on arms and legs. Serum glucose was 758, sodium 137 potassium 4.5 CO2 18 BUN 40 creatinine 1 venous blood gas pH 7.46 pCO2 37 PO2 60 urine drug screen was negative respiratory panel also negative serum ketones 1.5 which is barely above reference range urine ketones 3+ Patient was initially evaluated as a code stroke CT of the head and CT angiography was negative chest x-ray was clear Patient was referred to the hospitalist service for admission to ICU for management of his non acidotic hyperosmolar hyperglycemia with ketosis and coma. Case was discussed with the family ICU in emergency staff for a consensus of treatment plan. Patient was started on vigorous IV fluid resuscitation sedation with benzodiazepine diphenhydramine and Haldol for patient's safety 1 dose of insulin 20 units IV after 2 L bolus of normal saline followed by subcutaneous Lantus 20 units and high-dose sliding scale and hyperosmolar protocol Hospital course: 02/12: Further history was obtained and patient drinks 40 proof alcohol throughout the day in coffee Overnight patient was intubated and placed on a propofol after phenobarbital. [employer] was consulted maintaining sedation intubation with Precedex and propofol. Hyperglycemia normalized electrolytes improved calcium was low and was replaced We will maintain intubation sedation with Precedex and propofol all start Glucerna tube feeding and Librium for NG tube 02/13: Patient has continued to require intravenous sedation with Precedex propofol as started tube feedings is managed on the ventilator by the truck service manager. We will continue to manage while intubated for alcohol withdrawal with delirium tremens 02/14: He has weaned off Levophed and calm on the ventilator this morning. Propofol was weaned off this morning for a weaning trial. The ICU team extubated the patient after a weaning trial and he experienced respiratory distress, treated with IV furosemide for volume overload. He opens eyes to voice but is very weak. He continues on Precedex. Net fluid volume positive 10+ liters since admission. The patient became progressively short of breath and was re-intubated and placed back on mechanical ventilation. 02/15: Intubated, sedated, no new events overnight. Net volume status -4.1 liters since yesterday. 02/16: He was reintubated over the weekend. He was had a good net diuresis with a proximally 7 L off since initiating his diuresis. Echo reveals normal ventricle size and thickness with an EF of 55-60% and no wall motion abnormalities. He was on a sedation vacation this morning. Exam Vital Signs (past 8 hours): - 02/16/25 00:30 02/16/25 00:30 02/16/25 01:00 Pulse Rate 71 Respiratory Rate 18 Blood Pressure 119/65 125/68 Pulse Oximetry 97 Oxygen Delivery Method 02/16/25 01:00 02/16/25 01:30 02/16/25 01:30 Pulse Rate 70 69 Respiratory Rate 17 20 Blood Pressure 116/63 Pulse Oximetry 96 95 Oxygen Delivery Method 02/16/25 02:00 02/16/25 02:00 02/16/25 02:30 Pulse Rate 72 Respiratory Rate 19 Blood Pressure 124/69 129/69 Pulse Oximetry 95 Oxygen Delivery Method 02/16/25 02:30 02/16/25 03:00 02/16/25 03:00 Pulse Rate 73 75 Respiratory Rate 20 20 Blood Pressure 121/64 Pulse Oximetry 96 96 Oxygen Delivery Method 02/16/25 03:30 02/16/25 03:30 02/16/25 04:00 Pulse Rate 76 Respiratory Rate 19 Blood Pressure 124/64 Pulse Oximetry 95 Oxygen Delivery Method Mechanical Ventilation 02/16/25 04:00 02/16/25 04:00 02/16/25 04:30 Pulse Rate 76 Respiratory Rate 19 Blood Pressure 132/65 121/61 Pulse Oximetry 98 Oxygen Delivery Method 02/16/25 04:30 02/16/25 05:00 02/16/25 05:00 Pulse Rate 75 79 Respiratory Rate 21 17 Blood Pressure 125/66 Pulse Oximetry 90 L 95 Oxygen Delivery Method 02/16/25 05:30 02/16/25 05:30 02/16/25 06:00 Pulse Rate 75 79 Respiratory Rate 19 20 Blood Pressure 135/65 Pulse Oximetry 95 95 Oxygen Delivery Method 02/16/25 06:00 Pulse Rate Respiratory Rate Blood Pressure 147/70 H Pulse Oximetry Oxygen Delivery Method Fraction of Inspired Oxygen 0.40 Oxygen Delivery Method Mechanical Ventilation Narrative Exam Narrative: Intubated and sedated. On the ventilator. Lungs are clear symmetric breath sounds. Heart is regular. Abdomen is soft and minimally distended. Extremities are free of edema. Skin is free of rash or lesions. Objective ECG Impression: Sinus tachycardia Inferior infarct , age undetermined Imaging Multiple studies:: Radiologist's impression: Chest xray 02/13/2025:: Radiologist's impression: Left-sided PICC line tip is in SVC. Small left pleural effusion and pulmonary vascular congestion. Cannot rule out bilateral lower lobe infiltrate versus atelectasis. No pneumothorax. Chest xray 02/14/2025:: Radiologist's impression: #1: Mild right basilar consolidation with low lung volumes, which may represent atelectasis or aspiration. #2 1. Endotracheal tube tip 3.6 cm above silvano. 2. Enteric tube tip at the level the gastroesophageal junction. Further advancement by 10-15 cm recommended with repeat imaging. Labs 02/16/25 00:15 02/16/25 00:15 Labs: Laboratory Results - last 24 hr 02/15/25 02/16/25 16:05 00:15 WBC 10.7 9.6 RBC 4.21 L 4.13 L Hgb 12.7 L 12.5 L Hct 37.1 L 36.5 L MCV 88.0 88.5 MCH 30.0 30.3 MCHC 34.1 34.2 RDW 12.7 12.9 Plt Count 167 169 Neut % (Auto) 73.3 71.9 Lymph % (Auto) 14.2 L 14.2 L [place] % (Auto) 10.0 11.6 Eos % (Auto) 1.4 L 1.6 L Baso % (Auto) 1.1 0.7 Neut # (Auto) 7800 H 6900 Lymph # (Auto) 1500 1400 [place] # (Auto) 1100 H 1100 H Eos # (Auto) 100 200 Baso # (Auto) 100 100 Sodium 144 146 H Potassium 3.4 3.3 L Chloride 112 H 112 H Carbon Dioxide 21 L 23 BUN 15 18 Creatinine 0.68 0.79 Estimated GFR > 60 > 60 BUN/Creatinine Ratio 22.1 H 22.8 H Glucose 183 H 203 H Calcium 7.9 L 8.0 L Total Bilirubin 0.5 0.7 AST 42 35 ALT 39 40 Alkaline Phosphatase 64 65 Total Protein 5.3 L 5.8 L Albumin 2.8 L 2.9 L Globulin 2.5 2.9 Albumin/Globulin Ratio 1.1 1.0 PFSH Medical History Bronchitis Hypertensive urgency Mass of finger of left hand Left knee pain (05/16/16) History of colon polyps Uncontrolled type 2 diabetes mellitus Excessive thirst Body dysmorphic disorder BMI 39.0-39.9,adult Pain of right great toe Bilateral knee pain Hyperlipidemia associated with type 2 diabetes mellitus Type 2 diabetes mellitus Primary hypertension Erectile dysfunction Plaque psoriasis Obstructive sleep apnea of adult Umbilical hernia without obstruction and without gangrene (10/09/16) Primary insomnia (05/16/16) Surgical History Status post right partial knee replacement History of umbilical hernia repair (12/13/16) History of colonoscopy with polypectomy (08/05/09) Family History Grandfather No problems noted. Social History marital status: unmarried,single number of children: 0 household members: family lives independently: Yes caregiver/support person: No pets and animals: Yes (2/3 year old puppy; sleeps on pt bed) education level: high school occupational status: employed Smoking Status: Current every day smoker quit status: considering quitting alcohol intake: current substance use type: does not use Assessment & Plan Assessment & Plan narrative: Alcohol withdrawal. -Appears to be near-resolved at this point, sedated on propofol and Precedex -Further history was obtained and patient drinks 40 proof alcohol throughout the day in coffee Severe metabolic encephalopathy. Acute hypoxic respiratory failure due to acute diastolic heart failure. -BiPap, oxygen, diuresis furosemide 40mg IV q8hr -cautious extubation plans, likely tomorrow as he is still +6 liters volume positive Hypertension. -improved, likely due to volume overload -monitor with diureses Hypernatremia. Alcohol use disorder. Obesity class 1. PLAN: -continue diuresis -wean FiO2 down, he was at 0.40. -wean PEEP down, he was at 8. -sedation vacation and discuss with ICU doctor. Time-Based Coding :: [TOTAL MINUTES] spent with patient and on the chart (including review of chart, obtaining history, exam, reviewing outside data, placing orders, documenting exam and treatment plan, and counseling patient) on [DATE].
[2025-02-16] MEDS: CHLORHEXIDINE GLUCONATE 15 ML CUP PO ×2 (08:52→20:15)
[2025-02-16] MEDS: ENOXAPARIN 40 MG/0.4 ML SYRINGE SUBCUT (08:52)
[2025-02-16] MEDS: FAMOTIDINE 20 MG/2 ML VIAL IV ×2 (08:52→20:15)
[2025-02-16] MEDS: PANTOPRAZOLE 40 MG VIAL IV (08:53)
[2025-02-16] MEDS: ACETAMINOPHEN IV 1,000 MG/100 ML VIAL 400 MG IV ×2 (08:55→16:02)
[2025-02-16] MEDS: INSULIN GLARGINE 100 UNIT/ML 3ML PEN 14 UNIT SUBCUT (08:55)
[2025-02-16 09:37] LABS: Add Manual Diff / Slide Review NO; Basophils Absolute Auto 100 /uL (0-100); Basophils Percent Auto 0.7 % (0-2); Eosinophils Absolute Auto 200 /uL (0-450); Hematocrit 39.2 % (41-53); Hemoglobin 13.2 g/dL (13.5-17.5); Lymphocytes Absolute Auto 1700 /uL (1100-4500); Lymphocytes Percent Auto 15.3 % (25-40); Mean Corpuscular HGB Conc 33.6 % (30-36); Mean Corpuscular Hemoglobin 29.8 PG (26-34); Mean Corpuscular Volume 88.8 fL (80-100); Monocytes Absolute Auto 1200 /uL (0-900); Monocytes Percent Auto 10.5 % (3-14); Neutrophils Absolute Auto 8200 /uL (1500-7000); Neutrophils Percent Auto 71.5 % (50-75); Platelet Count 188 X10^3/uL (150-400); Red Blood Cell Count 4.42 X10^6/uL (4.5-5.9); Red Cell Distribution Width 13.1 % (11.6-14.8); White Blood Cell Count 11.4 X10^3/uL (4.5-11.0)
--- NOTE | 2025-02-16 10:18 | PM.PN.EICU ---
Subjective Subjective IF CAMERA ACTIVATED, patient seen via real-time interactive audiovisual communication: Camera activated Consent obtained for tele-poultry veterinarian care: Yes Patient Location: ICU Provider location (State): Other participants/roles: RN, RT Interval history: Pt on the vent, SAT done today and currently on SBT 8//40%. Febrile with elevated leukocytosis. Noted to have increased whitish secretions Vent/sedation bundle Continue SAT/SBT daily , can try PSV today but no plans for extubation Trend abg LTVV on full support Map goal >65 - levophed restarted, I added milrinone TF Trend labs Monitor UO Decrease the lasix to bid and add Diuril 500 mg bid Start TF tricle and slowly advance as tolerated FWF 200 ml Q6H for hypernatremia Sending MRSA screen, resp and blood cx Emperic Vanc & Zosy Dvt ppx #ICU best practices -VTE prophylaxis: lovenox -Stress ulcer prophylaxis: PPI -Nutrition: FEEDs -Glycemic control: na -Vent liberation (if applicable): not ready for extubation Discussed w/ bedside nursing team TELEMEDICINE AND CRITICAL CARE TIME ATTESTATION: I spent a total of 35 minutes of aggregate critical care time on this patient's care today exclusive of procedural time. There is a high probability of sudden clinical deterioration due to acute impairment of vital organ systems that require complex and urgent medical decision making to frequently assess, manipulate, and support vital life-sustaining functions. Lack of these complex and urgent medical care would probably cause rapid clinical deterioration and possible . Telemedicine consent: in chart Provider distant site ([facility]): Persons involved: Patient Patient seen via two-way interactive audiovisual telecommunication. Current Medications Current Medications Medications: Home Medications No Known Home Medications 02/12/25 [History Confirmed 02/12/25] Visit Medications (administered) Generic Name Dose Route Start Last Admin Trade Name Freq PRN Reason Stop Dose Admin Atorvastatin Calcium 40 mg 02/11/25 21:00 02/11/25 21:12 Atorvastatin 20 Mg Tablet PO 40 mg BEDTIME DOROTHY Administration Chlordiazepoxide HCl 50 mg 02/12/25 14:00 02/16/25 05:46 Chlordiazepoxide 25 Mg Capsule TUBE 50 mg Q8HR DOROTHY Administration Chlorhexidine Gluconate 15 ml 02/15/25 10:00 02/16/25 08:52 Chlorhexidine Gluconate 15 Ml Cup PO 15 ml BID DOROTHY Administration Enoxaparin Sodium 40 mg 02/12/25 09:00 02/16/25 08:52 Enoxaparin 40 Mg/0.4 Ml Syringe SUBCUT 40 mg DAILY DOROTHY Administration Famotidine 20 mg 02/11/25 21:00 02/16/25 08:52 Famotidine 20 Mg/2 Ml Vial IV 20 mg BID DOROTHY Administration Heparin Sodium (Porcine) 50 unit 02/13/25 21:00 02/16/25 08:52 Heparin Flush (Cl/Picc/Mid-Line) 50 Unit/5 Ml Syringe IV 50 unit BID DOROTHY Administration dexmedeTOMIDine in 0.9 % NaCL 400 mcg in 100 mls @ 5.579 mls/hr 02/11/25 19:00 02/16/25 01:45 Precedex IV 0 mcg/kg/hr TITRATE DOROTHY 0 mls/hr Titration Protocol 0.2 MCG/KG/HR Propofol 1,000 mg in 100 mls @ 3.348 mls/hr 02/11/25 19:30 02/16/25 08:19 Diprivan IV 0 mcg/kg/min TITRATE DOROTHY 0 mls/hr Titration Protocol 5 MCG/KG/MIN NOREPINEPHRINE BITARTRATE/D5W 4 mg in 250 mls @ 41.844 mls/hr 02/11/25 22:35 02/13/25 07:58 Levophed IV 0 mcg/kg/min TITRATE DOROTHY 0 mls/hr Titration Protocol 0.1 MCG/KG/MIN Sodium Chloride 250 mls @ 21 mls/hr 02/13/25 10:50 02/16/25 04:37 Normal Saline 0.9% IV 10 mls/hr Q24H PRN Administration Flush Acetaminophen 1,000 mg in 100 mls @ 400 mls/hr 02/14/25 21:10 02/16/25 08:55 Ofirmev IV 400 mls/hr Q6H PRN Administration Fever/Mild Pain (1-3) Ceftriaxone Sodium 1,000 mg/ 100 mls @ 200 mls/hr 02/15/25 13:00 02/15/25 19:48 Sodium Chloride IV Infused Q24H DOROTHY Infusion Insulin Glargine 14 unit 02/15/25 21:00 02/16/25 08:55 Insulin Glargine 100 Unit/Ml 3ml Pen SUBCUT 14 unit BID DOROTHY Administration Insulin Human Lispro 0 unit 02/12/25 12:00 02/16/25 06:17 Insulin Lispro 100 Unit/Ml 3ml Vial SUBCUT 4 unit Q6HR DOROTHY Administration Protocol Pantoprazole Sodium 40 mg 02/15/25 09:00 02/16/25 08:53 Pantoprazole 40 Mg Vial IV 40 mg DAILY DOROTHY Administration Potassium Chloride 40 meq 02/15/25 09:30 02/16/25 08:53 Potassium Chloride 20 Meq/15 Ml Udc PO 40 meq Q8H DOROTHY Administration Sodium Chloride 10 ml 02/13/25 10:50 02/14/25 20:51 Sodium Chloride 0.9% Flush IV 10 ml PRN PRN Administration Flush Objective Ventilator Parameters: Ventilator Settings FiO2 40 RT Vent Frequency 15 Ventilator Tidal Volume 530 Exhaled Vt/kg IBW 7 Positive End Expiratory 5 Pressure Inspiratory Phase Time 0.8 I:E Ratio 1:3 Patient Position HOB >= 30 degrees Labs 02/16/25 09:19 02/16/25 00:15 Labs: Laboratory Results - last 24 hr 02/15/25 02/16/25 02/16/25 16:05 00:15 09:19 WBC 10.7 9.6 11.4 H RBC 4.21 L 4.13 L 4.42 L Hgb 12.7 L 12.5 L 13.2 L Hct 37.1 L 36.5 L 39.2 L MCV 88.0 88.5 88.8 MCH 30.0 30.3 29.8 MCHC 34.1 34.2 33.6 RDW 12.7 12.9 13.1 Plt Count 167 169 188 Neut % (Auto) 73.3 71.9 71.5 Lymph % (Auto) 14.2 L 14.2 L 15.3 L [place] % (Auto) 10.0 11.6 10.5 Eos % (Auto) 1.4 L 1.6 L 2.0 Baso % (Auto) 1.1 0.7 0.7 Neut # (Auto) 7800 H 6900 8200 H Lymph # (Auto) 1500 1400 1700 [place] # (Auto) 1100 H 1100 H 1200 H Eos # (Auto) 100 200 200 Baso # (Auto) 100 100 100 Sodium 144 146 H Potassium 3.4 3.3 L Chloride 112 H 112 H Carbon Dioxide 21 L 23 BUN 15 18 Creatinine 0.68 0.79 Estimated GFR > 60 > 60 BUN/Creatinine Ratio 22.1 H 22.8 H Glucose 183 H 203 H Calcium 7.9 L 8.0 L Total Bilirubin 0.5 0.7 AST 42 35 ALT 39 40 Alkaline Phosphatase 64 65 Total Protein 5.3 L 5.8 L Albumin 2.8 L 2.9 L Globulin 2.5 2.9 Albumin/Globulin Ratio 1.1 1.0 Exam Vital Signs (past 8 hours): - 02/16/25 02:30 02/16/25 02:30 02/16/25 03:00 Pulse Rate 73 75 Respiratory Rate 20 20 Blood Pressure 129/69 Pulse Oximetry 96 96 Oxygen Delivery Method 02/16/25 03:00 02/16/25 03:30 02/16/25 03:30 Pulse Rate 76 Respiratory Rate 19 Blood Pressure 121/64 124/64 Pulse Oximetry 95 Oxygen Delivery Method 02/16/25 04:00 02/16/25 04:00 02/16/25 04:00 Pulse Rate 76 Respiratory Rate 19 Blood Pressure 132/65 Pulse Oximetry 98 Oxygen Delivery Method Mechanical Ventilation 02/16/25 04:30 02/16/25 04:30 02/16/25 05:00 Pulse Rate 75 79 Respiratory Rate 21 17 Blood Pressure 121/61 Pulse Oximetry 90 L 95 Oxygen Delivery Method 02/16/25 05:00 02/16/25 05:30 02/16/25 05:30 Pulse Rate 75 Respiratory Rate 19 Blood Pressure 125/66 135/65 Pulse Oximetry 95 Oxygen Delivery Method 02/16/25 06:00 02/16/25 06:00 Pulse Rate 79 Respiratory Rate 20 Blood Pressure 147/70 H Pulse Oximetry 95 Oxygen Delivery Method Fraction of Inspired Oxygen 0.40 Oxygen Delivery Method Mechanical Ventilation Assessment & Plan Time-Based Coding :: [TOTAL MINUTES] spent with patient and on the chart (including review of chart, obtaining history, exam, reviewing outside data, placing orders, documenting exam and treatment plan, and counseling patient) on [DATE].
--- NOTE | 2025-02-16 11:06 | DIET.PN1 ---
Dietary Progress Note Assessment: Pt extubated and reintubated over weekened. Per RN, ICU affirmative action specialist would like do trickle feeds until midnight and wants 200 mL flush q6H, diuresis continues. Placed TF order. Will f/u on tolerance. If pt not being extubated tomorrow, will f/u with ICU affirmative action specialist on restarting feeds. Ht: 185.42 cm Wt: 112 kg BMI: 32.4 Last BM: 02/14/25 (02/14/25 22:00) MNA: Galdino Score: 11 Diet: 02/12/25 08:14 NPO Diet Diet Modifications: May Advance Diet as Tolerated: No NPO Type: Strict 02/16/25 Breakfast Tube Feeding Diet Diet Modifications: TF Supplement type: Pivot 1.5 tootie TF mode of delivery: Continuous Starting flow rate mL/hr: 10 Flow rate goal mL/hr: 10 Titration Schedule to reach Goal Rate: Per ICU affirmative action specialist, stop feeds at midnight Max total daily volume in mL: 1,000 Free fluid: 200 Free Water Frequency: Q6H Comment: 2 Prosource protein packet Q8H, flush 30 mL free water before and after Labs: RBC 4.42 X10^6/uL (4.5-5.9) L 02/16/25 09:19 Hgb 13.2 g/dL (13.5-17.5) L 02/16/25 09:19 Hct 39.2 % (41-53) L 02/16/25 09:19 Creatinine 0.79 mg/dL (0.66-1.25) 02/16/25 00:15 Hemoglobin A1c 11.5 % (4.0-6.0) H 02/11/25 14:15 Electronically Signed by: Gabby Dunlap 02/16/25 11:06 Clinical Dietitian [address] [address]
[2025-02-16] MEDS: PIPERACILLIN/TAZO 3.375 GM in SODIUM CHLORIDE 0.9% 100 ML IV ×2 (11:34→18:00)
[2025-02-16] MEDS: metOLazone 2.5 MG TABLET 5 MG PO ×2 (11:57→21:41)
[2025-02-16] MEDS: VANCOMYCIN 1,250 MG/250 ML PIGGYBACK 250 MG IV ×2 (11:57→20:15)
[2025-02-16 12:32] LABS: MRSA (Nasal) PCR NOT DETECTED (Not Detect)
--- NOTE | 2025-02-16 12:55 | PC.NURSE ---
Addendum entered by Manuela Ramos R.N. 02/16/25 12:57: 1129 incorrectly entered infusion rate instead of dose rate on precedex infusion. Precedex titrated up to dose rate of 0.4 mcg/kg/hr, infusion rate of 11.158 ml/hr Original Note: 1057 incorrectly entered infusion rate instead of dose rate on precedex infusion. Precedex restarted at a dose rate of 0.2mcg/kg/hr, infusion rate of 5.579 ml/hr 1129 incorrectly entered infusion rate instead of dose rate on precedex infusion. Precedex titrated up to dose rate of 0.4 mcg/kg/hr, infusion rate of 11.158
[2025-02-16] MEDS: cefTRIAXone 1,000 MG in SODIUM CHLORIDE 0.9% 100 ML 200 MG IV (13:00)
[2025-02-16 15:57] LABS: Add Manual Diff / Slide Review NO; Basophils Absolute Auto 100 /uL (0-100); Basophils Percent Auto 0.6 % (0-2); Eosinophils Absolute Auto 100 /uL (0-450); Hematocrit 37.5 % (41-53); Hemoglobin 12.5 g/dL (13.5-17.5); Lymphocytes Absolute Auto 1300 /uL (1100-4500); Lymphocytes Percent Auto 13.6 % (25-40); Mean Corpuscular HGB Conc 33.4 % (30-36); Mean Corpuscular Hemoglobin 29.8 PG (26-34); Mean Corpuscular Volume 89.2 fL (80-100); Monocytes Absolute Auto 1000 /uL (0-900); Monocytes Percent Auto 11.4 % (3-14); Neutrophils Absolute Auto 6800 /uL (1500-7000); Neutrophils Percent Auto 73.4 % (50-75); Platelet Count 174 X10^3/uL (150-400); Red Blood Cell Count 4.21 X10^6/uL (4.5-5.9); Red Cell Distribution Width 12.9 % (11.6-14.8); White Blood Cell Count 9.2 X10^3/uL (4.5-11.0)
[2025-02-16 16:08] LABS: Alanine Aminotransferase 36 IU/L (<50); Alkaline Phosphatase 66 U/L (38-126); Aspartate Aminotransferase 28 IU/L (17-59); BUN Creatinine Ratio 21.8 (6-22); Bilirubin Total 0.7 mg/dL (0.2-1.3); Blood Urea Nitrogen 19 mg/dL (9-20); Calcium 7.9 mg/dL (8.4-10.2); Carbon Dioxide 26 mmol/L (22-32); Chloride 109 mmol/L (98-107); Estimated Glomerular Filt Rate > 60 mL/min (>60); Globulin 2.9 g/dL (1.7-4.1); Glucose 251 mg/dL (80-110); HEMOLYSIS < 15 (0-50); Sodium 145 mmol/L (137-145); Total Protein 5.9 g/dL (6.3-8.2)
[2025-02-16] MEDS: POTASSIUM CHLORIDE IN WATER 10 MEQ/100 ML PIGGYBACK 100 MEQ IV ×6 (16:46→22:47)
[2025-02-16] MEDS: dexmedeTOMIDine in 0.9 % NaCL 400 MCG/100 ML PLAST..BAG 11.158 MCG IV (17:02)
--- NOTE | 2025-02-16 19:24 | PC.NURSE ---
Pt tolerated SAT, calm and able to follow simple commands. Rounded with teleintensivist during SAT, see new orders. Pt sedated with precedex after SAT, see MAR. Pt having some fevers, teleintensivist and attending physician notified, see new orders. Pt's mother visited bedside, updated.
[2025-02-16] MEDS: INSULIN GLARGINE 100 UNIT/ML 3ML PEN 16 UNIT SUBCUT (20:49)
--- NOTE | 2025-02-16 23:24 | PM.ICURNDS ---
- Date Patient Seen: 02/16/25 Time Patient Seen: 22:40 :: This patient was seen via real time interactive two-way audiovisual telecommunication. Note: Spoke w/ SANTY Lomax. EMR reviewed. Sedated w/ dexmedetomidine 0.4 mcg/kg/hr Vent: 40% 530 mL RR 15 PEEP 8 cm H20 Continue present POC
[2025-02-17] VITALS (58 sets, daily range): BP systolic 119–147; BP diastolic 59–79; PULSE 51–90; RESP 16–64; TEMP 37.1–39.4; O2SAT 90–97
[2025-02-17] MEDS: POTASSIUM CHLORIDE 20 MEQ/15 ML UDC 40 MEQ PO ×3 (01:34→17:12)
[2025-02-17] MEDS: dexmedeTOMIDine in 0.9 % NaCL 400 MCG/100 ML PLAST..BAG 11.158 MCG IV ×3 (01:35→19:35)
[2025-02-17] MEDS: PIPERACILLIN/TAZO 3.375 GM in SODIUM CHLORIDE 0.9% 100 ML IV ×3 (02:51→18:06)
[2025-02-17] MEDS: VANCOMYCIN 1,250 MG/250 ML PIGGYBACK 250 MG IV (04:02)
[2025-02-17] MEDS: INSULIN LISPRO 100 UNIT/ML 3ML VIAL SUBCUT ×3 (06:02→18:10)
[2025-02-17] MEDS: chlordiazePOXIDE 25 MG CAPSULE 50 MG TUBE ×3 (06:02→21:51)
[2025-02-17 06:07] LABS: BUN Creatinine Ratio 32.1 (6-22); Blood Urea Nitrogen 26 mg/dL (9-20); Calcium 8.3 mg/dL (8.4-10.2); Carbon Dioxide 29 mmol/L (22-32); Chloride 106 mmol/L (98-107); Estimated Glomerular Filt Rate > 60 mL/min (>60); Glucose 275 mg/dL (80-110); HEMOLYSIS < 15 (0-50); Potassium 3.6 mmol/L (3.4-5.1); Sodium 143 mmol/L (137-145)
--- NOTE | 2025-02-17 06:36 | PC.NURSE ---
Floor Worker [place] Note-Patient remains on ventilator and sedated. FIO2 40% TV 530 PeeP 8 RR 15. Patient did not desat during turning, minimal cough and secretions, LS clearing. Precedex 0.4mcg/kg/hr. TF stopped at MN in anticipation patient may be extubated today. Receiving IV Abx, Lasix, and other meds per order, Overall edema decreasing, weight down, total UOP for shift 2575ml.
--- NOTE | 2025-02-17 07:50 | P.TELICUPN_ITS ---
Subjective Subjective IF CAMERA ACTIVATED, patient seen via real-time interactive audiovisual communication: Camera activated Consent obtained for tele-transmission systems operator care: Yes Patient Location: ICU Provider location (State): [place] Other participants/roles: RN. RT Interval history: remains intubated currently on SBT 06/30, 405 FIO2 continuing empiric abx for PNA WBC normalized hyperNA improving continuing diuresis Current Medications Current Medications Medications: Home Medications No Known Home Medications 02/12/25 [History Confirmed 02/12/25] Visit Medications (administered) Generic Name Dose Route Start Last Admin Trade Name Freq PRN Reason Stop Dose Admin Atorvastatin Calcium 40 mg 02/11/25 21:00 02/11/25 21:12 Atorvastatin 20 Mg Tablet PO 40 mg BEDTIME DOROTHY Administration Chlordiazepoxide HCl 50 mg 02/12/25 14:00 02/17/25 06:02 Chlordiazepoxide 25 Mg Capsule TUBE 50 mg Q8HR DOROTHY Administration Chlorhexidine Gluconate 15 ml 02/15/25 10:00 02/16/25 20:15 Chlorhexidine Gluconate 15 Ml Cup PO 15 ml BID DOROTHY Administration Enoxaparin Sodium 40 mg 02/12/25 09:00 02/16/25 08:52 Enoxaparin 40 Mg/0.4 Ml Syringe SUBCUT 40 mg DAILY DOROTHY Administration Famotidine 20 mg 02/11/25 21:00 02/16/25 20:15 Famotidine 20 Mg/2 Ml Vial IV 20 mg BID DOROTHY Administration Furosemide 40 mg 02/16/25 12:00 02/16/25 23:39 Furosemide 40 Mg/4 Ml Vial IV 40 mg Q12HR DOROTHY Administration Heparin Sodium (Porcine) 50 unit 02/13/25 21:00 02/16/25 20:15 Heparin Flush (Cl/Picc/Mid-Line) 50 Unit/5 Ml Syringe IV 50 unit BID DOROTHY Administration dexmedeTOMIDine in 0.9 % NaCL 400 mcg in 100 mls @ 5.579 mls/hr 02/11/25 19:00 02/17/25 06:07 Precedex IV 0.4 mcg/kg/hr TITRATE DOROTHY 11.158 mls/hr Titration Protocol 0.2 MCG/KG/HR Propofol 1,000 mg in 100 mls @ 3.348 mls/hr 02/11/25 19:30 02/16/25 08:19 Diprivan IV 0 mcg/kg/min TITRATE DOROTHY 0 mls/hr Titration Protocol 5 MCG/KG/MIN NOREPINEPHRINE BITARTRATE/D5W 4 mg in 250 mls @ 41.844 mls/hr 02/11/25 22:35 02/13/25 07:58 Levophed IV 0 mcg/kg/min TITRATE DOROTHY 0 mls/hr Titration Protocol 0.1 MCG/KG/MIN Sodium Chloride 250 mls @ 21 mls/hr 02/13/25 10:50 02/17/25 07:28 Normal Saline 0.9% IV Infused Q24H PRN Infusion Flush Acetaminophen 1,000 mg in 100 mls @ 400 mls/hr 02/14/25 21:10 02/16/25 16:17 Ofirmev IV Infused Q6H PRN Infusion Fever/Mild Pain (1-3) Ceftriaxone Sodium 1,000 mg/ 100 mls @ 200 mls/hr 02/15/25 13:00 02/16/25 13:30 Sodium Chloride IV Infused Q24H DOROTHY Infusion Piperacillin Sod/Tazobactam 100 mls @ 25 mls/hr 02/16/25 11:00 02/17/25 07:27 Sod 3.375 gm/ Sodium Chloride IV Infused Q8H DOROTHY Infusion Vancomycin HCl 1,250 mg in 250 mls @ 250 mls/hr 02/16/25 12:00 02/17/25 06:07 Vancomycin IV Infused Q8H DOROTHY Infusion Insulin Glargine 16 unit 02/16/25 21:00 02/16/25 20:49 Insulin Glargine 100 Unit/Ml 3ml Pen SUBCUT 16 unit BID DOROTHY Administration Insulin Human Lispro 0 unit 02/12/25 12:00 02/17/25 06:02 Insulin Lispro 100 Unit/Ml 3ml Vial SUBCUT 7 unit Q6HR DOROTHY Administration Protocol Pantoprazole Sodium 40 mg 02/15/25 09:00 02/16/25 08:53 Pantoprazole 40 Mg Vial IV 40 mg DAILY DOROTHY Administration Potassium Chloride 40 meq 02/15/25 09:30 02/17/25 01:34 Potassium Chloride 20 Meq/15 Ml Udc PO 40 meq Q8H DOROTHY Administration Sodium Chloride 10 ml 02/13/25 10:50 02/14/25 20:51 Sodium Chloride 0.9% Flush IV 10 ml PRN PRN Administration Flush Objective Ventilator Parameters: Ventilator Settings FiO2 40 RT Vent Frequency 15 Ventilator Tidal Volume 530 Exhaled Vt/kg IBW 7 Positive End Expiratory 8 Pressure Ventilator Pressure Support 8 Inspiratory Phase Time 0.8 I:E Ratio 1:2.4 Patient Position HOB >= 30 degrees Imaging Chest x-ray: My impression: IMPROVING Radiologist's impression: MILD CONGESTION, NO INLFILTRATE ett 3.7 CM ABOVE MIRIAM Labs 02/16/25 15:46 02/17/25 05:30 Labs: Laboratory Results - last 24 hr 02/16/25 02/16/25 02/16/25 09:19 10:45 15:46 WBC 11.4 H 9.2 RBC 4.42 L 4.21 L Hgb 13.2 L 12.5 L Hct 39.2 L 37.5 L MCV 88.8 89.2 MCH 29.8 29.8 MCHC 33.6 33.4 RDW 13.1 12.9 Plt Count 188 174 Neut % (Auto) 71.5 73.4 Lymph % (Auto) 15.3 L 13.6 L [place] % (Auto) 10.5 11.4 Eos % (Auto) 2.0 1.0 L Baso % (Auto) 0.7 0.6 Neut # (Auto) 8200 H 6800 Lymph # (Auto) 1700 1300 [place] # (Auto) 1200 H 1000 H Eos # (Auto) 200 100 Baso # (Auto) 100 100 Sodium 145 Potassium 3.0 L Chloride 109 H Carbon Dioxide 26 BUN 19 Creatinine 0.87 Estimated GFR > 60 BUN/Creatinine Ratio 21.8 Glucose 251 H Calcium 7.9 L Total Bilirubin 0.7 AST 28 ALT 36 Alkaline Phosphatase 66 Total Protein 5.9 L Albumin 3.0 L Globulin 2.9 Albumin/Globulin Ratio 1.0 Nasal Screen MRSA (PCR) Not detected 02/17/25 05:30 WBC RBC Hgb Hct MCV MCH MCHC RDW Plt Count Neut % (Auto) Lymph % (Auto) [place] % (Auto) Eos % (Auto) Baso % (Auto) Neut # (Auto) Lymph # (Auto) [place] # (Auto) Eos # (Auto) Baso # (Auto) Sodium 143 Potassium 3.6 Chloride 106 Carbon Dioxide 29 BUN 26 H Creatinine 0.81 Estimated GFR > 60 BUN/Creatinine Ratio 32.1 H Glucose 275 H Calcium 8.3 L Total Bilirubin AST ALT Alkaline Phosphatase Total Protein Albumin Globulin Albumin/Globulin Ratio Nasal Screen MRSA (PCR) Exam Vital Signs (past 8 hours): - 02/17/25 00:00 02/17/25 00:00 02/17/25 00:00 Temperature 98.7 F Pulse Rate 51 L Respiratory Rate 17 Blood Pressure 131/66 Pulse Oximetry 96 Oxygen Delivery Method Mechanical Ventilation 02/17/25 00:30 02/17/25 00:30 02/17/25 01:00 Temperature Pulse Rate 52 L 54 L Respiratory Rate 18 17 Blood Pressure 137/67 Pulse Oximetry 94 97 Oxygen Delivery Method 02/17/25 01:00 02/17/25 01:30 02/17/25 01:30 Temperature Pulse Rate 56 L Respiratory Rate 17 Blood Pressure 123/65 123/66 Pulse Oximetry 97 Oxygen Delivery Method 02/17/25 02:00 02/17/25 02:00 02/17/25 02:30 Temperature Pulse Rate 55 L Respiratory Rate 19 Blood Pressure 130/66 119/64 Pulse Oximetry 96 Oxygen Delivery Method 02/17/25 02:30 02/17/25 03:00 02/17/25 03:00 Temperature Pulse Rate 57 L 57 L Respiratory Rate 18 18 Blood Pressure 121/64 Pulse Oximetry 97 97 Oxygen Delivery Method 02/17/25 03:30 02/17/25 03:30 02/17/25 04:00 Temperature Pulse Rate 57 L Respiratory Rate 18 Blood Pressure 120/64 122/63 Pulse Oximetry 97 Oxygen Delivery Method 02/17/25 04:00 02/17/25 04:00 02/17/25 04:30 Temperature 100.0 F H Pulse Rate 58 L Respiratory Rate 18 Blood Pressure 128/61 Pulse Oximetry 97 Oxygen Delivery Method Mechanical Ventilation 02/17/25 04:30 02/17/25 05:00 02/17/25 05:00 Temperature Pulse Rate 56 L 58 L Respiratory Rate 18 19 Blood Pressure 125/60 Pulse Oximetry 94 95 Oxygen Delivery Method 02/17/25 05:30 02/17/25 05:30 02/17/25 06:00 Temperature Pulse Rate 60 Respiratory Rate 19 Blood Pressure 123/59 L 126/61 Pulse Oximetry 93 Oxygen Delivery Method 02/17/25 06:00 Temperature Pulse Rate 58 L Respiratory Rate 18 Blood Pressure Pulse Oximetry 96 Oxygen Delivery Method Fraction of Inspired Oxygen 0.40 Oxygen Delivery Method Mechanical Ventilation Narrative Exam Narrative: intubated, opening eyes spontaneously , looking around currently on SBT NAD calm Quality TeleICU Stress Ulcer Stress ulcer prophylaxis: yes Assessment & Plan Assessment and plan (1) Brain TIA: Status: Acute (2) DKA (diabetic ketoacidosis): Qualifiers: Diabetes mellitus complication detail: without coma Diabetes mellitus type: other specified (including MALI) Qualified Code(s): E13.10 - Other specified diabetes mellitus with ketoacidosis without coma Status: Acute (3) Acute respiratory failure: Status: Acute Assessment & Plan narrative: 64 year old male admitted to ICU with: AMS Acute hyperactive Delirium etoh withdrawal hyperglycemia MAXINE acute respiratory failrue -Neurochecks/seizure precautions - weaning precedex in anticipation of extubation - librium - ativan prn - vent/sedation bundle - tolerating PSV this am- will consider another trial of extubation if meets criteria - will continue diuresis and empirc zosyn for PNA - per RN prior MRSA screen neg, will resend today and stop vanco, very low suspicion for MRSA PNA given improved cxr with no infiltrate - follow up cultures from 02/16 -keep map above 65- not on pressors - monitor UO- goal net neg, continue diuretics today, reassess tomorrow - cr 0.81 -replace lytes prn -keep glucose 140-180s - not well controlled this am, lantus increased to 20 u BID -Tube feeds, glucerna -gi/dvt ppx -please call eICU prn total Critical Care time = 36 min Time-Based Coding :: I spent 36 minuteswith patient and on the chart (including review of chart, obtaining history, exam, reviewing outside data, placing orders, documenting exam and treatment plan, and counseling patient) on02/17/25
[2025-02-17] MEDS: FAMOTIDINE 20 MG/2 ML VIAL IV ×2 (08:05→20:18)
[2025-02-17] MEDS: ENOXAPARIN 40 MG/0.4 ML SYRINGE SUBCUT (08:05)
[2025-02-17] MEDS: CHLORHEXIDINE GLUCONATE 15 ML CUP PO ×2 (08:05→20:18)
[2025-02-17] MEDS: PANTOPRAZOLE 40 MG VIAL IV (08:06)
[2025-02-17] MEDS: INSULIN GLARGINE 100 UNIT/ML 3ML PEN 16 UNIT SUBCUT (08:07)
--- NOTE | 2025-02-17 08:24 | DI.RAD.S_ITS ---
PROCEDURE: XR CHEST 1V INDICATIONS: fever TECHNIQUE: One view of the chest was acquired. COMPARISON: [facility], CR, XR CHEST 1V, 02/14/2025, 17:08. FINDINGS: Surgical changes and devices: ETT tip is approximately 3.7 cm above the silvano. NG tube tip is below the left hemidiaphragm. Lungs and pleura: Mild pulmonary vascular congestion is seen. No definite focal infiltrate. No pleural effusions or pneumothorax. Mediastinum: Mediastinal contours appear normal. Heart size is enlarged. Bones and chest wall: No suspicious bony lesions. Overlying soft tissues appear unremarkable. IMPRESSION: Mild congestion. No definite focal infiltrate, pleural effusion or pneumothorax. Dictated by: Vladsilav Dempsey M.D. on 02/17/2025 at 9:40 Approved by: Vladislav Dempsey M.D. on 02/17/2025 at 9:41
--- NOTE | 2025-02-17 10:19 | PC.NURSE ---
Addendum entered by Rica Phoenix R.N. 02/17/25 13:43: 1230- Patient coughed up descent amount of yellow phlegm around ET tube\. Residuals/air flush checked on OG tube audible suction and air flush through mouth noted. Diminished air flush noted on stomach through auscultation. MD updated to possible retraction of OG tube. Verbal order for advancement of OG tube and repeat chest XR for placement. OG tube advanced and placement checked through auscultation of stomach, air flush noted. Awaiting XR results for final confirmation of placement. Addendum entered by Rica Phoenix R.N. 02/17/25 13:20: 1030- RASS +2, patient tachycardic, tachypneic, hypertensive and restless/agitated. Precedex gtt uptitrated per MAR/protocol, RASS of +1 1130. RT bedside to draw ABG, patient with continued patient tachycardic, tachypneic, hypertensive and restless/agitated. Per criteria/protocol patient failed SBT. Precedex uptritated per MAR/protocol. MD/Sheet Metal Duct Installer Helper updated. Original Note: Shift Note 0825- Patient SAT initiated RASS -3, Precedex gtt titrated down per protocol to RASS of -2, patient able to wake at moments, VSS. 0925- SBT initiated with RT at bedside, RASS of -1, patient awake and able to squeeze hand, VSS.
--- NOTE | 2025-02-17 10:24 | DIET.PN1 ---
Addendum entered by Gabby Dunlap 02/17/25 16:54: TF order updated as follows: Continuous enteral nutrition of Pivot 1.5 L starting at 10 mL/hr and advance as tolerated Q12H until goal rate of 40 mL/hr. 2 Prosource protein packets Q12H (flush with 30 mL free water before and after). Flush 200 mL Q6H. Flush plus goal rate feeds plus current IV fluids meets fluids needs. Goal rate provides 1440 kcals (90% EER), 134 g protein (90% EER), and 166 g carbs. Addendum entered by Gabby Dunlap 02/17/25 12:45: Per RN, pt not able to be extubated. Checking TF placement. Per RN, abd is soft and had bowel movement yesterday. Per hospitalist can restart tube feeds once confirmed tube placement is correct and will check phos and magnesium r/t to risk for refeeding syndrome. Original Note: Dietary Progress Note Assessment: TF stopped at midnight per provider orders for possible extubation today. If pt unable to extubate, will restart feeds. Ht: 185.42 cm Wt: 110.5 kg BMI: 32.4 UBW: Last BM: 02/16/25 (02/16/25 18:00) MNA: Galdino Score: 14 Diet: 02/12/25 08:14 NPO Diet Diet Modifications: May Advance Diet as Tolerated: No NPO Type: Strict Labs: RBC 4.21 X10^6/uL (4.5-5.9) L 02/16/25 15:46 Hgb 12.5 g/dL (13.5-17.5) L 02/16/25 15:46 Hct 37.5 % (41-53) L 02/16/25 15:46 Creatinine 0.81 mg/dL (0.66-1.25) 02/17/25 05:30 Hemoglobin A1c 11.5 % (4.0-6.0) H 02/11/25 14:15 Electronically Signed by: Gabby Dunlap 02/17/25 10:24 Clinical Dietitian [address] [address]
--- NOTE | 2025-02-17 11:01 | P.PN_ITS ---
Subjective Subjective Interval history: Subjective: Not obtainable, patient is intubated. Hospital course: 02/12: Further history was obtained and patient drinks 40 proof alcohol throughout the day in coffee Overnight patient was intubated and placed on a propofol after phenobarbital. Earth Sciences Professor was consulted maintaining sedation intubation with Precedex and propofol. Hyperglycemia normalized electrolytes improved calcium was low and was replaced We will maintain intubation sedation with Precedex and propofol all start Glucerna tube feeding and Librium for NG tube 02/13: Patient has continued to require intravenous sedation with Precedex propofol as started tube feedings is managed on the ventilator by the legal assistant. We will continue to manage while intubated for alcohol withdrawal with delirium tremens 02/14: He has weaned off Levophed and calm on the ventilator this morning. Propofol was weaned off this morning for a weaning trial. The ICU team extubated the patient after a weaning trial and he experienced respiratory distress, treated with IV furosemide for volume overload. He opens eyes to voice but is very weak. He continues on Precedex. Net fluid volume positive 10+ liters since admission. The patient became progressively short of breath and was re-intubated and placed back on mechanical ventilation. 02/15: Intubated, sedated, no new events overnight. Net volume status -4.1 liters since yesterday. 02/16: He was reintubated over the weekend. He was had a good net diuresis with a proximally 7 L off since initiating his diuresis. Echo reveals normal ventricle size and thickness with an EF of 55-60% and no wall motion abnormalities. He was on a sedation vacation this morning. 02/17: Stable, undergoing sedation vacation and breathing trial. SaO2 35%, peep 8. Exam Vital Signs (past 8 hours): - 02/17/25 03:30 02/17/25 03:30 02/17/25 04:00 Temperature Pulse Rate 57 L Respiratory Rate 18 Blood Pressure 120/64 122/63 Pulse Oximetry 97 Oxygen Delivery Method 02/17/25 04:00 02/17/25 04:00 02/17/25 04:30 Temperature 100.0 F H Pulse Rate 58 L Respiratory Rate 18 Blood Pressure 128/61 Pulse Oximetry 97 Oxygen Delivery Method Mechanical Ventilation 02/17/25 04:30 02/17/25 05:00 02/17/25 05:00 Temperature Pulse Rate 56 L 58 L Respiratory Rate 18 19 Blood Pressure 125/60 Pulse Oximetry 94 95 Oxygen Delivery Method 02/17/25 05:30 02/17/25 05:30 02/17/25 06:00 Temperature Pulse Rate 60 Respiratory Rate 19 Blood Pressure 123/59 L 126/61 Pulse Oximetry 93 Oxygen Delivery Method 02/17/25 06:00 02/17/25 06:30 02/17/25 06:30 Temperature Pulse Rate 58 L 60 Respiratory Rate 18 18 Blood Pressure 127/62 Pulse Oximetry 96 96 Oxygen Delivery Method 02/17/25 07:00 02/17/25 07:00 02/17/25 07:30 Temperature Pulse Rate 59 L Respiratory Rate 18 Blood Pressure 127/62 131/64 Pulse Oximetry 96 Oxygen Delivery Method 02/17/25 07:30 02/17/25 08:00 02/17/25 08:00 Temperature Pulse Rate 61 61 Respiratory Rate 19 19 Blood Pressure 129/61 Pulse Oximetry 95 96 Oxygen Delivery Method 02/17/25 08:00 02/17/25 08:30 02/17/25 08:30 Temperature Pulse Rate 64 Respiratory Rate 16 Blood Pressure 132/65 Pulse Oximetry 93 Oxygen Delivery Method Mechanical Ventilation 02/17/25 09:00 02/17/25 09:00 Temperature Pulse Rate 69 Respiratory Rate 20 Blood Pressure 136/64 Pulse Oximetry 94 Oxygen Delivery Method Fraction of Inspired Oxygen 0.40 Oxygen Delivery Method Mechanical Ventilation Narrative Exam Narrative: Intubated and mildly sedated. On the ventilator. Lungs are clear symmetric breath sounds. Heart is regular. Abdomen is soft and minimally distended. Extremities are free of edema. Skin is free of rash or lesions. Arouses to name and follows commands. Objective Imaging Chest x-ray: My impression: Mostly clear, no infiltrates. Mild volume overload. Labs 02/16/25 15:46 02/17/25 05:30 Labs: Laboratory Results - last 24 hr 02/16/25 02/16/25 02/17/25 10:45 15:46 05:30 WBC 9.2 RBC 4.21 L Hgb 12.5 L Hct 37.5 L MCV 89.2 MCH 29.8 MCHC 33.4 RDW 12.9 Plt Count 174 Neut % (Auto) 73.4 Lymph % (Auto) 13.6 L [place] % (Auto) 11.4 Eos % (Auto) 1.0 L Baso % (Auto) 0.6 Neut # (Auto) 6800 Lymph # (Auto) 1300 [place] # (Auto) 1000 H Eos # (Auto) 100 Baso # (Auto) 100 Sodium 145 143 Potassium 3.0 L 3.6 Chloride 109 H 106 Carbon Dioxide 26 29 BUN 19 26 H Creatinine 0.87 0.81 Estimated GFR > 60 > 60 BUN/Creatinine Ratio 21.8 32.1 H Glucose 251 H 275 H Calcium 7.9 L 8.3 L Total Bilirubin 0.7 AST 28 ALT 36 Alkaline Phosphatase 66 Total Protein 5.9 L Albumin 3.0 L Globulin 2.9 Albumin/Globulin Ratio 1.0 Nasal Screen MRSA (PCR) Not detected [facility] Medical History Bronchitis Hypertensive urgency Mass of finger of left hand Left knee pain (05/16/16) History of colon polyps Uncontrolled type 2 diabetes mellitus Excessive thirst Body dysmorphic disorder BMI 39.0-39.9,adult Pain of right great toe Bilateral knee pain Hyperlipidemia associated with type 2 diabetes mellitus Type 2 diabetes mellitus Primary hypertension Erectile dysfunction Plaque psoriasis Obstructive sleep apnea of adult Umbilical hernia without obstruction and without gangrene (10/09/16) Primary insomnia (05/16/16) Surgical History Status post right partial knee replacement History of umbilical hernia repair (12/13/16) History of colonoscopy with polypectomy (08/05/09) Family History Grandfather No problems noted. Social History marital status: unmarried,single number of children: 0 household members: family lives independently: Yes caregiver/support person: No pets and animals: Yes (2/3 year old puppy; sleeps on pt bed) education level: high school occupational status: employed Smoking Status: Current every day smoker quit status: considering quitting alcohol intake: current substance use type: does not use Assessment & Plan Assessment & Plan narrative: Alcohol withdrawal. Present on admission and improved. -Appears to be near-resolved at this point, sedated on propofol and Precedex -Further history was obtained and patient drinks 40 proof alcohol throughout the day in coffee Severe metabolic encephalopathy. Present on admission and improved. Acute hypoxic respiratory failure due to acute diastolic heart failure. New and improving. -BiPap, oxygen, diuresis furosemide 40mg IV q8hr -cautious extubation plans, likely tomorrow as he is still +6 liters volume positive Hypertension. Present on admission and active. -improved, likely due to volume overload -monitor with diureses Hypernatremia. New and improved. Alcohol use disorder. Present on admission and active. Obesity class 1. Present on admission and active. PLAN: -continue diuresis -discussed with ICU doctor at morning rounds. -sedation vacation and breathing trial with possible extubation. -step ceftriaxone and vancomycin, continue Zosyn. Monitor cultures. Time-Based Coding :: [TOTAL MINUTES] spent with patient and on the chart (including review of chart, obtaining history, exam, reviewing outside data, placing orders, documenting exam and treatment plan, and counseling patient) on [DATE]. Quality VTE Deep Vein Thrombosis/Pulmonary Embolism Present on Admission: No
--- NOTE | 2025-02-17 11:16 | CM.DPNOTE ---
DCP note STRIP MINE SUPERVISOR reviewed EMR per chart/provider/RN, pt remains intubated today. Will attempt to extubate. See RN notes for more. Plan: CM team to follow for bedside assessment and eventual PT eval with pt when more medically appropriate to determine discharge planning needs and pt's interest in ETOH resources. ELIS Downing
[2025-02-17] MEDS: FUROSEMIDE 40 MG/4 ML VIAL IV (11:31)
[2025-02-17 11:35] LABS: Allen Test for ABG Passed? Positive; Base Excess ABG 9.3 mmol/L (-2-3); Blood Gas Collection Site Right Radial; Blood Gas Mode CPAP/PS; Delivery System Adult Ventilator; HCO3 ABG 32 mmol/L (23-27); Oxygen Saturation ABG 93 % (95-100); PCO2 ABG 35.8 mmHg (35-45); PEEP 5; PO2 ABG 58 mmHg (80-100); Pressure Support 8; TCO2 ABG 31 mmol/L (23-27); pH ABG 7.56 (7.35-7.45)
--- NOTE | 2025-02-17 12:57 | DI.RAD.S_ITS ---
PROCEDURE: XR CHEST 1V INDICATIONS: NGT placement TECHNIQUE: One view of the chest was acquired. COMPARISON: [facility], CR, XR CHEST 1V, 02/17/2025, 8:19. FINDINGS: Surgical changes and devices: ETT tip is approximately 3.8 cm above the silvano. NG tube tip is below the left hemidiaphragm and is in the expected location of stomach lumen. Lungs and pleura: Ill-defined airspace opacity in left lower lung field suggestive of small left lower lobe infiltrate versus atelectasis. No significant pleural effusion. No pneumothorax. Mediastinum: Mediastinal contours appear normal. Heart size is enlarged. Bones and chest wall: No suspicious bony lesions. Overlying soft tissues appear unremarkable. IMPRESSION: NG tube tip is in the expected location of stomach lumen below the left hemidiaphragm. Suggestion of small left lower lobe infiltrate versus atelectasis. No pleural effusion or pneumothorax. Dictated by: Vladislav Dempsey M.D. on 02/17/2025 at 13:54 Approved by: Vladislav Dempsey M.D. on 02/17/2025 at 13:55
[2025-02-17] MEDS: ACETAMINOPHEN IV 1,000 MG/100 ML VIAL 400 MG IV (15:19)
[2025-02-17 17:38] LABS: MRSA (Nasal) PCR NOT DETECTED (Not Detect)
--- NOTE | 2025-02-17 20:46 | PM.ICURNDS ---
- :: This patient was seen via real time interactive two-way audiovisual telecommunication. remains intubatedo n precedexkanues to be diuresed after failing SBT this AM. he is synchronous with the vent, and VSS. no labs pending, will monitor UO and ocntinue abx.
[2025-02-17] MEDS: INSULIN GLARGINE 100 UNIT/ML 3ML PEN 20 UNIT SUBCUT (20:54)
[2025-02-18] VITALS (62 sets, daily range): BP systolic 106–172; BP diastolic 56–88; PULSE 57–101; RESP 14–31; TEMP 37.4–39.1; O2SAT 91–99
[2025-02-18] MEDS: FUROSEMIDE 40 MG/4 ML VIAL IV (00:07)
[2025-02-18] MEDS: INSULIN LISPRO 100 UNIT/ML 3ML VIAL SUBCUT ×6 (00:25→21:35)
[2025-02-18] MEDS: POTASSIUM CHLORIDE 20 MEQ/15 ML UDC 40 MEQ PO ×3 (01:30→16:57)
[2025-02-18] MEDS: PIPERACILLIN/TAZO 3.375 GM in SODIUM CHLORIDE 0.9% 100 ML IV ×3 (02:42→18:06)
[2025-02-18] MEDS: dexmedeTOMIDine in 0.9 % NaCL 400 MCG/100 ML PLAST..BAG 11.158 MCG IV (04:10)
[2025-02-18] MEDS: ACETAMINOPHEN IV 1,000 MG/100 ML VIAL 400 MG IV ×2 (04:18→17:51)
[2025-02-18 05:38] LABS: Hematocrit 38.3 % (41-53); Hemoglobin 12.7 g/dL (13.5-17.5); Mean Corpuscular HGB Conc 33.3 % (30-36); Mean Corpuscular Hemoglobin 29.8 PG (26-34); Mean Corpuscular Volume 89.5 fL (80-100); Platelet Count 160 X10^3/uL (150-400); Red Blood Cell Count 4.27 X10^6/uL (4.5-5.9); Red Cell Distribution Width 13.1 % (11.6-14.8); White Blood Cell Count 11.9 X10^3/uL (4.5-11.0)
[2025-02-18 05:57] LABS: Alanine Aminotransferase 35 IU/L (<50); Alkaline Phosphatase 65 U/L (38-126); Aspartate Aminotransferase 27 IU/L (17-59); BUN Creatinine Ratio 34.8 (6-22); Bilirubin Total 0.9 mg/dL (0.2-1.3); Blood Urea Nitrogen 40 mg/dL (9-20); Calcium 8.4 mg/dL (8.4-10.2); Carbon Dioxide 31 mmol/L (22-32); Chloride 105 mmol/L (98-107); Estimated Glomerular Filt Rate > 60 mL/min (>60); Globulin 3.1 g/dL (1.7-4.1); Glucose 307 mg/dL (80-110); HEMOLYSIS < 15 (0-50); Magnesium 1.9 mg/dL (1.6-2.3); Potassium 3.5 mmol/L (3.4-5.1); Sodium 143 mmol/L (137-145); Total Protein 6.1 g/dL (6.3-8.2)
[2025-02-18] MEDS: chlordiazePOXIDE 25 MG CAPSULE 50 MG TUBE (06:12)
--- NOTE | 2025-02-18 07:02 | PC.NURSE ---
Waste Picker Note-Patient remains on ventilator, no changes from previous settings. Sedated with Precedex at 0.4mcg/kg/hr throughout night, RASS -2 to -3, rate decreased to 0.3mcg in am. VSS. Lung sounds slightly coarse. Tolerating tube feeding via OGT, rate increased to 20ml/hr in am. T-max 102.7, IV Tylenol given, also used ice packs and fan. BG remains elevated, 288, 297, 326, insulin given as ordered.
--- NOTE | 2025-02-18 07:50 | P.PN_ITS ---
Subjective Subjective Interval history: S: Not obtainable, intubated. Overnight events: Her has a fever. Is diuresing. Suctioning of secretions continuous. ICU doctor changes: Decrease Lasix to once a day, continue sedation vacation and then execute breathing trial. FiO2 is 35 with a PEEP of 5. The patient did have a low-grade temperature overnight. Hospital course: 02/12: Further history was obtained and patient drinks 40 proof alcohol throughout the day in coffee Overnight patient was intubated and placed on a propofol after phenobarbital. Financial Compliance Manager was consulted maintaining sedation intubation with Precedex and propofol. Hyperglycemia normalized electrolytes improved calcium was low and was replaced We will maintain intubation sedation with Precedex and propofol all start Glucerna tube feeding and Librium for NG tube 02/13: Patient has continued to require intravenous sedation with Precedex propofol as started tube feedings is managed on the ventilator by the industrial electrical engineer. We will continue to manage while intubated for alcohol withdrawal with delirium tremens 02/14: He has weaned off Levophed and calm on the ventilator this morning. Propofol was weaned off this morning for a weaning trial. The ICU team extubated the patient after a weaning trial and he experienced respiratory distress, treated with IV furosemide for volume overload. He opens eyes to voice but is very weak. He continues on Precedex. Net fluid volume positive 10+ liters since admission. The patient became progressively short of breath and was re-intubated and placed back on mechanical ventilation. 02/15: Intubated, sedated, no new events overnight. Net volume status -4.1 liters since yesterday. 02/16: He was reintubated over the weekend. He was had a good net diuresis with a proximally 7 L off since initiating his diuresis. Echo reveals normal ventricle size and thickness with an EF of 55-60% and no wall motion abnormalities. He was on a sedation vacation this morning. 02/17: Stable, did well with sedation vacation, but failed breathing trial after about 2 hours with increased respiratory rate. Plan to diurese for another day and continue antibiotics with Zosyn. Vancomycin stopped due to negative MRSA screen. SaO2 35%, peep 8. Sputum culture sent. Exam Vital Signs (past 8 hours): - 02/18/25 00:00 02/18/25 00:00 02/18/25 00:00 Temperature 100.4 F H Pulse Rate 61 Respiratory Rate 19 Blood Pressure 118/64 Pulse Oximetry 98 Oxygen Delivery Method Mechanical Ventilation 02/18/25 00:30 02/18/25 00:30 02/18/25 01:00 Temperature Pulse Rate 61 Respiratory Rate 19 Blood Pressure 123/66 124/64 Pulse Oximetry 98 Oxygen Delivery Method 02/18/25 01:00 02/18/25 01:30 02/18/25 01:30 Temperature Pulse Rate 60 60 Respiratory Rate 17 16 Blood Pressure 120/64 Pulse Oximetry 96 94 Oxygen Delivery Method 02/18/25 02:00 02/18/25 02:00 02/18/25 02:30 Temperature Pulse Rate 64 Respiratory Rate 18 Blood Pressure 129/72 118/65 Pulse Oximetry 95 Oxygen Delivery Method 02/18/25 02:30 02/18/25 03:00 02/18/25 03:00 Temperature Pulse Rate 63 62 Respiratory Rate 16 14 Blood Pressure 112/63 Pulse Oximetry 96 95 Oxygen Delivery Method 02/18/25 03:30 02/18/25 03:30 02/18/25 04:00 Temperature Pulse Rate 62 Respiratory Rate 17 Blood Pressure 109/64 Pulse Oximetry 97 Oxygen Delivery Method Mechanical Ventilation 02/18/25 04:00 02/18/25 04:00 02/18/25 04:18 Temperature 101.3 F H 101.3 F H Pulse Rate 62 Respiratory Rate 16 Blood Pressure 113/67 Pulse Oximetry 97 Oxygen Delivery Method 02/18/25 04:30 02/18/25 04:30 02/18/25 05:00 Temperature Pulse Rate 61 Respiratory Rate 17 Blood Pressure 123/67 109/60 Pulse Oximetry 96 Oxygen Delivery Method 02/18/25 05:00 02/18/25 05:30 02/18/25 05:30 Temperature Pulse Rate 62 62 Respiratory Rate 18 17 Blood Pressure 116/63 Pulse Oximetry 97 95 Oxygen Delivery Method 02/18/25 06:00 02/18/25 06:00 Temperature Pulse Rate 64 Respiratory Rate 19 Blood Pressure 119/67 Pulse Oximetry 96 Oxygen Delivery Method Fraction of Inspired Oxygen 0.40 Oxygen Delivery Method Mechanical Ventilation Narrative Exam Narrative: Patient is sedated Patient is on the ventilator, OG tube in place. ?Sung catheter in place. Lungs are clear. Heart is regular. Abdomen is non distended, and soft. Extremities are free of edema. Skin is free of rash or lesions. Joints are not swollen or deformed. Objective Imaging Chest x-ray: Radiologist's impression: 02/17: NG tube tip is in the expected location of stomach lumen below the left hemidiaphragm. Suggestion of small left lower lobe infiltrate versus atelectasis. No pleural effusion or pneumothorax. Labs 02/18/25 05:30 02/18/25 05:30 Labs: Laboratory Results - last 24 hr 02/17/25 02/17/25 02/18/25 11:31 16:00 05:30 WBC 11.9 H RBC 4.27 L Hgb 12.7 L Hct 38.3 L MCV 89.5 MCH 29.8 MCHC 33.3 RDW 13.1 Plt Count 160 ABG Sample Site Right radial ABG pH 7.56 H ABG pCO2 35.8 ABG pO2 58 L ABG HCO3 32 H ABG Total CO2 31 H ABG O2 Saturation 93 L ABG Base Excess 9.3 H Zachariah Test Positive O2 Delivery Device Adult ventilator Mode of Support Cpap/ps FiO2 % 40.0 % Pressure Support 8 PEEP or CPAP 5 Sodium 143 Potassium 3.5 Chloride 105 Carbon Dioxide 31 BUN 40 H Creatinine 1.15 Estimated GFR > 60 BUN/Creatinine Ratio 34.8 H Glucose 307 H Calcium 8.4 Phosphorus 4.0 H D Magnesium 1.9 Total Bilirubin 0.9 AST 27 ALT 35 Alkaline Phosphatase 65 Total Protein 6.1 L Albumin 3.0 L Globulin 3.1 Albumin/Globulin Ratio 1.0 Nasal Screen MRSA (PCR) Not detected [facility] Medical History Bronchitis Hypertensive urgency Mass of finger of left hand Left knee pain (05/16/16) History of colon polyps Uncontrolled type 2 diabetes mellitus Excessive thirst Body dysmorphic disorder BMI 39.0-39.9,adult Pain of right great toe Bilateral knee pain Hyperlipidemia associated with type 2 diabetes mellitus Type 2 diabetes mellitus Primary hypertension Erectile dysfunction Plaque psoriasis Obstructive sleep apnea of adult Umbilical hernia without obstruction and without gangrene (10/09/16) Primary insomnia (05/16/16) Surgical History Status post right partial knee replacement History of umbilical hernia repair (12/13/16) History of colonoscopy with polypectomy (08/05/09) Family History Grandfather No problems noted. Social History marital status: unmarried,single number of children: 0 household members: family lives independently: Yes caregiver/support person: No pets and animals: Yes (2/3 year old puppy; sleeps on pt bed) education level: high school occupational status: employed Smoking Status: Current every day smoker quit status: considering quitting alcohol intake: current substance use type: does not use Assessment & Plan Assessment & Plan narrative: Alcohol withdrawal. Present on admission and improved. -Appears to be near-resolved at this point, sedated on propofol and Precedex -Further history was obtained and patient drinks 40 proof alcohol throughout the day in coffee Severe metabolic encephalopathy. Present on admission and improved. Acute hypoxic respiratory failure due to acute diastolic heart failure. New and improving. -BiPap, oxygen, diuresis furosemide 40mg IV q8hr -cautious extubation plans, likely tomorrow as he is still +6 liters volume positive Hypertension. Present on admission and active. -improved, likely due to volume overload -monitor with diureses Hypernatremia. New and improved. Alcohol use disorder. Present on admission and active. Obesity class 1. Present on admission and active. DM2, Stable. PLAN: -continue diuresis with Lasix not once a day. -sedation vacation and breathing trial with possible extubation. -continue Zosyn, obtain sputum cultures. -increased glargine to 30 units b.i.d. for hyperglycemia. Increase sliding scale to q.4 hours today. Time-Based Coding :: [TOTAL MINUTES] spent with patient and on the chart (including review of chart, obtaining history, exam, reviewing outside data, placing orders, documenting exam and treatment plan, and counseling patient) on [DATE]. Quality VTE Deep Vein Thrombosis/Pulmonary Embolism Present on Admission: No
[2025-02-18] MEDS: CHLORHEXIDINE GLUCONATE 15 ML CUP PO ×2 (08:29→20:55)
[2025-02-18] MEDS: ENOXAPARIN 40 MG/0.4 ML SYRINGE SUBCUT (08:29)
[2025-02-18] MEDS: FAMOTIDINE 20 MG/2 ML VIAL IV ×2 (08:29→20:55)
[2025-02-18] MEDS: PANTOPRAZOLE 40 MG VIAL IV (08:30)
[2025-02-18] MEDS: INSULIN GLARGINE 100 UNIT/ML 3ML PEN 20 UNIT SUBCUT (08:31)
--- NOTE | 2025-02-18 10:02 | P.TELICUPN_ITS ---
Subjective Subjective IF CAMERA ACTIVATED, patient seen via real-time interactive audiovisual communication: Camera activated Consent obtained for tele-doctor of veterinary medicine care: Yes Patient Location: ICU Provider location (State): Other participants/roles: RN, RT Interval history: Pt weaned off precedex but still sedated, stopping Librium, may resume precedex at low dose if needed, vent changes, 15/500/5/35%, BG showing resp and metabolic alkalosis, adding Diamox 250 mg bid, reducing lasix to 40 mg daily, ET secretion improved,strep group C resp Cx 64 year old male admitted to ICU with: Acute hypoxic resp respiratory failure HAP, strep group C PNA Acute hyperactive Delirium etoh withdrawal Sever hyperglycemia MAXINE Vent/sedation bundle, , stopping Librium, may resume precedex at low dose if needed Continue SAT/SBT daily , SAT and SBT today Trend abg Decrease the lasix 40 mg to daily and adding Diamox 250 mg bid Increase Lantus to 30 units bid and ISS high dose Q4H, goal glucose 140-180s Trend labs Monitor UO Continue TF & FWF F/U final resp and blood cx Continue Vanc & Zosy Gi/dvt ppx -please call eICU prn Plan discussed with ICU staff CCT 35 min Current Medications Current Medications Medications: Home Medications No Known Home Medications 02/12/25 [History Confirmed 02/12/25] Visit Medications (administered) Generic Name Dose Route Start Last Admin Trade Name Freq PRN Reason Stop Dose Admin Atorvastatin Calcium 40 mg 02/11/25 21:00 02/11/25 21:12 Atorvastatin 20 Mg Tablet PO 40 mg BEDTIME DOROTHY Administration Chlorhexidine Gluconate 15 ml 02/15/25 10:00 02/18/25 08:29 Chlorhexidine Gluconate 15 Ml Cup PO 15 ml BID DOROTHY Administration Enoxaparin Sodium 40 mg 02/12/25 09:00 02/18/25 08:29 Enoxaparin 40 Mg/0.4 Ml Syringe SUBCUT 40 mg DAILY DOROTHY Administration Famotidine 20 mg 02/11/25 21:00 02/18/25 08:29 Famotidine 20 Mg/2 Ml Vial IV 20 mg BID DOROTHY Administration Heparin Sodium (Porcine) 50 unit 02/13/25 21:00 02/18/25 08:29 Heparin Flush (Cl/Picc/Mid-Line) 50 Unit/5 Ml Syringe IV 50 unit BID DOROTHY Administration dexmedeTOMIDine in 0.9 % NaCL 400 mcg in 100 mls @ 5.579 mls/hr 02/11/25 19:00 02/18/25 08:00 Precedex IV 0 mcg/kg/hr TITRATE DOROTHY 0 mls/hr Titration Protocol 0.2 MCG/KG/HR Propofol 1,000 mg in 100 mls @ 3.348 mls/hr 02/11/25 19:30 02/16/25 08:19 Diprivan IV 0 mcg/kg/min TITRATE DOROTHY 0 mls/hr Titration Protocol 5 MCG/KG/MIN NOREPINEPHRINE BITARTRATE/D5W 4 mg in 250 mls @ 41.844 mls/hr 02/11/25 22:35 02/13/25 07:58 Levophed IV 0 mcg/kg/min TITRATE DOROTHY 0 mls/hr Titration Protocol 0.1 MCG/KG/MIN Sodium Chloride 250 mls @ 21 mls/hr 02/13/25 10:50 02/17/25 07:28 Normal Saline 0.9% IV Infused Q24H PRN Infusion Flush Acetaminophen 1,000 mg in 100 mls @ 400 mls/hr 02/14/25 21:10 02/18/25 04:46 Ofirmev IV Infused Q6H PRN Infusion Fever/Mild Pain (1-3) Piperacillin Sod/Tazobactam 100 mls @ 25 mls/hr 02/16/25 11:00 02/18/25 09:50 Sod 3.375 gm/ Sodium Chloride IV Infused Q8H DOROTHY Infusion Pantoprazole Sodium 40 mg 02/15/25 09:00 02/18/25 08:30 Pantoprazole 40 Mg Vial IV 40 mg DAILY DOROTHY Administration Potassium Chloride 40 meq 02/15/25 09:30 02/18/25 08:30 Potassium Chloride 20 Meq/15 Ml Udc PO 40 meq Q8H DOROTHY Administration Sodium Chloride 10 ml 02/13/25 10:50 02/14/25 20:51 Sodium Chloride 0.9% Flush IV 10 ml PRN PRN Administration Flush Objective Ventilator Parameters: Ventilator Settings FiO2 35 RT Vent Frequency 15 Ventilator Tidal Volume 500 Exhaled Vt/kg IBW 7 Positive End Expiratory 5 Pressure Ventilator Pressure Support 8 Inspiratory Phase Time 0.8 I:E Ratio 1:4 Patient Position HOB >= 30 degrees Labs 02/18/25 05:30 02/18/25 05:30 Labs: Laboratory Results - last 24 hr 02/17/25 02/17/25 02/18/25 11:31 16:00 05:30 WBC 11.9 H RBC 4.27 L Hgb 12.7 L Hct 38.3 L MCV 89.5 MCH 29.8 MCHC 33.3 RDW 13.1 Plt Count 160 ABG Sample Site Right radial ABG pH 7.56 H ABG pCO2 35.8 ABG pO2 58 L ABG HCO3 32 H ABG Total CO2 31 H ABG O2 Saturation 93 L ABG Base Excess 9.3 H Zachariah Test Positive O2 Delivery Device Adult ventilator Mode of Support Cpap/ps FiO2 % 40.0 % Pressure Support 8 PEEP or CPAP 5 Sodium 143 Potassium 3.5 Chloride 105 Carbon Dioxide 31 BUN 40 H Creatinine 1.15 Estimated GFR > 60 BUN/Creatinine Ratio 34.8 H Glucose 307 H Calcium 8.4 Phosphorus 4.0 H D Magnesium 1.9 Total Bilirubin 0.9 AST 27 ALT 35 Alkaline Phosphatase 65 Total Protein 6.1 L Albumin 3.0 L Globulin 3.1 Albumin/Globulin Ratio 1.0 Nasal Screen MRSA (PCR) Not detected Exam Vital Signs (past 8 hours): - 02/18/25 02:30 02/18/25 02:30 02/18/25 03:00 Temperature Pulse Rate 63 Respiratory Rate 16 Blood Pressure 118/65 112/63 Pulse Oximetry 96 Oxygen Delivery Method 02/18/25 03:00 02/18/25 03:30 02/18/25 03:30 Temperature Pulse Rate 62 62 Respiratory Rate 14 17 Blood Pressure 109/64 Pulse Oximetry 95 97 Oxygen Delivery Method 02/18/25 04:00 02/18/25 04:00 02/18/25 04:00 Temperature 101.3 F H Pulse Rate 62 Respiratory Rate 16 Blood Pressure 113/67 Pulse Oximetry 97 Oxygen Delivery Method Mechanical Ventilation 02/18/25 04:18 02/18/25 04:30 02/18/25 04:30 Temperature 101.3 F H Pulse Rate 61 Respiratory Rate 17 Blood Pressure 123/67 Pulse Oximetry 96 Oxygen Delivery Method 02/18/25 05:00 02/18/25 05:00 02/18/25 05:30 Temperature Pulse Rate 62 Respiratory Rate 18 Blood Pressure 109/60 116/63 Pulse Oximetry 97 Oxygen Delivery Method 02/18/25 05:30 02/18/25 06:00 02/18/25 06:00 Temperature Pulse Rate 62 64 Respiratory Rate 17 19 Blood Pressure 119/67 Pulse Oximetry 95 96 Oxygen Delivery Method 02/18/25 06:30 02/18/25 06:30 02/18/25 07:00 Temperature Pulse Rate 66 69 Respiratory Rate 20 22 Blood Pressure 131/76 Pulse Oximetry 97 97 Oxygen Delivery Method 02/18/25 07:00 02/18/25 07:30 02/18/25 07:30 Temperature Pulse Rate 69 Respiratory Rate 19 Blood Pressure 137/73 128/70 Pulse Oximetry 97 Oxygen Delivery Method 02/18/25 08:00 02/18/25 08:00 02/18/25 08:00 Temperature 101.6 F H Pulse Rate 70 Respiratory Rate 23 Blood Pressure 136/73 Pulse Oximetry 98 Oxygen Delivery Method 02/18/25 08:10 02/18/25 08:30 02/18/25 08:30 Temperature Pulse Rate 70 Respiratory Rate 23 Blood Pressure 134/72 Pulse Oximetry 97 Oxygen Delivery Method Mechanical Ventilation 02/18/25 09:00 02/18/25 09:00 02/18/25 09:30 Temperature Pulse Rate 75 Respiratory Rate 20 Blood Pressure 132/73 126/60 Pulse Oximetry 94 Oxygen Delivery Method 02/18/25 09:30 Temperature Pulse Rate 77 Respiratory Rate 17 Blood Pressure Pulse Oximetry 94 Oxygen Delivery Method Fraction of Inspired Oxygen 0.40 Oxygen Delivery Method Mechanical Ventilation Quality TeleICU VTE Deep Vein Thrombosis/Pulmonary Embolism Present on Admission: No Assessment & Plan Time-Based Coding :: [TOTAL MINUTES] spent with patient and on the chart (including review of chart, obtaining history, exam, reviewing outside data, placing orders, documenting exam and treatment plan, and counseling patient) on [DATE].
[2025-02-18] MEDS: INSULIN GLARGINE 100 UNIT/ML 3ML PEN 10 UNIT SUBCUT (10:05)
[2025-02-18] MEDS: acetaZOLAMIDE 250 MG TABLET PO ×2 (10:10→20:55)
--- NOTE | 2025-02-18 10:24 | DIET.PN1 ---
Dietary Progress Note Assessment: Spoke to RN, pt tolerating feeds, on 20 mL/hr this morning, continuing to advance as tolerated. ICU pit furnace operator adjusted insulin routine for BG management. Will continue to monitor tolerance and rate. Ht: 185.42 cm Wt: 109 kg BMI: 32.4 Last BM: 02/16/25 (02/16/25 18:00) MNA: Galdino Score: 16 Diet: 02/12/25 08:14 NPO Diet Diet Modifications: May Advance Diet as Tolerated: No NPO Type: Strict 02/17/25 Dinner Tube Feeding Diet Diet Modifications: TF Supplement type: Pivot 1.5 tootie TF mode of delivery: Continuous Starting flow rate mL/hr: 10 Flow rate goal mL/hr: 40 Titration Schedule to reach Goal Rate: 10 mL Q12H Max total daily volume in mL: 1,800 Free fluid: 200 Free Water Frequency: Q6H Comment: 2 Prosource protein packets Q12H per instructions on packets Nutrition Type of Feeding Tube NG/OG 02/18/25 09:05 Type of Feeding Tube NG/OG 02/17/25 20:30 Type of Feeding Tube NG/OG 02/17/25 15:15 Labs: RBC 4.27 X10^6/uL (4.5-5.9) L 02/18/25 05:30 Hgb 12.7 g/dL (13.5-17.5) L 02/18/25 05:30 Hct 38.3 % (41-53) L 02/18/25 05:30 Creatinine 1.15 mg/dL (0.66-1.25) 02/18/25 05:30 Hemoglobin A1c 11.5 % (4.0-6.0) H 02/11/25 14:15 Electronically Signed by: Gabby Dunlap 02/18/25 10:24 Clinical Dietitian [address] [address]
--- NOTE | 2025-02-18 11:44 | CM.DPNOTE ---
DCP note BURNER MACHINE OPERATOR reviewed EMR Per chart/RN report, precedex off. stopping librium/librium taper planned for today. remains intubated, tube feeds okay for now. unlikely to attempt to extubate today. Plan: CM team to follow for bedside assessment and eventual PT eval with pt when more medically appropriate to determine discharge planning needs and pt's interest in ETOH resources. ELIS Downing
--- NOTE | 2025-02-18 17:23 | PC.NURSE ---
Addendum entered by Linnette Aleman R.N. 02/18/25 18:18: Tube feeds increased to 30 ml/hr per insurance manager order/instructions. Pt able to follow commands, opens eyes briefly to voice. Soft restraints in place to bilateral wrists this shift to prevent pt from removing ET tube and lines. Temp of 102.4, medicated with Tylenol per emar, Dr. Reardon aware. Original Note: Day Shift Note Patient intubated on mechanical ventilator and sedated on precedex and Librium via OG tube with RASS -4 on morning assessment and precedex stopped for SAT. Multidisciplinary rounds done with tele-outboard motors experimental mechanic and plan of care reviewed. Plans per tele-outboard motors experimental mechanic Dr. Yates were for afternoon SBT, increase in insulin orders to address increasing CBGs in the 300s, and vent settings which were updated by RT. SBT was done at 1355. Pt with increasing RR x2 up to the 30s, able to cue pt out of first incidence but second incidence sustained for over 5 min and pt placed back to vent settings per RT at 1421. Current vent settings are TV 500, RR 15, FiO2 40% and PEEP 5. Min to mod secretions via ET tube, increased after bed bath and turning with large amount of yellow/white thick sputum resulting. SpO2 95% at this time. HR SR in the 80s, BP has been stable, see VS trends. Tolerating tube feeds per OG tube, 20 ml/hr, received 2 protein pack supplements per dietary. Precedex restarted this afternoon, see emar. Turning every 2 hours. Sung catheter in place and draining clear yellow urine. Mother, Violet, at bedside today and updated by nursing, RT and MD Dr. Reardon.
[2025-02-18] MEDS: SODIUM CHLORIDE 0.9% FLUSH 10 ML IV (20:55)
[2025-02-18] MEDS: dexmedeTOMIDine in 0.9 % NaCL 400 MCG/100 ML PLAST..BAG 5.579 MCG IV (21:30)
[2025-02-18] MEDS: INSULIN GLARGINE 100 UNIT/ML 3ML PEN 30 UNIT SUBCUT (21:38)
[2025-02-19] VITALS (58 sets, daily range): BP systolic 94–153; BP diastolic 54–85; PULSE 53–81; RESP 15–52; TEMP 37.1–38.1; O2SAT 87–100
[2025-02-19] MEDS: POTASSIUM CHLORIDE 20 MEQ/15 ML UDC 40 MEQ PO ×3 (00:58→17:29)
[2025-02-19] MEDS: INSULIN LISPRO 100 UNIT/ML 3ML VIAL SUBCUT ×4 (01:32→13:38)
--- NOTE | 2025-02-19 01:38 | PC.NURSE ---
Addendum entered by Ynes Feng R.N. 02/19/25 06:00: 0600 - TF residual 15cc. Rate increased to goal of 40cc/hr. Precedex at 0.2mcg/kg/hr. Low grade fever persists. Original Note: 2129 - Patient ventilated, sedated, restraints in place. Precedex infusion at 0.3mcg/kg/hr. Titrated down to 0.2mcg/kg/hr. Coughing and grimace with care. VSS. Tube feeding infusing. Laurie-care and reposition. 2299 - Following titration of gtt. Patient remains calm. Restraints d\c'd. Bilateral mitts in place. Small amount of secretions. Oral care and suction.
[2025-02-19] MEDS: PIPERACILLIN/TAZO 3.375 GM in SODIUM CHLORIDE 0.9% 100 ML IV ×3 (03:17→18:58)
[2025-02-19] MEDS: FAMOTIDINE 20 MG/2 ML VIAL IV ×2 (08:27→21:21)
[2025-02-19] MEDS: CHLORHEXIDINE GLUCONATE 15 ML CUP PO ×2 (08:27→21:21)
[2025-02-19] MEDS: PANTOPRAZOLE 40 MG VIAL IV (08:27)
[2025-02-19] MEDS: acetaZOLAMIDE 250 MG TABLET PO (08:28)
[2025-02-19] MEDS: ENOXAPARIN 40 MG/0.4 ML SYRINGE SUBCUT (08:28)
[2025-02-19] MEDS: FUROSEMIDE 40 MG/4 ML VIAL IV (08:28)
[2025-02-19] MEDS: INSULIN GLARGINE 100 UNIT/ML 3ML PEN 30 UNIT SUBCUT (08:30)
[2025-02-19 09:23] LABS: Add Manual Diff / Slide Review NO; Basophils Absolute Auto 100 /uL (0-100); Basophils Percent Auto 0.9 % (0-2); Eosinophils Absolute Auto 300 /uL (0-450); Eosinophils Percent Auto 2.7 % (2-4); Hematocrit 37.4 % (41-53); Hemoglobin 12.4 g/dL (13.5-17.5); Lymphocytes Absolute Auto 1500 /uL (1100-4500); Lymphocytes Percent Auto 13.7 % (25-40); Mean Corpuscular HGB Conc 33.1 % (30-36); Mean Corpuscular Volume 90.8 fL (80-100); Monocytes Absolute Auto 1100 /uL (0-900); Neutrophils Absolute Auto 8200 /uL (1500-7000); Neutrophils Percent Auto 72.7 % (50-75); Platelet Count 159 X10^3/uL (150-400); Red Blood Cell Count 4.12 X10^6/uL (4.5-5.9); Red Cell Distribution Width 13.1 % (11.6-14.8); White Blood Cell Count 11.3 X10^3/uL (4.5-11.0)
[2025-02-19 09:43] LABS: Alanine Aminotransferase 45 IU/L (<50); Alkaline Phosphatase 69 U/L (38-126); Aspartate Aminotransferase 37 IU/L (17-59); BUN Creatinine Ratio 36.9 (6-22); Bilirubin Total 0.7 mg/dL (0.2-1.3); Blood Urea Nitrogen 41 mg/dL (9-20); Calcium 8.6 mg/dL (8.4-10.2); Carbon Dioxide 27 mmol/L (22-32); Chloride 108 mmol/L (98-107); Estimated Glomerular Filt Rate > 60 mL/min (>60); Glucose 343 mg/dL (80-110); HEMOLYSIS < 15 (0-50); Potassium 3.1 mmol/L (3.4-5.1); Sodium 146 mmol/L (137-145)
[2025-02-19 09:50] LABS: Magnesium 2.4 mg/dL (1.6-2.3); Phosphorous 3.3 mg/dL (2.3-3.7)
--- NOTE | 2025-02-19 12:35 | CM.DPC ---
DCP Cont: Per MD and RN, pt currently remains sedated and vented and getting tube feeds but will do breathing trial today and per RT pt was able to follow commands for a short while before becoming agitated. Possible attempt at extubation today vs tomorrow. Ashley Floyd MSW
[2025-02-19 12:58] LABS: Allen Test for ABG Passed? Positive; Base Excess ABG 5.5 mmol/L (-2-3); Blood Gas Collection Site Right Radial; Blood Gas Mode CPAP/PS; Delivery System Adult Ventilator; HCO3 ABG 29 mmol/L (23-27); Oxygen Saturation ABG 95 % (95-100); PCO2 ABG 37.5 mmHg (35-45); PEEP 5; PO2 ABG 67 mmHg (80-100); Pressure Support 5; TCO2 ABG 28 mmol/L (23-27)
--- NOTE | 2025-02-19 13:52 | PM.PN.1 ---
Subjective Subjective Interval history: S: Not obtainable, intubated. Overnight events: Failed breathing trial, not reliably following commands. Hospital course: 02/12: Further history was obtained and patient drinks 40 proof alcohol throughout the day in coffee Overnight patient was intubated and placed on a propofol after phenobarbital. Software Business Analyst was consulted maintaining sedation intubation with Precedex and propofol. Hyperglycemia normalized electrolytes improved calcium was low and was replaced We will maintain intubation sedation with Precedex and propofol all start Glucerna tube feeding and Librium for NG tube 02/13: Patient has continued to require intravenous sedation with Precedex propofol as started tube feedings is managed on the ventilator by the die cast patternmaker. We will continue to manage while intubated for alcohol withdrawal with delirium tremens 02/14: He has weaned off Levophed and calm on the ventilator this morning. Propofol was weaned off this morning for a weaning trial. The ICU team extubated the patient after a weaning trial and he experienced respiratory distress, treated with IV furosemide for volume overload. He opens eyes to voice but is very weak. He continues on Precedex. Net fluid volume positive 10+ liters since admission. The patient became progressively short of breath and was re-intubated and placed back on mechanical ventilation. 02/15: Intubated, sedated, no new events overnight. Net volume status -4.1 liters since yesterday. 02/16: He was reintubated over the weekend. He was had a good net diuresis with a proximally 7 L off since initiating his diuresis. Echo reveals normal ventricle size and thickness with an EF of 55-60% and no wall motion abnormalities. He was on a sedation vacation this morning. 02/17: Stable, did well with sedation vacation, but failed breathing trial after about 2 hours with increased respiratory rate. Plan to diurese for another day and continue antibiotics with Zosyn. Vancomycin stopped due to negative MRSA screen. SaO2 35%, peep 8. Sputum culture sent. 02/18: continued confusion, not reliably following commands. Increased insulin with continued hypergylcemia and reduced lasix dosing with addition of diamox. Exam Vital Signs (past 8 hours): - 02/19/25 06:00 02/19/25 06:00 02/19/25 06:02 Temperature Pulse Rate 58 L Respiratory Rate 24 Blood Pressure 119/62 Pulse Oximetry 99 Oxygen Delivery Method Mechanical Ventilation 02/19/25 06:02 02/19/25 06:30 02/19/25 06:30 Temperature Pulse Rate 58 L 58 L Respiratory Rate 21 21 Blood Pressure 109/57 L Pulse Oximetry 100 95 Oxygen Delivery Method 02/19/25 07:00 02/19/25 07:00 02/19/25 07:30 Temperature Pulse Rate 58 L Respiratory Rate 20 Blood Pressure 103/55 L 114/59 L Pulse Oximetry 95 Oxygen Delivery Method 02/19/25 07:30 02/19/25 08:00 02/19/25 08:00 Temperature 98.8 F Pulse Rate 55 L Respiratory Rate 17 Blood Pressure 101/56 L Pulse Oximetry 93 Oxygen Delivery Method 02/19/25 08:00 02/19/25 08:30 02/19/25 08:30 Temperature Pulse Rate 57 L 65 Respiratory Rate 20 24 Blood Pressure 104/56 L Pulse Oximetry 96 97 Oxygen Delivery Method 02/19/25 08:31 02/19/25 09:00 02/19/25 09:00 Temperature Pulse Rate 60 Respiratory Rate 22 Blood Pressure 120/60 Pulse Oximetry 98 99 Oxygen Delivery Method 02/19/25 09:30 02/19/25 09:30 02/19/25 10:00 Temperature Pulse Rate 70 Respiratory Rate 28 H Blood Pressure 108/58 L Pulse Oximetry 97 Oxygen Delivery Method Mechanical Ventilation 02/19/25 10:00 02/19/25 10:00 02/19/25 10:30 Temperature Pulse Rate 76 Respiratory Rate 22 Blood Pressure 110/57 L 120/66 Pulse Oximetry 95 Oxygen Delivery Method 02/19/25 10:30 02/19/25 11:00 02/19/25 11:00 Temperature Pulse Rate 74 76 Respiratory Rate 19 21 Blood Pressure 123/70 Pulse Oximetry 95 96 Oxygen Delivery Method 02/19/25 11:30 02/19/25 11:30 02/19/25 12:00 Temperature Pulse Rate 81 Respiratory Rate 20 Blood Pressure 133/79 135/74 Pulse Oximetry 95 Oxygen Delivery Method 02/19/25 12:00 02/19/25 12:30 02/19/25 12:30 Temperature Pulse Rate 77 79 Respiratory Rate 15 29 H Blood Pressure 137/76 Pulse Oximetry 95 95 Oxygen Delivery Method 02/19/25 13:00 02/19/25 13:00 Temperature Pulse Rate 77 Respiratory Rate 31 H Blood Pressure 130/84 Pulse Oximetry 99 Oxygen Delivery Method Fraction of Inspired Oxygen 0.40 Oxygen Delivery Method Mechanical Ventilation Narrative Exam Narrative: Patient is sedated Patient is on the ventilator, OG tube in place. ?Sung catheter in place. Lungs are clear. Heart is regular. Abdomen is non distended, and soft. Extremities are free of edema. Skin is free of rash or lesions. Joints are not swollen or deformed. Objective Labs 02/19/25 09:05 02/19/25 09:05 Labs: Laboratory Results - last 24 hr 02/19/25 02/19/25 09:05 12:47 WBC 11.3 H RBC 4.12 L Hgb 12.4 L Hct 37.4 L MCV 90.8 MCH 30.0 MCHC 33.1 RDW 13.1 Plt Count 159 Neut % (Auto) 72.7 Lymph % (Auto) 13.7 L [place] % (Auto) 10.0 Eos % (Auto) 2.7 Baso % (Auto) 0.9 Neut # (Auto) 8200 H Lymph # (Auto) 1500 [place] # (Auto) 1100 H Eos # (Auto) 300 Baso # (Auto) 100 ABG Sample Site Right radial ABG pH 7.50 H ABG pCO2 37.5 ABG pO2 67 L ABG HCO3 29 H ABG Total CO2 28 H ABG O2 Saturation 95 ABG Base Excess 5.5 H Zachariah Test Positive O2 Delivery Device Adult ventilator Mode of Support Cpap/ps FiO2 % 40.0 % Pressure Support 5 PEEP or CPAP 5 Sodium 146 H Potassium 3.1 L Chloride 108 H Carbon Dioxide 27 BUN 41 H Creatinine 1.11 Estimated GFR > 60 BUN/Creatinine Ratio 36.9 H Glucose 343 H Calcium 8.6 Phosphorus 3.3 Magnesium 2.4 H Total Bilirubin 0.7 AST 37 ALT 45 Alkaline Phosphatase 69 Total Protein 6.0 L Albumin 3.0 L Globulin 3.0 Albumin/Globulin Ratio 1.0 PFSH Medical History Bronchitis Hypertensive urgency Mass of finger of left hand Left knee pain (05/16/16) History of colon polyps Uncontrolled type 2 diabetes mellitus Excessive thirst Body dysmorphic disorder BMI 39.0-39.9,adult Pain of right great toe Bilateral knee pain Hyperlipidemia associated with type 2 diabetes mellitus Type 2 diabetes mellitus Primary hypertension Erectile dysfunction Plaque psoriasis Obstructive sleep apnea of adult Umbilical hernia without obstruction and without gangrene (10/09/16) Primary insomnia (05/16/16) Surgical History Status post right partial knee replacement History of umbilical hernia repair (12/13/16) History of colonoscopy with polypectomy (08/05/09) Family History Grandfather No problems noted. Social History marital status: unmarried,single number of children: 0 household members: family lives independently: Yes caregiver/support person: No pets and animals: Yes (2/3 year old puppy; sleeps on pt bed) education level: high school occupational status: employed Smoking Status: Current every day smoker quit status: considering quitting alcohol intake: current substance use type: does not use Assessment & Plan Assessment & Plan narrative: Alcohol withdrawal. Present on admission and improved. Severe metabolic encephalopathy. Present on admission and improved. Acute hypoxic respiratory failure due to acute diastolic heart failure. New and improving. Hypertension. Present on admission and active. -improved, likely due to volume overload -monitor with diureses Hypernatremia. New and improved. Alcohol use disorder. Present on admission and active. Obesity class 1. Present on admission and active. DM2, Stable. PLAN: -reduce furosemide to daily, added diamox -increased glargine for continued hyperglycemia, later added on insulin infusion per tele-die cast patternmaker. -repeat sedation vacation with improvement in glucose levels, and some continued antibiotics. if continuing to fail consider transfer for possible trach and / or MRI (cannot perform here due to incompatible IV pumps) for further evaluation of altered mentation -continue Zosyn, vancomycin per pharmacy. -limit propofol as much as possible I spent 40 minutes providing critical care management this patient. This excludes time spent in performing separately billed procedures. Time-Based Coding :: [TOTAL MINUTES] spent with patient and on the chart (including review of chart, obtaining history, exam, reviewing outside data, placing orders, documenting exam and treatment plan, and counseling patient) on [DATE]. Quality VTE Deep Vein Thrombosis/Pulmonary Embolism Present on Admission: No
[2025-02-19] MEDS: INSULIN DRIP PREMIX 100 UNIT/100 ML PLAST..BAG 6 UNIT IV (14:43)
--- NOTE | 2025-02-19 15:14 | DIET.PN1 ---
Dietary Progress Note Assessment: f/u Pt's phos and K+ decreased (K+ being repleted per protocol, phos still within normal range), adjusted tube feeds back down to 30 mL/hr. Protein packets remain at 2 packets q12h. BG have remained elevated, pt was started on insulin drip. Will continue monitoring K+, phos, and Mg and adjust feeds as appropriate. Ht: 185.42 cm Wt: 108 kg BMI: 32.4 Last BM: 02/16/25 (02/16/25 18:00) MNA: Galdino Score: 15 Diet: 02/12/25 08:14 NPO Diet Diet Modifications: May Advance Diet as Tolerated: No NPO Type: Strict 02/17/25 Dinner Tube Feeding Diet Diet Modifications: TF Supplement type: Pivot 1.5 tootie TF mode of delivery: Continuous Starting flow rate mL/hr: 30 Flow rate goal mL/hr: 30 Titration Schedule to reach Goal Rate: - Max total daily volume in mL: 1,800 Free fluid: 200 Free Water Frequency: Q6H Comment: 2 Prosource protein packets Q12H per instructions on packets Nutrition Type of Feeding Tube NG/OG 02/19/25 06:05 Type of Feeding Tube NG/OG 02/18/25 21:20 Type of Feeding Tube NG/OG 02/18/25 18:17 Type of Feeding Tube NG/OG 02/18/25 09:05 Type of Feeding Tube NG/OG 02/17/25 20:30 Type of Feeding Tube NG/OG 02/17/25 15:15 Labs: RBC 4.12 X10^6/uL (4.5-5.9) L 02/19/25 09:05 Hgb 12.4 g/dL (13.5-17.5) L 02/19/25 09:05 Hct 37.4 % (41-53) L 02/19/25 09:05 Creatinine 1.11 mg/dL (0.66-1.25) 02/19/25 09:05 Hemoglobin A1c 11.5 % (4.0-6.0) H 02/11/25 14:15 Electronically Signed by: Gabby Dunlap 02/19/25 15:14 Clinical Dietitian [address] [address]
[2025-02-19] MEDS: propofoL 1,000 MG/100 ML VIAL 1.674 MG IV (17:28)
--- NOTE | 2025-02-19 17:59 | PC.NURSE ---
Dayshift note: Pt intubated, on mechanical ventilator setting FiO2 40% TV 500 RR 15 PEEP 5, sedated on Precedex @ 0.2 mcg/kg/hr, RASS -1 during morning assessment. Precedex stopped at 0825 for SBT. Tele ICU rounds completed with plan of care review. Plan to leave pt with minimal pressure support and off sedation in anticipation of being able to extubate patient in the afternoon per Dr Maddox. 1243 SBT attempted again with pt becoming increasingly agitated, with periods of apnea and unable to follow commands, ABG ordered and completed, with results to Dr Maddox. Verbal orders to hold off on extubation with hope to try again on 02/20/25. Due to increasing CBG 300's and up Dr Maddox place pt on non-dka insulin gtt, following protocol. 1500 Pt placed back on original vent setting AC-VC, due to agitation pt placed back on Precedex 0.2 mcg/kg/hr and Propofol 2.5 mcg/kg/min per Dr Romano. HR sinus in the 70's,with stable BP (see trends). Tolerating tube feedings with residuals 20cc, diet was adjusted by Gabby manager of hospital to 30cc/hr with protein packs x2 Q12H. Sung patent and draining clear yellow urine, Q2H turns. Violet, mother and Aunt at bedside, updated on pt care and plan. Pt remains in mitts for ETT protection. Care on going
--- NOTE | 2025-02-19 18:03 | PM.PN.EICU ---
Subjective Subjective IF CAMERA ACTIVATED, patient seen via real-time interactive audiovisual communication: Camera activated Consent obtained for tele-rail bender care: Yes Patient Location: ICU Provider location (State): [place] Other participants/roles: RN Interval history: The patient remains intubated, apparently passed SBT but became very lethargic, would not follow commands or interact so extubation was held off. ABG with pH 7.49, pCO2 37, PaO2 66. She was moving all 4 extremities with no focal deficits so CT head was not obtained. Requiring high-dose insulin but continued to have uncontrolled blood glucose between 300-400 range, eventually required to be started on insulin drip per non-DKA protocol. Currently on ventilator with FiO2 40%, PEEP 5, tidal volume 500 cc, rate 15 on VC AC mode. Hemodynamically stable. On low-dose Precedex gtt. Current Medications Current Medications Medications: Home Medications No Known Home Medications 02/12/25 [History Confirmed 02/12/25] Visit Medications (administered) Generic Name Dose Route Start Last Admin Trade Name Freq PRN Reason Stop Dose Admin Atorvastatin Calcium 40 mg 02/11/25 21:00 02/11/25 21:12 Atorvastatin 20 Mg Tablet PO 40 mg BEDTIME DOROTHY Administration Chlorhexidine Gluconate 15 ml 02/15/25 10:00 02/19/25 08:27 Chlorhexidine Gluconate 15 Ml Cup PO 15 ml BID DOROTHY Administration Enoxaparin Sodium 40 mg 02/12/25 09:00 02/19/25 08:28 Enoxaparin 40 Mg/0.4 Ml Syringe SUBCUT 40 mg DAILY DOROTHY Administration Famotidine 20 mg 02/11/25 21:00 02/19/25 08:27 Famotidine 20 Mg/2 Ml Vial IV 20 mg BID DOROTHY Administration Furosemide 40 mg 02/19/25 09:00 02/19/25 08:28 Furosemide 40 Mg/4 Ml Vial IV 40 mg DAILY DOROTHY Administration Heparin Sodium (Porcine) 50 unit 02/13/25 21:00 02/19/25 08:28 Heparin Flush (Cl/Picc/Mid-Line) 50 Unit/5 Ml Syringe IV 50 unit BID DOROTHY Administration dexmedeTOMIDine in 0.9 % NaCL 400 mcg in 100 mls @ 5.579 mls/hr 02/11/25 19:00 02/19/25 16:59 Precedex IV 0.2 mcg/kg/hr TITRATE DOROTHY 5.579 mls/hr Titration Protocol 0.2 MCG/KG/HR Propofol 1,000 mg in 100 mls @ 3.348 mls/hr 02/11/25 19:30 02/19/25 17:28 Diprivan IV 2.5 mcg/kg/min TITRATE DOROTHY 1.674 mls/hr Administration Protocol 5 MCG/KG/MIN NOREPINEPHRINE BITARTRATE/D5W 4 mg in 250 mls @ 41.844 mls/hr 02/11/25 22:35 02/13/25 07:58 Levophed IV 0 mcg/kg/min TITRATE DOROTHY 0 mls/hr Titration Protocol 0.1 MCG/KG/MIN Sodium Chloride 250 mls @ 21 mls/hr 02/13/25 10:50 02/17/25 07:28 Normal Saline 0.9% IV Infused Q24H PRN Infusion Flush Acetaminophen 1,000 mg in 100 mls @ 400 mls/hr 02/14/25 21:10 02/18/25 18:20 Ofirmev IV Infused Q6H PRN Infusion Fever/Mild Pain (1-3) Piperacillin Sod/Tazobactam 100 mls @ 25 mls/hr 02/16/25 11:00 02/19/25 17:00 Sod 3.375 gm/ Sodium Chloride IV Infused Q8H DOROTHY Infusion INSULIN DRIP PREMIX 100 unit in 100 mls @ 6 mls/hr 02/19/25 14:00 02/19/25 17:35 Myxredlin Drip Premix IV 8 mls/hr TITRATE DOROTHY 8 mls/hr Titration Protocol Pantoprazole Sodium 40 mg 02/15/25 09:00 02/19/25 08:27 Pantoprazole 40 Mg Vial IV 40 mg DAILY DOROTHY Administration Potassium Chloride 40 meq 02/15/25 09:30 02/19/25 17:29 Potassium Chloride 20 Meq/15 Ml Udc PO 40 meq Q8H DOROTHY Administration Sodium Chloride 10 ml 02/13/25 10:50 02/18/25 20:55 Sodium Chloride 0.9% Flush IV 10 ml PRN PRN Administration Flush Objective Ventilator Parameters: Ventilator Settings FiO2 40 RT Vent Frequency 15 Ventilator Tidal Volume 500 Exhaled Vt/kg IBW 7 Positive End Expiratory 5 Pressure Ventilator Pressure Support 10 Inspiratory Phase Time 0.08 I:E Ratio 1:2.7 Patient Position HOB >= 30 degrees Labs 02/19/25 09:05 02/19/25 09:05 Labs: Laboratory Results - last 24 hr 02/19/25 02/19/25 09:05 12:47 WBC 11.3 H RBC 4.12 L Hgb 12.4 L Hct 37.4 L MCV 90.8 MCH 30.0 MCHC 33.1 RDW 13.1 Plt Count 159 Neut % (Auto) 72.7 Lymph % (Auto) 13.7 L [place] % (Auto) 10.0 Eos % (Auto) 2.7 Baso % (Auto) 0.9 Neut # (Auto) 8200 H Lymph # (Auto) 1500 [place] # (Auto) 1100 H Eos # (Auto) 300 Baso # (Auto) 100 ABG Sample Site Right radial ABG pH 7.50 H ABG pCO2 37.5 ABG pO2 67 L ABG HCO3 29 H ABG Total CO2 28 H ABG O2 Saturation 95 ABG Base Excess 5.5 H Zachariah Test Positive O2 Delivery Device Adult ventilator Mode of Support Cpap/ps FiO2 % 40.0 % Pressure Support 5 PEEP or CPAP 5 Sodium 146 H Potassium 3.1 L Chloride 108 H Carbon Dioxide 27 BUN 41 H Creatinine 1.11 Estimated GFR > 60 BUN/Creatinine Ratio 36.9 H Glucose 343 H Calcium 8.6 Phosphorus 3.3 Magnesium 2.4 H Total Bilirubin 0.7 AST 37 ALT 45 Alkaline Phosphatase 69 Total Protein 6.0 L Albumin 3.0 L Globulin 3.0 Albumin/Globulin Ratio 1.0 Exam Vital Signs (past 8 hours): - 02/19/25 10:30 02/19/25 10:30 02/19/25 11:00 Temperature Pulse Rate 74 Respiratory Rate 19 Blood Pressure 120/66 123/70 Pulse Oximetry 95 Oxygen Delivery Method 02/19/25 11:00 02/19/25 11:30 02/19/25 11:30 Temperature Pulse Rate 76 81 Respiratory Rate 21 20 Blood Pressure 133/79 Pulse Oximetry 96 95 Oxygen Delivery Method 02/19/25 12:00 02/19/25 12:00 02/19/25 12:30 Temperature Pulse Rate 77 Respiratory Rate 15 Blood Pressure 135/74 137/76 Pulse Oximetry 95 Oxygen Delivery Method 02/19/25 12:30 02/19/25 13:00 02/19/25 13:00 Temperature Pulse Rate 79 77 Respiratory Rate 29 H 31 H Blood Pressure 130/84 Pulse Oximetry 95 99 Oxygen Delivery Method 02/19/25 13:30 02/19/25 13:30 02/19/25 14:00 Temperature Pulse Rate 80 Respiratory Rate 27 H Blood Pressure 141/83 H 151/85 H Pulse Oximetry 95 Oxygen Delivery Method 02/19/25 14:00 02/19/25 14:00 02/19/25 14:24 Temperature 100.5 F H Pulse Rate 77 Respiratory Rate 15 Blood Pressure Pulse Oximetry 96 Oxygen Delivery Method Mechanical Ventilation 02/19/25 14:30 02/19/25 14:30 02/19/25 15:00 Temperature Pulse Rate 75 Respiratory Rate 25 H Blood Pressure 138/82 132/63 Pulse Oximetry 96 Oxygen Delivery Method 02/19/25 15:00 02/19/25 15:30 02/19/25 15:30 Temperature Pulse Rate 76 75 Respiratory Rate 25 H 22 Blood Pressure 131/65 Pulse Oximetry 96 96 Oxygen Delivery Method 02/19/25 16:00 02/19/25 16:00 02/19/25 16:30 Temperature Pulse Rate 75 Respiratory Rate 21 Blood Pressure 141/64 H 137/65 Pulse Oximetry 97 Oxygen Delivery Method 02/19/25 16:30 02/19/25 17:00 02/19/25 17:00 Temperature Pulse Rate 77 79 Respiratory Rate 25 H 26 H Blood Pressure 153/72 H Pulse Oximetry 93 94 Oxygen Delivery Method Fraction of Inspired Oxygen 0.40 Oxygen Delivery Method Mechanical Ventilation Narrative Exam Narrative: On Camera, intubated, comfortably resting in bed. No distress. Quality TeleICU VTE Deep Vein Thrombosis/Pulmonary Embolism Present on Admission: No Assessment & Plan Assessment & Plan narrative: ASSESSMENT: # Acute hypoxic respiratory failure requiring mechanical ventilator support # Hospital-acquired pneumonia, strep group C pneumonia # Acute hyperactive delirium # Alcohol use disorder with EtOH withdrawal symptoms on admission # Severe hyperglycemia, on insulin drip # Obstructive sleep apnea PLAN: - Failing SAT/SBT, could not be extubated due to poor mental status and lethargic.? Most recent ABG reviewed.? Now FiO2 40% and PEEP of 5. - C/w vent support per lung protective strategy (TV 6ml/kg by IBW, plat pressure < 30, PaO2 60-80 mm Hg, SaO2 > 92%) and c/w ABCDE bundle while intubated. - On Propofol gtt, Precedex gtt., and fentanyl IV pushes for sedation/pain control. Goal to keep RAAS 0 to -1. - C/w daily sedation vacation (SAT) and vent weaning as tolerated. ? Evaluate tomorrow am with SAT and SBT. - Librium discontinued given poor mental status with decreased responsiveness.? Minimize sedation as much as possible. - Uncontrolled blood glucose despite Lantus 30 units twice daily and high-dose sliding scale insulin.? Started on insulin drip per non-DKA protocol.? BG goal 120-180. - Continue IV antibiotics vancomycin and Zosyn awaiting for final respiratory and blood cultures. - Monitor strict intake and output, daily weight.? Decrease Lasix to 40 mg daily.? Added Diamox to counteract metabolic alkalosis. - DVT prophylaxis with Lovenox subcu. - GI prophylaxis with Pepcid. ICU BUNDLE: # FEN: Continue tube feeding if remains intubated. # Glucose: Uncontrolled.? Now on insulin drip per non-DKA protocol.? Continue Accu-Cheks every hour. BG goal 120-180 # Prophylaxis: Lovenox subcu for DVT prophylaxis, Pepcid for stress ulcer prophylaxis # Lines/tubes: PIV, Sung, ET tube, OG tube # CODE STATUS: Full code # Disposition: Remains in ICU Above plan was discussed with bedside RN.? Please call us if any additional questions. v Time-Based Coding :: [TOTAL MINUTES] spent with patient and on the chart (including review of chart, obtaining history, exam, reviewing outside data, placing orders, documenting exam and treatment plan, and counseling patient) on [DATE].
[2025-02-20] VITALS (54 sets, daily range): BP systolic 96–168; BP diastolic 55–86; PULSE 53–72; RESP 15–23; TEMP 36.9–38.1; O2SAT 94–100
--- NOTE | 2025-02-20 | DI.RAD.S_ITS ---
PROCEDURE: XR CHEST 1V INDICATIONS: Resp failure TECHNIQUE: One view of the chest was acquired. COMPARISON: [facility], CR, XR CHEST 1V, 02/17/2025, 12:53. FINDINGS: Surgical changes and devices: ETT tip is approximately 5.1 cm above the silvano. NG tube tip is below the left hemidiaphragm. Lungs and pleura: Mild pulmonary vascular congestion and mild pulmonary edema is seen. There is blunting of left costophrenic angle suggestive of small left pleural effusion. No pneumothorax. Mediastinum: Mediastinal contours appear normal. Heart size is enlarged. Bones and chest wall: No suspicious bony lesions. Overlying soft tissues appear unremarkable. IMPRESSION: Cardiomegaly and mild pulmonary vascular congestion. Small left pleural effusion. No definite focal infiltrate. No pneumothorax. No definite focal infiltrate. Dictated by: Vladislav Dempsey M.D. on 02/20/2025 at 9:16 Approved by: Vladislav Dempsey M.D. on 02/20/2025 at 9:19
[2025-02-20] MEDS: INSULIN DRIP PREMIX 100 UNIT/100 ML PLAST..BAG IV (00:14)
[2025-02-20] MEDS: dexmedeTOMIDine in 0.9 % NaCL 400 MCG/100 ML PLAST..BAG 5.579 MCG IV ×2 (00:15→18:23)
[2025-02-20] MEDS: POTASSIUM CHLORIDE 20 MEQ/15 ML UDC 40 MEQ PO ×3 (02:49→17:11)
[2025-02-20] MEDS: PIPERACILLIN/TAZO 3.375 GM in SODIUM CHLORIDE 0.9% 100 ML IV (02:49)
[2025-02-20] MEDS: CHLORHEXIDINE GLUCONATE 15 ML CUP PO ×2 (08:35→21:14)
[2025-02-20] MEDS: PANTOPRAZOLE 40 MG VIAL IV (08:35)
[2025-02-20] MEDS: FUROSEMIDE 40 MG/4 ML VIAL IV (08:36)
[2025-02-20] MEDS: ENOXAPARIN 40 MG/0.4 ML SYRINGE SUBCUT (08:36)
[2025-02-20] MEDS: FAMOTIDINE 20 MG/2 ML VIAL IV (08:36)
[2025-02-20 09:13] LABS: Add Manual Diff / Slide Review NO; Basophils Absolute Auto 100 /uL (0-100); Basophils Percent Auto 1.2 % (0-2); Eosinophils Absolute Auto 500 /uL (0-450); Eosinophils Percent Auto 4.6 % (2-4); Hematocrit 38.7 % (41-53); Hemoglobin 12.9 g/dL (13.5-17.5); Lymphocytes Absolute Auto 1600 /uL (1100-4500); Lymphocytes Percent Auto 14.6 % (25-40); Mean Corpuscular HGB Conc 33.4 % (30-36); Mean Corpuscular Hemoglobin 30.1 PG (26-34); Mean Corpuscular Volume 90.1 fL (80-100); Monocytes Absolute Auto 1100 /uL (0-900); Monocytes Percent Auto 9.8 % (3-14); Neutrophils Absolute Auto 7700 /uL (1500-7000); Neutrophils Percent Auto 69.8 % (50-75); Platelet Count 153 X10^3/uL (150-400); Red Blood Cell Count 4.29 X10^6/uL (4.5-5.9); Red Cell Distribution Width 13.2 % (11.6-14.8)
[2025-02-20 09:47] LABS: Alanine Aminotransferase 73 IU/L (<50); Albumin Globulin Ratio 0.9 (1.0-2.8); Alkaline Phosphatase 64 U/L (38-126); Aspartate Aminotransferase 63 IU/L (17-59); BUN Creatinine Ratio 38.9 (6-22); Bilirubin Total 0.6 mg/dL (0.2-1.3); Blood Urea Nitrogen 44 mg/dL (9-20); Calcium 8.9 mg/dL (8.4-10.2); Carbon Dioxide 25 mmol/L (22-32); Chloride 116 mmol/L (98-107); Estimated Glomerular Filt Rate > 60 mL/min (>60); Globulin 3.2 g/dL (1.7-4.1); Glucose 155 mg/dL (80-110); HEMOLYSIS < 15 (0-50); Phosphorous 3.7 mg/dL (2.3-3.7); Potassium 3.6 mmol/L (3.4-5.1); Sodium 149 mmol/L (137-145); Total Protein 6.2 g/dL (6.3-8.2)
[2025-02-20 10:27] LABS: Add Manual Diff / Slide Review NO; Basophils Absolute Auto 100 /uL (0-100); Basophils Percent Auto 0.6 % (0-2); Eosinophils Absolute Auto 500 /uL (0-450); Eosinophils Percent Auto 4.4 % (2-4); Hematocrit 39.3 % (41-53); Hemoglobin 12.9 g/dL (13.5-17.5); Lymphocytes Absolute Auto 1300 /uL (1100-4500); Lymphocytes Percent Auto 12.7 % (25-40); Mean Corpuscular HGB Conc 32.8 % (30-36); Mean Corpuscular Hemoglobin 29.4 PG (26-34); Mean Corpuscular Volume 89.6 fL (80-100); Monocytes Absolute Auto 1000 /uL (0-900); Monocytes Percent Auto 9.9 % (3-14); Neutrophils Absolute Auto 7600 /uL (1500-7000); Neutrophils Percent Auto 72.4 % (50-75); Platelet Count 166 X10^3/uL (150-400); Red Blood Cell Count 4.39 X10^6/uL (4.5-5.9); Red Cell Distribution Width 13.2 % (11.6-14.8); White Blood Cell Count 10.6 X10^3/uL (4.5-11.0)
[2025-02-20 11:31] LABS: BUN Creatinine Ratio 40.4 (6-22); Blood Urea Nitrogen 44 mg/dL (9-20); Calcium 8.9 mg/dL (8.4-10.2); Carbon Dioxide 26 mmol/L (22-32); Chloride 114 mmol/L (98-107); Estimated Glomerular Filt Rate > 60 mL/min (>60); Glucose 175 mg/dL (80-110); HEMOLYSIS < 15 (0-50); Lipase 107 U/L (23-300); Magnesium 2.5 mg/dL (1.6-2.3); Phosphorous 3.7 mg/dL (2.3-3.7); Potassium 3.9 mmol/L (3.4-5.1); Sodium 149 mmol/L (137-145)
[2025-02-20 11:32] LABS: Triglycerides 223 mg/dL (35-150)
[2025-02-20 11:45] LABS: Ammonia (NH3) 10 umol/L (9-30)
[2025-02-20 12:17] LABS: INR 1.3 (0.9-1.3); Prothrombin Time 14.6 SECONDS (9.4-12.5)
--- NOTE | 2025-02-20 12:22 | P.TELICUPN_ITS ---
Subjective Subjective IF CAMERA ACTIVATED, patient seen via real-time interactive audiovisual communication: Camera activated Consent obtained for tele-membership secretary care: Yes Patient Location: ICU Provider location (State): [place] Other participants/roles: Bedside staff Interval history: SBT aborted yesterday d/t encephalopathy. Remains encephalopathic today. Minimal arousal, not following commands. Mental status fluctuates from agitated to somewhat appropriate to complete lethargy. Ammonia not elevated. Insulin gtt started yesterday d/t high subQ requirements. LFTs have increased today to AST 63, ALT 73. Lipase 107. Current Medications Current Medications Medications: Home Medications No Known Home Medications 02/12/25 [History Confirmed 02/12/25] Visit Medications (administered) Generic Name Dose Route Start Last Admin Trade Name Freq PRN Reason Stop Dose Admin Atorvastatin Calcium 40 mg 02/11/25 21:00 02/11/25 21:12 Atorvastatin 20 Mg Tablet PO 40 mg BEDTIME DOROTHY Administration Chlorhexidine Gluconate 15 ml 02/15/25 10:00 02/20/25 08:35 Chlorhexidine Gluconate 15 Ml Cup PO 15 ml BID DOROTHY Administration Enoxaparin Sodium 40 mg 02/12/25 09:00 02/20/25 08:36 Enoxaparin 40 Mg/0.4 Ml Syringe SUBCUT 40 mg DAILY DOROTHY Administration Furosemide 40 mg 02/19/25 09:00 02/20/25 08:36 Furosemide 40 Mg/4 Ml Vial IV 40 mg DAILY DOROTHY Administration Heparin Sodium (Porcine) 50 unit 02/13/25 21:00 02/20/25 08:36 Heparin Flush (Cl/Picc/Mid-Line) 50 Unit/5 Ml Syringe IV 50 unit BID DOROTHY Administration dexmedeTOMIDine in 0.9 % NaCL 400 mcg in 100 mls @ 5.579 mls/hr 02/11/25 19:00 02/20/25 08:26 Precedex IV 0.2 mcg/kg/hr TITRATE DOROTHY 5.579 mls/hr Titration Protocol 0.2 MCG/KG/HR Propofol 1,000 mg in 100 mls @ 3.348 mls/hr 02/11/25 19:30 02/20/25 08:26 Diprivan IV 2.5 mcg/kg/min TITRATE DOROTHY 1.674 mls/hr Titration Protocol 5 MCG/KG/MIN NOREPINEPHRINE BITARTRATE/D5W 4 mg in 250 mls @ 41.844 mls/hr 02/11/25 22:35 02/13/25 07:58 Levophed IV 0 mcg/kg/min TITRATE DOROTHY 0 mls/hr Titration Protocol 0.1 MCG/KG/MIN Sodium Chloride 250 mls @ 21 mls/hr 02/13/25 10:50 02/17/25 07:28 Normal Saline 0.9% IV Infused Q24H PRN Infusion Flush Acetaminophen 1,000 mg in 100 mls @ 400 mls/hr 02/14/25 21:10 02/18/25 18:20 Ofirmev IV Infused Q6H PRN Infusion Fever/Mild Pain (1-3) Piperacillin Sod/Tazobactam 100 mls @ 25 mls/hr 02/16/25 11:00 02/20/25 08:25 Sod 3.375 gm/ Sodium Chloride IV Infused Q8H DOROTHY Infusion INSULIN DRIP PREMIX 100 unit in 100 mls @ 6 mls/hr 02/19/25 14:00 02/20/25 10:35 Myxredlin Drip Premix IV 7 mls/hr TITRATE DOROTHY 7 mls/hr Titration Protocol Pantoprazole Sodium 40 mg 02/15/25 09:00 02/20/25 08:35 Pantoprazole 40 Mg Vial IV 40 mg DAILY DOROTHY Administration Potassium Chloride 40 meq 02/15/25 09:30 02/20/25 08:35 Potassium Chloride 20 Meq/15 Ml Udc PO 40 meq Q8H DOROTHY Administration Sodium Chloride 10 ml 02/13/25 10:50 02/18/25 20:55 Sodium Chloride 0.9% Flush IV 10 ml PRN PRN Administration Flush Objective Ventilator Parameters: Ventilator Settings FiO2 40 RT Vent Frequency 15 Ventilator Tidal Volume 500 Exhaled Vt/kg IBW 7 Positive End Expiratory 5 Pressure Ventilator Pressure Support 10 Inspiratory Phase Time 0.90 I:E Ratio 1:3.4 Patient Position HOB >= 30 degrees Labs 02/20/25 10:18 02/20/25 10:18 Labs: Laboratory Results - last 24 hr 02/19/25 02/20/25 02/20/25 12:47 09:06 10:18 WBC 11.0 10.6 RBC 4.29 L 4.39 L Hgb 12.9 L 12.9 L Hct 38.7 L 39.3 L MCV 90.1 89.6 MCH 30.1 29.4 MCHC 33.4 32.8 RDW 13.2 13.2 Plt Count 153 166 Neut % (Auto) 69.8 72.4 Lymph % (Auto) 14.6 L 12.7 L [place] % (Auto) 9.8 9.9 Eos % (Auto) 4.6 H 4.4 H Baso % (Auto) 1.2 0.6 Neut # (Auto) 7700 H 7600 H Lymph # (Auto) 1600 1300 [place] # (Auto) 1100 H 1000 H Eos # (Auto) 500 H 500 H Baso # (Auto) 100 100 ABG Sample Site Right radial ABG pH 7.50 H ABG pCO2 37.5 ABG pO2 67 L ABG HCO3 29 H ABG Total CO2 28 H ABG O2 Saturation 95 ABG Base Excess 5.5 H Zachariah Test Positive O2 Delivery Device Adult ventilator Mode of Support Cpap/ps FiO2 % 40.0 % Pressure Support 5 PEEP or CPAP 5 Sodium 149 H 149 H Potassium 3.6 3.9 Chloride 116 H 114 H Carbon Dioxide 25 26 BUN 44 H 44 H Creatinine 1.13 1.09 Estimated GFR > 60 > 60 BUN/Creatinine Ratio 38.9 H 40.4 H Glucose 155 H D 175 H Calcium 8.9 8.9 Phosphorus 3.7 3.7 Magnesium 2.5 H Total Bilirubin 0.6 AST 63 H ALT 73 H Alkaline Phosphatase 64 Ammonia 10 C-Reactive Protein 16.0 H Total Protein 6.2 L Albumin 3.0 L Globulin 3.2 Albumin/Globulin Ratio 0.9 L Triglycerides 223 H Lipase 107 Exam Vital Signs (past 8 hours): - 02/20/25 04:30 02/20/25 04:30 02/20/25 05:00 Temperature Pulse Rate 56 L Respiratory Rate 19 Blood Pressure 102/58 L 109/67 Pulse Oximetry 97 Oxygen Delivery Method 02/20/25 05:00 02/20/25 05:30 02/20/25 05:30 Temperature Pulse Rate 56 L 55 L Respiratory Rate 19 19 Blood Pressure 103/60 Pulse Oximetry 97 98 Oxygen Delivery Method 02/20/25 06:00 02/20/25 06:00 02/20/25 06:00 Temperature Pulse Rate 59 L Respiratory Rate 19 Blood Pressure 137/68 Pulse Oximetry 94 Oxygen Delivery Method Mechanical Ventilation 02/20/25 06:30 02/20/25 06:30 02/20/25 07:00 Temperature Pulse Rate 58 L Respiratory Rate 17 Blood Pressure 116/56 L 112/56 L Pulse Oximetry 96 Oxygen Delivery Method 02/20/25 07:00 02/20/25 07:30 02/20/25 07:30 Temperature Pulse Rate 60 58 L Respiratory Rate 18 18 Blood Pressure 112/55 L Pulse Oximetry 96 97 Oxygen Delivery Method 02/20/25 08:00 02/20/25 08:00 02/20/25 08:00 Temperature 98.7 F Pulse Rate 60 Respiratory Rate 20 Blood Pressure 117/62 Pulse Oximetry 100 Oxygen Delivery Method 02/20/25 08:30 02/20/25 08:30 02/20/25 09:00 Temperature Pulse Rate 63 Respiratory Rate 21 Blood Pressure 128/67 168/86 H Pulse Oximetry 98 Oxygen Delivery Method 02/20/25 09:00 02/20/25 09:30 02/20/25 09:30 Temperature Pulse Rate 63 65 Respiratory Rate 21 21 Blood Pressure 130/77 Pulse Oximetry 100 100 Oxygen Delivery Method 02/20/25 10:00 02/20/25 10:00 02/20/25 10:00 Temperature Pulse Rate 66 Respiratory Rate 17 Blood Pressure 137/79 Pulse Oximetry 100 Oxygen Delivery Method Mechanical Ventilation 02/20/25 10:30 02/20/25 10:30 02/20/25 11:00 Temperature Pulse Rate 67 Respiratory Rate 19 Blood Pressure 133/74 111/59 L Pulse Oximetry 100 Oxygen Delivery Method 02/20/25 11:00 Temperature Pulse Rate 64 Respiratory Rate 19 Blood Pressure Pulse Oximetry 100 Oxygen Delivery Method Fraction of Inspired Oxygen 0.40 Oxygen Delivery Method Mechanical Ventilation Narrative Exam Narrative: Sedated, on vent. Staff at bedside. Vent: 40% FIO2, Vt 500, RR 15, PEEP 5 Quality TeleICU VTE Deep Vein Thrombosis/Pulmonary Embolism Present on Admission: No Assessment & Plan Assessment & Plan narrative: #Acute hypoxic respiratory failure requiring mechanical ventilator support # Hospital-acquired pneumonia, strep group C pneumonia # Acute hyperactive delirium # Metabolic encephalopathy, persistent # Alcohol use disorder with EtOH withdrawal symptoms on admission # Severe hyperglycemia, on insulin drip # Obstructive sleep apnea PLAN: - Failing SAT/SBT, could not be extubated due to poor mental status and lethargic.?Now FiO2 40% and PEEP of 5. Recent ABG with alkalosis, will recheck - C/w vent support per lung protective strategy (TV 6ml/kg by IBW, plat pressure < 30, PaO2 60-80 mm Hg, SaO2 > 92%) and c/w ABCDE bundle while intubated. - On Propofol gtt, Precedex gtt., and fentanyl IV pushes for sedation/pain control. Goal to keep RAAS 0 to -1. - C/w daily sedation vacation (SAT) and vent weaning as tolerated. ? Evaluate daily with SAT and SBT. - Minimize sedation as much as possible. - Uncontrolled blood glucose despite Lantus 30 units twice daily and high-dose sliding scale insulin.? Started on insulin drip per non-DKA protocol.? BG goal 120-180. - Continue IV antibiotics vancomycin and Zosyn awaiting for final respiratory and blood cultures. - Monitor strict intake and output, daily weight.? Will DC daily lasix - DVT prophylaxis with Lovenox subcu. - GI prophylaxis with Pepcid. - Recommend CT head to rule out acute changes, if unchanged - recommend MRI and Neurology consultation. - Thiamine/folate ICU BUNDLE: # FEN: Continue tube feeding if remains intubated. # Glucose: Uncontrolled.? Now on insulin drip per non-DKA protocol.? Continue Accu-Cheks every hour. BG goal 120-180 # Prophylaxis: Lovenox subcu for DVT prophylaxis, Pepcid for stress ulcer prophylaxis # Lines/tubes: PIV, Sung, ET tube, OG tube # CODE STATUS: Full code # Disposition: Remains in ICU Time-Based Coding :: 40 minutes critical care time spent with patient and on the chart (including review of chart, obtaining history, exam, reviewing outside data, placing orders, documenting exam and treatment plan, and counseling patient) on 02/20/25
--- NOTE | 2025-02-20 12:44 | DI.CT.S_ITS ---
PROCEDURE: CT HEAD/BRAIN WO CON INDICATIONS: encephalopathy TECHNIQUE: Noncontrast 4.5 mm thick angled axial sections acquired from the foramen magnum to the vertex, with coronal and sagittal reformats. For radiation dose reduction, the following was used: automated exposure control, adjustment of mA and/or kV according to patient size. COMPARISON: [facility], CT, CT HEAD/BRAIN WO CON, 03/03/2019, 19:55. FINDINGS: Image quality: Diagnostic. CSF spaces: Basal cisterns are patent. No extra-axial fluid collections. Ventricles are normal in size and shape. Brain: No midline shift. No intracranial masses or hemorrhage. Guillory-white matter interface is normal. Mild microvascular atherosclerotic change in the deep white matter of each hemisphere but no sign of mass or ischemic injury. Skull and face: Calvarium and visualized facial bones are intact, without suspicious lesions. Sinuses: Visualized sinuses and mastoids are clear. IMPRESSION: Chronic appearing mild microvascular atherosclerotic change without evidence of edema, mass lesion, intracranial hemorrhage, or other source of altered mental status. MR scanning may be warranted clinically feasible for more accurate assessment. Dictated by: Nicola Alvarado M.D. on 02/20/2025 at 14:05 Approved by: Nicola Alvarado M.D. on 02/20/2025 at 14:07
--- NOTE | 2025-02-20 12:45 | DI.CT.S_ITS ---
PROCEDURE: CT ABDOMEN PELVIS W CON INDICATIONS: Sepsis TECHNIQUE: After the administration of intravenous contrast, axial sections acquired from the lung bases to the pubic symphysis. Coronal and sagittal reformats were performed. For radiation dose reduction, the following was used: automated exposure control, adjustment of mA and/or kV according to patient size. COMPARISON: [facility], CT, CT LUNG LOW DOSE SCREENING, 08/15/2024, 13:18. [facility], CR, XR CHEST 1V, 02/17/2025, 12:53. [facility], CR, XR CHEST 1V, 02/20/2025, 8:35. FINDINGS: Image quality: Diagnostic. Lower Chest: No significant pleural effusions but there does appear to be a pattern of posterior medial Oates lung pneumonia greater on the left than the right. ABDOMEN: Liver: No solid mass. Gallbladder: No radiopaque gallstones or wall thickening. Biliary ducts: No biliary dilation. Pancreas: No ductal dilation. Spleen: Size is within normal limits. Adrenal Glands: No adrenal nodules. Kidneys and Ureters: No hydronephrosis. No solid mass. No complex renal cystic lesion which requires follow up. Stomach and Bowel: Normal colonic caliber, without significant wall thickening. Esophagogastric tube positioning normal. Peritoneum: No abnormal intraperitoneal fluid. No free air. Ventral Wall: No significant ventral hernia. Abdominal Nodes: No retroperitoneal or mesenteric adenopathy by size criteria. Vessels: Aorta and inferior vena cava are normal in size. PELVIS: Pelvic Organs: Unremarkable. Bladder: No bladder wall thickening, accounting for underdistention. Sung catheter centrally position within the emptied bladder. Pelvic Nodes: No enlarged lymph nodes. Miscellaneous: No inguinal hernias are seen. Prominent diverticulosis is noted along the sigmoid colon but no acute diverticulitis is seen. Bones: No aggressive osseous abnormality. IMPRESSION: Bibasilar pneumonia, left greater than right, with mild associated medial lung base volume loss. No appreciable pleural effusion. Esophagogastric tube positioning normal, the bladder is emptied by a Sung catheter centrally positioned. A definite source of altered mental status other than pneumonia is not found. Dictated by: Nicola Alvarado M.D. on 02/20/2025 at 14:11 Approved by: Nicola Alvarado M.D. on 02/20/2025 at 14:15
[2025-02-20 12:48] LABS: Allen Test for ABG Passed? Positive; Base Excess ABG 2.5 mmol/L (-2-3); Blood Gas Collection Site Right Radial; Blood Gas Mode Assist Cont Ventilat; Delivery System Adult Ventilator; HCO3 ABG 27 mmol/L (23-27); Oxygen Saturation ABG 95 % (95-100); PCO2 ABG 38.3 mmHg (35-45); PEEP 5; PO2 ABG 73 mmHg (80-100); Respiratory Rate 15; TCO2 ABG 26 mmol/L (23-27); pH ABG 7.45 (7.35-7.45)
[2025-02-20] MEDS: propofoL 1,000 MG/100 ML VIAL 1.674 MG IV (13:50)
--- NOTE | 2025-02-20 13:56 | CM.DPC ---
DCP COnt: Per MD and RN, attempted breathing trial yesterday 02/19 and pt failed and needed to be sedated again and remains intubated today. Pt not responding much to stimuli and concern for neurological needs. MD to order CT abdomen and head today and pt having difficulty regulating his blood sugars even while on drip. MD will attempt hospital transfer for higher level of care needs. ELIS Duvall
[2025-02-20] MEDS: THIAMINE 100 MG in SODIUM CHLORIDE 0.9% 100 ML 404 MG IV (14:27)
[2025-02-20] MEDS: FOLIC ACID 1 MG TABLET PO (14:27)
--- NOTE | 2025-02-20 14:53 | DIET.PN1 ---
Dietary Progress Note Assessment: f/u Reviewed labs, no drop in phos, Mg, K+. Tube feeds to be advanced back to 40 mL/hr to meet EER. Adjusted order. Communicated with RN. Will continue to monitor tolerance. Ht: 185.42 cm Wt: 106 kg BMI: 32.4 Last BM: 02/20/25 (02/20/25 13:20) MNA: Galdino Score: 15 Diet: 02/12/25 08:14 NPO Diet Diet Modifications: May Advance Diet as Tolerated: No NPO Type: Strict 02/17/25 Dinner Tube Feeding Diet Diet Modifications: TF Supplement type: Pivot 1.5 tootie TF mode of delivery: Continuous Starting flow rate mL/hr: 40 Flow rate goal mL/hr: 40 Titration Schedule to reach Goal Rate: - Max total daily volume in mL: 1,800 Free fluid: 200 Free Water Frequency: Q6H Comment: 2 Prosource protein packets Q12H per instructions on packets Nutrition Type of Feeding Tube NG/OG 02/19/25 06:05 Type of Feeding Tube NG/OG 02/18/25 21:20 Type of Feeding Tube NG/OG 02/18/25 18:17 Labs: RBC 4.39 X10^6/uL (4.5-5.9) L 02/20/25 10:18 Hgb 12.9 g/dL (13.5-17.5) L 02/20/25 10:18 Hct 39.3 % (41-53) L 02/20/25 10:18 Creatinine 1.09 mg/dL (0.66-1.25) 02/20/25 10:18 Hemoglobin A1c 11.5 % (4.0-6.0) H 02/11/25 14:15 Electronically Signed by: Gabby Dunlap 02/20/25 14:53 Clinical Dietitian [address] [id number]
[2025-02-20] MEDS: INSULIN DRIP PREMIX 100 UNIT/100 ML PLAST..BAG 7 UNIT IV (15:26)
--- NOTE | 2025-02-20 15:39 | PC.NURSE ---
Dayshift note: Pt intubated and sedated on mechanical ventilator setting FiO2 40% TV 500 RR 15 PEEP 5, sedated on Precedex and Propofol (see emar for titration), RASS -2, per Dr Carlos and Dr Maddox (e-ICU) will not attempt extubation of pt due to his lack of response to stimulation and reflex during examination. Sedation was turned off at 0640 in anticipation of SBT, at 0815 Dr Carlos performed an examination of pt with no reflexs noted and lack of other purposeful responses. Labs, CT of head, and abdomen, ABG and CXR ordered, with results being inconclusive for encephalopathy. Insulin gtt infusing per non-dka protocol with CBG between 150-172. On going Q1H CBG checks with titration of insulin gtt. HR alida in the 50's with BP 110-115 systolic and MAP 80. Tolerating tube feeds with minimal residuals (20 ml), tube feed increased to 40ml/hr per Gabby Dietitian with protein packs x2 Q12H. Sung patent and draining clear, yellow urine, pt requiring Q2H turns and repeated suctioning of oral and endotrachial secretions, which are copious, thick, white secretions. Mitts in place for protection of ETT, mother Violet at bedside, updated on patient status. No further needs at this time, care on going
[2025-02-20 16:23] LABS: MRSA (Nasal) PCR NOT DETECTED (Not Detect)
--- NOTE | 2025-02-20 20:35 | P.TELICUPN_ITS ---
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 Per RN, on sedation holidays he is not purposeful. CTH today without acute findings. CT AP noted pneumonia but otherwise no acute findings. Also on an insulin drip at 7u/hour. PEEP 5, 40% on vent. Current Medications Current Medications Medications: Home Medications No Known Home Medications 02/12/25 [History Confirmed 02/12/25] Visit Medications (administered) Generic Name Dose Route Start Last Admin Trade Name Freq PRN Reason Stop Dose Admin Atorvastatin Calcium 40 mg 02/11/25 21:00 02/11/25 21:12 Atorvastatin 20 Mg Tablet PO 40 mg BEDTIME DOROTHY Administration Chlorhexidine Gluconate 15 ml 02/15/25 10:00 02/20/25 08:35 Chlorhexidine Gluconate 15 Ml Cup PO 15 ml BID DOROTHY Administration Enoxaparin Sodium 40 mg 02/12/25 09:00 02/20/25 08:36 Enoxaparin 40 Mg/0.4 Ml Syringe SUBCUT 40 mg DAILY DOROTHY Administration Folic Acid 1 mg 02/20/25 12:45 02/20/25 14:27 Folic Acid 1 Mg Tablet PO 1 mg DAILY DOROTHY Administration Heparin Sodium (Porcine) 50 unit 02/13/25 21:00 02/20/25 08:36 Heparin Flush (Cl/Picc/Mid-Line) 50 Unit/5 Ml Syringe IV 50 unit BID DOROTHY Administration dexmedeTOMIDine in 0.9 % NaCL 400 mcg in 100 mls @ 5.579 mls/hr 02/11/25 19:00 02/20/25 18:23 Precedex IV 0.2 mcg/kg/hr TITRATE DOROTHY 5.579 mls/hr Administration Protocol 0.2 MCG/KG/HR Propofol 1,000 mg in 100 mls @ 3.348 mls/hr 02/11/25 19:30 02/20/25 13:50 Diprivan IV 2.5 mcg/kg/min TITRATE DOROTHY 1.674 mls/hr Administration Protocol 5 MCG/KG/MIN NOREPINEPHRINE BITARTRATE/D5W 4 mg in 250 mls @ 41.844 mls/hr 02/11/25 22:35 02/13/25 07:58 Levophed IV 0 mcg/kg/min TITRATE DOROTHY 0 mls/hr Titration Protocol 0.1 MCG/KG/MIN Sodium Chloride 250 mls @ 21 mls/hr 02/13/25 10:50 02/17/25 07:28 Normal Saline 0.9% IV Infused Q24H PRN Infusion Flush Acetaminophen 1,000 mg in 100 mls @ 400 mls/hr 02/14/25 21:10 02/18/25 18:20 Ofirmev IV Infused Q6H PRN Infusion Fever/Mild Pain (1-3) INSULIN DRIP PREMIX 100 unit in 100 mls @ 6 mls/hr 02/19/25 14:00 02/20/25 19:00 Myxredlin Drip Premix IV 7 mls/hr TITRATE DOROTHY 7 mls/hr Titration Protocol Thiamine HCl 100 mg/ Sodium 101 mls @ 404 mls/hr 02/20/25 12:45 02/20/25 14:42 Chloride IV Infused DAILY DOROTHY Infusion Pantoprazole Sodium 40 mg 02/15/25 09:00 02/20/25 08:35 Pantoprazole 40 Mg Vial IV 40 mg DAILY DOROTHY Administration Potassium Chloride 40 meq 02/15/25 09:30 02/20/25 17:11 Potassium Chloride 20 Meq/15 Ml Udc PO 40 meq Q8H DOROTHY Administration Sodium Chloride 10 ml 02/13/25 10:50 02/18/25 20:55 Sodium Chloride 0.9% Flush IV 10 ml PRN PRN Administration Flush Objective Ventilator Parameters: Ventilator Settings FiO2 40 RT Vent Frequency 15 Ventilator Tidal Volume 500 Exhaled Vt/kg IBW 7 Positive End Expiratory 5 Pressure Ventilator Pressure Support 10 Inspiratory Phase Time 0.90 I:E Ratio 1:1.9 Patient Position HOB >= 30 degrees Labs 02/20/25 10:18 02/20/25 10:18 Labs: Laboratory Results - last 24 hr 02/20/25 02/20/25 02/20/25 09:06 10:18 11:59 WBC 11.0 10.6 RBC 4.29 L 4.39 L Hgb 12.9 L 12.9 L Hct 38.7 L 39.3 L MCV 90.1 89.6 MCH 30.1 29.4 MCHC 33.4 32.8 RDW 13.2 13.2 Plt Count 153 166 Neut % (Auto) 69.8 72.4 Lymph % (Auto) 14.6 L 12.7 L Ballard % (Auto) 9.8 9.9 Eos % (Auto) 4.6 H 4.4 H Baso % (Auto) 1.2 0.6 Neut # (Auto) 7700 H 7600 H Lymph # (Auto) 1600 1300 Ballard # (Auto) 1100 H 1000 H Eos # (Auto) 500 H 500 H Baso # (Auto) 100 100 PT 14.6 H INR 1.3 ABG Sample Site ABG pH ABG pCO2 ABG pO2 ABG HCO3 ABG Total CO2 ABG O2 Saturation ABG Base Excess Zachariah Test Respiration Rate O2 Delivery Device Mode of Support FiO2 % PEEP or CPAP Sodium 149 H 149 H Potassium 3.6 3.9 Chloride 116 H 114 H Carbon Dioxide 25 26 BUN 44 H 44 H Creatinine 1.13 1.09 Estimated GFR > 60 > 60 BUN/Creatinine Ratio 38.9 H 40.4 H Glucose 155 H D 175 H Calcium 8.9 8.9 Phosphorus 3.7 3.7 Magnesium 2.5 H Total Bilirubin 0.6 AST 63 H ALT 73 H Alkaline Phosphatase 64 Ammonia 10 C-Reactive Protein 16.0 H Total Protein 6.2 L Albumin 3.0 L Globulin 3.2 Albumin/Globulin Ratio 0.9 L Triglycerides 223 H Lipase 107 Nasal Screen MRSA (PCR) 02/20/25 02/20/25 12:44 14:32 WBC RBC Hgb Hct MCV MCH MCHC RDW Plt Count Neut % (Auto) Lymph % (Auto) Ballard % (Auto) Eos % (Auto) Baso % (Auto) Neut # (Auto) Lymph # (Auto) Ballard # (Auto) Eos # (Auto) Baso # (Auto) PT INR ABG Sample Site Right radial ABG pH 7.45 ABG pCO2 38.3 ABG pO2 73 L ABG HCO3 27 ABG Total CO2 26 ABG O2 Saturation 95 ABG Base Excess 2.5 Zachariah Test Positive Respiration Rate 15 O2 Delivery Device Adult ventilator Mode of Support Assist cont ventilat FiO2 % 40 % PEEP or CPAP 5 Sodium Potassium Chloride Carbon Dioxide BUN Creatinine Estimated GFR BUN/Creatinine Ratio Glucose Calcium Phosphorus Magnesium Total Bilirubin AST ALT Alkaline Phosphatase Ammonia C-Reactive Protein Total Protein Albumin Globulin Albumin/Globulin Ratio Triglycerides Lipase Nasal Screen MRSA (PCR) Not detected Exam Vital Signs (past 8 hours): - 02/20/25 13:00 02/20/25 13:00 02/20/25 14:00 Temperature 98.4 F Pulse Rate 61 Respiratory Rate 19 Blood Pressure 111/58 L Pulse Oximetry 100 Oxygen Delivery Method Fraction of Inspired Oxygen 02/20/25 14:00 02/20/25 14:10 02/20/25 14:10 Temperature Pulse Rate 57 L Respiratory Rate 20 Blood Pressure 116/58 L Pulse Oximetry 97 Oxygen Delivery Method Mechanical Ventilation Fraction of Inspired Oxygen 02/20/25 14:30 02/20/25 14:30 02/20/25 15:00 Temperature 98.5 F Pulse Rate 54 L Respiratory Rate 20 Blood Pressure 109/60 Pulse Oximetry 97 Oxygen Delivery Method Fraction of Inspired Oxygen 02/20/25 15:00 02/20/25 15:00 02/20/25 15:30 Temperature Pulse Rate 58 L Respiratory Rate 20 Blood Pressure 115/69 111/60 Pulse Oximetry 98 Oxygen Delivery Method Fraction of Inspired Oxygen 02/20/25 15:30 02/20/25 16:00 02/20/25 16:00 Temperature Pulse Rate 55 L 55 L Respiratory Rate 19 19 Blood Pressure 101/61 Pulse Oximetry 100 100 Oxygen Delivery Method Fraction of Inspired Oxygen 02/20/25 16:30 02/20/25 16:30 02/20/25 17:00 Temperature 99 F Pulse Rate 56 L Respiratory Rate 15 Blood Pressure 127/67 Pulse Oximetry 100 Oxygen Delivery Method Fraction of Inspired Oxygen 02/20/25 17:00 02/20/25 17:00 02/20/25 17:30 Temperature Pulse Rate 56 L Respiratory Rate 19 Blood Pressure 119/56 L 119/69 Pulse Oximetry 99 Oxygen Delivery Method Fraction of Inspired Oxygen 02/20/25 17:30 02/20/25 18:00 02/20/25 18:00 Temperature Pulse Rate 60 Respiratory Rate 18 Blood Pressure 118/64 Pulse Oximetry 97 Oxygen Delivery Method Mechanical Ventilation Fraction of Inspired Oxygen 02/20/25 18:00 02/20/25 19:00 02/20/25 20:00 Temperature Pulse Rate 63 61 60 Respiratory Rate 20 20 19 Blood Pressure 117/71 127/70 Pulse Oximetry 98 99 100 Oxygen Delivery Method Fraction of Inspired Oxygen 40 40 Fraction of Inspired Oxygen 40 Oxygen Delivery Method Mechanical Ventilation Narrative Exam Narrative: Limited exam via Tele. Intubated on vent. Mittens in place. Non-purposeful, non-rhythmic movement is noted. Drips as outlined. HDS Quality TeleICU VTE Deep Vein Thrombosis/Pulmonary Embolism Present on Admission: No Assessment & Plan Assessment & Plan narrative: # Acute hypoxic respiratory failure requiring mechanical ventilator support # Hospital-acquired pneumonia, strep group C pneumonia # Acute hyperactive delirium # Suspected Metabolic encephalopathy, persistent # Alcohol use disorder with EtOH withdrawal symptoms on admission # Severe hyperglycemia, on insulin drip # Obstructive sleep apnea PLAN: - Failing SAT/SBT, could not be extubated due to poor mental status and lethargic.? - Ventilator settings reviewed, remains on FiO2 40% and PEEP of 5. Follow ABG, CXR as needed - C/w vent support per lung protective strategy (TV 6ml/kg by IBW, plat pressure < 30, PaO2 60-80 mm Hg, SaO2 > 92%) and c/w ABCDE bundle while intubated. - On Propofol gtt, Precedex gtt., and fentanyl IV pushes for sedation/pain control. Goal to keep RAAS 0 to -1. - C/w daily sedation vacation (SAT) and vent weaning as tolerated. ? Evaluate daily with SAT and SBT. - Minimize sedation as much as possible. - Uncontrolled blood glucose despite Lantus 30 units twice daily and high-dose sliding scale insulin.?Continue insulin drip per non-DKA protocol.? BG goal 120- 180. - Give negative MRSA nares, will stop IV Vanc. Continue IV antibiotics Zosyn awaiting for final respiratory and blood cultures. - Monitor strict intake and output, daily weight.? - Recommend MRI and Neurology consultation. Consideration for EEG. Apparently may need transfer to [facility] for this. - Thiamine/folate - Check B12/Folate for comprehensive encephalopathy eval ICU BUNDLE: # FEN: Continue tube feeding if remains intubated. # Glucose: Uncontrolled.? Now on insulin drip per non-DKA protocol.? Continue Accu-Cheks every hour. BG goal 120-180 # Prophylaxis: Lovenox subcu for DVT prophylaxis, Pepcid for stress ulcer prophylaxis # Lines/tubes: PIV, Sung, ET tube, OG tube # CODE STATUS: Full code # Disposition: Remains in ICU Time-Based Coding :: [TOTAL MINUTES] spent with patient and on the chart (including review of chart, obtaining history, exam, reviewing outside data, placing orders, documenting exam and treatment plan, and counseling patient) on [DATE].
--- NOTE | 2025-02-20 21:55 | P.PN_ITS ---
Subjective Subjective Interval history: 64-year-old male with diabetes mellitus type 2, hypertension, erectile dysfunction, psoriasis, chronic sinusitis, tobacco dependence, obstructive sleep apnea, alcohol dependence who is now hospital day 9 admitted with alcohol withdrawal with delirium, pneumonia with respiratory failure requiring intubation/mechanical ventilation. Patient was extubated but required re- intubation on February 14. He has had a prolonged state of encephalopathy with inability to follow commands, inability to protect his airway, alternating with episodes of agitation and pulling at tubes and lines. He has undergone 2 head [address]s which revealed no acute abnormalities, and ammonia level today which was negative, and a follow-up blood gas today which revealed no acidosis or CO2 retention. He has had severe hyperglycemia which has been challenging to control even with an insulin drip. He has been on a low carb tube feed. He did not have any severe electrolyte derangements during his hospital stay, specifically no hyponatremia that could put him at risk for CPM. He has not had any severe hypertension such that there would be concern for PRES. No known history of seizure disorder. CT of the abdomen and pelvis was done today to rule out any new intra-abdominal pathology such as pancreatitis to explain his difficult to control hyperglycemia. He has also had some mild increasing transaminitis today. There were no intra-abdominal findings. There is bilateral lower lobe pneumonia. He does have positive strep C sputum cultures from February 16 and has been on Zosyn for the last 5 days. This does not necessarily explain his prolonged encephalopathy, as that has been present since admission. Patient is off sedation at the time of my assessment this morning. He will open his eyes but does not track or follow any commands. He does have some response to deep pressure and his nailbeds, but does not otherwise withdraw to painful stimuli Exam Vital Signs (past 8 hours): - 02/20/25 14:00 02/20/25 14:00 02/20/25 14:10 Temperature 98.4 F Pulse Rate Respiratory Rate Blood Pressure 116/58 L Pulse Oximetry Oxygen Delivery Method Mechanical Ventilation Fraction of Inspired Oxygen 02/20/25 14:10 02/20/25 14:30 02/20/25 14:30 Temperature Pulse Rate 57 L 54 L Respiratory Rate 20 20 Blood Pressure 109/60 Pulse Oximetry 97 97 Oxygen Delivery Method Fraction of Inspired Oxygen 02/20/25 15:00 02/20/25 15:00 02/20/25 15:00 Temperature 98.5 F Pulse Rate 58 L Respiratory Rate 20 Blood Pressure 115/69 Pulse Oximetry 98 Oxygen Delivery Method Fraction of Inspired Oxygen 02/20/25 15:30 02/20/25 15:30 02/20/25 16:00 Temperature Pulse Rate 55 L Respiratory Rate 19 Blood Pressure 111/60 101/61 Pulse Oximetry 100 Oxygen Delivery Method Fraction of Inspired Oxygen 02/20/25 16:00 02/20/25 16:30 02/20/25 16:30 Temperature Pulse Rate 55 L 56 L Respiratory Rate 19 15 Blood Pressure 127/67 Pulse Oximetry 100 100 Oxygen Delivery Method Fraction of Inspired Oxygen 02/20/25 17:00 02/20/25 17:00 02/20/25 17:00 Temperature 99 F Pulse Rate 56 L Respiratory Rate 19 Blood Pressure 119/56 L Pulse Oximetry 99 Oxygen Delivery Method Fraction of Inspired Oxygen 02/20/25 17:30 02/20/25 17:30 02/20/25 18:00 Temperature Pulse Rate 60 Respiratory Rate 18 Blood Pressure 119/69 Pulse Oximetry 97 Oxygen Delivery Method Mechanical Ventilation Fraction of Inspired Oxygen 02/20/25 18:00 02/20/25 18:00 02/20/25 19:00 Temperature Pulse Rate 63 61 Respiratory Rate 20 20 Blood Pressure 118/64 117/71 Pulse Oximetry 98 99 Oxygen Delivery Method Fraction of Inspired Oxygen 40 02/20/25 20:00 02/20/25 21:00 02/20/25 21:41 Temperature Pulse Rate 60 63 Respiratory Rate 19 21 Blood Pressure 127/70 133/71 Pulse Oximetry 100 99 Oxygen Delivery Method Mechanical Ventilation Fraction of Inspired Oxygen 40 40 Fraction of Inspired Oxygen 40 Oxygen Delivery Method Mechanical Ventilation Narrative Exam Narrative: GEN: Critically ill appearing middle-aged male, intubated, somnolent/obtunded HEENT:NC, Face symmetric CHEST: Respiratory excursions symmetric, diminished but CTAB in the anterior lung montelongo CV: RRR, no M/R/G ABD: Soft, obese, NT/ND, BT present in all 4 quadrants, body habitus limits exam EXTR: warm, well perfused, no C/C/E SKIN: warm and dry, no rash NEURO: Unable to follow commands, unable to elicit clonus, deep tendon reflexes, or Babinski Objective Labs 02/20/25 10:18 02/20/25 10:18 Labs: Laboratory Results - last 24 hr 02/20/25 02/20/25 02/20/25 09:06 10:18 11:59 WBC 11.0 10.6 RBC 4.29 L 4.39 L Hgb 12.9 L 12.9 L Hct 38.7 L 39.3 L MCV 90.1 89.6 MCH 30.1 29.4 MCHC 33.4 32.8 RDW 13.2 13.2 Plt Count 153 166 Neut % (Auto) 69.8 72.4 Lymph % (Auto) 14.6 L 12.7 L Stokes % (Auto) 9.8 9.9 Eos % (Auto) 4.6 H 4.4 H Baso % (Auto) 1.2 0.6 Neut # (Auto) 7700 H 7600 H Lymph # (Auto) 1600 1300 Stokes # (Auto) 1100 H 1000 H Eos # (Auto) 500 H 500 H Baso # (Auto) 100 100 PT 14.6 H INR 1.3 ABG Sample Site ABG pH ABG pCO2 ABG pO2 ABG HCO3 ABG Total CO2 ABG O2 Saturation ABG Base Excess Zachariah Test Respiration Rate O2 Delivery Device Mode of Support FiO2 % PEEP or CPAP Sodium 149 H 149 H Potassium 3.6 3.9 Chloride 116 H 114 H Carbon Dioxide 25 26 BUN 44 H 44 H Creatinine 1.13 1.09 Estimated GFR > 60 > 60 BUN/Creatinine Ratio 38.9 H 40.4 H Glucose 155 H D 175 H Calcium 8.9 8.9 Phosphorus 3.7 3.7 Magnesium 2.5 H Total Bilirubin 0.6 AST 63 H ALT 73 H Alkaline Phosphatase 64 Ammonia 10 C-Reactive Protein 16.0 H Total Protein 6.2 L Albumin 3.0 L Globulin 3.2 Albumin/Globulin Ratio 0.9 L Triglycerides 223 H Lipase 107 Nasal Screen MRSA (PCR) 02/20/25 02/20/25 12:44 14:32 WBC RBC Hgb Hct MCV MCH MCHC RDW Plt Count Neut % (Auto) Lymph % (Auto) Stokes % (Auto) Eos % (Auto) Baso % (Auto) Neut # (Auto) Lymph # (Auto) Stokes # (Auto) Eos # (Auto) Baso # (Auto) PT INR ABG Sample Site Right radial ABG pH 7.45 ABG pCO2 38.3 ABG pO2 73 L ABG HCO3 27 ABG Total CO2 26 ABG O2 Saturation 95 ABG Base Excess 2.5 Zachariah Test Positive Respiration Rate 15 O2 Delivery Device Adult ventilator Mode of Support Assist cont ventilat FiO2 % 40 % PEEP or CPAP 5 Sodium Potassium Chloride Carbon Dioxide BUN Creatinine Estimated GFR BUN/Creatinine Ratio Glucose Calcium Phosphorus Magnesium Total Bilirubin AST ALT Alkaline Phosphatase Ammonia C-Reactive Protein Total Protein Albumin Globulin Albumin/Globulin Ratio Triglycerides Lipase Nasal Screen MRSA (PCR) Not detected [facility] Medical History Bronchitis Hypertensive urgency Mass of finger of left hand Left knee pain (05/16/16) History of colon polyps Uncontrolled type 2 diabetes mellitus Excessive thirst Body dysmorphic disorder BMI 39.0-39.9,adult Pain of right great toe Bilateral knee pain Hyperlipidemia associated with type 2 diabetes mellitus Type 2 diabetes mellitus Primary hypertension Erectile dysfunction Plaque psoriasis Obstructive sleep apnea of adult Umbilical hernia without obstruction and without gangrene (10/09/16) Primary insomnia (05/16/16) Surgical History Status post right partial knee replacement History of umbilical hernia repair (12/13/16) History of colonoscopy with polypectomy (08/05/09) Family History Grandfather No problems noted. Social History marital status: unmarried,single number of children: 0 household members: family lives independently: Yes caregiver/support person: No pets and animals: Yes (2/3 year old puppy; sleeps on pt bed) education level: high school occupational status: employed Smoking Status: Current every day smoker quit status: considering quitting alcohol intake: current substance use type: does not use Assessment & Plan Assessment & Plan narrative: 1. Acute respiratory failure Likely secondary to combination of pneumonia and now ongoing encephalopathy which would make it difficult for him to control his airway. He is on Zosyn for pneumonia, currently day 5. Appreciate management per tele laboratory mechanic helper. 2. Severe metabolic encephalopathy/prolonged delirium Unclear etiology. Follow-up head CT done today did not reveal any etiology. Ammonia level done today also did not reveal an etiology. I do have concern for underlying neurologic cause. We are unable to obtain an MRI here as we do not have pumps that are compatible with the MRI machine. He also does need a an evaluation by a neurologist. I spoke today to [facility] laboratory mechanic helper and he feels the patient should be transferred to a neuro ICU that has more capability than [facility] does ([facility] or [facility])and he worries that he would need to further transfer the patient if he were to need continuous EEG, etc.. At this point, we are awaiting the ability to transfer patient to a higher level of care with further neuro consultation and MRI availability. 3. Diabetes mellitus type 2 with severe hyperglycemia Continue insulin drip. Continue low carb tube feeds 4. Alcohol dependence with withdrawal on admission Resolved 5. Bilateral pneumonia Currently day 5 of Zosyn therapy as noted. Code status Full Prophylaxis On Lovenox Disposition ICU with goal to transfer to a higher level of care as soon as he is accepted Time-Based Coding :: [TOTAL MINUTES] spent with patient and on the chart (including review of chart, obtaining history, exam, reviewing outside data, placing orders, documenting exam and treatment plan, and counseling patient) on [DATE]. Quality VTE Deep Vein Thrombosis/Pulmonary Embolism Present on Admission: No
[2025-02-21] VITALS (25 sets, daily range): BP systolic 105–136; BP diastolic 55–81; PULSE 48–72; RESP 8–36; TEMP 37.1–37.3; O2SAT 92–100
[2025-02-21] MEDS: POTASSIUM CHLORIDE 20 MEQ/15 ML UDC 40 MEQ PO ×2 (01:35→08:46)
--- NOTE | 2025-02-21 03:35 | PC.WOUNDPHOT ---
Open area to right lower buttock
[2025-02-21] MEDS: INSULIN DRIP PREMIX 100 UNIT/100 ML PLAST..BAG 7 UNIT IV (03:56)
--- NOTE | 2025-02-21 04:04 | PM.EICU.INT ---
Teleintensivist Intervention Date/Time Was camera activated?: No Issue(s) Addressed Issue(s): Pain, Agitation, Sedation, Delirium (encephalopathy) Other:: Spoke at length with Dr. James Marsh from [facility]. ICU course discussed at length as well as potential need for cEEG and MRI. Pt was not been formally accepted or rejected. [facility] would like to speak to a member of the bedside team. Phone # [phone]
--- NOTE | 2025-02-21 06:31 | PC.NURSE ---
Tube feed total amt. cleared from the pump as well as H20 flush.
[2025-02-21 07:15] LABS: Folate 17.6 ng/mL (2.76-20.0); Vitamin B12 > 1000 pg/mL (239-931)
[2025-02-21] MEDS: ENOXAPARIN 40 MG/0.4 ML SYRINGE SUBCUT (08:24)
[2025-02-21] MEDS: PANTOPRAZOLE 40 MG VIAL IV (08:24)
[2025-02-21] MEDS: CHLORHEXIDINE GLUCONATE 15 ML CUP PO (08:25)
[2025-02-21] MEDS: FOLIC ACID 1 MG TABLET PO (08:25)
[2025-02-21] MEDS: THIAMINE 100 MG in SODIUM CHLORIDE 0.9% 100 ML 404 MG IV (08:46)
[2025-02-21 09:10] LABS: Add Manual Diff / Slide Review NO; Basophils Absolute Auto 200 /uL (0-100); Basophils Percent Auto 1.4 % (0-2); Eosinophils Absolute Auto 400 /uL (0-450); Eosinophils Percent Auto 3.9 % (2-4); Hematocrit 37.3 % (41-53); Hemoglobin 12.1 g/dL (13.5-17.5); Lymphocytes Absolute Auto 1400 /uL (1100-4500); Lymphocytes Percent Auto 12.5 % (25-40); Mean Corpuscular HGB Conc 32.5 % (30-36); Mean Corpuscular Hemoglobin 29.6 PG (26-34); Mean Corpuscular Volume 90.9 fL (80-100); Monocytes Absolute Auto 1300 /uL (0-900); Monocytes Percent Auto 11.6 % (3-14); Neutrophils Absolute Auto 7800 /uL (1500-7000); Neutrophils Percent Auto 70.6 % (50-75); Platelet Count 186 X10^3/uL (150-400); Red Cell Distribution Width 13.1 % (11.6-14.8); White Blood Cell Count 11.1 X10^3/uL (4.5-11.0)
[2025-02-21 09:27] LABS: Alanine Aminotransferase 92 IU/L (<50); Albumin 2.9 g/dL (3.5-5.0); Albumin Globulin Ratio 0.9 (1.0-2.8); Alkaline Phosphatase 64 U/L (38-126); Aspartate Aminotransferase 68 IU/L (17-59); BUN Creatinine Ratio 49.5 (6-22); Bilirubin Total 0.5 mg/dL (0.2-1.3); Blood Urea Nitrogen 47 mg/dL (9-20); Calcium 8.8 mg/dL (8.4-10.2); Carbon Dioxide 24 mmol/L (22-32); Chloride 120 mmol/L (98-107); Estimated Glomerular Filt Rate > 60 mL/min (>60); Globulin 3.2 g/dL (1.7-4.1); Glucose 166 mg/dL (80-110); HEMOLYSIS < 15 (0-50); Potassium 4.6 mmol/L (3.4-5.1); Sodium 150 mmol/L (137-145); Total Protein 6.1 g/dL (6.3-8.2)
[2025-02-21 09:43] LABS: Procalcitonin 0.209 ng/mL (<0.5)
--- NOTE | 2025-02-21 10:27 | PM.DS.1 ---
History of Present Illness History of Present Illness Chief complaint: Respiratory distress Narrative: Per H&P: 64-year-old male type 2 diabetes previously very well controlled but 3 months ago stopped his semaglutide Jardiance statin lisinopril metformin and hydrochlorothiazide because of inability to afford. He was seen in the clinic by his PCP 02/10/2025 (Marianela Goyal D.O. who started him on Lantus 12 units along with lisinopril no atorvastatin and aspirin. Over the next 24 hours the patient underwent tremendous change in behavior as noted by friends and family. He was described as being very angry and agitated confused word salad falling multiple times disoriented. He was brought in by EMS to the emergency room for evaluation. He required intubation/mechanical ventilation on the night following admission after being given phenobarb for severe agitation. Precedex infusion given. Further hx obtained from family and was determined pt drinks 40 proof alcohol throughout the day in coffee. Discharge Providers Provider Date of admission: 02/11/25 16:46 Discharge Date: 02/21/25 Primary care physician: Marianela Goyal DO Consults: 02/11/25 17:14 Consult to Dietitian, Adult Routine Comment: Reason For Exam: Once DKA resolved 02/11/25 17:30 Consult to [facility] [place] Forging Press Lever Tender Routine Comment: Forging Press Lever Tender Consult needed for:: Has no money 02/11/25 18:25 Consult to Tele-transcript clerk Routine Comment: Consulting Provider: Marlena Tele-intensivists Reason for consultation: Supervisor Paint services Has provider been notified: No 02/12/25 08:34 Consult to Dietitian, Adult Routine Comment: Reason For Exam: intubated pt Discharge provider: Sherry Carlos MD Summary Hospital Course Hospital Course: Following intubation, pt was placed on sedation w/precedex, propofol, PRN fentanyl. Empiric abx as well. MRSA screen negative and vanco d/c'd. Did well on SBT 02/14. Extubated but was quite tachypneic afterwards and was placed on bipap. Pt became progressively SOB and was aggressively diuresed. Despite diuresis, he continued to have increased WOB and required reintubation. ECHO showed normal EF. Sputum cx from 02/16 showed Group C strep. Failed SBT 02/17 w/increased RR. Failed SBT 02/18 d/t poor mental status/lethargy. Librium d/c'd and sedation minimized. Failed SBT 02/20 d/t mental status/lethargy. Head CT on admit showed no acute changes. 02/20: Repeat Head CT no acute changes. Ammonia normal. ABG no CO2 retention or acidosis. Hyperglycemia despite insulin drip. Lipase normal. LFTs withsome elevation. CT abd/pelvis showed no acute pancreatic abnormality. Bibasilar pneumonia is seen (Pt day 5 of Zosyn). MRI cannot be done d/t pump incompatability. No EEG capabilities here. No LP capabilities here (No IR). No Neuro or inhouse transcript clerk. Given prolonged intubation, he may soon need trach/peg as well. Pt now on propofol 2.5 mcg/kg/min since yesterday and precedex is at 0.2 mcg/ kg/hr. Contacted [facility] for consideration of transfer - Supervisor Paint recommended tertiary care center. Spoke to transfer Ctr at length. 02/21: Spoke to [facility] Dr. Cross, who felt pt did not require neuroICU. Subseuqently spoke to [facility] Walker who kindly agreed to accept pt. Status at Discharge Cognitive/behavioral status at discharge: confused Functional status at discharge: bed bound Overall status at discharge: patient is not back to baseline Time Spent with Patient Time spent: Greater than 30 minutes Exam Vital Signs (past 8 hours): - 02/21/25 02:30 02/21/25 03:00 02/21/25 03:00 Temperature Pulse Rate 51 L 51 L Respiratory Rate 18 19 Blood Pressure 106/55 L 108/55 L Pulse Oximetry 100 100 Oxygen Delivery Method Fraction of Inspired Oxygen 40 02/21/25 03:00 02/21/25 03:30 02/21/25 04:00 Temperature Pulse Rate 51 L 57 L 50 L Respiratory Rate 19 17 18 Blood Pressure 106/56 L Pulse Oximetry 100 100 100 Oxygen Delivery Method Fraction of Inspired Oxygen 40 02/21/25 04:00 02/21/25 04:00 02/21/25 04:30 Temperature Pulse Rate 50 L 50 L Respiratory Rate 18 19 Blood Pressure 106/56 L Pulse Oximetry 100 100 Oxygen Delivery Method Fraction of Inspired Oxygen 02/21/25 05:00 02/21/25 05:00 02/21/25 05:00 Temperature Pulse Rate 48 L 48 L Respiratory Rate 18 18 Blood Pressure 109/66 109/65 Pulse Oximetry 100 100 Oxygen Delivery Method Fraction of Inspired Oxygen 40 02/21/25 05:30 02/21/25 06:00 02/21/25 06:00 Temperature 99.1 F Pulse Rate 51 L 57 L Respiratory Rate 18 36 H Blood Pressure 136/64 Pulse Oximetry 99 Oxygen Delivery Method Mechanical Ventilation Fraction of Inspired Oxygen 40 02/21/25 06:00 02/21/25 06:04 02/21/25 06:04 Temperature Pulse Rate 57 L 60 Respiratory Rate 35 H 30 H Blood Pressure 136/64 Pulse Oximetry 97 98 Oxygen Delivery Method Fraction of Inspired Oxygen 02/21/25 06:30 02/21/25 07:00 02/21/25 07:00 Temperature Pulse Rate 63 62 Respiratory Rate 28 H 23 Blood Pressure 123/68 Pulse Oximetry 92 92 Oxygen Delivery Method Fraction of Inspired Oxygen 02/21/25 07:30 02/21/25 08:00 02/21/25 08:00 Temperature 98.7 F Pulse Rate 62 67 Respiratory Rate 25 H 24 Blood Pressure Pulse Oximetry 94 98 Oxygen Delivery Method Fraction of Inspired Oxygen 02/21/25 08:00 02/21/25 08:30 02/21/25 09:00 Temperature Pulse Rate 62 Respiratory Rate 21 Blood Pressure 124/81 119/60 Pulse Oximetry 100 Oxygen Delivery Method Fraction of Inspired Oxygen 02/21/25 09:00 02/21/25 09:30 02/21/25 10:00 Temperature Pulse Rate 71 65 68 Respiratory Rate 22 17 21 Blood Pressure Pulse Oximetry 99 99 96 Oxygen Delivery Method Fraction of Inspired Oxygen 02/21/25 10:00 Temperature Pulse Rate Respiratory Rate Blood Pressure 123/62 Pulse Oximetry Oxygen Delivery Method Fraction of Inspired Oxygen Fraction of Inspired Oxygen 40 Oxygen Delivery Method Mechanical Ventilation Narrative Exam Narrative: GEN: Critically ill appearing middle-aged male, intubated, somnolent/obtunded HEENT:NC, Face symmetric CHEST: Respiratory excursions symmetric, diminished but CTAB in the anterior lung montelongo CV: RRR, no M/R/G ABD: Soft, obese, NT/ND, BT present in all 4 quadrants, body habitus limits exam EXTR: warm, well perfused, no C/C/E SKIN: warm and dry, no rash NEURO: Unable to follow commands, unable to elicit clonus, deep tendon reflexes, or Babinski Objective Labs 02/21/25 09:00 02/21/25 09:00 Labs: Laboratory Results - last 24 hr 02/20/25 02/20/25 02/20/25 10:18 11:59 12:44 WBC 10.6 RBC 4.39 L Hgb 12.9 L Hct 39.3 L MCV 89.6 MCH 29.4 MCHC 32.8 RDW 13.2 Plt Count 166 Neut % (Auto) 72.4 Lymph % (Auto) 12.7 L [place] % (Auto) 9.9 Eos % (Auto) 4.4 H Baso % (Auto) 0.6 Neut # (Auto) 7600 H Lymph # (Auto) 1300 [place] # (Auto) 1000 H Eos # (Auto) 500 H Baso # (Auto) 100 PT 14.6 H INR 1.3 ABG Sample Site Right radial ABG pH 7.45 ABG pCO2 38.3 ABG pO2 73 L ABG HCO3 27 ABG Total CO2 26 ABG O2 Saturation 95 ABG Base Excess 2.5 Zachariah Test Positive Respiration Rate 15 O2 Delivery Device Adult ventilator Mode of Support Assist cont ventilat FiO2 % 40 % PEEP or CPAP 5 Sodium 149 H Potassium 3.9 Chloride 114 H Carbon Dioxide 26 BUN 44 H Creatinine 1.09 Estimated GFR > 60 BUN/Creatinine Ratio 40.4 H Glucose 175 H Calcium 8.9 Phosphorus 3.7 Magnesium 2.5 H Total Bilirubin AST ALT Alkaline Phosphatase Ammonia 10 C-Reactive Protein 16.0 H Total Protein Albumin Globulin Albumin/Globulin Ratio Triglycerides 223 H Lipase 107 Vitamin B12 Folate Procalcitonin Nasal Screen MRSA (PCR) 02/20/25 02/21/25 02/21/25 14:32 05:05 09:00 WBC 11.1 H RBC 4.10 L Hgb 12.1 L Hct 37.3 L MCV 90.9 MCH 29.6 MCHC 32.5 RDW 13.1 Plt Count 186 Neut % (Auto) 70.6 Lymph % (Auto) 12.5 L [place] % (Auto) 11.6 Eos % (Auto) 3.9 Baso % (Auto) 1.4 Neut # (Auto) 7800 H Lymph # (Auto) 1400 [place] # (Auto) 1300 H Eos # (Auto) 400 Baso # (Auto) 200 H PT INR ABG Sample Site ABG pH ABG pCO2 ABG pO2 ABG HCO3 ABG Total CO2 ABG O2 Saturation ABG Base Excess Zachariah Test Respiration Rate O2 Delivery Device Mode of Support FiO2 % PEEP or CPAP Sodium 150 H Potassium 4.6 Chloride 120 H Carbon Dioxide 24 BUN 47 H Creatinine 0.95 Estimated GFR > 60 BUN/Creatinine Ratio 49.5 H Glucose 166 H Calcium 8.8 Phosphorus Magnesium Total Bilirubin 0.5 AST 68 H ALT 92 H Alkaline Phosphatase 64 Ammonia C-Reactive Protein Total Protein 6.1 L Albumin 2.9 L Globulin 3.2 Albumin/Globulin Ratio 0.9 L Triglycerides Lipase Vitamin B12 > 1000 H Folate 17.6 Procalcitonin 0.209 Nasal Screen MRSA (PCR) Not detected [facility] Medical History Bronchitis Hypertensive urgency Mass of finger of left hand Left knee pain (05/16/16) History of colon polyps Uncontrolled type 2 diabetes mellitus Excessive thirst Body dysmorphic disorder BMI 39.0-39.9,adult Pain of right great toe Bilateral knee pain Hyperlipidemia associated with type 2 diabetes mellitus Type 2 diabetes mellitus Primary hypertension Erectile dysfunction Plaque psoriasis Obstructive sleep apnea of adult Umbilical hernia without obstruction and without gangrene (10/09/16) Primary insomnia (05/16/16) Surgical History Status post right partial knee replacement History of umbilical hernia repair (12/13/16) History of colonoscopy with polypectomy (08/05/09) Family History Grandfather No problems noted. Social History marital status: unmarried,single number of children: 0 household members: family lives independently: Yes caregiver/support person: No pets and animals: Yes (2/3 year old puppy; sleeps on pt bed) education level: high school occupational status: employed Smoking Status: Current every day smoker quit status: considering quitting alcohol intake: current substance use type: does not use Discharge Plan Discharge Plan Patient Disposition: [facility] Under care of provider: Montez Walker MD Discharge Health Status Multidrug resistant organism: No MDRO Precautions: Shirley Diet/Activity/Treatments Diet: Nothing by Mouth and Tube Feeding Diet comment: Sodium 150 today - plan to increase H2o bolus to 300 cc q6 Activity: Bed rest Discharge Data Primary Care Provider: Marianela Goyal VTE Deep Vein Thrombosis/Pulmonary Embolism Present on Admission: No
--- NOTE | 2025-02-21 10:32 | PC.NURSE ---
Addendum entered by Cristela Ibanez R.N. 02/21/25 11:29: 1122 pt taken via EMS to [facility], no belongings in room, no further pt contact Original Note: Dayshift note: Pt to be transfered via ACLS ground to [facility] Unit 6S Bed 654, Report called to Pa MADERA at [phone]. Pt remains ventilated and sedated with vent settings FiO2 35% TV 500 RR 15 PEEP 5, sats 96-99%. Sedation Precedex and Propofol see emar for titration, insulin gtt infusing as ordered per non-dka protocol.
--- NOTE | 2025-02-21 10:55 | CM.DPNOTE ---
DCP note LENDING MANAGER reviewed EMR Per provider/RN report, pt to transfer to [facility] today for higher level of care. No further CM needs at this time, will continue to follow as needed ELIS Downing
[2025-02-21] MEDS: propofoL 1,000 MG/100 ML VIAL 1.674 MG IV (11:01)
== END 2025-02-21 11:22 | disposition short-term general hospital (02) | DRG 637 ==
LOC: ED 15:52 → AC 16:47 → ICU 17:06
PROVIDERS: Anesthesiology Critical Care Medicine; Emergency Medicine; Family Medicine; Hospitalist; Internal Medicine; Internal Medicine Critical Care Medicine; Admitting Provider Internal Medicine; Emergency Provider Emergency Medicine; PCP Family Medicine; Referring Provider Emergency Medicine; Visit Provider Internal Medicine
DX: E11.00 Type 2 diabetes mellitus with hyperosmolarity without nonketotic hyperglycemic-hyperosmolar coma (NKHHC) (principal); G93.41 Metabolic encephalopathy; J96.01 Acute respiratory failure with hypoxia; I50.31 Acute diastolic (congestive) heart failure; J15.4 Pneumonia due to other streptococci; E87.0 Hyperosmolality and hypernatremia; F10.231 Alcohol dependence with withdrawal delirium; E11.69 Type 2 diabetes mellitus with other specified complication; E78.5 Hyperlipidemia, unspecified; R47.1 Dysarthria and anarthria; G47.33 Obstructive sleep apnea (adult) (pediatric); T50.996A Underdosing of other drugs, medicaments and biological substances, initial encounter; E87.6 Hypokalemia; I11.0 Hypertensive heart disease with heart failure; E66.811 Obesity, class 1; Y90.0 Blood alcohol level of less than 20 mg/100 ml; Y95 Nosocomial condition; Z68.39 Body mass index [BMI] 39.0-39.9, adult; Z72.0 Tobacco use; Z91.141 Patient's other noncompliance with medication regimen due to financial hardship; Z79.4 Long term (current) use of insulin
CPT/HCPCS: 36415; 36569; 36592; 36600; 70450; 70496; 70498; 71045; 74018; 74177; 80048; 80053; 80061; 80305; 80320; 81001; 82009; 82043; 82140; 82550; 82570; 82607; 82746; 82805; 82962; 83036; 83690; 83735; 84100; 84145; 84478; 84484; 85025; 85027; 85610; 86140; 87040; 87070; 87077; 87147; 87205; 87633; 87797; 93005; 93010; 93306; 94002; 94003; 94010; 94660; 94799; 96361; 96374; 96375; 96376; 99233; 99284; 99291; J0131; J0360; J0612; J0696; J1200; J1630; J1642; J1650; J1815; J1940; J2060; J2270; J2470; J2543; J2560; J2704; Q9967

== ENCOUNTER → 2025-04-13 08:28 | Outpatient (CLI) | payer MEDICARE, SELFPAY ==
[2025-02-11 19:04] VITALS: BMI 32.4
[2025-02-21 10:05] VITALS: PULSE 72; RESP 23; RESP 8; O2SAT 98
--- NOTE | 2025-04-13 08:29 | DI.RAD.S_ITS ---
PROCEDURE: XR CHEST 2V INDICATIONS: follow-up prior PNA TECHNIQUE: 2 views of the chest were acquired. COMPARISON: [facility], CR, XR CHEST 1V, 02/20/2025, 8:35. [facility], CR, XR CHEST 1V, 02/17/2025, 12:53. FINDINGS AND IMPRESSION: Mild diffuse interstitial thickening possibly bronchitis/atypical infection. There is no dense airspace disease or pleural effusion identified by radiography. Normal heart size. Degenerative osseous changes. Dictated by: Venkatesh Arora M.D. on 04/13/2025 at 13:18 Approved by: Venkatesh Arora M.D. on 04/13/2025 at 13:19
== END ==
PROVIDERS: PCP Family Medicine; Referring Provider Family Medicine; Visit Provider Family Medicine
DX: Z87.01 Personal history of pneumonia (recurrent) (principal); Z87.09 Personal history of other diseases of the respiratory system; Z72.0 Tobacco use
CPT/HCPCS: 71046

== ENCOUNTER → 2025-04-17 08:47 | Outpatient (CLI) | payer MEDICARE, SELFPAY ==
[2025-02-11 19:04] VITALS: BMI 32.4
[2025-02-21 10:05] VITALS: PULSE 72; RESP 23; RESP 8; O2SAT 98
--- NOTE | 2025-04-17 17:25 | DIAB.MNT ---
Initial Diabetes Medical Nutrition Therapy Assessment Name: Jeremy Stewart Date: 04/17/25 Time: 9-10a Dx: Type II Diabetes Provider: Jyotsna Preferred Learning Style: Hands on Jeremy presents for initial Dm visit. PMH significant for recent hospitalization with PNA and intubation. h/o DKA and excessive ETOH intake. Reports memory deficits about health hx recently. States he was newly dx with T2DM, however EMR and PCP notes indicate otherwise. Has Rybelsus on his personal med list, but not listed as active in EMR. He is unclear if he is taking this. Confirms taking Metformin and Glargine. States he wants to know what he can eat. Not checking BG, but brought supplies for education today. Cares for and lives with his 90 y/o mother. Diet Recall: 5-6a: 4c cheerios with milk and banana and protein shake glucerna 12p: HB egg with banana OR ww ham sandwich with handful of chips 5-6p: eggs, ham, cheese, toast x 2 and hashbrowns x <2c OR pasta with ground burger and red sauce, salad water-- more water intake while hospitalized per report due to water bottle bedside. milk Oj apple juice sometimes diet soda no ETOH Anthropometrics: Ht: 69 Wt: 245# 03/2025 Physical Activity: Considering swimming, but has psoriasis concerns. No program currently. Knee and back pain are barriers. Self-Monitoring Blood Glucose: None, completed a return demo with BG of 136mg/dl (breakfast cereal x 4 hours ago). Interested in CGM sensor. Diabetes Medications: 24u Glargine 1000mg Metformin 7mg Rybelsus--- possibly Pertinent Labs: hgA1c: 12.2% 01/2025 11.5% 01/2025 Past Medical History: (Last Reviewed 02/17/25 @ 11:04 by Zachariah Reardon MD) Bilateral knee pain BMI 39.0-39.9,adult Body dysmorphic disorder Bronchitis Erectile dysfunction Excessive thirst History of colon polyps Hyperlipidemia associated with type 2 diabetes mellitus Hypertensive urgency Left knee pain (05/16/16) Mass of finger of left hand Obstructive sleep apnea of adult Pain of right great toe Plaque psoriasis Primary hypertension Primary insomnia (05/16/16) Type 2 diabetes mellitus Umbilical hernia without obstruction and without gangrene (10/09/16) Uncontrolled type 2 diabetes mellitus Nutrition Rx: Carbohydrates: Meal:45-60g Snack:15-30g Nutrition Diagnosis: - Excessive CHO intake r/t nutrition knowledge deficit aeb elevated hgA1c and diet recall - Physical inactivity r/t limited ability with pain and stage of change barrier aeb pt report Intervention: This participant was very receptive. Provided appropriate educational handouts. Discussed the following topics: Completed intake assessment. Discussed barriers to care. Importance of self-monitoring, provided SMBG education and pt returned demo with success CGM sample, self placement, education, and precautions Impact of macronutrients on blood sugar Brief brainstorm of different breakfast ideas Recommended servings for carbohydrates at meals and snacks Role of physical activity and following provider guidelines for safety and figuring out a plan that will work for him Medication management Created SMART goals for patient self-care and success. Goals: Check to see if you are taking Rybelsus Purchase a water bottle Reduce Cheerios at breakfast Follow-up: JERICHO REESE follow-up in 2-3 weeks. Will discuss more meal/snack ideas next visit. Berta Jin RDN, [facility] Certified Diabetes Care and Fan Mail Clerk P: [phone] Thank you for this referral
== END ==
PROVIDERS: PCP Family Medicine; Referring Provider Family Medicine
DX: E11.10 Type 2 diabetes mellitus with ketoacidosis without coma (principal); E11.69 Type 2 diabetes mellitus with other specified complication; E78.5 Hyperlipidemia, unspecified; Z71.3 Dietary counseling and surveillance; Z79.84 Long term (current) use of oral hypoglycemic drugs; Z79.4 Long term (current) use of insulin
CPT/HCPCS: 97802

== ENCOUNTER → 2025-04-18 07:58 | Outpatient (CLI) | payer MEDICARE, SELFPAY ==
[2025-02-11 19:04] VITALS: BMI 32.4
[2025-02-21 10:05] VITALS: PULSE 72; RESP 23; RESP 8; O2SAT 98
[2025-04-18 08:35] LABS: Add Manual Diff / Slide Review NO; Basophils Absolute Auto 100 /uL (0-100); Basophils Percent Auto 0.9 % (0-2); Eosinophils Absolute Auto 200 /uL (0-450); Eosinophils Percent Auto 2.3 % (2-4); Hematocrit 39.7 % (41-53); Hemoglobin 13.1 g/dL (13.5-17.5); Lymphocytes Absolute Auto 2000 /uL (1100-4500); Lymphocytes Percent Auto 24.5 % (25-40); Mean Corpuscular HGB Conc 33.1 % (30-36); Mean Corpuscular Hemoglobin 29.4 PG (26-34); Monocytes Absolute Auto 600 /uL (0-900); Monocytes Percent Auto 6.9 % (3-14); Neutrophils Absolute Auto 5300 /uL (1500-7000); Neutrophils Percent Auto 65.4 % (50-75); Platelet Count 248 X10^3/uL (150-400); Red Blood Cell Count 4.46 X10^6/uL (4.5-5.9); Red Cell Distribution Width 14.7 % (11.6-14.8); White Blood Cell Count 8.1 X10^3/uL (4.5-11.0)
[2025-04-18 08:51] LABS: Alanine Aminotransferase 24 IU/L (<50); Albumin 4.1 g/dL (3.5-5.0); Albumin Globulin Ratio 1.5 (1.0-2.8); Alkaline Phosphatase 39 U/L (38-126); Aspartate Aminotransferase 32 IU/L (17-59); BUN Creatinine Ratio 26.3 (6-22); Bilirubin Total 0.7 mg/dL (0.2-1.3); Blood Urea Nitrogen 15 mg/dL (9-20); Calcium 9.1 mg/dL (8.4-10.2); Carbon Dioxide 26 mmol/L (22-32); Chloride 107 mmol/L (98-107); Cholesterol 103 mg/dL (140-199); Estimated Glomerular Filt Rate > 60 mL/min (>60); Globulin 2.8 g/dL (1.7-4.1); Glucose 120 mg/dL (70-99); HDL Cholesterol 29 mg/dL (40-60); LDL Cholesterol Calculated 59 mg/dL (<100); Sodium 140 mmol/L (137-145); Total Protein 6.9 g/dL (6.3-8.2); Triglycerides 73 mg/dL (35-150)
[2025-04-18 08:57] LABS: HEMOLYSIS 101 (0-50); Potassium 4.7 mmol/L (3.4-5.1)
== END ==
PROVIDERS: PCP Family Medicine; Referring Provider Family Medicine; Visit Provider Family Medicine
DX: J96.00 Acute respiratory failure, unspecified whether with hypoxia or hypercapnia (principal); E11.10 Type 2 diabetes mellitus with ketoacidosis without coma; E11.69 Type 2 diabetes mellitus with other specified complication; E78.5 Hyperlipidemia, unspecified
CPT/HCPCS: 36415; 80053; 80061; 83036; 85025

== ENCOUNTER → 2025-04-30 12:42 | Outpatient (CLI) | payer MEDICARE, SELFPAY ==
[2025-02-11 19:04] VITALS: BMI 32.4
[2025-02-21 10:05] VITALS: PULSE 72; RESP 23; RESP 8; O2SAT 98
--- NOTE | 2025-04-30 12:55 | DIAB.MNTFU ---
Follow-up Diabetes Medical Nutrition Therapy Assessment Name: Jeremy Stewart Date: 04/30/25 Time: 1-140p Dx: Type II Diabetes Provider: Jyotsna Jeremy presents for Dm visit. PMH significant for recent hospitalization with PNA and intubation. h/o DKA and excessive ETOH intake. Reports memory deficits about health hx recently. Smoothbelsus was on his personal med list, but he has confirmed he is not taking it due to cost. Continues taking Metformin and Glargine. big improvement in hgA1c at 6%. No lows reported or captured on CGM sample x 7 days. Cares for and lives with his 90 y/o mother. Diet Recall: 5-6a: 2-3c cheerios or special k with berries with milk and banana and protein shake glucerna and HB eggs 12p: PBJ sandwich on ww OR ww ham sandwich with handful of chips 5-6p: Clam chowder from [employer] +/- crackers water milk Oj a little sometimes diet soda no ETOH Anthropometrics: Ht: 69 Wt: 245# 03/2025 Physical Activity: Considering swimming, but has psoriasis concerns. No program currently. Knee and back pain are barriers. Still thinking about swimming. Has signed up for [employer] and gym. Unclear if his account has been cancelled or not. Self-Monitoring Blood Glucose: Not using SMBG at home right now, but confirms he understands how to check BG. Wants to try CGM again since his last one fell off after 7 days. Wants PCP to send in an rx for personal CGM per report.RD messaged PCP workgroup. TIR well within goal. TIR: 0% veryhigh 7% high 93% in range 0% low <1% very low --- seemingly false lows when sensor fell off per report avmg/dl std dev: 31mg/dl variance: 23.5% Diabetes Medications: 24u Glargine 1000mg Metformin Pertinent Labs: hgA1c: 12.2% 01/2025 11.5% 01/2025 6.0% 03/2025 Past Medical History: (Last Reviewed 02/17/25 @ 11:04 by Zachariah Reardon MD) Bilateral knee pain BMI 39.0-39.9,adult Body dysmorphic disorder Bronchitis Erectile dysfunction Excessive thirst History of colon polyps Hyperlipidemia associated with type 2 diabetes mellitus Hypertensive urgency Left knee pain (05/16/16) Mass of finger of left hand Obstructive sleep apnea of adult Pain of right great toe Plaque psoriasis Primary hypertension Primary insomnia (05/16/16) Type 2 diabetes mellitus Umbilical hernia without obstruction and without gangrene (10/09/16) Uncontrolled type 2 diabetes mellitus Nutrition Rx: Carbohydrates: Meal:45-60gSnack:15-30g Nutrition Diagnosis: - Excessive CHO intake r/t nutrition knowledge deficit aeb elevated hgA1c and diet recall - in progress - Physical inactivity r/t limited ability with pain and stage of change barrier aeb pt report - in progress Intervention: This participant was very receptive. Provided appropriate educational handouts. Discussed the following topics: Impact of juice on BG SF options available at his grocery store CGM education, self placement and precautions Cereal portions and types Physical activity Created SMART goals for patient self-care and success. Goals: Check to see if you are taking Rybelsus- met Purchase a water bottle- met Reduce Cheerios at breakfast - not met Look for a sugar free juice - new Avoid juice- new Call ADS in one week regarding personal CGM rx- new Follow-up: JERICHO REESE follow-up in 3-4 weeks Berta Jin RDN, [facility] Certified Diabetes Care and Horticultural Farmworker P: [phone] Thank you for this referral
== END ==
LOC: DIET 12:42
PROVIDERS: PCP Family Medicine; Referring Provider Family Medicine
DX: E11.9 Type 2 diabetes mellitus without complications (principal); Z79.4 Long term (current) use of insulin; Z79.84 Long term (current) use of oral hypoglycemic drugs
CPT/HCPCS: 97803

== ENCOUNTER → 2025-05-21 07:40 | Outpatient (CLI) | payer MEDICARE, SELFPAY ==
[2025-05-13 13:14] VITALS: PULSE 72; RESP 23; RESP 8; O2SAT 98; BMI 32.4
--- NOTE | 2025-05-21 07:42 | DI.MRI.S_ITS ---
PROCEDURE: MR HEAD/BRAIN WO/W CON INDICATIONS: increased memory loss TECHNIQUE: Noncontrast axial T1 spin echo, axial T2 fast spin echo, sagittal and axial FLAIR, coronal T2 fast spin echo, axial gradient echo, axial diffusion and ADC through the brain. After the administration of contrast, axial and coronal and sagittal 3D VIBE or T1 spin echo with fat saturation through the brain. COMPARISON: None. FINDINGS: CSF Spaces: Basal cisterns are patent. No extra-axial fluid collections. Ventricles are normal in size and shape. Brain: No intracranial masses or hemorrhage. Guillory/white matter interface is normal. Brainstem appears normal. Diffusion-weighted sequence is unremarkable without evidence of acute infarct. Normal intravascular flow voids are present. Moderate atrophy and white matter chronic ischemic change. There is sequelae of prior solitary punctate microhemorrhage noted in the left inferior parietal lobule cortex. No acute hemorrhage. Skull and face: Calvarial marrow is normal in signal. Orbits appear normal. Sinuses: Sinuses and mastoids appear clear. IMPRESSION: Atrophy and chronic ischemic change without acute infarct, hemorrhage or mass lesion. Solitary sequelae of left parietal cortical old microhemorrhage may reflect small cryptogenic cavernous hemangioma or prior hypertensive episode Approved by: Tereso Mcneil M.D. on 05/22/2025 at 14:30
== END ==
PROVIDERS: Family Provider Family Medicine; PCP Family Medicine; Referring Provider Family Medicine; Visit Provider Family Medicine
DX: G45.9 Transient cerebral ischemic attack, unspecified (principal); R41.3 Other amnesia; Z86.69 Personal history of other diseases of the nervous system and sense organs; Z87.09 Personal history of other diseases of the respiratory system
CPT/HCPCS: 70553; A9579

== ENCOUNTER → 2025-05-27 08:43 | Outpatient (CLI) | payer MEDICARE, SELFPAY ==
[2025-02-11 19:04] VITALS: BMI 32.4
[2025-02-21 10:05] VITALS: PULSE 72; RESP 23; RESP 8; O2SAT 98
[2025-05-13 13:14] VITALS: PULSE 72; RESP 23; RESP 8; O2SAT 98; BMI 32.4
--- NOTE | 2025-05-27 08:58 | DIAB.FU ---
Follow-up Diabetes Education Assessment: Personal CGM Placement Name: Jeremy Stewart Date: 05/27/25 Time: 9-930a Dx: Type II Diabetes Provider: Jyotsna Luna presents for Dm visit. PMH significant for recent hospitalization with PNA and intubation. h/o DKA and excessive ETOH intake. Continues nutrition changes. Reports finding a juice with no sugar added, but not zero sugar. Brought personal CGM today for education. Cares for and lives with his 90 y/o mother. Anthropometrics: Ht: 69 Wt: 245# 03/2025 Physical Activity: Considering swimming, but has psoriasis concerns. No program currently. Knee and back pain are barriers. Still thinking about swimming. Has signed up for [employer] and gym. Unclear if his account has been cancelled or not. Self-Monitoring Blood Glucose: Wore another CGM sample, and glucose in goal. Today he brought his personal CGM supplies and director of strategic alliances for education/set up. TIR: 0% veryhigh 3% high 97% in range 0% low 0% very low avmg/dl std dev: 26mg/dl variance: 20.7% Last TIR: 0% veryhigh 7% high 93% in range 0% low <1% very low --- seemingly false lows when sensor fell off per report avmg/dl std dev: 31mg/dl variance: 23.5% Diabetes Medications: 24u Glargine 1000mg Metformin BID Pertinent Labs: hgA1c: 12.2% 01/2025 11.5% 01/2025 6.0% 03/2025 Past Medical History: (Last Reviewed 02/17/25 @ 11:04 by Zachariah Reardon MD) Bilateral knee pain BMI 39.0-39.9,adult Body dysmorphic disorder Bronchitis Erectile dysfunction Excessive thirst History of colon polyps Hyperlipidemia associated with type 2 diabetes mellitus Hypertensive urgency Left knee pain (05/16/16) Mass of finger of left hand Obstructive sleep apnea of adult Pain of right great toe Plaque psoriasis Primary hypertension Primary insomnia (05/16/16) Type 2 diabetes mellitus Umbilical hernia without obstruction and without gangrene (10/09/16) Uncontrolled type 2 diabetes mellitus Intervention: This participant was very receptive. Provided appropriate educational handouts. Discussed the following topics: CGM education and self placement Juice options that still have CHO and impact BG vs those that are zero sugar Created SMART goals for patient self-care and success. Goals: Look for a sugar free juice - in progress Avoid juice- in progress Call ADS in one week regarding personal CGM rx- met Wear personal CGm- new Follow-up: JERICHO REESE follow-up prn. TIR and hgA1c well in goal. Jeremy reports feeling confident about nutrition changes and CGM use. Encouraged him to call or message with questions or follow-up needs. He agreed to this plan. Berta Jin RDN, [facility] [place] Certified Diabetes Care and Business Operations Specialist P: [phone] Thank you for this referral
== END ==
LOC: DIET 08:44
PROVIDERS: Family Provider Family Medicine; PCP Family Medicine
DX: E11.9 Type 2 diabetes mellitus without complications (principal); Z71.3 Dietary counseling and surveillance; Z79.84 Long term (current) use of oral hypoglycemic drugs; Z79.4 Long term (current) use of insulin
CPT/HCPCS: 95249

== ENCOUNTER → 2025-09-07 09:14 | Outpatient (CLI) | payer MEDICARE, SELFPAY ==
[2025-05-13 13:14] VITALS: PULSE 72; RESP 23; RESP 8; O2SAT 98; BMI 32.4
[2025-09-07 10:57] LABS: Hemoglobin A1C% w Est Avg Glu 6.1 % (4.0-6.0)
== END ==
PROVIDERS: Family Provider Family Medicine; PCP Family Medicine; Referring Provider Family Medicine; Visit Provider Family Medicine
DX: E11.69 Type 2 diabetes mellitus with other specified complication (principal); E78.5 Hyperlipidemia, unspecified
CPT/HCPCS: 36415; 83036